=== PATIENT | female | born 1945 | race Caucasian/White ===

== ENCOUNTER 2016-05-31 06:17 | Inpatient (IN) | payer MEDICARE, OTHER ==
[~2016-05-31] VITALS: Ht 165.1 cm; Wt 95.5 kg
[~2016-05-31 06:17] MED LIST: ASPI-676 PO; INSU100C SQ; LEVEM SC; LISI20TA11 PO; MYCO500T13 PO; PRED1TAB2 PO; PRO20 PO; TACR1CAP26 PO
[2016-05-31] MEDS ORDERED: morphine 4 MG/ML VIAL IV STA (06:53)
[2016-05-31] MEDS ORDERED: SOD CHLORIDE 0.9% 500 ML IV STA ×2 (06:53→07:49)
[2016-05-31] MEDS ORDERED: METOCLOPRAMIDE 10 MG INJ IV STA (06:53)
[2016-05-31 07:13] LABS: ADD SCAN DIFF NO
[2016-05-31 07:16] LABS: BASOPHILS % 0.3 % (0.0-2.0); EOSINOPHILS # 0.2 10^3/ul (0.0-0.5); EOSINOPHILS % 2.2 % (0.0-7.0); HEMATOCRIT 35.4 % (37.0-47.0); HEMOGLOBIN 12.6 g/dl (12.0-16.0); LYMPHOCYTES # 1.3 10^3/ul (0.8-2.9); LYMPHOCYTES % 13.9 % (15.0-51.0); MEAN CORPUSCULAR HEMOGLOBIN 29.6 pg (29.0-33.0); MEAN CORPUSCULAR HGB CONC 35.6 g/dl (32.0-37.0); MEAN CORPUSCULAR VOLUME 83.3 fl (82.0-101.0); MEAN PLATELET VOLUME 10.6 fl (7.4-10.4); MONOCYTE # 0.7 10^3/ul (0.3-0.9); MONOCYTES % 8.1 % (0.0-11.0); NEUTROPHIL # 6.8 10^3/ul (1.6-7.5); NEUTROPHILS % 75.1 % (39.0-77.0); PLATELET COUNT 273 10^3/UL (140-415); RED BLOOD COUNT 4.25 10^6/ul (4.20-5.40)
[2016-05-31 07:26] LABS: INR 0.89; PT RATIO 0.9
[2016-05-31 07:27] LABS: PARTIAL THROMBOPLASTIN TIME 27.2 Sec (25.0-35.0)
[2016-05-31 07:31] LABS: ALBUMIN 3.8 g/dl (3.3-4.9); ALBUMIN/GLOBULIN RATIO 1.46; BILIRUBIN,INDIRECT 0.3 mg/dl (0-1.1); BILIRUBIN,TOTAL 0.3 mg/dl (0.2-1.3); CALCIUM 9.3 mg/dl (8.4-10.2); CREATININE 0.63 mg/dl (0.44-1.00); TOTAL PROTEIN 6.4 g/dl (6.1-8.1)
--- NOTE | 2016-05-31 07:38 | RADRPT ---
PROCEDURE: XR Chest. CLINICAL INDICATION: Pain TECHNIQUE: Single frontal chest x-ray. COMPARISON: 10/13/2015 FINDINGS: No acute infiltrate, pleural effusion or pneumothorax is identified. Cardiomediastinal silhouette i s within normal limits. Aortic atherosclerotic calcification is noted. The osseous structures are remarkable for degenerative spondylosis of the spine. IMPRESSION: 1. No evidence of acute cardiopulmonary process. 2. Aortic atherosclerosis. RPTAT: EE .Isreal Gray MD, MD Date Time Electronically viewed and signed by .Isreal Gray MD, MD on 05/31/2016 07:37 .R/
[2016-05-31] MEDS ORDERED: LISI40TA9 PO (07:43)
[2016-05-31] MEDS ORDERED: MYCO500T13 PO (07:44)
--- NOTE | 2016-05-31 07:44 | RADRPT ---
PROCEDURE: CT Abdomen and Pelvis without contrast. CLINICAL INDICATION: Right-sided pain TECHNIQUE: CT of the abdomen and pelvis was performed on a multi-detector scanner without IV contr ast. Coronal and sagittal images were reformatted from the axial data set. One or more of the foll owing dose reduction techniques were used: automated exposure control, adjustment of the mA and/or kV according to patient size, use of iterative reconstruction technique. CTDI = 22.76 mGy. DLP = 14 10.95 mGy-cm. COMPARISON: CT, 11/27/2011 FINDINGS: CT abdomen: 12 mm pulmonary nodule is seen laterally in the right middle lobe (3-12), previously measuring 10 mm . The heart size is normal, without pericardial effusion. Coronary arterial calcifications are not ed. Gallbladder is surgically absent. Gallbladder, biliary tree, pancreas, spleen and adrenal glan ds are unremarkable. There is chronic moderate to severe bilateral renal atrophy. No urolithiasis or obstructive uropathy is identified. Small hiatal hernia is noted. The stomach is otherwise ashley sly unremarkable. The aorta is of normal caliber. Aortic vascular calcifications are present. There is no retroperit schulte lymphadenopathy. The puma hepatis region is clear. CT pelvis: No bowel obstruction, free intraperitoneal air or abscess is identified. There is no diverticulosis , diverticulitis, colitis or appendicitis. Urinary bladder is grossly unremarkable. Multiple calci fied uterine fibroids are seen measuring up to 3 cm. Normal appearing renal transplant is identifie d in the left pelvis. No pelvic mass, free fluid or lymphadenopathy is identified. The surrounding osseous structures are remarkable for degenerative spondylosis of the spine. No ost eolytic or osteoblastic lesion is detected. IMPRESSION: 1. 12 mm pulmonary nodule is identified in the right middle lobe, demonstrating slight interval inc rease in size when compared to the prior CT from 2011 - given slow rate of growth, findings more lik ting represent a benign process, though CT followup in 12 months is recommended to confirm continued stability. 2. Coronary arterial and aortoiliac atherosclerotic calcifications are present. 3. Normal appearing renal transplant is identified in the left pelvis. The patient's [place] kidney s demonstrate moderate to severe chronic atrophy. 4. Gallbladder is surgically absent. 5. Small hiatal hernia is noted. 6. Calcified uterine fibroids are seen measuring up to 3 cm. RPTAT: EE .Isreal Gray MD, MD Date Time Electronically viewed and signed by .Isreal Gray MD, MD on 05/31/2016 07:44 .R/
[2016-05-31] MEDS ORDERED: PRED1TAB2 PO (07:45)
[2016-05-31 09:10] LABS: ADD UMIC YES; URINE BILIRUBIN (Dip) NEGATIVE (NEGATIVE); URINE BLOOD (Dip) NEGATIVE (NEGATIVE); URINE COLOR LT. YELLOW (YELLOW); URINE GLUCOSE (Dip) NEGATIVE (NEGATIVE); URINE KETONES (Dip) NEGATIVE (NEGATIVE); URINE LEUKOCYTE ESTERASE (Dip) NEGATIVE (NEGATIVE); URINE NITRITE (Dip) NEGATIVE (NEGATIVE); URINE TOTAL PROTEIN (Dip) 1+ (NEGATIVE); URINE UROBILINOGEN (Dip) 0.2 E.U./dL (0.1-1.0)
[2016-05-31] MEDS ORDERED: TACR1CAP26 PO (09:29)
[2016-05-31] MEDS ORDERED: TACR0.5C18 PO (09:29)
[2016-05-31] MEDS ORDERED: NIFE30TA60 PO (09:30)
[2016-05-31] MEDS ORDERED: PRAV40TA76 PO (09:31)
[2016-05-31] MEDS ORDERED: ESOM40CA PO (09:31)
[2016-05-31] MEDS ORDERED: LEVO50TA71 PO (09:31)
[2016-05-31] MEDS ORDERED: LEVEM SC (09:36)
[2016-05-31] MEDS ORDERED: INSU200I SQ (09:37)
[2016-05-31 09:41] LABS: URINE RBCS 0-2 /HPF (0)
[2016-05-31 11:28] LABS: CALCIUM 8.8 mg/dl (8.4-10.2); CREATININE 0.62 mg/dl (0.44-1.00); POTASSIUM 4.9 mmol/L (3.5-5.1)
[2016-05-31] MEDS ORDERED: ONDANSETRON 4 MG INJ IV PRN (13:30)
[2016-05-31] MEDS ORDERED: ACETAMINOPHEN 325 MG TAB PO PRN (13:30)
--- NOTE | 2016-05-31 13:33 | ERA ---
ER Documentation Chief Complaint Date/Time DATE: 05/31/16 TIME: 13:27 Chief Complaint ap that radiates to the back nausea and dizziness HPI 71-year-old female presenting with right upper quadrant pain for 1 week. She states it radiates to her back. The pain is constant, 8 out of 10, aching and stabbing, unrelieved with anything. No exacerbating factors. Mild nausea but no vomiting. She denies diarrhea but does endorse constipation. She states she has not had this before. She has not had any associated fevers or chills. ROS All systems reviewed and are negative except as per history of present illness. Medications Home Meds Reported Medications Insulin Lispro (Humalog Kwikpen) 200 Unit/1 Ml Insuln.pen, 0 SQ AC BREAKFAST DINNER, EA SLIDING SCALE 05/31/16 Insulin Detemir (Levemir) 100 Unit/1 Ml Vial, 35 UNIT SC QHS, VIAL 05/31/16 Esomeprazole Mag Trihydrate (Nexium) 40 Mg Capsule.dr, 40 MG PO DAILY, #30 CAP 05/31/16 Pravastatin Sodium* (Pravastatin Sodium*) 40 Mg Tablet, 40 MG PO HS, TAB 05/31/16 Levothyroxine Sodium* (Levoxyl*) 50 Mcg Tablet, 50 MCG PO BEFORE BREAKFAST, #30 TAB 05/31/16 Nifedipine* (Nifedipine ER*) 30 Mg Tablet.sa, 30 MG PO DAILY, TAB.SA 05/31/16 Tacrolimus* (Prograf*) 1 Mg Capsule, 4 MG PO QAM, CAP 05/31/16 Tacrolimus* (Prograf*) 0.5 Mg Capsule, 4.5 MG PO QPM, CAP 05/31/16 Prednisone* (Prednisone*) 1 Mg Tablet, 2 MG PO DAILY, TAB 05/31/16 Mycophenolate Mofetil* (Cellcept*) 500 Mg Tablet, 500 MG PO BID, #60 TAB 05/31/16 Lisinopril* (Lisinopril*) 40 Mg Tablet, 40 MG PO DAILY, #30 TAB 05/31/16 Aspirin (Ashley Child) 81 Mg Chew, 81 MG PO DAILY 03/18/10 Discontinued Reported Medications Nifedipine* (Procardia*) 20 Mg Cap, 20 MG PO BID, CAP PER PATIENTS SON 10/13/15 Lisinopril* (Lisinopril*) 20 Mg Tablet, 20 MG PO DAILY, #30 TAB 10/13/15 Tacrolimus* (Prograf*) 1 Mg Capsule, 3 MG PO BID, CAP 10/13/15 Mycophenolate Mofetil* (Cellcept*) 500 Mg Tablet, 250 MG PO BID 03/18/10 Prednisone* (Prednisone*) 1 Mg Tablet, 2 MG PO BID 03/18/10 Discontinued Scripts Insulin Detemir (Levemir) 100 Unit/1 Ml Vial, 24 UNIT SC QHS for 30 Days, VIAL 4 Refills Prov:KEM STRAUSS S. 10/14/15 Insulin Lispro (Humalog) 100 Unit/1 Ml Cartridge, 8 UNIT SQ AC BREAKFAST DINNER for 30 Days, 4 Refills Prov:KEM STRAUSS S. 10/14/15 Allergies Allergies: Coded Allergies: No Known Drug Allergies (Verified Allergy, Mild, 05/31/16) PMhx/Soc History of Surgery: Yes (Cholecystectomy) Anesthesia Reaction: No Hx Neurological Disorder: No Hx Respiratory Disorders: No Hx Cardiac Disorders: Yes (HTN, DM) Hx Psychiatric Problems: No (ANXIETY) Hx Miscellaneous Medical Probl: Yes ( hypothyroidism, dyslipidemia) Hx Alcohol Use: No Hx Substance Use: No Hx Tobacco Use: No Smoking Status: Never smoker FmHx Family History: No diabetes Physical Exam Vitals Vital Signs Date Time Temp Pulse Resp B/P Pulse Ox O2 Delivery O2 Flow Rate FiO2 05/31/16 08:10 71 16 170/68 99 Room Air 05/31/16 06:22 98.6 71 14 162/70 97 Physical Exam Const: Well-appearing, obese, no distress Head: Atraumatic Eyes: Normal Conjunctiva ENT: Normal External Ears, Nose and Mouth. Neck: Full range of motion.No meningismus. Resp: Clear to auscultation bilaterally Cardio: Regular rate and rhythm, no murmurs Abd: Soft, right upper quadrant tenderness to palpation, no rebound or guarding, non distended. Normal bowel sounds Skin: No petechiae or rashes Back: No midline or flank tenderness Ext: No cyanosis, or edema Neur: Awake and alert Psych: Normal Mood and Affect Result Diagram: 05/31/16 0703 05/31/16 1045 Results 24 hrs Laboratory Tests Test 05/31/16 07:03 05/31/16 08:50 05/31/16 10:45 White Blood Count 9.010^3/ul Red Blood Count 4.2510^6/ul Hemoglobin 12.6g/dl Hematocrit 35.4% Mean Corpuscular Volume 83.3fl Mean Corpuscular Hemoglobin 29.6pg Mean Corpuscular Hemoglobin Concent 35.6g/dl Red Cell Distribution Width 12.0% Platelet Count 30381^3/UL Mean Platelet Volume 10.6fl Neutrophils % 75.1% Lymphocytes % 13.9% Monocytes % 8.1% Eosinophils % 2.2% Basophils % 0.3% Nucleated Red Blood Cells % 0.0/100WBC Neutrophils # 6.810^3/ul Lymphocytes # 1.310^3/ul Monocytes # 0.710^3/ul Eosinophils # 0.210^3/ul Basophils # 0.010^3/ul Nucleated Red Blood Cells # 0.010^3/ul Prothrombin Time 12.0Sec Prothrombin Time Ratio 0.9 INR International Normalized Ratio 0.89 Activated Partial Thromboplast Time 27.2Sec Sodium Level 124mmol/L 125mmol/L Potassium Level 5.0mmol/L 4.9mmol/L Chloride Level 96mmol/L 98mmol/L Carbon Dioxide Level 21mmol/L 23mmol/L Anion Gap 12 9 Blood Urea Nitrogen 16mg/dl 14mg/dl Creatinine 0.63mg/dl 0.62mg/dl Glucose Level 202mg/dl 242mg/dl Lactic Acid Level 1.7mmol/L Calcium Level 9.3mg/dl 8.8mg/dl Total Bilirubin 0.3mg/dl Direct Bilirubin 0.00mg/dl Indirect Bilirubin 0.3mg/dl Aspartate Amino Transf (AST/SGOT) 26IU/L Alanine Aminotransferase (ALT/SGPT) 29IU/L Alkaline Phosphatase 135IU/L Total Protein 6.4g/dl Albumin 3.8g/dl Globulin 2.60g/dl Albumin/Globulin Ratio 1.46 Lipase 49U/L Urine Color LT. YELLOW Urine Clarity CLEAR Urine pH 6.5 Urine Specific [place] 1.010 Urine Ketones NEGATIVE Urine Nitrite NEGATIVE Urine Bilirubin NEGATIVE Urine Urobilinogen 0.2 E.U./dL Urine Leukocyte Esterase NEGATIVE Urine Microscopic RBC 0-2/HPF Urine Microscopic WBC 0-2/HPF Urine Epithelial Cells OCCASIONAL Urine Hemoglobin NEGATIVE Urine Glucose NEGATIVE% Urine Total Protein 1+ Current Medications Medications (Trade) Dose Ordered Sig/Anil Route PRN Reason Start Time Stop Time Status Last Admin Dose Admin Sodium Chloride (NS) 500 ml @ 500 mls/hr Q1H STAT IV 05/31/16 06:53 05/31/16 07:52 DC 05/31/16 07:54 Morphine Sulfate (morphine) 4 mg ONCE STAT IV 05/31/16 06:53 05/31/16 06:55 DC 05/31/16 07:55 Metoclopramide HCl 10 mg 10 mg ONCE STAT IV 05/31/16 06:53 05/31/16 06:55 DC 05/31/16 07:55 Sodium Chloride (NS) 500 ml @ 500 mls/hr Q1H STAT IV 05/31/16 07:49 05/31/16 08:48 DC 05/31/16 08:06 Ondansetron HCl (Zofran Inj) 4 mg ER BRIDGE PRN IV NAUSEA AND/OR VOMITING 05/31/16 13:30 06/01/16 13:29 Acetaminophen (Tylenol Tab) 650 mg ER BRIDGE PRN PO MILD PAIN/FEVER 05/31/16 13:30 06/01/16 13:29 Procedures/MDM EMERGENT LABS AND DIAGNOSTIC STUDIES: Lab Results above were reviewed and interpreted by me. CBC unremarkable BMP shows hyponatremia and hyperglycemia Repeat BMP shows hyponatremia Urinalysis unremarkable Radiology Results as interpreted by Radiology below were reviewed by Lana Diallo MD: CT abdomen and pelvis: IMPRESSION: 1. 12 mm pulmonary nodule is identified in the right middle lobe, demonstrating slight interval increase in size when compared to the prior CT from 2012 - given slow rate of growth, findings more likely represent a benign process, though CT followup in 12 months is recommended to confirm continued stability. 2. Coronary arterial and aortoiliac atherosclerotic calcifications are present. 3. Normal appearing renal transplant is identified in the left pelvis. The patient's [place] kidneys demonstrate moderate to severe chronic atrophy. 4. Gallbladder is surgically absent. 5. Small hiatal hernia is noted. 6. Calcified uterine fibroids are seen measuring up to 3 cm. Chest x-ray shows no acute abnormalities Initial Nursing notes reviewed. Previous Medical Records requested via the Electronic Health Record. EMERGENCY DEPARTMENT COURSE / MEDICAL DECISION MAKING: Patient is presenting with right upper quadrant pain for 1 week with associated nausea. Vitals are stable and she is afebrile and well-appearing. I have a low suspicion for an acute surgical abdomen. Differential includes but is not limited to cholangitis, biliary obstruction, pancreatitis, hepatitis, lower lobe pneumonia, gastritis, colitis, cardiac pathology, aortic dissection, ureterolithiasis, pyelonephritis. Labs were ordered to evaluate for above and were notable only for hyponatremia of unknown etiology. Patient seems euvolemic on exam. However 1 L of IV fluids was given without any effect on the sodium. Chest Xray ordered to evaluate for pneumonia and was read as normal by radiology. CT of the abdomen/pelvis was ordered and showed no acute pathology or specifically no specific etiology for her pain. I have a low suspicion for ischemic bowel or aortic dissection or ruptured aneurysm. Given the patient's continued hyponatremia of unknown etiology, I will admit her for further workup and management. Patient remained stable while in the ED. Accepting Care Team: Current data and ongoing care discussed. Time: Time of admission Primary Provider: Dixie Consulting: none Outstanding Data: none Departure Diagnosis: Primary Impression: Right upper quadrant pain Additional Impression: Hyponatremia Condition: MELANI Jeong MD May 31, 2016 13:33
[2016-05-31] MEDS ORDERED: MAGNESIUM HYDROXIDE 30ML CUP PO PRN (15:00)
[2016-05-31] MEDS ORDERED: BISACODYL (EC) 5 MG TAB PO PRN (15:00)
[2016-05-31] MEDS ORDERED: HYDROCODONE/APAP (5/325) TAB PO PRN (15:00)
[2016-05-31] MEDS ORDERED: NACL 0.9% 3 ML SYG IV SCH (15:00)
[2016-05-31 15:15] VITALS: BP 172/73; PULSE 74; RESP 18
[2016-05-31 16:00] VITALS: PULSE 65
[2016-05-31 16:16] VITALS: Ht 165.1 cm; Wt 95.5 kg
[2016-05-31] MEDS ORDERED: hydrALAzine 20 MG INJ IV PRN (16:30)
--- NOTE | 2016-05-31 16:54 | HP ---
DATE OF ADMISSION: 05/31/2016 TIME OF EVALUATION: 1315. REASON FOR ADMISSION: Abdominal pain, nausea. CONSULTATIONS: Dr. Lew Mcguire, Nephrology. HISTORY OF PRESENT ILLNESS: This is a 71-year-old female with past medical history of end-stage renal disease status post kidney transplant, essential hypertension, type 2 diabetes mellitus, and obesity who came to the emergency room with a chief complaint of abdominal pain with associated nausea and 1 episode of nonbilious, nonbloody vomiting and dizziness. The patient denied any fevers or chills. The patient denied any chest pain. She was complaining of constipation. Denied any dysuria or hematuria. In the emergency room, the patient was noticed to have significant hyponatremia with a sodium of 124. The patient underwent a CT scan of the abdomen and pelvis that was negative for any acute intra-abdominal findings. The CT scan showed surgical absence of gallbladder and normal appearing renal transplant in the left pelvis. The patient's chest x-ray was negative for any acute cardiopulmonary findings. In the emergency room, the patient was treated with IV normal saline and analgesics with improvement of the patient's symptoms. The patient had a repeat BMP done that showed a sodium of only 125. PAST MEDICAL HISTORY: 1. End-stage renal disease. Status post renal transplant. 2. Type 2 diabetes mellitus. 3. Essential hypertension. 4. Obesity. 5. Dyslipidemia. 6. Hypothyroidism. PAST SURGICAL HISTORY: Renal transplant. HOME MEDICATIONS: 1. Lisinopril 40 mg p.o. daily. 2. Nifedipine 30 mg p.o. daily. 3. Pravastatin 40 mg p.o. at bedtime. 4. Aspirin 81 mg p.o. daily. 5. Nexium 40 mg p.o. daily. 6. Levemir insulin 35 units subcutaneously at bedtime. 7. Insulin Lispro subcutaneously before breakfast and dinner as per sliding scale. 8. Synthroid 50 mcg before breakfast. HOME MEDICATIONS: 1. Prednisone 1 mg p.o. daily. 2. CellCept 500 mg p.o. b.i.d. 3. Prograf 4.5 mg p.o. q.p.m. 4. Prograf 4 mg p.o. q.a.m. ALLERGIES: NO KNOWN DRUG ALLERGIES. SOCIAL HISTORY: The patient lives at home with her family. No history of tobacco, alcohol or illicit drug use. REVIEW OF SYSTEMS: A 12-point review of systems was negative other than what is mentioned in history of present illness. PHYSICAL EXAMINATION: VITAL SIGNS: Temperature 98.6, pulse 60, respiratory rate 16, blood pressure 134/60, oxygen saturation 100% on room air. GENERAL: This is a morbidly obese female lying in bed in no apparent distress. HEENT: Head normocephalic and atraumatic. Eyes: Anicteric sclerae. Conjunctivae clear. ENT: Nasal septum is midline. Oral mucosa is dry. NECK: Short with increased neck circumference. Unable to visualize any neck veins. CARDIAC: Regular rate and rhythm. S1, S2 heard. RESPIRATORY: Bilaterally diminished breath sounds. No adventitious breath sounds. No use of accessory muscles of respiration. CARDIOVASCULAR: Abdomen obese. Diffuse tenderness. No guarding or peritoneal signs. GENITOURINARY: Deferred. EXTREMITIES: No cyanosis, no clubbing. Trace bilateral pedal edema. Peripheral pulses palpable. NEUROLOGIC: The patient is awake, alert and oriented. Cranial nerves are grossly intact. LABORATORY AND DIAGNOSTIC DATA: WBC 9.0, hemoglobin 12.6, hematocrit 35.4, platelet count 223. Sodium 127, potassium 4.9, chloride 98, carbon dioxide 20, anion gap 9, BUN 14, creatinine 0.62, glucose 242, calcium 8.8. PT 12.0, INR 0.898, PTT 27.2. Urinalysis: Urine nitrite negative, leukocyte esterase negative, urine total protein 1+. Chest x-ray: No acute cardiopulmonary findings. CT scan of the abdomen and pelvis: A 12 mm pulmonary nodule in the right middle lobe. Normal study, slight interval increase in size when compared to prior CT from 2012. Coronary artery revealed an aortoiliac atherosclerotic calcifications. Normal appearing renal transplant is identified in the left pelvis. The patient's [place] kidney is rated as moderate to severe chronic atrophy. Gallbladder surgically absent. Small hiatal hernia noted. Calcified uterine fibroids as seen measuring up to 3 cm. IMPRESSION: This is a 71-year-old female with multiple comorbidities who came to the emergency room with chief complaint of abdominal pain, who was found to have significant hyponatremia who will be admitted here for further treatment and evaluation. ASSESSMENT AND PLAN: 1. Acute abdominal pain. Etiology unclear. CT scan of the abdomen and pelvis negative for any acute intraabdominal findings. The patient also had associated nausea and 1 episode of vomiting. The abdominal pain could be from some viral gastroenterologic etiology versus gastritis. The patient will be started on histamine 2 receptor blockers. The patient's diet will be advanced as tolerated. If the patient continues to have abdominal pain, will consider gastroenterology evaluation. 2. Hyponatremia. Etiology unclear. The patient has prior history of getting admitted with hyponatremia. The patient's sodium will be corrected gradually. A nephrology consult will be obtained. 3. End-stage renal disease, status post renal transplant. The patient's renal function is within normal limits. Will avoid nephrotoxic medications. We will obtain a nephrology consult. Resume the patient's immunosuppressants. 4. Essential hypertension. The patient's home antihypertensives will be resumed. The patient will also be started on p.r.n. antihypertensives for any systolic blood pressure readings greater than 160 mmHg. 5. Type 2 diabetes mellitus. The patient will be started on sliding scale insulin along with Lantus insulin and premeal insulin. A hemoglobin A1c will be obtained to evaluate the blood glucose control over the past few weeks. 6. Dyslipidemia. The patient's statins will be resumed. A fasting lipid panel will be obtained. Plan. The patient will be admitted to inpatient telemetry floor. The patient will be started on DVT prophylaxis and gastrointestinal prophylaxis. The patient will remain FULL CODE. Activities will be as tolerated. The patient's further management will be based on clinical course, the results of diagnostic studies, and inputs from consultants. Based on the patient's clinical presentation, she most probably requires at least 1 midnight's stay for further management and evaluation of her clinical presentation. The case and management of this patient was fully discussed with Dr. Colin. KARINA COLIN MD, AM/ESTHER Conf#: [id number] DID#: [id number] FLAVIO
[2016-05-31] MEDS ORDERED: DEXTROSE 50% 50 ML SYRINGE IV PRN ×2 (17:00)
[2016-05-31] MEDS ORDERED: GLUCAGON 1 MG INJ IM PRN (17:00)
[2016-05-31] MEDS ORDERED: GLUCOSE GEL 15 GRAM TUBE BUCCAL PRN (17:00)
[2016-05-31] MEDS ORDERED: GLUCOSE GEL 15 GRAM TUBE PO PRN ×2 (17:00)
[2016-05-31] MEDS: SOD CHLORIDE 0.9% 1,000 ML IV SCH (17:38)
[2016-05-31] MEDS: INSULIN ASPART [NOVOLOG] 3 ML PEN SC SCH ×3 (17:56→21:01)
--- NOTE | 2016-05-31 18:15 | CONS ---
DATE OF ADMISSION: 05/31/2016 DATE OF CONSULTATION: 05/31/2016 TYPE OF CONSULTATION: Nephrology. REASON FOR CONSULTATION: 1. Hyponatremia with a sodium of 124. 2. Rule out acute versus acute on chronic hyponatremia. REFERRING PHYSICIAN: Hermilo Colin MD HISTORY OF PRESENT ILLNESS: This is a 71-year-old female who has a past medical history of hyperten cam, diabetes mellitus, obesity, dyslipidemia, hypothyroidism, history of previous end-stage renal disease on hemodialysis now status post renal transplant and has been off dialysis. The patient pre sented to the emergency room with a complaint of abdominal pain with associated nausea and 1 episode of nonbilious, nonbloody vomiting and dizziness. The patient is noted to have severe hyponatremia with a sodium down to 124. She underwent a CT scan of the abdomen and pelvis that was negative for any acute intraabdominal findings. The CT scan showed surgical absence of gallbladder. The patient was treated with IV normal saline and she improved her symptoms, but the patient continues t o be hyponatremic with a sodium down to 125 today. Her other electrolyte shows a potassium of 4.9. She is slightly hyperglycemic with a blood sugar of 242. Her lactic acid has been unremarkable an d renal has been consulted for moderate to severe hyponatremia. REVIEW OF SYSTEMS: As per HPI. PAST MEDICAL HISTORY: Notable for hypertension, diabetes mellitus, hypothyroidism, history of dysli pidemia, history of previous kidney transplant in 2003. PAST SURGICAL HISTORY: History of kidney transplant. SOCIAL HISTORY: No smoking, alcohol or recreational drug use. FAMILY HISTORY: Not available. PHYSICAL EXAMINATION: VITAL SIGNS: Temperature 98.6, heart rate 64, respirations 16, blood pressure 134/60, saturation 10 0% on room air. GENERAL: Awake, alert, in no distress. HEENT: Normal. Oropharynx clear. NECK: Supple, no JVD, no lymphadenopathy. LUNGS: Clear to auscultation. No crackles, no wheezes. HEART: S1, S2, with regular rhythm, no murmur. ABDOMEN: Soft, nontender, nondistended. Bowel sounds are present. EXTREMITIES: No clubbing, cyanosis, or edema. NEUROLOGICAL: Nonfocal, intact. PSYCHIATRIC: Appropriate affect and mood. LABORATORY DATA AND DIAGNOSTIC IMAGING: PT 12, PTT 27.2, INR 0.89. Sodium is 124, potassium 5, chl oride 96, bicarbonate is 21, BUN 16, creatinine 0.6, glucose 202. Lactic acid 1.7. LFTs are normal . Albumin 3.8. Urinalysis shows 1+ total protein. WBC 9, hemoglobin 12.6, platelet count 273. CT abdomen and pelvis negative for any acute intraabdominal findings, coronary atherosclerosis and 1 2 mm pulmonary nodule was identified in the right middle lobe, demonstrating a slight interval incre ase in size when compared to the prior CT from 2012. Chest x-ray 1 view portable shows no evidence of acute cardiopulmonary disease, aortic atheroscleros is. IMPRESSION: This is a 71-year-old female with: 1. Moderate to severe hyponatremia with a sodium down to 124, rule out syndrome of inappropriate an tidiuretic hormone secretion. 2. Right pulmonary nodule more than 1 cm in size, slightly increased in size compared to the previo us CT chest. 3. History of hypertension. 4. History of hyperlipidemia. 5. History of diabetes mellitus type 2. 6. Acute abdominal pain. 7. History of prior end-stage renal disease, now status post renal transplant, currently on immunos uppressions. The patient's renal function has been normal. PLAN: Thank you Dr. Colin for this consultation. 1. I will order the patient's urine studies including urine sodium, urine protein creatinine ratio, urine eosinophils and urine uric acid. 2. Continue the patient's current immunosuppression including Prograf 4 mg p.o. q.a.m., Prograf 4.5 mg p.o. q.p.m. 3. Prednisone 2 mg p.o. daily. 4. Continue the other home medications for Synthroid, lisinopril, insulin for diabetes management. 5. Reglan p.r.n. nausea, vomiting. 6. Continue the CellCept 500 mg p.o. b.i.d. 7. Currently the patient's renal function has been normal, so I will order the patient's CT chest w ith contrast to follow up on the right pulmonary nodule since the nodule has been increasing in size and it is more than 1 cm in size, so it is better to rule out any intrapulmonary malignancy. 8. The patient currently seen in the telemetry floor and she will be followed up along with the [facility]. Dictated By: KRISSY MUNIZ MD, KP/ESTHER Conf#: [id number] [facility]#: [id number]
[2016-05-31 18:37] VITALS: BP 141/65; PULSE 73; RESP 18
[2016-05-31 19:46] VITALS: BP 105/52; RESP 18
[2016-05-31 20:00] VITALS: PULSE 74
[2016-05-31] MEDS ORDERED: INSULIN GLARGINE [LANtus] 3 ML PEN SC SCH (20:00)
[2016-05-31] MEDS: ATORVASTATIN 20 MG TAB PO SCH (20:52)
[2016-05-31] MEDS: POLYETHYLENE GLYCOL 17 GM PACKET PO SCH (20:53)
[2016-05-31] MEDS: MYCOPHENOLATE 250 MG CAP PO SCH (20:53)
[2016-05-31] MEDS: FAMOTIDINE 20 MG TAB PO SCH (20:53)
[2016-05-31] MEDS: TACROLIMUS 0.5 MG CAP PO SCH (20:54)
[2016-05-31] MEDS: TACROLIMUS 1 MG CAP PO SCH (20:54)
[2016-05-31] MEDS: ACETAMINOPHEN 325 MG TAB PO PRN (23:40)
[2016-05-31 23:52] VITALS: BP 154/68; RESP 16
[2016-06-01] VITALS (10 sets, daily range): BP systolic 146–172; BP diastolic 58–71; PULSE 64–78; RESP 18–19
[2016-06-01] MEDS: SOD CHLORIDE 0.9% 1,000 ML IV SCH ×2 (06:05→17:53)
[2016-06-01] MEDS: LEVOTHYROXINE 50 MCG TAB PO SCH (06:09)
[2016-06-01 07:06] LABS: ADD SCAN DIFF NO
[2016-06-01 07:11] LABS: BASOPHILS % 0.5 % (0.0-2.0); EOSINOPHILS # 0.2 10^3/ul (0.0-0.5); EOSINOPHILS % 2.5 % (0.0-7.0); HEMATOCRIT 35.2 % (37.0-47.0); HEMOGLOBIN 12.1 g/dl (12.0-16.0); LYMPHOCYTES # 1.2 10^3/ul (0.8-2.9); LYMPHOCYTES % 20.9 % (15.0-51.0); MEAN CORPUSCULAR HEMOGLOBIN 29.2 pg (29.0-33.0); MEAN CORPUSCULAR HGB CONC 34.4 g/dl (32.0-37.0); MEAN CORPUSCULAR VOLUME 84.8 fl (82.0-101.0); MEAN PLATELET VOLUME 10.6 fl (7.4-10.4); MONOCYTE # 0.6 10^3/ul (0.3-0.9); MONOCYTES % 10.1 % (0.0-11.0); NEUTROPHIL # 3.9 10^3/ul (1.6-7.5); NEUTROPHILS % 65.5 % (39.0-77.0); PLATELET COUNT 240 10^3/UL (140-415); RED BLOOD COUNT 4.15 10^6/ul (4.20-5.40); RED CELL DISTRIBUTION WIDTH 12.4 % (11.5-14.5); WHITE BLOOD COUNT 5.9 10^3/ul (4.8-10.8)
[2016-06-01 07:34] LABS: ALBUMIN 3.4 g/dl (3.3-4.9); POTASSIUM 4.5 mmol/L (3.5-5.1)
[2016-06-01 07:35] LABS: CHOL/HDL RATIO 3.5 RATIO; MAGNESIUM 1.6 mg/dl (1.7-2.5); PHOSPHORUS 2.8 mg/dl (2.5-4.9)
[2016-06-01 07:36] LABS: BILIRUBIN,INDIRECT 0.3 mg/dl (0-1.1); BILIRUBIN,TOTAL 0.3 mg/dl (0.2-1.3); CREATININE 0.67 mg/dl (0.44-1.00)
[2016-06-01 07:37] LABS: ALBUMIN/GLOBULIN RATIO 1.21; TOTAL PROTEIN 6.2 g/dl (6.1-8.1)
[2016-06-01 07:38] LABS: CALCIUM 9.1 mg/dl (8.4-10.2)
[2016-06-01] MEDS: INSULIN ASPART [NOVOLOG] 3 ML PEN SC SCH ×7 (08:05→21:25)
[2016-06-01 08:06] LABS: THYROID STIMULATING HORMONE 7.1 MIU/L (0.465-4.680)
[2016-06-01] MEDS: POLYETHYLENE GLYCOL 17 GM PACKET PO SCH ×2 (08:44→20:41)
[2016-06-01] MEDS: FAMOTIDINE 20 MG TAB PO SCH ×2 (08:44→20:41)
[2016-06-01] MEDS: MYCOPHENOLATE 250 MG CAP PO SCH ×2 (08:44→20:42)
[2016-06-01] MEDS: LISINOPRIL 20 MG TAB PO SCH (08:45)
[2016-06-01] MEDS: predniSONE 1 MG TAB PO SCH (08:50)
[2016-06-01] MEDS: TACROLIMUS 1 MG CAP PO SCH ×2 (08:50→20:41)
[2016-06-01] MEDS: ASPIRIN 81 MG TAB PO SCH (08:50)
[2016-06-01] MEDS ORDERED: NIFEdipine (XL) 30 MG TAB PO SCH (09:00)
--- NOTE | 2016-06-01 13:05 | CONS ---
Date/Time of Note Date/Time of Note DATE: 06/01/16 TIME: 12:57 Assessment/Plan Assessment/Plan Additional Assessment/Plan 1. Moderate to severe hyponatremia with a sodium down to 124, rule out syndrome of inappropriate antidiuretic hormone secretion. 2. Right pulmonary nodule more than 1 cm in size, slightly increased in size compared to the previous CT chest. 3. History of hypertension. 4. History of hyperlipidemia. 5. History of diabetes mellitus type 2. 6. Acute abdominal pain. 7. History of prior end-stage renal disease, now status post renal transplant, currently on immunosuppressions. The patient's renal function has been normal. PLAN: Cr normal, Na improving, continue NS at current rare,expecting Na to improve slowly CT chest with contrast has been ordered for pulmonary nodule, will need IVF hydration due to use of IV contrast with Ct chest Bp stable will follow up Consultation Date/Type/Reason Admit Date/Time May 31, 2016 at 13:08 Initial Consult Date May Type of Consultation: NEPHROLOGY Reason for Consultation Hyponatremia, Referring Provider: ANTONINA WALKER MD 24 HR Interval Summary Free Text/Dictation Na improved to 132, cr stable, Exam/Review of Systems Vital Signs Vitals Vital Signs Date Time Temp Pulse Resp B/P Pulse Ox O2 Delivery O2 Flow Rate FiO2 06/01/16 11:21 98.2 72 19 172/70 96 05/31/16 18:37 Room Air Intake and Output 05/31/16 05/31/16 06/01/16 15:00 23:00 07:00 Intake Total 1000 ml 480 ml 1120 ml Output Total 2 ml Balance 1000 ml 478 ml 1120 ml Exam GENERAL: Awake, alert, in no distress. HEENT: Normal. Oropharynx clear. NECK: Supple, no JVD, no lymphadenopathy. LUNGS: Clear to auscultation. No crackles, no wheezes. HEART: S1, S2, with regular rhythm, no murmur. ABDOMEN: Soft, nontender, nondistended. Bowel sounds are present. renal allograft in place EXTREMITIES: No clubbing, cyanosis, or edema. NEUROLOGICAL: Nonfocal, intact. PSYCHIATRIC: Appropriate affect and mood. Results Result Diagram: 06/01/16 0645 06/01/16 0645 Results 24 hrs Laboratory Tests Test 05/31/16 17:52 05/31/16 20:10 06/01/16 02:30 06/01/16 06:00 Bedside Glucose 246 H 236 H 326 H Urine Eosinophils % 0.0 Urine Random Creatinine < 12.40 L Urine Random Sodium 71 Urine Protein/Creatinine Ratio 2.00 Urine Total Protein 25.0 H Test 06/01/16 06:45 06/01/16 08:02 06/01/16 12:33 White Blood Count 5.9 # Red Blood Count 4.15 L Hemoglobin 12.1 Hematocrit 35.2 L Mean Corpuscular Volume 84.8 Mean Corpuscular Hemoglobin 29.2 Mean Corpuscular Hemoglobin Concent 34.4 Red Cell Distribution Width 12.4 Platelet Count 240 Mean Platelet Volume 10.6 H Neutrophils % 65.5 Lymphocytes % 20.9 Monocytes % 10.1 Eosinophils % 2.5 Basophils % 0.5 Nucleated Red Blood Cells % 0.0 Neutrophils # 3.9 Lymphocytes # 1.2 Monocytes # 0.6 Eosinophils # 0.2 Basophils # 0.0 Nucleated Red Blood Cells # 0.0 Sodium Level 132 L Potassium Level 4.5 Chloride Level 100 Carbon Dioxide Level 24 Anion Gap 13 Blood Urea Nitrogen 14 Creatinine 0.67 Glucose Level 334 H Hemoglobin A1c 9.5 H Calcium Level 9.1 Phosphorus Level 2.8 Magnesium Level 1.6 L Total Bilirubin 0.3 Direct Bilirubin 0.00 Indirect Bilirubin 0.3 Aspartate Amino Transf (AST/SGOT) 21 Alanine Aminotransferase (ALT/SGPT) 36 Alkaline Phosphatase 131 H Total Protein 6.2 Albumin 3.4 Globulin 2.80 Albumin/Globulin Ratio 1.21 Triglycerides Level 192 H Cholesterol Level 175 LDL Cholesterol, Calculated 87 HDL Cholesterol 50 Cholesterol/HDL Ratio 3.5 Thyroid Stimulating Hormone (TSH) 7.100 H Bedside Glucose 328 H 304 H Medications Medications Current Medications Lorazepam (Ativan) 0.5 mg Q6H PRN IV ANXIETY; Start 05/31/16 at 15:00 Ondansetron HCl (Zofran Inj) 4 mg Q6H PRN IV NAUSEA AND/OR VOMITING; Start at 15:00 Acetaminophen (Tylenol Tab) 650 mg Q6H PRN PO PAIN LEVEL 1-3 OR FEVER Last administered on 05/31/16t 23:40; Admin Dose 650 MG; Start 05/31/16 at 15:00 Acetaminophen/ Hydrocodone Bitart ([place] (5/325)) 1 tab Q6H PRN PO PAIN LEVEL 4 -6; Start 05/31/16 at 15:00 Morphine Sulfate (morphine) 2 mg Q4H PRN IV PAIN LEVEL 7-10; Start 05/31/16 at 15:00 Magnesium Hydroxide (Milk Of Mag) 30 ml DAILY PRN PO CONSTIPATION; Start at 15:00 Bisacodyl (Dulcolax) 5 mg DAILY PRN PO CONSTIPATION; Start 05/31/16 at 15:00 Famotidine 20 mg 20 mg Q12 PO Last administered on 06/01/16 08:44; Admin Dose 20 MG; Start 05/31/16 at 21:00 Sodium Chloride (NS) 1,000 ml @ 75 mls/hr [id number] IV Last administered on 06/01 06:05; Admin Dose 75 MLS/HR; Start 05/31/16 at 15:30 Aspirin (Aspirin) 81 mg DAILY PO Last administered on 06/01/16 08:50; Admin Dose 81 MG; Start 06/01/16 at 09:00 Lisinopril (Zestril) 40 mg DAILY PO Last administered on 06/01/16 08:45; Admin Dose 40 MG; Start 06/01/16 at 09:00 Mycophenolate Mofetil (Cellcept) 500 mg BID PO Last administered on 06/01/16 08:44; Admin Dose 500 MG; Start 05/31/16 at 21:00 Nifedipine (Procardia Xl) 30 mg DAILY PO Last administered on 06/01/16 08:45; Admin Dose 30 MG; Start 06/01/16 at 09:00 Prednisone (Prednisone) 2 mg DAILY PO Last administered on 06/01/16 08:50; Admin Dose 2 MG; Start 06/01/16 at 09:00 Tacrolimus (Prograf) 0.5 mg QPM PO Last administered on 05/31/16 20:54; Admin Dose 0.5 MG; Start 05/31/16 at 21:00 Tacrolimus (Prograf) 4 mg QAM PO Last administered on 06/01/16 08:50; Admin Dose 4 MG; Start 06/01/16 at 09:00 Atorvastatin Calcium (Lipitor) 20 mg DAILY@21 PO Last administered on 20:52; Admin Dose 20 MG; Start 05/31/16 at 21:00 Polyethylene Glycol (Miralax) 17 gm BID PO Last administered on 06/01/16 08:44 ; Admin Dose 17 GM; Start 05/31/16 at 21:00 Hydralazine HCl (Apresoline) 10 mg Q6H PRN IV SBP>160; Start 05/31/16 at 16:30 Miscellaneous Information 1 ea NOTE XX ; Start 05/31/16 at 17:00 Glucose (Glutose) 15 gm Q15M PRN PO DECREASED GLUCOSE; Start 05/31/16 at 17:00 Glucose (Glutose) 22.5 gm Q15M PRN PO DECREASED GLUCOSE; Start 05/31/16 at 17: 00 Dextrose (D50w Syringe) 25 ml Q15M PRN IV DECREASED GLUCOSE; Start 05/31/16 at 17:00 Dextrose (D50w Syringe) 50 ml Q15M PRN IV DECREASED GLUCOSE; Start 05/31/16 at 17:00 Glucagon (Glucagen) 1 mg Q15M PRN IM DECREASED GLUCOSE; Start 05/31/16 at 17:00 Glucose (Glutose) 15 gm Q15M PRN BUCCAL DECREASED GLUCOSE; Start 05/31/16 at 17 :00 Tacrolimus (Prograf) 4 mg QPM PO Last administered on 05/31/16t 20:54; Admin Dose 4 MG; Start 05/31/16 at 21:00 Diagnostic Test (Pha) (Accu-Chek) 1 ea 02 XX ; Start 06/02/16 at 02:00 Insulin Glargine (Lantus) 16 unit DAILY@20 SC ; Start 06/01/16 at 20:00 KRISSY MUNIZ MD Jun 01, 2016 13:05
--- NOTE | 2016-06-01 15:12 | RADRPT ---
PROCEDURE: CT Chest with contrast. CLINICAL INDICATION: Right lung nodule, dyspnea TECHNIQUE: CT of the chest was performed on a multi-detector scanner following the uncomplicated I V administration of 90 cc of Visipaque 320. Coronal and sagittal images were reformatted from the a xial data set. One or more of the following dose reduction techniques were used: automated exposure control, adjustment of the mA and/or kV according to patient size, use of iterative reconstruction technique. CTDI = 16.61 mGy. DLP = 588.25 mGy-cm. COMPARISON: CT, 11/27/2011 FINDINGS: 12 mm right middle lobe pulmonary nodule is again seen, mildly increased in size when compared to th e prior CT from 2012. There is question of central cavitation within this nodule. No additional pu lmonary nodule or mass lesion is identified. There is no acute infiltrate, pleural effusion or pneu mothorax. The central tracheobronchial tree is clear. There is mild cardiomegaly. Small amount of pericardial fluid is noted. Coronary arterial and aort ic atherosclerotic calcifications are present. No thoracic aortic aneurysm or dissection is identif ied. No mediastinal, hilar, axillary or supraclavicular lymphadenopathy is identified. Thyroid gla nd is mildly enlarged and multinodular. Gallbladder is surgically absent. There is chronic severe bilateral renal atrophy. The surrounding osseous structures are remarkable for degenerative spondylosis of the spine. No osteolytic or oste oblastic lesion is detected. IMPRESSION: 1. Again noted is a 12 mm right pulmonary nodule, with question of central cavitation, mildly incre ased in size when compared to prior CT from 2011. [address] followup in 12 months is suggested t o assess continued stability. 2. There is mild cardiomegaly and small amount of pericardial fluid. Coronary arterial and aortic atherosclerotic calcifications are present. 3. Thyroid gland is mildly enlarged and multinodular. 4. No lymphadenopathy or focal acute infiltrate is seen. 5. Gallbladder is surgically absent. 6. There is chronic severe atrophy in the bilateral kidneys. RPTAT: EE .Isreal Gray MD, MD Date Time Electronically viewed and signed by .Isreal Grya MD, MD on 06/01/2016 15:12 .R/
--- NOTE | 2016-06-01 17:07 | PN ---
Date/Time of Note Date/Time of Note DATE: 06/01/16 TIME: 17:01 Assessment/Plan VTE Prophylaxis VTE Prophylaxis Intervention: SCD's Lines/Catheters IV Catheter Type (from Nrs): Peripheral IV Urinary Cath still in place: No Assessment/Plan Assessment/Plan 1. Abdominal pain. likely muscular, norco prn 2. Hyponatremia. stable. 3. End-stage renal disease, status post renal transplant. The patient's renal function within normal limits. Will avoid nephrotoxic medications. We will obtain a nephrology consult. Resume the patient's immunosuppressants. 4. Essential hypertension. increase nifedipine 5. Type 2 diabetes mellitus. increase insulin. 6. Dyslipidemia. Subjective 24 Hr Interval Summary Free Text/Dictation much less abdominal pain at right side, band like Exam/Review of Systems Vital Signs Vitals Vital Signs Date Time Temp Pulse Resp B/P Pulse Ox O2 Delivery O2 Flow Rate FiO2 06/01/16 16:17 78 06/01/16 11:21 98.2 19 172/70 96 05/31/16 18:37 Room Air Intake and Output 05/31/16 05/31/16 06/01/16 15:00 23:00 07:00 Intake Total 1000 ml 480 ml 1120 ml Output Total 2 ml Balance 1000 ml 478 ml 1120 ml Exam Constitutional: alert, oriented, well developed Psych: nl mood/affect, no complaints Head: atraumatic, normocephalic Eyes: EOMI, PERRL, nl conjunctiva, nl lids ENMT: nl external ears & nose, nl lips & teeth, nl nasal mucosa & septum Neck: non-tender, supple Respiratory: clear to auscultation, normal air movement, No congested cough, No crackles/rales, No diminished breath sounds, No intercostal retraction, No labored breathing, No other, No respirations, No tactile fremitus, No wheezing Cardiovascular: nl pulses, regular rate and rhythm, No S3, No S4, No bruits, No diastolic murmur, No edema, No gallop, No irregular rhythm, No jugular venous distention (JVD), No murmurs/extra sounds, No other, No rub, No systolic murmur Gastrointestinal: nl liver, spleen, soft, No ascites, No bowel sounds, No distended, No firm, No hepatomegaly, No mass , No other, No rebound or guarding, No splenomegaly, No surgical scars Musculoskeletal: nl extremities to inspection Extremities: normal pulses, No calf tenderness, No clubbing, No cyanosis, No edema, No other, No palpable cord, No pitting pedal edema, No tenderness Neurological: [employer] II-XII intact, nl mental status, nl speech, nl strength Results Result Diagram: 06/01/16 0645 06/01/16 0645 Results 24 hrs Laboratory Tests Test 05/31/16 17:52 05/31/16 20:10 06/01/16 02:30 06/01/16 06:00 Bedside Glucose 246 H 236 H 326 H Urine Eosinophils % 0.0 Urine Random Creatinine < 12.40 L Urine Random Sodium 71 Urine Protein/Creatinine Ratio 2.00 Urine Total Protein 25.0 H Test 06/01/16 06:45 06/01/16 08:02 06/01/16 12:33 White Blood Count 5.9 # Red Blood Count 4.15 L Hemoglobin 12.1 Hematocrit 35.2 L Mean Corpuscular Volume 84.8 Mean Corpuscular Hemoglobin 29.2 Mean Corpuscular Hemoglobin Concent 34.4 Red Cell Distribution Width 12.4 Platelet Count 240 Mean Platelet Volume 10.6 H Neutrophils % 65.5 Lymphocytes % 20.9 Monocytes % 10.1 Eosinophils % 2.5 Basophils % 0.5 Nucleated Red Blood Cells % 0.0 Neutrophils # 3.9 Lymphocytes # 1.2 Monocytes # 0.6 Eosinophils # 0.2 Basophils # 0.0 Nucleated Red Blood Cells # 0.0 Sodium Level 132 L Potassium Level 4.5 Chloride Level 100 Carbon Dioxide Level 24 Anion Gap 13 Blood Urea Nitrogen 14 Creatinine 0.67 Glucose Level 334 H Hemoglobin A1c 9.5 H Calcium Level 9.1 Phosphorus Level 2.8 Magnesium Level 1.6 L Total Bilirubin 0.3 Direct Bilirubin 0.00 Indirect Bilirubin 0.3 Aspartate Amino Transf (AST/SGOT) 21 Alanine Aminotransferase (ALT/SGPT) 36 Alkaline Phosphatase 131 H Total Protein 6.2 Albumin 3.4 Globulin 2.80 Albumin/Globulin Ratio 1.21 Triglycerides Level 192 H Cholesterol Level 175 LDL Cholesterol, Calculated 87 HDL Cholesterol 50 Cholesterol/HDL Ratio 3.5 Thyroid Stimulating Hormone (TSH) 7.100 H Free Thyroxine 0.89 Bedside Glucose 328 H 304 H Medications Medications Current Medications Lorazepam (Ativan) 0.5 mg Q6H PRN IV ANXIETY; Start 05/31/16 at 15:00 Ondansetron HCl (Zofran Inj) 4 mg Q6H PRN IV NAUSEA AND/OR VOMITING; Start at 15:00 Acetaminophen (Tylenol Tab) 650 mg Q6H PRN PO PAIN LEVEL 1-3 OR FEVER Last administered on 05/31/16 23:40; Admin Dose 650 MG; Start 05/31/16 at 15:00 Acetaminophen/ Hydrocodone Bitart ([place] (5/325)) 1 tab Q6H PRN PO PAIN LEVEL 4 -6; Start 05/31/16 at 15:00 Morphine Sulfate (morphine) 2 mg Q4H PRN IV PAIN LEVEL 7-10; Start 05/31/16 at 15:00 Magnesium Hydroxide (Milk Of Mag) 30 ml DAILY PRN PO CONSTIPATION; Start at 15:00 Bisacodyl (Dulcolax) 5 mg DAILY PRN PO CONSTIPATION; Start 05/31/16 at 15:00 Famotidine 20 mg 20 mg Q12 PO Last administered on 06/01/16 08:44; Admin Dose 20 MG; Start 05/31/16 at 21:00 Sodium Chloride (NS) 1,000 ml @ 75 mls/hr [id number] IV Last administered on 06/01 06:05; Admin Dose 75 MLS/HR; Start 05/31/16 at 15:30 Aspirin (Aspirin) 81 mg DAILY PO Last administered on 06/01/16 08:50; Admin Dose 81 MG; Start 06/01/16 at 09:00 Lisinopril (Zestril) 40 mg DAILY PO Last administered on 06/01/16 08:45; Admin Dose 40 MG; Start 06/01/16 at 09:00 Mycophenolate Mofetil (Cellcept) 500 mg BID PO Last administered on 06/01/16 08:44; Admin Dose 500 MG; Start 05/31/16 at 21:00 Prednisone (Prednisone) 2 mg DAILY PO Last administered on 06/01/16 08:50; Admin Dose 2 MG; Start 06/01/16 at 09:00 Tacrolimus (Prograf) 0.5 mg QPM PO Last administered on 05/31/16 20:54; Admin Dose 0.5 MG; Start 05/31/16 at 21:00 Tacrolimus (Prograf) 4 mg QAM PO Last administered on 06/01/16 08:50; Admin Dose 4 MG; Start 06/01/16 at 09:00 Atorvastatin Calcium (Lipitor) 20 mg DAILY@21 PO Last administered on 20:52; Admin Dose 20 MG; Start 05/31/16 at 21:00 Polyethylene Glycol (Miralax) 17 gm BID PO Last administered on 06/01/16 08:44 ; Admin Dose 17 GM; Start 05/31/16 at 21:00 Hydralazine HCl (Apresoline) 10 mg Q6H PRN IV SBP>160; Start 05/31/16 at 16:30 Miscellaneous Information 1 ea NOTE XX ; Start 05/31/16 at 17:00 Glucose (Glutose) 15 gm Q15M PRN PO DECREASED GLUCOSE; Start 05/31/16 at 17:00 Glucose (Glutose) 22.5 gm Q15M PRN PO DECREASED GLUCOSE; Start 05/31/16 at 17: 00 Dextrose (D50w Syringe) 25 ml Q15M PRN IV DECREASED GLUCOSE; Start 05/31/16 at 17:00 Dextrose (D50w Syringe) 50 ml Q15M PRN IV DECREASED GLUCOSE; Start 05/31/16 at 17:00 Glucagon (Glucagen) 1 mg Q15M PRN IM DECREASED GLUCOSE; Start 05/31/16 at 17:00 Glucose (Glutose) 15 gm Q15M PRN BUCCAL DECREASED GLUCOSE; Start 05/31/16 at 17 :00 Tacrolimus (Prograf) 4 mg QPM PO Last administered on 05/31/16 20:54; Admin Dose 4 MG; Start 05/31/16 at 21:00 Diagnostic Test (Pha) (Accu-Chek) 1 ea 02 XX ; Start 06/02/16 at 02:00 Insulin Glargine (Lantus) 25 unit DAILY@20 SC ; Start 06/01/16 at 20:00 Nifedipine (Procardia Xl) 60 mg DAILY PO ; Start 06/02/16 at 09:00 CRISTOPHER MCFARLAND MD Jun 01, 2016 17:07
[2016-06-01] MEDS: ONDANSETRON 4 MG INJ IV PRN (19:14)
[2016-06-01] MEDS ORDERED: INSULIN GLARGINE [LANtus] 3 ML PEN SC SCH ×2 (20:00)
[2016-06-01] MEDS: TACROLIMUS 0.5 MG CAP PO SCH (20:40)
[2016-06-01] MEDS: ATORVASTATIN 20 MG TAB PO SCH (20:50)
[2016-06-01] MEDS: morphine 2 MG INJ IV PRN (21:27)
[2016-06-02] VITALS (9 sets, daily range): BP systolic 99–151; BP diastolic 51–67; PULSE 63–82; RESP 19
[2016-06-02] MEDS: ACCU-CHEK XX SCH (02:37)
[2016-06-02] MEDS: LORAZEPAM 2 MG INJ IV PRN (02:51)
[2016-06-02] MEDS: SOD CHLORIDE 0.9% 1,000 ML IV SCH ×2 (02:55→20:45)
[2016-06-02] MEDS: morphine 2 MG INJ IV PRN (03:00)
[2016-06-02] MEDS: LEVOTHYROXINE 50 MCG TAB PO SCH (06:59)
[2016-06-02] MEDS: INSULIN ASPART [NOVOLOG] 3 ML PEN SC SCH ×7 (08:24→20:48)
[2016-06-02 08:25] LABS: POTASSIUM 4.4 mmol/L (3.5-5.1)
[2016-06-02 08:28] LABS: CREATININE 0.68 mg/dl (0.44-1.00)
[2016-06-02 08:29] LABS: CALCIUM 9.4 mg/dl (8.4-10.2)
[2016-06-02] MEDS: POLYETHYLENE GLYCOL 17 GM PACKET PO SCH ×2 (08:54→20:46)
[2016-06-02] MEDS: FAMOTIDINE 20 MG TAB PO SCH ×2 (08:55→20:46)
[2016-06-02] MEDS: MYCOPHENOLATE 250 MG CAP PO SCH ×2 (08:55→20:46)
[2016-06-02] MEDS: TACROLIMUS 1 MG CAP PO SCH ×2 (08:55→20:46)
[2016-06-02] MEDS: ASPIRIN 81 MG TAB PO SCH (08:55)
[2016-06-02] MEDS: predniSONE 1 MG TAB PO SCH (08:55)
[2016-06-02] MEDS: LISINOPRIL 20 MG TAB PO SCH (08:56)
[2016-06-02] MEDS: NIFEdipine (XL) 60 MG TAB PO SCH (08:56)
--- NOTE | 2016-06-02 11:59 | CONS ---
Date/Time of Note Date/Time of Note DATE: 06/02/16 TIME: 11:50 Assessment/Plan Assessment/Plan Additional Assessment/Plan 1. Moderate to severe hyponatremia with a sodium down to 124, rule out syndrome of inappropriate antidiuretic hormone secretion. 2. Right pulmonary nodule more than 1 cm in size, slightly increased in size compared to the previous CT chest. 3. History of hypertension. 4. History of hyperlipidemia. 5. History of diabetes mellitus type 2. 6. Acute abdominal pain. 7. History of prior end-stage renal disease, now status post renal transplant, currently on immunosuppressions. The patient's renal function has been normal. PLAN: Cr normal, Na improving, Na 133 today, continue IVF for one more day CT chest with contrast showedpulmonary nodule with central cavitation - pt is on immunosuppression for her kidney transplant, need ID opinion about this nodule with cavitation due to immunosuppressive state Bp stable will follow up Consultation Date/Type/Reason Admit Date/Time May 31, 2016 at 13:08 Initial Consult Date May Type of Consultation: NEPHROLOGY Referring Provider: ANTONINA WALKER MD 24 HR Interval Summary Free Text/Dictation Na improved to 133 today, Cr normal, CT chest with contrast showed pulmonary nodule with central cavitation Exam/Review of Systems Vital Signs Vitals Vital Signs Date Time Temp Pulse Resp B/P Pulse Ox O2 Delivery O2 Flow Rate FiO2 06/02/16 11:43 98.5 74 19 99/51 96 06/01/16 16:00 Room Air Intake and Output 06/01/16 06/01/16 06/02/16 15:00 23:00 07:00 Intake Total 650 ml Balance 650 ml Results Result Diagram: 06/01/16 0645 06/02/16 0630 Results 24 hrs Laboratory Tests Test 06/01/16 12:33 06/01/16 17:12 06/01/16 20:38 06/02/16 02:36 Bedside Glucose 304 H 309 H 251 H 332 H Test 06/02/16 06:30 06/02/16 08:12 06/02/16 11:34 Sodium Level 133 L Potassium Level 4.4 Chloride Level 98 Carbon Dioxide Level 23 Anion Gap 16 Blood Urea Nitrogen 13 Creatinine 0.68 Glucose Level 333 H Calcium Level 9.4 Magnesium Level 1.5 L Bedside Glucose 314 H 297 H Medications Medications Current Medications Lorazepam (Ativan) 0.5 mg Q6H PRN IV ANXIETY Last administered on 06/02/16 02: 51; Admin Dose 0.5 MG; Start 05/31/16 at 15:00 Ondansetron HCl (Zofran Inj) 4 mg Q6H PRN IV NAUSEA AND/OR VOMITING Last administered on 06/01/16 19:14; Admin Dose 4 MG; Start 05/31/16 at 15:00 Acetaminophen (Tylenol Tab) 650 mg Q6H PRN PO PAIN LEVEL 1-3 OR FEVER Last administered on 05/31/16 23:40; Admin Dose 650 MG; Start 05/31/16 at 15:00 Acetaminophen/ Hydrocodone Bitart ([place] (5/325)) 1 tab Q6H PRN PO PAIN LEVEL 4 -6; Start 05/31/16 at 15:00 Morphine Sulfate (morphine) 2 mg Q4H PRN IV PAIN LEVEL 7-10 Last administered on 06/02/16 03:00; Admin Dose 2 MG; Start 05/31/16 at 15:00 Magnesium Hydroxide (Milk Of Mag) 30 ml DAILY PRN PO CONSTIPATION; Start at 15:00 Bisacodyl (Dulcolax) 5 mg DAILY PRN PO CONSTIPATION; Start 05/31/16 at 15:00 Famotidine 20 mg 20 mg Q12 PO Last administered on 06/02/16 08:55; Admin Dose 20 MG; Start 05/31/16 at 21:00 Sodium Chloride (NS) 1,000 ml @ 75 mls/hr [id number] IV Last administered on 06/02 02:55; Admin Dose 75 MLS/HR; Start 05/31/16 at 15:30 Aspirin (Aspirin) 81 mg DAILY PO Last administered on 06/02/16 08:55; Admin Dose 81 MG; Start 06/01/16 at 09:00 Lisinopril (Zestril) 40 mg DAILY PO Last administered on 06/02/16 08:56; Admin Dose 40 MG; Start 06/01/16 at 09:00 Mycophenolate Mofetil (Cellcept) 500 mg BID PO Last administered on 06/02/16 08:55; Admin Dose 500 MG; Start 05/31/16 at 21:00 Prednisone (Prednisone) 2 mg DAILY PO Last administered on 06/02/16 08:55; Admin Dose 2 MG; Start 06/01/16 at 09:00 Tacrolimus (Prograf) 0.5 mg QPM PO Last administered on 06/01/16 20:40; Admin Dose 0.5 MG; Start 05/31/16 at 21:00 Tacrolimus (Prograf) 4 mg QAM PO Last administered on 06/02/16 08:55; Admin Dose 4 MG; Start 06/01/16 at 09:00 Atorvastatin Calcium (Lipitor) 20 mg DAILY@21 PO Last administered on 20:50; Admin Dose 20 MG; Start 05/31/16 at 21:00 Polyethylene Glycol (Miralax) 17 gm BID PO Last administered on 06/02/16 08:54 ; Admin Dose 17 GM; Start 05/31/16 at 21:00 Hydralazine HCl (Apresoline) 10 mg Q6H PRN IV SBP>160; Start 05/31/16 at 16:30 Miscellaneous Information 1 ea NOTE XX ; Start 05/31/16 at 17:00 Glucose (Glutose) 15 gm Q15M PRN PO DECREASED GLUCOSE; Start 05/31/16 at 17:00 Glucose (Glutose) 22.5 gm Q15M PRN PO DECREASED GLUCOSE; Start 05/31/16 at 17: 00 Dextrose (D50w Syringe) 25 ml Q15M PRN IV DECREASED GLUCOSE; Start 05/31/16 at 17:00 Dextrose (D50w Syringe) 50 ml Q15M PRN IV DECREASED GLUCOSE; Start 05/31/16 at 17:00 Glucagon (Glucagen) 1 mg Q15M PRN IM DECREASED GLUCOSE; Start 05/31/16 at 17:00 Glucose (Glutose) 15 gm Q15M PRN BUCCAL DECREASED GLUCOSE; Start 05/31/16 at 17 :00 Tacrolimus (Prograf) 4 mg QPM PO Last administered on 06/01/16 20:41; Admin Dose 4 MG; Start 05/31/16 at 21:00 Diagnostic Test (Pha) (Accu-Chek) 1 ea 02 XX Last administered on 06/02/16 02: 37; Admin Dose 1 EA; Start 06/02/16 at 02:00 Insulin Glargine (Lantus) 25 unit DAILY@20 SC Last administered on 06/01/16 21 :20; Admin Dose 25 UNIT; Start 06/01/16 at 20:00 Nifedipine (Procardia Xl) 60 mg DAILY PO Last administered on 06/02/16 08:56; Admin Dose 60 MG; Start 06/02/16 at 09:00 KRISSY MUNIZ MD Jun 02, 2016 11:59
--- NOTE | 2016-06-02 15:31 | CONS ---
DATE OF ADMISSION: 05/31/2016 DATE OF CONSULTATION: 06/02/2016 TYPE OF CONSULTATION: Infectious Disease. REASON FOR CONSULTATION: Antibiotic management. HISTORY OF PRESENT ILLNESS: Mariela Adam is a 71-year-old female who is admitted with abdo di pain and is being seen for antibiotic management. Her past problems include: 1. End-stage renal disease, status post renal transplant. 2. Essential hypertension. 3. Adult-onset diabetes mellitus. 4. Obesity. 5. Dyslipidemia. 6. Hypothyroidism. 7. Immunosuppressants including prednisone 1 mg, CellCept 500 mg b.i.d., Prograf 4.5 mg in the p.m. and 4 mg in the a.m. Acutely, she comes in with chief complaint of abdominal pain with nausea and vomiting without fever or chills. She has no chest pain, but was complaining of constipation. She is also significantly h yponatremic with a sodium of 124. She underwent a CT scan of the abdomen and pelvis that was negati ve for any acute intraabdominal findings. CT scan shows surgical absence of the gallbladder, normal appearing renal transplant in the left pelvis. Chest x-ray was negative for any acute cardiopulmon wilian findings. She was treated with IV normal saline and her sodium only 125. PAST MEDICAL HISTORY: Operations as outlined. FAMILY HISTORY: Noncontributory. SOCIAL HISTORY: She does not smoke, drink or abuse drugs. PAST SURGICAL HISTORY: She has renal transplant. ALLERGIES: NONE TO PENICILLIN, SULFA OR FOODS. MEDICATIONS: Per chart. REVIEW OF SYSTEMS: As per HPI. PHYSICAL EXAMINATION: GENERAL: The patient is a morbidly obese female who is alert, responsive, in no acute distress. VITAL SIGNS: Stable. She is afebrile. SKIN: Without generalized rash. HEENT: Within normal limits. NECK: Supple. LYMPH NODES: None palpable. CHEST: Decreased breath sounds at the bases. HEART: Without murmur or gallop. ABDOMEN: Soft, nontender, without organosplenomegaly or masses. EXTREMITIES: Without cyanosis, clubbing, or edema. The patient's abdomen is obese, diffusely tende r without guarding or peritoneal signs. EXTREMITIES: Without cyanosis, clubbing, or edema. She has some trace pedal edema. Pulses are pal pable. RECTAL AND GENITAL: Deferred. NEUROLOGIC: No focal neurological abnormalities. ANCILLARY LABORATORY DATA: Her white count is 9000, H and H of 12.6 and 35.4, platelet count 223,00 0. BUN and creatinine are 14/0.62. Urine nitrite is negative, leukocyte esterase is negative urine protein is 1+. IMAGING: Chest x-ray shows no acute cardiopulmonary findings. CT scan of the abdomen and pelvis sh ows a 12 mm pulmonary nodule in the right middle lobe, otherwise normal study. Coronary artery showed aortoiliac atherosclerotic calcifications. Normal appearing renal transplant is identified in the left pelvis. The [place] kidney shows severe chronic atrophy, gallbladder surg papo is surgically removed. A small hiatal hernia noted, calcified uterine fibroid measuring up to 3 cm. IMPRESSION AND PLAN: In conclusion, the patient has an acute abdominal pain, but nothing on CT scan to suggest an acute abdomen. Gastroenterology was called. Her white count was 9.0. Today, it is 5.9. BUN and creatinine 13/0.68. Urine is negative for nitrite and leukocyte esterase. CT scan of the chest shows 12 mm right pulmonary nodule with question of central cavitation. A follow up in 1 2 months is suggested, but there is no evidence of true cavitation. The patient was seen by Dr. Duane Mcguire in renal consultation, rule out syndrome of inappropriate ADH. At the present time, the patient has no fever and will continue her off of antibiotic therapy being aware that she is on immu nosuppressant therapy as well. I will dictate my findings to the hospitalist and also to Dr. Lillian Mcguire. Dictated By: ROLANDO DEAL MD, JD/ESTHER Conf#: [id number] DID#: [id number]
--- NOTE | 2016-06-02 16:05 | PN ---
Date/Time of Note Date/Time of Note DATE: 06/02/16 TIME: 16:01 Assessment/Plan VTE Prophylaxis VTE Prophylaxis Intervention: SCD's Lines/Catheters IV Catheter Type (from Nrs): Peripheral IV Urinary Cath still in place: No Assessment/Plan Assessment/Plan 1. Abdominal pain. likely muscular, norco prn 2. Hyponatremia. stable. 3. End-stage renal disease, status post renal transplant. The patient's renal function within normal limits. Will avoid nephrotoxic medications. We will obtain a nephrology consult. Resume the patient's immunosuppressants. 4. Essential hypertension. increase nifedipine 5. Type 2 diabetes mellitus. increase insulin. 6. Dyslipidemia. 7. Right lung 12 mm nodule, called by Dr. Maynor dumont is concerned about this lesion and will do further work up while patient is in the hospital. Follow up with Dr. Mcguire. Subjective 24 Hr Interval Summary Free Text/Dictation right flank pain is much better Exam/Review of Systems Vital Signs Vitals Vital Signs Date Time Temp Pulse Resp B/P Pulse Ox O2 Delivery O2 Flow Rate FiO2 06/02/16 12:40 77 06/02/16 11:43 98.5 19 99/51 96 06/01/16 16:00 Room Air Intake and Output 06/01/16 06/01/16 06/02/16 15:00 23:00 07:00 Intake Total 650 ml Balance 650 ml Exam Constitutional: alert, oriented, well developed Psych: nl mood/affect, no complaints Head: atraumatic, normocephalic Eyes: EOMI, nl conjunctiva, nl lids ENMT: nl external ears & nose, nl lips & teeth, nl nasal mucosa & septum Neck: non-tender, supple Respiratory: clear to auscultation, normal air movement, No congested cough, No crackles/rales, No diminished breath sounds, No intercostal retraction, No labored breathing, No other, No respirations, No tactile fremitus, No wheezing Cardiovascular: nl pulses, regular rate and rhythm, No S3, No S4, No bruits, No diastolic murmur, No edema, No gallop, No irregular rhythm, No jugular venous distention (JVD), No murmurs/extra sounds, No other, No rub, No systolic murmur Gastrointestinal: nl liver, spleen, soft, No ascites, No bowel sounds, No distended, No firm, No hepatomegaly, No mass , No other, No rebound or guarding, No splenomegaly, No surgical scars Musculoskeletal: nl extremities to inspection Extremities: normal pulses, No calf tenderness, No clubbing, No cyanosis, No edema, No other, No palpable cord, No pitting pedal edema, No tenderness Neurological: CONE CHOCOLATE DIPPER II-XII intact, nl mental status, nl speech, nl strength Skin: nl turgor Results Result Diagram: 06/01/16 0645 06/02/16 0630 Results 24 hrs Laboratory Tests Test 06/01/16 17:12 06/01/16 20:38 06/02/16 02:36 06/02/16 06:30 Bedside Glucose 309 H 251 H 332 H Sodium Level 133 L Potassium Level 4.4 Chloride Level 98 Carbon Dioxide Level 23 Anion Gap 16 Blood Urea Nitrogen 13 Creatinine 0.68 Glucose Level 333 H Calcium Level 9.4 Magnesium Level 1.5 L Test 06/02/16 08:12 06/02/16 11:34 Bedside Glucose 314 H 297 H Medications Medications Current Medications Lorazepam (Ativan) 0.5 mg Q6H PRN IV ANXIETY Last administered on 06/02/16 02: 51; Admin Dose 0.5 MG; Start 05/31/16 at 15:00 Ondansetron HCl (Zofran Inj) 4 mg Q6H PRN IV NAUSEA AND/OR VOMITING Last administered on 06/01/16 19:14; Admin Dose 4 MG; Start 05/31/16 at 15:00 Acetaminophen (Tylenol Tab) 650 mg Q6H PRN PO PAIN LEVEL 1-3 OR FEVER Last administered on 05/31/16 23:40; Admin Dose 650 MG; Start 05/31/16 at 15:00 Acetaminophen/ Hydrocodone Bitart ([place] (5/325)) 1 tab Q6H PRN PO PAIN LEVEL 4 -6; Start 05/31/16 at 15:00 Morphine Sulfate (morphine) 2 mg Q4H PRN IV PAIN LEVEL 7-10 Last administered on 06/02/16 03:00; Admin Dose 2 MG; Start 05/31/16 at 15:00 Magnesium Hydroxide (Milk Of Mag) 30 ml DAILY PRN PO CONSTIPATION; Start at 15:00 Bisacodyl (Dulcolax) 5 mg DAILY PRN PO CONSTIPATION; Start 05/31/16 at 15:00 Famotidine 20 mg 20 mg Q12 PO Last administered on 06/02/16 08:55; Admin Dose 20 MG; Start 05/31/16 at 21:00 Sodium Chloride (NS) 1,000 ml @ 75 mls/hr [id number] IV Last administered on 06/02 02:55; Admin Dose 75 MLS/HR; Start 05/31/16 at 15:30 Aspirin (Aspirin) 81 mg DAILY PO Last administered on 06/02/16 08:55; Admin Dose 81 MG; Start 06/01/16 at 09:00 Lisinopril (Zestril) 40 mg DAILY PO Last administered on 06/02/16 08:56; Admin Dose 40 MG; Start 06/01/16 at 09:00 Mycophenolate Mofetil (Cellcept) 500 mg BID PO Last administered on 06/02/16 08:55; Admin Dose 500 MG; Start 05/31/16 at 21:00 Prednisone (Prednisone) 2 mg DAILY PO Last administered on 06/02/16 08:55; Admin Dose 2 MG; Start 06/01/16 at 09:00 Tacrolimus (Prograf) 0.5 mg QPM PO Last administered on 06/01/16 20:40; Admin Dose 0.5 MG; Start 05/31/16 at 21:00 Tacrolimus (Prograf) 4 mg QAM PO Last administered on 06/02/16 08:55; Admin Dose 4 MG; Start 06/01/16 at 09:00 Atorvastatin Calcium (Lipitor) 20 mg DAILY@21 PO Last administered on 20:50; Admin Dose 20 MG; Start 05/31/16 at 21:00 Polyethylene Glycol (Miralax) 17 gm BID PO Last administered on 06/02/16 08:54 ; Admin Dose 17 GM; Start 05/31/16 at 21:00 Hydralazine HCl (Apresoline) 10 mg Q6H PRN IV SBP>160; Start 05/31/16 at 16:30 Miscellaneous Information 1 ea NOTE XX ; Start 05/31/16 at 17:00 Glucose (Glutose) 15 gm Q15M PRN PO DECREASED GLUCOSE; Start 05/31/16 at 17:00 Glucose (Glutose) 22.5 gm Q15M PRN PO DECREASED GLUCOSE; Start 05/31/16 at 17: 00 Dextrose (D50w Syringe) 25 ml Q15M PRN IV DECREASED GLUCOSE; Start 05/31/16 at 17:00 Dextrose (D50w Syringe) 50 ml Q15M PRN IV DECREASED GLUCOSE; Start 05/31/16 at 17:00 Glucagon (Glucagen) 1 mg Q15M PRN IM DECREASED GLUCOSE; Start 05/31/16 at 17:00 Glucose (Glutose) 15 gm Q15M PRN BUCCAL DECREASED GLUCOSE; Start 05/31/16 at 17 :00 Tacrolimus (Prograf) 4 mg QPM PO Last administered on 06/01/16 20:41; Admin Dose 4 MG; Start 05/31/16 at 21:00 Diagnostic Test (Pha) (Accu-Chek) 1 ea 02 XX Last administered on 06/02/16 02: 37; Admin Dose 1 EA; Start 06/02/16 at 02:00 Nifedipine (Procardia Xl) 60 mg DAILY PO Last administered on 06/02/16 08:56; Admin Dose 60 MG; Start 06/02/16 at 09:00 Insulin Glargine (Lantus) 30 unit DAILY@20 SC ; Start 06/02/16 at 20:00 Linagliptin (Tradjenta) 5 mg DAILY PO ; Start 06/02/16 at 16:00 CRISTOPHER MCFARLAND MD Jun 02, 2016 16:05
[2016-06-02] MEDS: LINAGLIPTIN 5 MG TABLET PO SCH (17:24)
[2016-06-02] MEDS: ONDANSETRON 4 MG INJ IV PRN (19:46)
[2016-06-02] MEDS ORDERED: INSULIN GLARGINE [LANtus] 3 ML PEN SC SCH (20:00)
[2016-06-02] MEDS: ATORVASTATIN 20 MG TAB PO SCH (20:45)
[2016-06-02] MEDS: TACROLIMUS 0.5 MG CAP PO SCH (20:47)
[2016-06-03] VITALS (13 sets, daily range): BP systolic 122–162; BP diastolic 58–81; PULSE 67–79; RESP 18–21
[2016-06-03] MEDS: ACCU-CHEK XX SCH (01:58)
[2016-06-03] MEDS: SOD CHLORIDE 0.9% 1,000 ML IV SCH ×3 (06:36→21:54)
[2016-06-03] MEDS: LEVOTHYROXINE 50 MCG TAB PO SCH (06:36)
[2016-06-03] MEDS: INSULIN ASPART [NOVOLOG] 3 ML PEN SC SCH ×7 (07:55→21:42)
[2016-06-03] MEDS: FAMOTIDINE 20 MG TAB PO SCH ×2 (08:03→21:14)
[2016-06-03] MEDS: TACROLIMUS 1 MG CAP PO SCH ×2 (08:03→22:26)
[2016-06-03] MEDS: ASPIRIN 81 MG TAB PO SCH (08:03)
[2016-06-03] MEDS: MYCOPHENOLATE 250 MG CAP PO SCH ×2 (08:04→21:14)
[2016-06-03] MEDS: LINAGLIPTIN 5 MG TABLET PO SCH (08:04)
[2016-06-03] MEDS: LISINOPRIL 20 MG TAB PO SCH (08:07)
[2016-06-03] MEDS: NIFEdipine (XL) 60 MG TAB PO SCH (08:07)
[2016-06-03] MEDS: POLYETHYLENE GLYCOL 17 GM PACKET PO SCH ×2 (08:21→21:36)
[2016-06-03] MEDS: predniSONE 1 MG TAB PO SCH (08:21)
[2016-06-03 11:11] LABS: POTASSIUM 4.3 mmol/L (3.5-5.1)
[2016-06-03 11:14] LABS: CALCIUM 8.8 mg/dl (8.4-10.2); CREATININE 0.74 mg/dl (0.44-1.00)
[2016-06-03 11:15] LABS: MAGNESIUM 1.3 mg/dl (1.7-2.5)
[2016-06-03] MEDS: ACETAMINOPHEN 325 MG TAB PO PRN (12:21)
[2016-06-03] MEDS ORDERED: MAGNESIUM SULFATE 3 GM in SOD CHLORIDE 0.9% 100 ML IVPB ONE (13:00)
--- NOTE | 2016-06-03 14:35 | PN ---
Date/Time of Note Date/Time of Note DATE: 06/03/16 TIME: 14:32 Assessment/Plan VTE Prophylaxis VTE Prophylaxis Intervention: heparin Lines/Catheters IV Catheter Type (from [facility]): Peripheral IV Urinary Cath still in place: No Assessment/Plan Chief Complaint/Hosp Course 1. Acute abdominal pain. Etiology unclear. CT scan of the abdomen and pelvis negative for any acute intraabdominal findings. Resolved. 2. Hyponatremia. Etiology unclear. The patient's sodium level has been improving gradually. However, it dropped today. The patient will be continued on IV normal saline. 3. End-stage renal disease, status post renal transplant. The patient's renal function within normal limits. Will avoid nephrotoxic medications. Continue immunosuppressants. 4. Essential hypertension. Continue antihypertensives including routine antihypertensives and p.r.n. antihypertensives for any systolic blood pressure readings greater than 160 mmHg. 5. Type 2 diabetes mellitus. Continue sliding scale insulin along with Lantus insulin and premeal insulin. Will adjust insulin dosing to obtain optimal blood sugar control 6. Dyslipidemia. Continue statins. 7. Right-sided pulmonary nodule with central cavitation. Status post evaluation by infectious diseases. No need for any antibiotics. Repeat chest CT recommended in 12 months. 8. Fluids, electrolytes, and nutrition. Carbohydrate controlled, low- cholesterol diet. 9. DVT prophylaxis. Subcutaneous heparin. 10. Gastrointestinal prophylaxis. Histamine 2 receptor blockers. 11. Plan. Continue normal saline. Adjust insulin to obtain optimal blood sugar control. Monitor in house. Replete magnesium. Case discussed with Dr. Almendarez. Problems: Subjective 24 Hr Interval Summary Free Text/Dictation Denies any abdominal pain. Exam/Review of Systems Vital Signs Vitals Vital Signs Date Time Temp Pulse Resp B/P Pulse Ox O2 Delivery O2 Flow Rate FiO2 06/03/16 12:14 76 06/03/16 11:42 98.1 18 122/58 97 06/01/16 16:00 Room Air Intake and Output 06/02/16 06/02/16 06/03/16 15:00 23:00 07:00 Intake Total 3000 ml Balance 3000 ml Exam GENERAL: This is a morbidly obese female lying in bed in no apparent distress. HEENT: Head normocephalic and atraumatic. Eyes: Anicteric sclerae. Conjunctivae clear. ENT: Nasal septum is midline. Oral mucosa is dry. NECK: Short with increased neck circumference. Unable to visualize any neck veins. CARDIAC: Regular rate and rhythm. S1, S2 heard. RESPIRATORY: Bilaterally diminished breath sounds. No adventitious breath sounds. No use of accessory muscles of respiration. CARDIOVASCULAR: Abdomen obese. Non-tender. No guarding or peritoneal signs. GENITOURINARY: Deferred. EXTREMITIES: No cyanosis, no clubbing. Trace bilateral pedal edema. Peripheral pulses palpable. NEUROLOGIC: The patient is awake, alert and oriented. Cranial nerves are grossly intact. Results Result Diagram: 06/01/16 0645 06/03/16 1045 Results 24 hrs Laboratory Tests Test 06/02/16 17:13 06/02/16 20:31 06/03/16 02:35 06/03/16 07:38 Bedside Glucose 365 H 220 230 H 338 H Test 06/03/16 10:45 06/03/16 12:09 Sodium Level 127 L Potassium Level 4.3 Chloride Level 96 L Carbon Dioxide Level 22 Anion Gap 13 Blood Urea Nitrogen 13 Creatinine 0.74 Glucose Level 298 H Calcium Level 8.8 Magnesium Level 1.3 L Bedside Glucose 274 H Medications Medications Current Medications Lorazepam (Ativan) 0.5 mg Q6H PRN IV ANXIETY Last administered on 06/02/16 02: 51; Admin Dose 0.5 MG; Start 05/31/16 at 15:00 Ondansetron HCl (Zofran Inj) 4 mg Q6H PRN IV NAUSEA AND/OR VOMITING Last administered on 06/02/16 19:46; Admin Dose 4 MG; Start 05/31/16 at 15:00 Acetaminophen (Tylenol Tab) 650 mg Q6H PRN PO PAIN LEVEL 1-3 OR FEVER Last administered on 06/03/16 12:21; Admin Dose 650 MG; Start 05/31/16 at 15:00 Acetaminophen/ Hydrocodone Bitart ([place] (5/325)) 1 tab Q6H PRN PO PAIN LEVEL 4 -6; Start 05/31/16 at 15:00 Morphine Sulfate (morphine) 2 mg Q4H PRN IV PAIN LEVEL 7-10 Last administered on 06/02/16 03:00; Admin Dose 2 MG; Start 05/31/16 at 15:00 Magnesium Hydroxide (Milk Of Mag) 30 ml DAILY PRN PO CONSTIPATION; Start at 15:00 Bisacodyl (Dulcolax) 5 mg DAILY PRN PO CONSTIPATION; Start 05/31/16 at 15:00 Famotidine 20 mg 20 mg Q12 PO Last administered on 06/03/16 08:03; Admin Dose 20 MG; Start 05/31/16 at 21:00 Sodium Chloride (NS) 1,000 ml @ 75 mls/hr [id number] IV Last administered on 06/03 06:36; Admin Dose 75 MLS/HR; Start 05/31/16 at 15:30 Aspirin (Aspirin) 81 mg DAILY PO Last administered on 06/03/16 08:03; Admin Dose 81 MG; Start 06/01/16 at 09:00 Lisinopril (Zestril) 40 mg DAILY PO Last administered on 06/03/16 08:07; Admin Dose 40 MG; Start 06/01/16 at 09:00 Mycophenolate Mofetil (Cellcept) 500 mg BID PO Last administered on 06/03/16 08:04; Admin Dose 500 MG; Start 05/31/16 at 21:00 Prednisone (Prednisone) 2 mg DAILY PO Last administered on 06/03/16 08:21; Admin Dose 2 MG; Start 06/01/16 at 09:00 Tacrolimus (Prograf) 0.5 mg QPM PO Last administered on 06/02/16 20:47; Admin Dose 0.5 MG; Start 05/31/16 at 21:00 Tacrolimus (Prograf) 4 mg QAM PO Last administered on 06/03/16 08:03; Admin Dose 4 MG; Start 06/01/16 at 09:00 Atorvastatin Calcium (Lipitor) 20 mg DAILY@21 PO Last administered on 20:45; Admin Dose 20 MG; Start 05/31/16 at 21:00 Polyethylene Glycol (Miralax) 17 gm BID PO Last administered on 06/03/16 08:21 ; Admin Dose 17 GM; Start 05/31/16 at 21:00 Hydralazine HCl (Apresoline) 10 mg Q6H PRN IV SBP>160; Start 05/31/16 at 16:30 Miscellaneous Information 1 ea NOTE XX ; Start 05/31/16 at 17:00 Glucose (Glutose) 15 gm Q15M PRN PO DECREASED GLUCOSE; Start 05/31/16 at 17:00 Glucose (Glutose) 22.5 gm Q15M PRN PO DECREASED GLUCOSE; Start 05/31/16 at 17: 00 Dextrose (D50w Syringe) 25 ml Q15M PRN IV DECREASED GLUCOSE; Start 05/31/16 at 17:00 Dextrose (D50w Syringe) 50 ml Q15M PRN IV DECREASED GLUCOSE; Start 05/31/16 at 17:00 Glucagon (Glucagen) 1 mg Q15M PRN IM DECREASED GLUCOSE; Start 05/31/16 at 17:00 Glucose (Glutose) 15 gm Q15M PRN BUCCAL DECREASED GLUCOSE; Start 05/31/16 at 17 :00 Tacrolimus (Prograf) 4 mg QPM PO Last administered on 06/02/16 20:46; Admin Dose 4 MG; Start 05/31/16 at 21:00 Diagnostic Test (Pha) (Accu-Chek) 1 ea 02 XX Last administered on 06/02/16 02: 37; Admin Dose 1 EA; Start 06/02/16 at 02:00 Nifedipine (Procardia Xl) 60 mg DAILY PO Last administered on 06/03/16 08:07; Admin Dose 60 MG; Start 06/02/16 at 09:00 Linagliptin 5 mg 5 mg DAILY PO Last administered on 06/03/16 08:04; Admin Dose 5 MG; Start 06/02/16 at 16:00 Magnesium Sulfate/ Sodium Chloride (Magnesium Sulfate/NS) 106 ml @ 35.333 mls/ hr ONCE ONCE IVPB ; Start 06/03/16 at 13:00; Stop 06/03/16 at 15:59 Insulin Glargine (Lantus) 33 unit DAILY@20 SC ; Start 06/03/16 at 20:00 KARINA ARTEAGA NP Jun 03, 2016 14:35
--- NOTE | 2016-06-03 19:39 | CONS ---
Date/Time of Note Date/Time of Note DATE: 06/03/16 TIME: 19:37 Consult Date/Type/Reason Admit Date/Time Jun 02, 2016 at 18:03 Initial Consult Date Type of Consultation: NEPHROLOGY Ordering Provider: ANTONINA WALKER MD Subjective Na 124 today, Cr normal, CT chest with contrast showed pulmonary nodule with central cavitation. dw staff Objective Vital Signs Date Time Temp Pulse Resp B/P Pulse Ox O2 Delivery O2 Flow Rate FiO2 06/03/16 16:37 79 06/03/16 16:33 98.0 18 122/58 95 06/01/16 16:00 Room Air Intake and Output 06/02/16 06/02/16 06/03/16 15:00 23:00 07:00 Intake Total 3000 ml Balance 3000 ml Exam VITAL SIGNS: VSS GENERAL: Awake, alert, in no distress. HEENT: Normal. Oropharynx clear. NECK: Supple, no JVD, no lymphadenopathy. LUNGS: Clear to auscultation. No crackles, no wheezes. HEART: S1, S2, with regular rhythm, no murmur. ABDOMEN: Soft, nontender, nondistended. Bowel sounds are present. EXTREMITIES: No clubbing, cyanosis, or edema. NEUROLOGICAL: Nonfocal, intact. PSYCHIATRIC: Appropriate affect and mood. Results/Medications Result Diagram: 06/01/16 0645 06/03/16 1045 Results 24 hrs Laboratory Tests Test 06/02/16 20:31 06/03/16 02:35 06/03/16 07:38 06/03/16 10:45 Bedside Glucose 220 230 H 338 H Sodium Level 127 L Potassium Level 4.3 Chloride Level 96 L Carbon Dioxide Level 22 Anion Gap 13 Blood Urea Nitrogen 13 Creatinine 0.74 Glucose Level 298 H Calcium Level 8.8 Magnesium Level 1.3 L Test 06/03/16 12:09 06/03/16 17:29 Bedside Glucose 274 H 399 H Medications Current Medications Lorazepam (Ativan) 0.5 mg Q6H PRN IV ANXIETY Last administered on 06/02/16 02: 51; Admin Dose 0.5 MG; Start 05/31/16 at 15:00 Ondansetron HCl (Zofran Inj) 4 mg Q6H PRN IV NAUSEA AND/OR VOMITING Last administered on 06/02/16 19:46; Admin Dose 4 MG; Start 05/31/16 at 15:00 Acetaminophen (Tylenol Tab) 650 mg Q6H PRN PO PAIN LEVEL 1-3 OR FEVER Last administered on 06/03/16 12:21; Admin Dose 650 MG; Start 05/31/16 at 15:00 Acetaminophen/ Hydrocodone Bitart ([place] (5/325)) 1 tab Q6H PRN PO PAIN LEVEL 4 -6; Start 05/31/16 at 15:00 Morphine Sulfate (morphine) 2 mg Q4H PRN IV PAIN LEVEL 7-10 Last administered on 06/02/16 03:00; Admin Dose 2 MG; Start 05/31/16 at 15:00 Magnesium Hydroxide (Milk Of Mag) 30 ml DAILY PRN PO CONSTIPATION Last administered on 06/03/16 15:50; Admin Dose 30 ML; Start 05/31/16 at 15:00 Bisacodyl (Dulcolax) 5 mg DAILY PRN PO CONSTIPATION; Start 05/31/16 at 15:00 Famotidine 20 mg 20 mg Q12 PO Last administered on 06/03/16 08:03; Admin Dose 20 MG; Start 05/31/16 at 21:00 Sodium Chloride (NS) 1,000 ml @ 75 mls/hr [id number] IV Last administered on 06/03 06:36; Admin Dose 75 MLS/HR; Start 05/31/16 at 15:30 Aspirin (Aspirin) 81 mg DAILY PO Last administered on 06/03/16 08:03; Admin Dose 81 MG; Start 06/01/16 at 09:00 Lisinopril (Zestril) 40 mg DAILY PO Last administered on 06/03/16 08:07; Admin Dose 40 MG; Start 06/01/16 at 09:00 Mycophenolate Mofetil (Cellcept) 500 mg BID PO Last administered on 06/03/16 08:04; Admin Dose 500 MG; Start 05/31/16 at 21:00 Prednisone (Prednisone) 2 mg DAILY PO Last administered on 06/03/16 08:21; Admin Dose 2 MG; Start 06/01/16 at 09:00 Tacrolimus (Prograf) 0.5 mg QPM PO Last administered on 06/02/16 20:47; Admin Dose 0.5 MG; Start 05/31/16 at 21:00 Tacrolimus (Prograf) 4 mg QAM PO Last administered on 06/03/16 08:03; Admin Dose 4 MG; Start 06/01/16 at 09:00 Atorvastatin Calcium (Lipitor) 20 mg DAILY@21 PO Last administered on 20:45; Admin Dose 20 MG; Start 05/31/16 at 21:00 Polyethylene Glycol (Miralax) 17 gm BID PO Last administered on 06/03/16 08:21 ; Admin Dose 17 GM; Start 05/31/16 at 21:00 Hydralazine HCl (Apresoline) 10 mg Q6H PRN IV SBP>160; Start 05/31/16 at 16:30 Miscellaneous Information 1 ea NOTE XX ; Start 05/31/16 at 17:00 Glucose (Glutose) 15 gm Q15M PRN PO DECREASED GLUCOSE; Start 05/31/16 at 17:00 Glucose (Glutose) 22.5 gm Q15M PRN PO DECREASED GLUCOSE; Start 05/31/16 at 17: 00 Dextrose (D50w Syringe) 25 ml Q15M PRN IV DECREASED GLUCOSE; Start 05/31/16 at 17:00 Dextrose (D50w Syringe) 50 ml Q15M PRN IV DECREASED GLUCOSE; Start 05/31/16 at 17:00 Glucagon (Glucagen) 1 mg Q15M PRN IM DECREASED GLUCOSE; Start 05/31/16 at 17:00 Glucose (Glutose) 15 gm Q15M PRN BUCCAL DECREASED GLUCOSE; Start 05/31/16 at 17 :00 Tacrolimus (Prograf) 4 mg QPM PO Last administered on 06/02/16 20:46; Admin Dose 4 MG; Start 05/31/16 at 21:00 Diagnostic Test (Pha) (Accu-Chek) 1 ea 02 XX Last administered on 06/02/16 02: 37; Admin Dose 1 EA; Start 06/02/16 at 02:00 Nifedipine (Procardia Xl) 60 mg DAILY PO Last administered on 06/03/16 08:07; Admin Dose 60 MG; Start 06/02/16 at 09:00 Linagliptin (Tradjenta) 5 mg DAILY PO Last administered on 06/03/16 08:04; Admin Dose 5 MG; Start 06/02/16 at 16:00 Insulin Glargine (Lantus) 33 unit DAILY@20 SC ; Start 06/03/16 at 20:00 Heparin Sodium (Porcine) (Heparin (5000 Units/0.5 ml)) 5,000 unit BID SC ; Start 06/03/16 at 21:00 Assessment/Plan Additional Assessment/Plan 1. HYPOMAGNESIUM-REPLET MAG, AM MAG LEVEL 1. Moderate to severe hyponatremia with a sodium down to 124, rule out syndrome of inappropriate antidiuretic hormone secretion. 2. Right pulmonary nodule more than 1 cm in size, slightly increased in size compared to the previous CT chest. 3. History of hypertension. 4. History of hyperlipidemia. 5. History of diabetes mellitus type 2. 6. Acute abdominal pain. 7. History of prior end-stage renal disease, now status post renal transplant, currently on immunosuppressions. The patient's renal function has been normal. PLAN: Cr normal, Na improving, Na 133 today, continue IVF for one more day CT chest with contrast showedpulmonary nodule with central cavitation - pt is on immunosuppression for her kidney transplant, need ID opinion about this nodule with cavitation due to immunosuppressive state Bp stable will follow up dw YAMILEX Zuniga Jun 03, 2016 19:39
[2016-06-03] MEDS ORDERED: INSULIN GLARGINE [LANtus] 3 ML PEN SC SCH (20:00)
[2016-06-03] MEDS: ATORVASTATIN 20 MG TAB PO SCH (21:14)
[2016-06-03] MEDS: TACROLIMUS 0.5 MG CAP PO SCH (21:15)
[2016-06-03] MEDS: HEPARIN 5,000 UNIT/0.5 ML VIAL SC SCH (21:20)
[2016-06-03] MEDS ORDERED: INSULIN ASPART [NOVOLOG] 3 ML PEN SC ONE (21:30)
[2016-06-04] VITALS (12 sets, daily range): BP systolic 115–155; BP diastolic 61–71; PULSE 62–77; RESP 18–20
[2016-06-04] MEDS: ACCU-CHEK XX SCH (02:00)
[2016-06-04] MEDS: LEVOTHYROXINE 50 MCG TAB PO SCH (06:08)
[2016-06-04 07:53] LABS: ADD SCAN DIFF NO; MAGNESIUM 2.1 mg/dl (1.7-2.5); PHOSPHORUS 3.6 mg/dl (2.5-4.9)
[2016-06-04 07:54] LABS: BASOPHILS % 0.3 % (0.0-2.0); EOSINOPHILS # 0.2 10^3/ul (0.0-0.5); EOSINOPHILS % 2.4 % (0.0-7.0); HEMATOCRIT 30.4 % (37.0-47.0); HEMOGLOBIN 10.9 g/dl (12.0-16.0); LYMPHOCYTES # 1.2 10^3/ul (0.8-2.9); LYMPHOCYTES % 15.7 % (15.0-51.0); MEAN CORPUSCULAR HEMOGLOBIN 29.5 pg (29.0-33.0); MEAN CORPUSCULAR HGB CONC 35.9 g/dl (32.0-37.0); MEAN CORPUSCULAR VOLUME 82.4 fl (82.0-101.0); MEAN PLATELET VOLUME 10.6 fl (7.4-10.4); MONOCYTE # 0.6 10^3/ul (0.3-0.9); MONOCYTES % 8.1 % (0.0-11.0); NEUTROPHIL # 5.4 10^3/ul (1.6-7.5); PLATELET COUNT 227 10^3/UL (140-415); RED BLOOD COUNT 3.69 10^6/ul (4.20-5.40); RED CELL DISTRIBUTION WIDTH 12.3 % (11.5-14.5); WHITE BLOOD COUNT 7.5 10^3/ul (4.8-10.8)
[2016-06-04] MEDS: INSULIN ASPART [NOVOLOG] 3 ML PEN SC SCH ×8 (08:05→20:19)
[2016-06-04] MEDS: HEPARIN 5,000 UNIT/0.5 ML VIAL SC SCH ×2 (08:07→20:17)
[2016-06-04] MEDS: LINAGLIPTIN 5 MG TABLET PO SCH (08:11)
[2016-06-04] MEDS: predniSONE 1 MG TAB PO SCH (08:11)
[2016-06-04] MEDS: MYCOPHENOLATE 250 MG CAP PO SCH ×2 (08:11→20:09)
[2016-06-04 08:12] LABS: POTASSIUM 4.5 mmol/L (3.5-5.1)
[2016-06-04] MEDS: FAMOTIDINE 20 MG TAB PO SCH ×2 (08:12→20:09)
[2016-06-04] MEDS: ASPIRIN 81 MG TAB PO SCH (08:12)
[2016-06-04] MEDS: NIFEdipine (XL) 60 MG TAB PO SCH (08:12)
[2016-06-04] MEDS: POLYETHYLENE GLYCOL 17 GM PACKET PO SCH ×2 (08:12→20:09)
[2016-06-04] MEDS: LISINOPRIL 20 MG TAB PO SCH (08:12)
[2016-06-04 08:15] LABS: CREATININE 0.66 mg/dl (0.44-1.00)
[2016-06-04 08:16] LABS: CALCIUM 8.8 mg/dl (8.4-10.2)
[2016-06-04] MEDS: TACROLIMUS 1 MG CAP PO SCH ×2 (08:17→20:28)
[2016-06-04] MEDS: ACETAMINOPHEN 325 MG TAB PO PRN ×2 (11:36→20:09)
[2016-06-04] MEDS: SOD CHLORIDE 0.9% 1,000 ML IV SCH (11:43)
[2016-06-04 12:00] LABS: ALANINE AMINOTRANSFERASE 27 IU/L (13-69); ASPARTATE AMINO TRANSFERASE 27 IU/L (15-46)
[2016-06-04] MEDS ORDERED: TOLVAPTAN 15 MG TABLET PO ONE (12:00)
--- NOTE | 2016-06-04 12:04 | PN ---
Date/Time of Note Date/Time of Note DATE: 06/04/16 TIME: 11:58 Assessment/Plan VTE Prophylaxis VTE Prophylaxis Intervention: heparin Lines/Catheters IV Catheter Type (from [facility]): Peripheral IV Urinary Cath still in place: No Assessment/Plan Chief Complaint/Hosp Course 1. Acute abdominal pain. Etiology unclear. CT scan of the abdomen and pelvis negative for any acute intraabdominal findings. Resolved. 2. Hyponatremia. Etiology unclear. The patient's sodium level has been improving gradually. However, it started dropping again. The patient will be continued on IV normal saline. Being followed by nephrology. Will give a single dose of tolvaptan. 3. End-stage renal disease, status post renal transplant. The patient's renal function within normal limits. Will avoid nephrotoxic medications. Continue immunosuppressants. 4. Essential hypertension. Continue antihypertensives including routine antihypertensives and p.r.n. antihypertensives for any systolic blood pressure readings greater than 160 mmHg. 5. Type 2 diabetes mellitus. Continue sliding scale insulin along with Lantus insulin and premeal insulin. Will adjust insulin dosing to obtain optimal blood sugar control 6. Dyslipidemia. Continue statins. 7. Right-sided pulmonary nodule with central cavitation. Status post evaluation by infectious diseases. No need for any antibiotics. Repeat chest CT recommended in 12 months. 8. Fluids, electrolytes, and nutrition. Carbohydrate controlled, low- cholesterol diet. 9. DVT prophylaxis. Subcutaneous heparin. 10. Gastrointestinal prophylaxis. Histamine 2 receptor blockers. 11. Plan. Continue normal saline. Adjust insulin to obtain optimal blood sugar control. Monitor in house. Give one dose of vasopressin antagonist. Case discussed with Dr. Almendarez. Case discussed with nephrology. Problems: Subjective 24 Hr Interval Summary Free Text/Dictation Denies any abdominal pain. Exam/Review of Systems Vital Signs Vitals Vital Signs Date Time Temp Pulse Resp B/P Pulse Ox O2 Delivery O2 Flow Rate FiO2 06/04/16 08:14 62 06/04/16 07:54 98.1 18 155/70 96 06/01/16 16:00 Room Air Intake and Output 06/03/16 06/03/16 06/04/16 15:00 23:00 07:00 Intake Total 750 ml 1200 ml 400 ml Balance 750 ml 1200 ml 400 ml Exam GENERAL: This is a morbidly obese female lying in bed in no apparent distress. HEENT: Head normocephalic and atraumatic. Eyes: Anicteric sclerae. Conjunctivae clear. ENT: Nasal septum is midline. Oral mucosa is dry. NECK: Short with increased neck circumference. Unable to visualize any neck veins. CARDIAC: Regular rate and rhythm. S1, S2 heard. RESPIRATORY: Bilaterally diminished breath sounds. No adventitious breath sounds. No use of accessory muscles of respiration. CARDIOVASCULAR: Abdomen obese. Non-tender. No guarding or peritoneal signs. GENITOURINARY: Deferred. EXTREMITIES: No cyanosis, no clubbing. Trace bilateral pedal edema. Peripheral pulses palpable. NEUROLOGIC: The patient is awake, alert and oriented. Cranial nerves are grossly intact. Results Result Diagram: 06/04/16 0715 06/04/16 0715 Results 24 hrs Laboratory Tests Test 06/03/16 12:09 06/03/16 17:29 06/03/16 21:02 06/04/16 02:03 Bedside Glucose 274 H 399 H 427 *H 177 Test 06/04/16 07:15 06/04/16 07:26 06/04/16 10:47 06/04/16 11:34 White Blood Count 7.5 # Red Blood Count 3.69 L Hemoglobin 10.9 L Hematocrit 30.4 L Mean Corpuscular Volume 82.4 Mean Corpuscular Hemoglobin 29.5 Mean Corpuscular Hemoglobin Concent 35.9 Red Cell Distribution Width 12.3 Platelet Count 227 Mean Platelet Volume 10.6 H Neutrophils % 73.0 Lymphocytes % 15.7 Monocytes % 8.1 Eosinophils % 2.4 Basophils % 0.3 Nucleated Red Blood Cells % 0.0 Neutrophils # 5.4 Lymphocytes # 1.2 Monocytes # 0.6 Eosinophils # 0.2 Basophils # 0.0 Nucleated Red Blood Cells # 0.0 Sodium Level 127 L Potassium Level 4.5 Chloride Level 97 Carbon Dioxide Level 22 Anion Gap 13 Blood Urea Nitrogen 17 Creatinine 0.66 Glucose Level 179 # Calcium Level 8.8 Phosphorus Level 3.6 Magnesium Level 2.1 Bedside Glucose 203 201 213 Medications Medications Current Medications Lorazepam (Ativan) 0.5 mg Q6H PRN IV ANXIETY Last administered on 06/02/16t 02: 51; Admin Dose 0.5 MG; Start 05/31/16 at 15:00 Ondansetron HCl (Zofran Inj) 4 mg Q6H PRN IV NAUSEA AND/OR VOMITING Last administered on 06/02/16 19:46; Admin Dose 4 MG; Start 05/31/16 at 15:00 Acetaminophen (Tylenol Tab) 650 mg Q6H PRN PO PAIN LEVEL 1-3 OR FEVER Last administered on 06/04/16 11:36; Admin Dose 650 MG; Start 05/31/16 at 15:00 Acetaminophen/ Hydrocodone Bitart ([place] (5/325)) 1 tab Q6H PRN PO PAIN LEVEL 4 -6; Start 05/31/16 at 15:00 Morphine Sulfate (morphine) 2 mg Q4H PRN IV PAIN LEVEL 7-10 Last administered on 06/02/16 03:00; Admin Dose 2 MG; Start 05/31/16 at 15:00 Magnesium Hydroxide (Milk Of Mag) 30 ml DAILY PRN PO CONSTIPATION Last administered on 06/03/16 15:50; Admin Dose 30 ML; Start 05/31/16 at 15:00 Bisacodyl (Dulcolax) 5 mg DAILY PRN PO CONSTIPATION; Start 05/31/16 at 15:00 Famotidine 20 mg 20 mg Q12 PO Last administered on 06/04/16 08:12; Admin Dose 20 MG; Start 05/31/16 at 21:00 Sodium Chloride (NS) 1,000 ml @ 75 mls/hr [id number] IV Last administered on 06/04 11:43; Admin Dose 75 MLS/HR; Start 05/31/16 at 15:30 Aspirin (Aspirin) 81 mg DAILY PO Last administered on 06/04/16 08:12; Admin Dose 81 MG; Start 06/01/16 at 09:00 Lisinopril (Zestril) 40 mg DAILY PO Last administered on 06/04/16 08:12; Admin Dose 40 MG; Start 06/01/16 at 09:00 Mycophenolate Mofetil (Cellcept) 500 mg BID PO Last administered on 06/04/16 08:11; Admin Dose 500 MG; Start 05/31/16 at 21:00 Prednisone (Prednisone) 2 mg DAILY PO Last administered on 06/04/16 08:11; Admin Dose 2 MG; Start 06/01/16 at 09:00 Tacrolimus (Prograf) 0.5 mg QPM PO Last administered on 06/03/16 21:15; Admin Dose 0.5 MG; Start 05/31/16 at 21:00 Tacrolimus (Prograf) 4 mg QAM PO Last administered on 06/04/16 08:17; Admin Dose 4 MG; Start 06/01/16 at 09:00 Atorvastatin Calcium (Lipitor) 20 mg DAILY@21 PO Last administered on 21:14; Admin Dose 20 MG; Start 05/31/16 at 21:00 Polyethylene Glycol (Miralax) 17 gm BID PO Last administered on 06/04/16 08:12 ; Admin Dose 17 GM; Start 05/31/16 at 21:00 Hydralazine HCl (Apresoline) 10 mg Q6H PRN IV SBP>160; Start 05/31/16 at 16:30 Miscellaneous Information 1 ea NOTE XX ; Start 05/31/16 at 17:00 Glucose (Glutose) 15 gm Q15M PRN PO DECREASED GLUCOSE; Start 05/31/16 at 17:00 Glucose (Glutose) 22.5 gm Q15M PRN PO DECREASED GLUCOSE; Start 05/31/16 at 17: 00 Dextrose (D50w Syringe) 25 ml Q15M PRN IV DECREASED GLUCOSE; Start 05/31/16 at 17:00 Dextrose (D50w Syringe) 50 ml Q15M PRN IV DECREASED GLUCOSE; Start 05/31/16 at 17:00 Glucagon (Glucagen) 1 mg Q15M PRN IM DECREASED GLUCOSE; Start 05/31/16 at 17:00 Glucose (Glutose) 15 gm Q15M PRN BUCCAL DECREASED GLUCOSE; Start 05/31/16 at 17 :00 Tacrolimus (Prograf) 4 mg QPM PO Last administered on 06/03/16 22:26; Admin Dose 4 MG; Start 05/31/16 at 21:00 Diagnostic Test (Pha) (Accu-Chek) 1 ea 02 XX Last administered on 06/02/16 02: 37; Admin Dose 1 EA; Start 06/02/16 at 02:00 Nifedipine (Procardia Xl) 60 mg DAILY PO Last administered on 06/04/16 08:12; Admin Dose 60 MG; Start 06/02/16 at 09:00 Linagliptin (Tradjenta) 5 mg DAILY PO Last administered on 06/04/16 08:11; Admin Dose 5 MG; Start 06/02/16 at 16:00 Insulin Glargine (Lantus) 33 unit DAILY@20 SC Last administered on 06/03/16 21 :19; Admin Dose 33 UNIT; Start 06/03/16 at 20:00 Heparin Sodium (Porcine) (Heparin (5000 Units/0.5 ml)) 5,000 unit BID SC Last administered on 06/04/16 08:07; Admin Dose 5,000 UNIT; Start 06/03/16 at 21:00 Tolvaptan (Samsca) 15 mg ONCE ONCE PO ; Start 06/04/16 at 12:00; Stop 06/04/16 at 12:01 KARINA ARTEAGA NP Jun 04, 2016 12:04
[2016-06-04] MEDS ORDERED: TOLVAPTAN 15 MG TABLET PO SCH (13:35)
--- NOTE | 2016-06-04 15:54 | CONS ---
Date/Time of Note Date/Time of Note DATE: 06/04/16 TIME: 15:52 Assessment/Plan Assessment/Plan Chief Complaint/Hosp Course ID PROGRESS NOTE TOTAL ABX DAY # OFF ABX 24H INTERVAL SUMMARY * A/A/O - family present -- she feels much better no N/V/D -- No ABD pain * No fevers, WBC normal, No pulmonary symptoms DIAGNOSTIC IMAGING 05/31/16 CXR on admission:IMPRESSION: 1. No evidence of acute cardiopulmonary process. 2. Aortic atherosclerosis. 05/31/16 CT ABD/PELVIS IMPRESSION: * 1. 12 mm pulmonary nodule is identified in the right middle lobe, demonstrating slight interval increase in size when compared to the prior CT from 2012 - given slow rate of growth, findings more likely represent a benign process, though CT followup in 12 months is recommended to confirm continued stability. * 2. Coronary arterial and aortoiliac atherosclerotic calcifications are present. * 3. Normal appearing renal transplant is identified in the left pelvis. The patient's [place] kidneys demonstrate moderate to severe chronic atrophy. * 4. Gallbladder is surgically absent. * 5. Small hiatal hernia is noted. * 6. Calcified uterine fibroids are seen measuring up to 3 cm. 06/01 CT CHEST: IMPRESSION: * 1. Again noted is a 12 mm right pulmonary nodule, with question of central cavitation, mildly increased in size when compared to prior CT from [address]. [address] followup in 12 months is suggested to assess continued stability. * 2. There is mild cardiomegaly and small amount of pericardial fluid. Coronary arterial and aortic atherosclerotic calcifications are present. * 3. Thyroid gland is mildly enlarged and multinodular. * 4. No lymphadenopathy or focal acute infiltrate is seen. * 5. Gallbladder is surgically absent. * 6. There is chronic severe atrophy in the bilateral kidneys. PHYSICAL EXAMINATION: GENERAL: Overweight F HEENT: NECK: Supple, trach-> midline CHEST: Equal chest rise bilaterally, scattered rhonchi HEART: Pulse RRR ABDOMEN: Soft, BX (+) EXTREMITIES: Warm, SKIN: Warm, dry ID ASSESSMENT: 71 yo Obese F admit with: 1. Acute ABD pain w/(+)Nausea/vomiting with complaint of constipation = SXS RESOLVED * No evidence of infectious etiology on CT ABD * No fevers, chills, leukocytosis 2. End-stage renal disease, status post renal transplant. * Immunosuppressants including prednisone 1 mg, CellCept 500 mg b.i.d., Prograf 4.5 mg in the p.m. and 4 mg in the a.m. 3. Adult-onset diabetes mellitus. 4. Essential hypertension. 5. Dyslipidemia. 6. Hypothyroidism. 7. PULMONARY NODULE: 12 mm pulmonary nodule is identified in the right middle lobe, demonstrating slight interval increase in size when compared to the prior CT from 2012 * Per 05/31/16 Radiologist recommendation quoting report " - given slow rate of growth, findings more likely represent a benign process, though CT followup in 12 months is recommended to confirm continued stability." * Per Dr. Davalos, no true evidence of cavitating nodule, no systemic symptoms. ( )MRSA Nares = pending INVASIVES: * ABX ALLERGIES: KNDA CURRENT ABX: TOTAL ABX DAY # OFF ABX ID RECOMMENDATIONS: 1. No clinical, no radiographic evidence of infectious etiology to patient's presenting sxs. No indication for ABX at this time. 2. Patient was seen in consultation with GI - follow GI recs. 3. Patient is immunocompromised host with pulmonary nodule per CT findings above without true evidence of cavitation. * DR. S[place]' ED RECS PER NOTE 06/02/16 QUOTING: " CT scan of the chest shows 12 mm right pulmonary nodule with question of central cavitation. A follow up in 12 months is suggested, but there is no evidence of true cavitation. The patient was seen by Dr. Lew Mcguire in renal consultation, rule out syndrome of inappropriate ADH. At the present time, the patient has no fever and will continue her off of antibiotic therapy being aware that she is on immunosuppressant therapy as well." -- Thank you -- ID will sign off the case, no fevers, no evidence of infx over 72 hours. Problems: Consultation Date/Type/Reason Admit Date/Time Jun 02, 2016 at 18:03 Initial Consult Date Type of Consultation: ID Referring Provider: ANTONINA WALKER MD Exam/Review of Systems Vital Signs Vitals Vital Signs Date Time Temp Pulse Resp B/P Pulse Ox O2 Delivery O2 Flow Rate FiO2 06/04/16 12:15 98.1 76 18 133/61 95 06/01/16 16:00 Room Air Intake and Output 06/03/16 06/03/16 06/04/16 15:00 23:00 07:00 Intake Total 750 ml 1200 ml 400 ml Balance 750 ml 1200 ml 400 ml Results Result Diagram: 06/04/16 0715 06/04/16 0715 Results 24 hrs Laboratory Tests Test 06/03/16 17:29 06/03/16 21:02 06/04/16 02:03 06/04/16 07:15 Bedside Glucose 399 H 427 *H 177 White Blood Count 7.5 # Red Blood Count 3.69 L Hemoglobin 10.9 L Hematocrit 30.4 L Mean Corpuscular Volume 82.4 Mean Corpuscular Hemoglobin 29.5 Mean Corpuscular Hemoglobin Concent 35.9 Red Cell Distribution Width 12.3 Platelet Count 227 Mean Platelet Volume 10.6 H Neutrophils % 73.0 Lymphocytes % 15.7 Monocytes % 8.1 Eosinophils % 2.4 Basophils % 0.3 Nucleated Red Blood Cells % 0.0 Neutrophils # 5.4 Lymphocytes # 1.2 Monocytes # 0.6 Eosinophils # 0.2 Basophils # 0.0 Nucleated Red Blood Cells # 0.0 Sodium Level 127 L Potassium Level 4.5 Chloride Level 97 Carbon Dioxide Level 22 Anion Gap 13 Blood Urea Nitrogen 17 Creatinine 0.66 Glucose Level 179 # Calcium Level 8.8 Phosphorus Level 3.6 Magnesium Level 2.1 Aspartate Amino Transf (AST/SGOT) 27 Alanine Aminotransferase (ALT/SGPT) 27 Test 06/04/16 07:26 06/04/16 10:47 06/04/16 11:34 Bedside Glucose 203 201 213 Medications Medications Current Medications Lorazepam (Ativan) 0.5 mg Q6H PRN IV ANXIETY Last administered on 06/02/16 02: 51; Admin Dose 0.5 MG; Start 05/31/16 at 15:00 Ondansetron HCl (Zofran Inj) 4 mg Q6H PRN IV NAUSEA AND/OR VOMITING Last administered on 06/02/16 19:46; Admin Dose 4 MG; Start 05/31/16 at 15:00 Acetaminophen (Tylenol Tab) 650 mg Q6H PRN PO PAIN LEVEL 1-3 OR FEVER Last administered on 06/04/16 11:36; Admin Dose 650 MG; Start 05/31/16 at 15:00 Acetaminophen/ Hydrocodone Bitart ([place] (5/325)) 1 tab Q6H PRN PO PAIN LEVEL 4 -6; Start 05/31/16 at 15:00 Morphine Sulfate (morphine) 2 mg Q4H PRN IV PAIN LEVEL 7-10 Last administered on 06/02/16 03:00; Admin Dose 2 MG; Start 05/31/16 at 15:00 Magnesium Hydroxide (Milk Of Mag) 30 ml DAILY PRN PO CONSTIPATION Last administered on 06/03/16 15:50; Admin Dose 30 ML; Start 05/31/16 at 15:00 Bisacodyl (Dulcolax) 5 mg DAILY PRN PO CONSTIPATION; Start 05/31/16 at 15:00 Famotidine 20 mg 20 mg Q12 PO Last administered on 06/04/16 08:12; Admin Dose 20 MG; Start 05/31/16 at 21:00 Sodium Chloride (NS) 1,000 ml @ 75 mls/hr [id number] IV Last administered on 06/04 11:43; Admin Dose 75 MLS/HR; Start 05/31/16 at 15:30 Aspirin (Aspirin) 81 mg DAILY PO Last administered on 06/04/16 08:12; Admin Dose 81 MG; Start 06/01/16 at 09:00 Lisinopril (Zestril) 40 mg DAILY PO Last administered on 06/04/16 08:12; Admin Dose 40 MG; Start 06/01/16 at 09:00 Mycophenolate Mofetil (Cellcept) 500 mg BID PO Last administered on 06/04/16 08:11; Admin Dose 500 MG; Start 05/31/16 at 21:00 Prednisone (Prednisone) 2 mg DAILY PO Last administered on 06/04/16 08:11; Admin Dose 2 MG; Start 06/01/16 at 09:00 Tacrolimus (Prograf) 0.5 mg QPM PO Last administered on 06/03/16 21:15; Admin Dose 0.5 MG; Start 05/31/16 at 21:00 Tacrolimus (Prograf) 4 mg QAM PO Last administered on 06/04/16 08:17; Admin Dose 4 MG; Start 06/01/16 at 09:00 Atorvastatin Calcium (Lipitor) 20 mg DAILY@21 PO Last administered on 21:14; Admin Dose 20 MG; Start 05/31/16 at 21:00 Polyethylene Glycol (Miralax) 17 gm BID PO Last administered on 06/04/16 08:12 ; Admin Dose 17 GM; Start 05/31/16 at 21:00 Hydralazine HCl (Apresoline) 10 mg Q6H PRN IV SBP>160; Start 05/31/16 at 16:30 Miscellaneous Information 1 ea NOTE XX ; Start 05/31/16 at 17:00 Glucose (Glutose) 15 gm Q15M PRN PO DECREASED GLUCOSE; Start 05/31/16 at 17:00 Glucose (Glutose) 22.5 gm Q15M PRN PO DECREASED GLUCOSE; Start 05/31/16 at 17: 00 Dextrose (D50w Syringe) 25 ml Q15M PRN IV DECREASED GLUCOSE; Start 05/31/16 at 17:00 Dextrose (D50w Syringe) 50 ml Q15M PRN IV DECREASED GLUCOSE; Start 05/31/16 at 17:00 Glucagon (Glucagen) 1 mg Q15M PRN IM DECREASED GLUCOSE; Start 05/31/16 at 17:00 Glucose (Glutose) 15 gm Q15M PRN BUCCAL DECREASED GLUCOSE; Start 05/31/16 at 17 :00 Tacrolimus (Prograf) 4 mg QPM PO Last administered on 06/03/16 22:26; Admin Dose 4 MG; Start 05/31/16 at 21:00 Diagnostic Test (Pha) (Accu-Chek) 1 ea 02 XX Last administered on 06/02/16 02: 37; Admin Dose 1 EA; Start 06/02/16 at 02:00 Nifedipine (Procardia Xl) 60 mg DAILY PO Last administered on 06/04/16 08:12; Admin Dose 60 MG; Start 06/02/16 at 09:00 Linagliptin (Tradjenta) 5 mg DAILY PO Last administered on 06/04/16 08:11; Admin Dose 5 MG; Start 06/02/16 at 16:00 Heparin Sodium (Porcine) (Heparin (5000 Units/0.5 ml)) 5,000 unit BID SC Last administered on 06/04/16 08:07; Admin Dose 5,000 UNIT; Start 06/03/16 at 21:00 Insulin Glargine (Lantus) 36 unit DAILY@20 SC ; Start 06/04/16 at 20:00 DEANA ZIMMER NP Jun 04, 2016 15:54
--- NOTE | 2016-06-04 17:31 | CONS ---
Date/Time of Note Date/Time of Note DATE: 06/04/16 TIME: 17:29 Consult Date/Type/Reason Admit Date/Time Jun 02, 2016 at 18:03 Type of Consultation: ID Ordering Provider: ANTONINA WALKER MD Subjective Na 127 today, Cr normal, CT chest with contrast showed pulmonary nodule with central cavitation. dw staff Objective Vital Signs Date Time Temp Pulse Resp B/P Pulse Ox O2 Delivery O2 Flow Rate FiO2 06/04/16 16:28 68 06/04/16 16:06 98.3 18 115/67 97 06/01/16 16:00 Room Air Intake and Output 06/03/16 06/03/16 06/04/16 15:00 23:00 07:00 Intake Total 750 ml 1200 ml 400 ml Balance 750 ml 1200 ml 400 ml Exam VITAL SIGNS: VSS GENERAL: Awake, alert, in no distress. HEENT: Normal. Oropharynx clear. NECK: Supple, no JVD, no lymphadenopathy. LUNGS: Clear to auscultation. No crackles, no wheezes. HEART: S1, S2, with regular rhythm, no murmur. ABDOMEN: Soft, nontender, nondistended. Bowel sounds are present. EXTREMITIES: No clubbing, cyanosis, or edema. NEUROLOGICAL: Nonfocal, intact. PSYCHIATRIC: Appropriate affect and mood. Results/Medications Result Diagram: 06/04/1615 06/04/16 0715 Results 24 hrs Laboratory Tests Test 06/03/16 21:02 06/04/16 02:03 06/04/16 07:15 06/04/16 07:26 Bedside Glucose 427 *H 177 203 White Blood Count 7.5 # Red Blood Count 3.69 L Hemoglobin 10.9 L Hematocrit 30.4 L Mean Corpuscular Volume 82.4 Mean Corpuscular Hemoglobin 29.5 Mean Corpuscular Hemoglobin Concent 35.9 Red Cell Distribution Width 12.3 Platelet Count 227 Mean Platelet Volume 10.6 H Neutrophils % 73.0 Lymphocytes % 15.7 Monocytes % 8.1 Eosinophils % 2.4 Basophils % 0.3 Nucleated Red Blood Cells % 0.0 Neutrophils # 5.4 Lymphocytes # 1.2 Monocytes # 0.6 Eosinophils # 0.2 Basophils # 0.0 Nucleated Red Blood Cells # 0.0 Sodium Level 127 L Potassium Level 4.5 Chloride Level 97 Carbon Dioxide Level 22 Anion Gap 13 Blood Urea Nitrogen 17 Creatinine 0.66 Glucose Level 179 # Calcium Level 8.8 Phosphorus Level 3.6 Magnesium Level 2.1 Aspartate Amino Transf (AST/SGOT) 27 Alanine Aminotransferase (ALT/SGPT) 27 Test 06/04/16 10:47 06/04/16 11:34 06/04/16 16:54 Bedside Glucose 201 213 239 H Medications Current Medications Lorazepam (Ativan) 0.5 mg Q6H PRN IV ANXIETY Last administered on 06/02/16 02: 51; Admin Dose 0.5 MG; Start 05/31/16 at 15:00 Ondansetron HCl (Zofran Inj) 4 mg Q6H PRN IV NAUSEA AND/OR VOMITING Last administered on 06/02/16 19:46; Admin Dose 4 MG; Start 05/31/16 at 15:00 Acetaminophen (Tylenol Tab) 650 mg Q6H PRN PO PAIN LEVEL 1-3 OR FEVER Last administered on 06/04/16 11:36; Admin Dose 650 MG; Start 05/31/16 at 15:00 Acetaminophen/ Hydrocodone Bitart ([place] (5/325)) 1 tab Q6H PRN PO PAIN LEVEL 4 -6; Start 05/31/16 at 15:00 Morphine Sulfate (morphine) 2 mg Q4H PRN IV PAIN LEVEL 7-10 Last administered on 06/02/16 03:00; Admin Dose 2 MG; Start 05/31/16 at 15:00 Magnesium Hydroxide (Milk Of Mag) 30 ml DAILY PRN PO CONSTIPATION Last administered on 06/03/16 15:50; Admin Dose 30 ML; Start 05/31/16 at 15:00 Bisacodyl (Dulcolax) 5 mg DAILY PRN PO CONSTIPATION; Start 05/31/16 at 15:00 Famotidine 20 mg 20 mg Q12 PO Last administered on 06/04/16 08:12; Admin Dose 20 MG; Start 05/31/16 at 21:00 Sodium Chloride (NS) 1,000 ml @ 75 mls/hr [id number] IV Last administered on 06/04 11:43; Admin Dose 75 MLS/HR; Start 05/31/16 at 15:30 Aspirin (Aspirin) 81 mg DAILY PO Last administered on 06/04/16 08:12; Admin Dose 81 MG; Start 06/01/16 at 09:00 Lisinopril (Zestril) 40 mg DAILY PO Last administered on 06/04/16 08:12; Admin Dose 40 MG; Start 06/01/16 at 09:00 Mycophenolate Mofetil (Cellcept) 500 mg BID PO Last administered on 06/04/16 08:11; Admin Dose 500 MG; Start 05/31/16 at 21:00 Prednisone (Prednisone) 2 mg DAILY PO Last administered on 06/04/16 08:11; Admin Dose 2 MG; Start 06/01/16 at 09:00 Tacrolimus (Prograf) 0.5 mg QPM PO Last administered on 06/03/16 21:15; Admin Dose 0.5 MG; Start 05/31/16 at 21:00 Tacrolimus (Prograf) 4 mg QAM PO Last administered on 06/04/16 08:17; Admin Dose 4 MG; Start 06/01/16 at 09:00 Atorvastatin Calcium (Lipitor) 20 mg DAILY@21 PO Last administered on 21:14; Admin Dose 20 MG; Start 05/31/16 at 21:00 Polyethylene Glycol (Miralax) 17 gm BID PO Last administered on 06/04/16 08:12 ; Admin Dose 17 GM; Start 05/31/16 at 21:00 Hydralazine HCl (Apresoline) 10 mg Q6H PRN IV SBP>160; Start 05/31/16 at 16:30 Miscellaneous Information 1 ea NOTE XX ; Start 05/31/16 at 17:00 Glucose (Glutose) 15 gm Q15M PRN PO DECREASED GLUCOSE; Start 05/31/16 at 17:00 Glucose (Glutose) 22.5 gm Q15M PRN PO DECREASED GLUCOSE; Start 05/31/16 at 17: 00 Dextrose (D50w Syringe) 25 ml Q15M PRN IV DECREASED GLUCOSE; Start 05/31/16 at 17:00 Dextrose (D50w Syringe) 50 ml Q15M PRN IV DECREASED GLUCOSE; Start 05/31/16 at 17:00 Glucagon (Glucagen) 1 mg Q15M PRN IM DECREASED GLUCOSE; Start 05/31/16 at 17:00 Glucose (Glutose) 15 gm Q15M PRN BUCCAL DECREASED GLUCOSE; Start 05/31/16 at 17 :00 Tacrolimus (Prograf) 4 mg QPM PO Last administered on 06/03/16 22:26; Admin Dose 4 MG; Start 05/31/16 at 21:00 Diagnostic Test (Pha) (Accu-Chek) 1 ea 02 XX Last administered on 06/02/16 02: 37; Admin Dose 1 EA; Start 06/02/16 at 02:00 Nifedipine (Procardia Xl) 60 mg DAILY PO Last administered on 06/04/16 08:12; Admin Dose 60 MG; Start 06/02/16 at 09:00 Linagliptin (Tradjenta) 5 mg DAILY PO Last administered on 06/04/16 08:11; Admin Dose 5 MG; Start 06/02/16 at 16:00 Heparin Sodium (Porcine) (Heparin (5000 Units/0.5 ml)) 5,000 unit BID SC Last administered on 06/04/16 08:07; Admin Dose 5,000 UNIT; Start 06/03/16 at 21:00 Insulin Glargine (Lantus) 36 unit DAILY@20 SC ; Start 06/04/16 at 20:00 Assessment/Plan Additional Assessment/Plan 1. HYPOMAGNESIUM-REPLET MAG, AM MAG LEVEL 1. Moderate to severe hyponatremia with a sodium improved to 127 today, rule out syndrome of inappropriate antidiuretic hormone secretion. 2. Right pulmonary nodule more than 1 cm in size, slightly increased in size compared to the previous CT chest. 3. History of hypertension. 4. History of hyperlipidemia. 5. History of diabetes mellitus type 2. 6. Acute abdominal pain. 7. History of prior end-stage renal disease, now status post renal transplant, currently on immunosuppressions. The patient's renal function has been normal. PLAN: Cr normal, Na improving, Na 133 today, continue IVF for one more day CT chest with contrast showedpulmonary nodule with central cavitation - pt is on immunosuppression for her kidney transplant, need ID opinion about this nodule with cavitation due to immunosuppressive state Bp stable will follow up dw YAMILEX Zuniga Jun 04, 2016 17:31
[2016-06-04] MEDS ORDERED: INSULIN GLARGINE [LANtus] 3 ML PEN SC SCH (20:00)
[2016-06-04] MEDS: TACROLIMUS 0.5 MG CAP PO SCH (20:09)
[2016-06-04] MEDS: ATORVASTATIN 20 MG TAB PO SCH (20:09)
[2016-06-04] MEDS: LORAZEPAM 2 MG INJ IV PRN (21:12)
[2016-06-05] VITALS (11 sets, daily range): BP systolic 98–167; BP diastolic 48–70; PULSE 65–79; RESP 18–20
[2016-06-05] MEDS: ACCU-CHEK XX SCH (02:00)
[2016-06-05] MEDS: SOD CHLORIDE 0.9% 1,000 ML IV SCH ×3 (02:44→20:24)
[2016-06-05 03:48] LABS: ADD SCAN DIFF NO
[2016-06-05 04:16] LABS: PHOSPHORUS 3.5 mg/dl (2.5-4.9)
[2016-06-05 04:17] LABS: BASOPHILS % 0.6 % (0.0-2.0); EOSINOPHILS # 0.2 10^3/ul (0.0-0.5); EOSINOPHILS % 2.7 % (0.0-7.0); HEMATOCRIT 32.7 % (37.0-47.0); HEMOGLOBIN 11.2 g/dl (12.0-16.0); LYMPHOCYTES # 1.5 10^3/ul (0.8-2.9); LYMPHOCYTES % 22.2 % (15.0-51.0); MAGNESIUM 2.1 mg/dl (1.7-2.5); MEAN CORPUSCULAR HEMOGLOBIN 28.9 pg (29.0-33.0); MEAN CORPUSCULAR HGB CONC 34.3 g/dl (32.0-37.0); MEAN CORPUSCULAR VOLUME 84.3 fl (82.0-101.0); MEAN PLATELET VOLUME 10.7 fl (7.4-10.4); MONOCYTE # 0.6 10^3/ul (0.3-0.9); MONOCYTES % 8.3 % (0.0-11.0); NEUTROPHIL # 4.5 10^3/ul (1.6-7.5); NEUTROPHILS % 65.8 % (39.0-77.0); PLATELET COUNT 244 10^3/UL (140-415); RED BLOOD COUNT 3.88 10^6/ul (4.20-5.40); RED CELL DISTRIBUTION WIDTH 12.6 % (11.5-14.5); WHITE BLOOD COUNT 6.8 10^3/ul (4.8-10.8)
[2016-06-05 04:31] LABS: CALCIUM 8.9 mg/dl (8.4-10.2); CREATININE 0.68 mg/dl (0.44-1.00)
[2016-06-05] MEDS: LEVOTHYROXINE 50 MCG TAB PO SCH (06:53)
[2016-06-05] MEDS: INSULIN ASPART [NOVOLOG] 3 ML PEN SC SCH ×7 (08:00→20:23)
[2016-06-05] MEDS: POLYETHYLENE GLYCOL 17 GM PACKET PO SCH ×2 (08:53→20:16)
[2016-06-05] MEDS: predniSONE 1 MG TAB PO SCH (08:54)
[2016-06-05] MEDS: MYCOPHENOLATE 250 MG CAP PO SCH ×2 (08:54→20:16)
[2016-06-05] MEDS: ASPIRIN 81 MG TAB PO SCH (08:55)
[2016-06-05] MEDS: LISINOPRIL 20 MG TAB PO SCH (08:55)
[2016-06-05] MEDS: NIFEdipine (XL) 60 MG TAB PO SCH (08:55)
[2016-06-05] MEDS: LINAGLIPTIN 5 MG TABLET PO SCH (08:55)
[2016-06-05] MEDS: FAMOTIDINE 20 MG TAB PO SCH ×2 (08:56→20:16)
[2016-06-05] MEDS: HEPARIN 5,000 UNIT/0.5 ML VIAL SC SCH ×2 (08:57→20:19)
[2016-06-05] MEDS: TACROLIMUS 1 MG CAP PO SCH ×2 (09:02→20:17)
--- NOTE | 2016-06-05 11:57 | CONS ---
Date/Time of Note Date/Time of Note DATE: 06/05/16 TIME: 11:55 Assessment/Plan Assessment/Plan Additional Assessment/Plan 1. Moderate to severe hyponatremia with a sodium down to 124, rule out syndrome of inappropriate antidiuretic hormone secretion. 2. Right pulmonary nodule more than 1 cm in size, slightly increased in size compared to the previous CT chest. 3. History of hypertension. 4. History of hyperlipidemia. 5. History of diabetes mellitus type 2. 6. Acute abdominal pain. 7. History of prior end-stage renal disease, now status post renal transplant, currently on immunosuppressions. The patient's renal function has been normal. PLAN: Cr normal, Na improving, Na dropped to 128, increase IVF Rate to 100 cc/ hr for [address] chest with contrast showedpulmonary nodule with central cavitation s/p ID consult, need follow up CT chest Bp stable will follow up Consultation Date/Type/Reason Admit Date/Time Initial Consult Date May Type of Consultation: NEPHROLOGY Referring Provider: ANTONINA WALKER MD 24 HR Interval Summary Free Text/Dictation s/p Tolvaptan, Na down to 128, Bp stable, cr normal Exam/Review of Systems Vital Signs Vitals Vital Signs Date Time Temp Pulse Resp B/P Pulse Ox O2 Delivery O2 Flow Rate FiO2 06/05/16 08:48 68 06/05/16 07:55 97.8 18 167/67 94 06/05/16 04:00 Room Air Intake and Output 06/04/16 06/04/16 06/05/16 15:00 23:00 07:00 Intake Total 920 ml 750 ml Balance 920 ml 750 ml Exam GENERAL: Awake, alert, in no distress. HEENT: Normal. Oropharynx clear. NECK: Supple, no JVD, no lymphadenopathy. LUNGS: Clear to auscultation. No crackles, no wheezes. HEART: S1, S2, with regular rhythm, no murmur. ABDOMEN: Soft, nontender, nondistended. Bowel sounds are present. renal allograft in place EXTREMITIES: No clubbing, cyanosis, or edema. NEUROLOGICAL: Nonfocal, intact. PSYCHIATRIC: Appropriate affect and mood. Results Result Diagram: 06/05/16 0326 06/05/16 0326 Results 24 hrs Laboratory Tests Test 06/04/16 16:54 06/04/16 20:08 06/04/16 20:45 06/05/16 02:43 Bedside Glucose 239 H 275 H 197 Sodium Level 121 L Test 06/05/16 03:26 06/05/16 07:45 06/05/16 11:37 White Blood Count 6.8 Red Blood Count 3.88 L Hemoglobin 11.2 L Hematocrit 32.7 L Mean Corpuscular Volume 84.3 Mean Corpuscular Hemoglobin 28.9 L Mean Corpuscular Hemoglobin Concent 34.3 Red Cell Distribution Width 12.6 Platelet Count 244 Mean Platelet Volume 10.7 H Neutrophils % 65.8 Lymphocytes % 22.2 Monocytes % 8.3 Eosinophils % 2.7 Basophils % 0.6 Nucleated Red Blood Cells % 0.0 Neutrophils # 4.5 Lymphocytes # 1.5 Monocytes # 0.6 Eosinophils # 0.2 Basophils # 0.0 Nucleated Red Blood Cells # 0.0 Sodium Level 128 L Potassium Level 5.0 Chloride Level 101 Carbon Dioxide Level 22 Anion Gap 10 Blood Urea Nitrogen 16 Creatinine 0.68 Glucose Level 207 Calcium Level 8.9 Phosphorus Level 3.5 Magnesium Level 2.1 Bedside Glucose 228 H 184 Medications Medications Current Medications Lorazepam (Ativan) 0.5 mg Q6H PRN IV ANXIETY Last administered on 06/04/16 21: 12; Admin Dose 0.5 MG; Start 05/31/16 at 15:00 Ondansetron HCl (Zofran Inj) 4 mg Q6H PRN IV NAUSEA AND/OR VOMITING Last administered on 06/02/16 19:46; Admin Dose 4 MG; Start 05/31/16 at 15:00 Acetaminophen (Tylenol Tab) 650 mg Q6H PRN PO PAIN LEVEL 1-3 OR FEVER Last administered on 06/04/16 20:09; Admin Dose 650 MG; Start 05/31/16 at 15:00 Acetaminophen/ Hydrocodone Bitart ([place] (5/325)) 1 tab Q6H PRN PO PAIN LEVEL 4 -6; Start 05/31/16 at 15:00 Morphine Sulfate (morphine) 2 mg Q4H PRN IV PAIN LEVEL 7-10 Last administered on 06/02/16 03:00; Admin Dose 2 MG; Start 05/31/16 at 15:00 Magnesium Hydroxide (Milk Of Mag) 30 ml DAILY PRN PO CONSTIPATION Last administered on 06/03/16 15:50; Admin Dose 30 ML; Start 05/31/16 at 15:00 Bisacodyl (Dulcolax) 5 mg DAILY PRN PO CONSTIPATION; Start 05/31/16 at 15:00 Famotidine (Pepcid) 20 mg Q12 PO Last administered on 06/05/16 08:56; Admin Dose 20 MG; Start 05/31/16 at 21:00 Aspirin (Aspirin) 81 mg DAILY PO Last administered on 06/05/16 08:55; Admin Dose 81 MG; Start 06/01/16 at 09:00 Lisinopril (Zestril) 40 mg DAILY PO Last administered on 06/05/16 08:55; Admin Dose 40 MG; Start 06/01/16 at 09:00 Mycophenolate Mofetil (Cellcept) 500 mg BID PO Last administered on 06/05/16 08:54; Admin Dose 500 MG; Start 05/31/16 at 21:00 Prednisone (Prednisone) 2 mg DAILY PO Last administered on 06/05/16 08:54; Admin Dose 2 MG; Start 06/01/16 at 09:00 Tacrolimus (Prograf) 0.5 mg QPM PO Last administered on 06/04/16 20:09; Admin Dose 0.5 MG; Start 05/31/16 at 21:00 Tacrolimus (Prograf) 4 mg QAM PO Last administered on 06/05/16 09:02; Admin Dose 4 MG; Start 06/01/16 at 09:00 Atorvastatin Calcium (Lipitor) 20 mg DAILY@21 PO Last administered on 20:09; Admin Dose 20 MG; Start 05/31/16 at 21:00 Polyethylene Glycol (Miralax) 17 gm BID PO Last administered on 06/05/16 08:53 ; Admin Dose 17 GM; Start 05/31/16 at 21:00 Hydralazine HCl (Apresoline) 10 mg Q6H PRN IV SBP>160; Start 05/31/16 at 16:30 Miscellaneous Information 1 ea NOTE XX ; Start 05/31/16 at 17:00 Glucose (Glutose) 15 gm Q15M PRN PO DECREASED GLUCOSE; Start 05/31/16 at 17:00 Glucose (Glutose) 22.5 gm Q15M PRN PO DECREASED GLUCOSE; Start 05/31/16 at 17: 00 Dextrose (D50w Syringe) 25 ml Q15M PRN IV DECREASED GLUCOSE; Start 05/31/16 at 17:00 Dextrose (D50w Syringe) 50 ml Q15M PRN IV DECREASED GLUCOSE; Start 05/31/16 at 17:00 Glucagon (Glucagen) 1 mg Q15M PRN IM DECREASED GLUCOSE; Start 05/31/16 at 17:00 Glucose (Glutose) 15 gm Q15M PRN BUCCAL DECREASED GLUCOSE; Start 05/31/16 at 17 :00 Tacrolimus (Prograf) 4 mg QPM PO Last administered on 06/04/16 20:28; Admin Dose 4 MG; Start 05/31/16 at 21:00 Diagnostic Test (Pha) (Accu-Chek) 1 ea 02 XX Last administered on 06/02/16 02: 37; Admin Dose 1 EA; Start 06/02/16 at 02:00 Nifedipine (Procardia Xl) 60 mg DAILY PO Last administered on 06/05/16 08:55; Admin Dose 60 MG; Start 06/02/16 at 09:00 Linagliptin (Tradjenta) 5 mg DAILY PO Last administered on 06/05/16 08:55; Admin Dose 5 MG; Start 06/02/16 at 16:00 Heparin Sodium (Porcine) (Heparin (5000 Units/0.5 ml)) 5,000 unit BID SC Last administered on 06/05/16 08:57; Admin Dose 5,000 UNIT; Start 06/03/16 at 21:00 Insulin Glargine 40 unit 40 unit DAILY@20 SC ; Start 06/05/16 at 20:00 Sodium Chloride (NS) 1,000 ml @ 100 mls/hr Q10H IV ; Start 06/05/16 at 12:00; Stop 06/06/16 at 07:59 KRISSY MUNIZ MD Jun 05, 2016 11:57
--- NOTE | 2016-06-05 14:26 | PN ---
Date/Time of Note Date/Time of Note DATE: 06/05/16 TIME: 14:24 Assessment/Plan VTE Prophylaxis VTE Prophylaxis Intervention: heparin Lines/Catheters IV Catheter Type (from [facility]): Peripheral IV Urinary Cath still in place: No Assessment/Plan Chief Complaint/Hosp Course 1. Acute abdominal pain. Etiology unclear. CT scan of the abdomen and pelvis negative for any acute intraabdominal findings. Resolved. 2. Hyponatremia. Etiology unclear. The patient's sodium level has been improving gradually. However, it started dropping again. The patient will be continued on IV normal saline. Being followed by nephrology. S/P mono on . 3. End-stage renal disease, status post renal transplant. The patient's renal function within normal limits. Will avoid nephrotoxic medications. Continue immunosuppressants. 4. Essential hypertension. Continue antihypertensives including routine antihypertensives and p.r.n. antihypertensives for any systolic blood pressure readings greater than 160 mmHg. 5. Type 2 diabetes mellitus. Continue sliding scale insulin along with Lantus insulin and premeal insulin. Will adjust insulin dosing to obtain optimal blood sugar control 6. Dyslipidemia. Continue statins. 7. Right-sided pulmonary nodule with central cavitation. Status post evaluation by infectious diseases. No need for any antibiotics. Repeat chest CT recommended in 12 months. 8. Fluids, electrolytes, and nutrition. Carbohydrate controlled, low- cholesterol diet. 9. DVT prophylaxis. Subcutaneous heparin. 10. Gastrointestinal prophylaxis. Histamine 2 receptor blockers. 11. Plan. Continue normal saline. Adjust insulin to obtain optimal blood sugar control. Monitor in house. Await for nephrology clearance before discharge. Case discussed with Dr. Lowe. Case discussed with nephrology. Problems: Subjective 24 Hr Interval Summary Free Text/Dictation The patient continues to have hyponatremia. Exam/Review of Systems Vital Signs Vitals Vital Signs Date Time Temp Pulse Resp B/P Pulse Ox O2 Delivery O2 Flow Rate FiO2 06/05/16 12:13 98.2 76 18 98/56 97 06/05/16 04:00 Room Air Intake and Output 06/04/16 06/04/16 06/05/16 15:00 23:00 07:00 Intake Total 920 ml 750 ml Balance 920 ml 750 ml Exam GENERAL: This is a morbidly obese female lying in bed in no apparent distress. HEENT: Head normocephalic and atraumatic. Eyes: Anicteric sclerae. Conjunctivae clear. ENT: Nasal septum is midline. Oral mucosa is dry. NECK: Short with increased neck circumference. Unable to visualize any neck veins. CARDIAC: Regular rate and rhythm. S1, S2 heard. RESPIRATORY: Bilaterally diminished breath sounds. No adventitious breath sounds. No use of accessory muscles of respiration. CARDIOVASCULAR: Abdomen obese. Non-tender. No guarding or peritoneal signs. GENITOURINARY: Deferred. EXTREMITIES: No cyanosis, no clubbing. Trace bilateral pedal edema. Peripheral pulses palpable. NEUROLOGIC: The patient is awake, alert and oriented. Cranial nerves are grossly intact. Results Result Diagram: 06/05/16 0326 06/05/16 0326 Results 24 hrs Laboratory Tests Test 06/04/16 16:54 06/04/16 20:08 06/04/16 20:45 06/05/16 02:43 Bedside Glucose 239 H 275 H 197 Sodium Level 121 L Test 06/05/16 03:26 06/05/16 07:45 06/05/16 11:37 White Blood Count 6.8 Red Blood Count 3.88 L Hemoglobin 11.2 L Hematocrit 32.7 L Mean Corpuscular Volume 84.3 Mean Corpuscular Hemoglobin 28.9 L Mean Corpuscular Hemoglobin Concent 34.3 Red Cell Distribution Width 12.6 Platelet Count 244 Mean Platelet Volume 10.7 H Neutrophils % 65.8 Lymphocytes % 22.2 Monocytes % 8.3 Eosinophils % 2.7 Basophils % 0.6 Nucleated Red Blood Cells % 0.0 Neutrophils # 4.5 Lymphocytes # 1.5 Monocytes # 0.6 Eosinophils # 0.2 Basophils # 0.0 Nucleated Red Blood Cells # 0.0 Sodium Level 128 L Potassium Level 5.0 Chloride Level 101 Carbon Dioxide Level 22 Anion Gap 10 Blood Urea Nitrogen 16 Creatinine 0.68 Glucose Level 207 Calcium Level 8.9 Phosphorus Level 3.5 Magnesium Level 2.1 Bedside Glucose 228 H 184 Medications Medications Current Medications Lorazepam (Ativan) 0.5 mg Q6H PRN IV ANXIETY Last administered on 06/04/16 21: 12; Admin Dose 0.5 MG; Start 05/31/16 at 15:00 Ondansetron HCl (Zofran Inj) 4 mg Q6H PRN IV NAUSEA AND/OR VOMITING Last administered on 06/02/16 19:46; Admin Dose 4 MG; Start 05/31/16 at 15:00 Acetaminophen (Tylenol Tab) 650 mg Q6H PRN PO PAIN LEVEL 1-3 OR FEVER Last administered on 06/04/16 20:09; Admin Dose 650 MG; Start 05/31/16 at 15:00 Acetaminophen/ Hydrocodone Bitart ([place] (5/325)) 1 tab Q6H PRN PO PAIN LEVEL 4 -6; Start 05/31/16 at 15:00 Morphine Sulfate (morphine) 2 mg Q4H PRN IV PAIN LEVEL 7-10 Last administered on 06/02/16 03:00; Admin Dose 2 MG; Start 05/31/16 at 15:00 Magnesium Hydroxide (Milk Of Mag) 30 ml DAILY PRN PO CONSTIPATION Last administered on 06/03/16 15:50; Admin Dose 30 ML; Start 05/31/16 at 15:00 Bisacodyl (Dulcolax) 5 mg DAILY PRN PO CONSTIPATION; Start 05/31/16 at 15:00 Famotidine (Pepcid) 20 mg Q12 PO Last administered on 06/05/16 08:56; Admin Dose 20 MG; Start 05/31/16 at 21:00 Aspirin (Aspirin) 81 mg DAILY PO Last administered on 06/05/16 08:55; Admin Dose 81 MG; Start 06/01/16 at 09:00 Lisinopril (Zestril) 40 mg DAILY PO Last administered on 06/05/16 08:55; Admin Dose 40 MG; Start 06/01/16 at 09:00 Mycophenolate Mofetil (Cellcept) 500 mg BID PO Last administered on 06/05/16 08:54; Admin Dose 500 MG; Start 05/31/16 at 21:00 Prednisone (Prednisone) 2 mg DAILY PO Last administered on 06/05/16 08:54; Admin Dose 2 MG; Start 06/01/16 at 09:00 Tacrolimus (Prograf) 0.5 mg QPM PO Last administered on 06/04/16 20:09; Admin Dose 0.5 MG; Start 05/31/16 at 21:00 Tacrolimus (Prograf) 4 mg QAM PO Last administered on 06/05/16 09:02; Admin Dose 4 MG; Start 06/01/16 at 09:00 Atorvastatin Calcium (Lipitor) 20 mg DAILY@21 PO Last administered on 20:09; Admin Dose 20 MG; Start 05/31/16 at 21:00 Polyethylene Glycol (Miralax) 17 gm BID PO Last administered on 06/05/16 08:53 ; Admin Dose 17 GM; Start 05/31/16 at 21:00 Hydralazine HCl (Apresoline) 10 mg Q6H PRN IV SBP>160; Start 05/31/16 at 16:30 Miscellaneous Information 1 ea NOTE XX ; Start 05/31/16 at 17:00 Glucose (Glutose) 15 gm Q15M PRN PO DECREASED GLUCOSE; Start 05/31/16 at 17:00 Glucose (Glutose) 22.5 gm Q15M PRN PO DECREASED GLUCOSE; Start 05/31/16 at 17: 00 Dextrose (D50w Syringe) 25 ml Q15M PRN IV DECREASED GLUCOSE; Start 05/31/16 at 17:00 Dextrose (D50w Syringe) 50 ml Q15M PRN IV DECREASED GLUCOSE; Start 05/31/16 at 17:00 Glucagon (Glucagen) 1 mg Q15M PRN IM DECREASED GLUCOSE; Start 05/31/16 at 17:00 Glucose (Glutose) 15 gm Q15M PRN BUCCAL DECREASED GLUCOSE; Start 05/31/16 at 17 :00 Tacrolimus (Prograf) 4 mg QPM PO Last administered on 06/04/16 20:28; Admin Dose 4 MG; Start 05/31/16 at 21:00 Diagnostic Test (Pha) (Accu-Chek) 1 ea 02 XX Last administered on 06/02/16 02: 37; Admin Dose 1 EA; Start 06/02/16 at 02:00 Nifedipine (Procardia Xl) 60 mg DAILY PO Last administered on 06/05/16 08:55; Admin Dose 60 MG; Start 06/02/16 at 09:00 Linagliptin (Tradjenta) 5 mg DAILY PO Last administered on 06/05/16 08:55; Admin Dose 5 MG; Start 06/02/16 at 16:00 Heparin Sodium (Porcine) (Heparin (5000 Units/0.5 ml)) 5,000 unit BID SC Last administered on 06/05/16 08:57; Admin Dose 5,000 UNIT; Start 06/03/16 at 21:00 Insulin Glargine 40 unit 40 unit DAILY@20 SC ; Start 06/05/16 at 20:00 Sodium Chloride (NS) 1,000 ml @ 100 mls/hr Q10H IV Last administered on t 11:57; Admin Dose 100 MLS/HR; Start 06/05/16 at 12:00; Stop 06/06/16 at 07: 59 KARINA ARTEAGA NP Jun 05, 2016 14:26
[2016-06-05] MEDS ORDERED: INSULIN GLARGINE [LANtus] 3 ML PEN SC SCH (20:00)
[2016-06-05] MEDS: ATORVASTATIN 20 MG TAB PO SCH (20:17)
[2016-06-05] MEDS: TACROLIMUS 0.5 MG CAP PO SCH (20:18)
[2016-06-06] VITALS (10 sets, daily range): BP systolic 113–155; BP diastolic 53–67; PULSE 62–75; RESP 18–20
[2016-06-06] MEDS: ACCU-CHEK XX SCH (02:00)
[2016-06-06] MEDS: LEVOTHYROXINE 50 MCG TAB PO SCH (05:54)
[2016-06-06 07:30] LABS: ADD SCAN DIFF NO
[2016-06-06 07:38] LABS: BASOPHILS % 0.4 % (0.0-2.0); EOSINOPHILS # 0.2 10^3/ul (0.0-0.5); EOSINOPHILS % 2.6 % (0.0-7.0); HEMOGLOBIN 11.8 g/dl (12.0-16.0); LYMPHOCYTES # 1.5 10^3/ul (0.8-2.9); LYMPHOCYTES % 20.4 % (15.0-51.0); MEAN CORPUSCULAR HEMOGLOBIN 28.7 pg (29.0-33.0); MEAN CORPUSCULAR HGB CONC 32.8 g/dl (32.0-37.0); MEAN CORPUSCULAR VOLUME 87.6 fl (82.0-101.0); MEAN PLATELET VOLUME 10.9 fl (7.4-10.4); MONOCYTE # 0.7 10^3/ul (0.3-0.9); MONOCYTES % 9.2 % (0.0-11.0); NEUTROPHIL # 4.9 10^3/ul (1.6-7.5); NEUTROPHILS % 67.1 % (39.0-77.0); PLATELET COUNT 275 10^3/UL (140-415); RED BLOOD COUNT 4.11 10^6/ul (4.20-5.40); RED CELL DISTRIBUTION WIDTH 13.2 % (11.5-14.5); WHITE BLOOD COUNT 7.3 10^3/ul (4.8-10.8)
[2016-06-06] MEDS: INSULIN ASPART [NOVOLOG] 3 ML PEN SC SCH ×6 (07:54→17:24)
[2016-06-06 07:59] LABS: POTASSIUM 4.3 mmol/L (3.5-5.1)
[2016-06-06 08:01] LABS: MAGNESIUM 1.9 mg/dl (1.7-2.5); PHOSPHORUS 4.1 mg/dl (2.5-4.9)
[2016-06-06 08:02] LABS: CREATININE 0.78 mg/dl (0.44-1.00)
[2016-06-06 08:03] LABS: CALCIUM 9.2 mg/dl (8.4-10.2)
[2016-06-06] MEDS: predniSONE 1 MG TAB PO SCH (08:22)
[2016-06-06] MEDS: TACROLIMUS 1 MG CAP PO SCH (08:22)
[2016-06-06] MEDS: POLYETHYLENE GLYCOL 17 GM PACKET PO SCH (08:22)
[2016-06-06] MEDS: ASPIRIN 81 MG TAB PO SCH (08:23)
[2016-06-06] MEDS: FAMOTIDINE 20 MG TAB PO SCH (08:23)
[2016-06-06] MEDS: NIFEdipine (XL) 60 MG TAB PO SCH (08:23)
[2016-06-06] MEDS: MYCOPHENOLATE 250 MG CAP PO SCH (08:23)
[2016-06-06] MEDS: LISINOPRIL 20 MG TAB PO SCH (08:24)
[2016-06-06] MEDS: LINAGLIPTIN 5 MG TABLET PO SCH (08:24)
[2016-06-06] MEDS: HEPARIN 5,000 UNIT/0.5 ML VIAL SC SCH (08:25)
--- NOTE | 2016-06-06 11:43 | CONS ---
Date/Time of Note Date/Time of Note DATE: 06/06/16 TIME: 11:41 Assessment/Plan Assessment/Plan Additional Assessment/Plan 1. Moderate to severe hyponatremia with a sodium down to 124, - likey due to SIADH + Hypovolemic hyponatremai now improved to normal 2. Right pulmonary nodule more than 1 cm in size, slightly increased in size compared to the previous CT chest. 3. History of hypertension. 4. History of hyperlipidemia. 5. History of diabetes mellitus type 2. 6. Acute abdominal pain. 7. History of prior end-stage renal disease, now status post renal transplant, currently on immunosuppressions. The patient's renal function has been normal. PLAN: Cr normal, s/p NS at 100 cc/hr and tolvaptan 1 dose- now Na normal CT chest with contrast showedpulmonary nodule with central cavitation s/p ID consult, need follow up CT chest Bp stable will follow up Follow up with Dr.kalpesh Muniz in 1-2 week after discharge Consultation Date/Type/Reason Admit Date/Time Jun 02, 2016 at 18:03 Initial Consult Date May Type of Consultation: NEPHROLOGY Reason for Consultation hyponatremia, Kidney transplant Referring Provider: ANTONINA WALKER MD 24 HR Interval Summary Free Text/Dictation Na 138, normal , BP stable Exam/Review of Systems Vital Signs Vitals Vital Signs Date Time Temp Pulse Resp B/P Pulse Ox O2 Delivery O2 Flow Rate FiO2 06/06/16 09:10 75 06/06/16 08:05 98.3 18 155/67 97 06/05/16 04:00 Room Air Intake and Output 06/05/16 06/05/16 06/06/16 15:00 23:00 07:00 Intake Total 1800 ml 1200 ml Balance 1800 ml 1200 ml Exam GENERAL: Awake, alert, in no distress. HEENT: Normal. Oropharynx clear. NECK: Supple, no JVD, no lymphadenopathy. LUNGS: Clear to auscultation. No crackles, no wheezes. HEART: S1, S2, with regular rhythm, no murmur. ABDOMEN: Soft, nontender, nondistended. Bowel sounds are present. renal allograft in place EXTREMITIES: No clubbing, cyanosis, or edema. NEUROLOGICAL: Nonfocal, intact. PSYCHIATRIC: Appropriate affect and mood. Results Result Diagram: 06/06/16 0622 06/06/16 0622 Results 24 hrs Laboratory Tests Test 06/05/16 17:06 06/05/16 20:05 06/06/16 04:52 06/06/16 06:22 Bedside Glucose 86 115 161 White Blood Count 7.3 Red Blood Count 4.11 L Hemoglobin 11.8 L Hematocrit 36.0 L Mean Corpuscular Volume 87.6 Mean Corpuscular Hemoglobin 28.7 L Mean Corpuscular Hemoglobin Concent 32.8 Red Cell Distribution Width 13.2 Platelet Count 275 Mean Platelet Volume 10.9 H Neutrophils % 67.1 Lymphocytes % 20.4 Monocytes % 9.2 Eosinophils % 2.6 Basophils % 0.4 Nucleated Red Blood Cells % 0.0 Neutrophils # 4.9 Lymphocytes # 1.5 Monocytes # 0.7 Eosinophils # 0.2 Basophils # 0.0 Nucleated Red Blood Cells # 0.0 Sodium Level 139 Potassium Level 4.3 Chloride Level 108 Carbon Dioxide Level 23 Anion Gap 12 Blood Urea Nitrogen 16 Creatinine 0.78 Glucose Level 155 Calcium Level 9.2 Phosphorus Level 4.1 Magnesium Level 1.9 Test 06/06/16 07:00 06/06/16 07:52 Lab Scanned Report REFERENCE LAB Bedside Glucose 124 Medications Medications Current Medications Lorazepam (Ativan) 0.5 mg Q6H PRN IV ANXIETY Last administered on 06/04/16 21: 12; Admin Dose 0.5 MG; Start 05/31/16 at 15:00 Ondansetron HCl (Zofran Inj) 4 mg Q6H PRN IV NAUSEA AND/OR VOMITING Last administered on 06/02/16 19:46; Admin Dose 4 MG; Start 05/31/16 at 15:00 Acetaminophen (Tylenol Tab) 650 mg Q6H PRN PO PAIN LEVEL 1-3 OR FEVER Last administered on 06/04/16 20:09; Admin Dose 650 MG; Start 05/31/16 at 15:00 Acetaminophen/ Hydrocodone Bitart ([place] (5/325)) 1 tab Q6H PRN PO PAIN LEVEL 4 -6; Start 05/31/16 at 15:00 Morphine Sulfate (morphine) 2 mg Q4H PRN IV PAIN LEVEL 7-10 Last administered on 06/02/16 03:00; Admin Dose 2 MG; Start 05/31/16 at 15:00 Magnesium Hydroxide (Milk Of Mag) 30 ml DAILY PRN PO CONSTIPATION Last administered on 06/03/16 15:50; Admin Dose 30 ML; Start 05/31/16 at 15:00 Bisacodyl (Dulcolax) 5 mg DAILY PRN PO CONSTIPATION; Start 05/31/16 at 15:00 Famotidine (Pepcid) 20 mg Q12 PO Last administered on 06/06/16 08:23; Admin Dose 20 MG; Start 05/31/16 at 21:00 Aspirin (Aspirin) 81 mg DAILY PO Last administered on 06/06/16 08:23; Admin Dose 81 MG; Start 06/01/16 at 09:00 Lisinopril (Zestril) 40 mg DAILY PO Last administered on 06/06/16 08:24; Admin Dose 40 MG; Start 06/01/16 at 09:00 Mycophenolate Mofetil (Cellcept) 500 mg BID PO Last administered on 06/06/16 08:23; Admin Dose 500 MG; Start 05/31/16 at 21:00 Prednisone (Prednisone) 2 mg DAILY PO Last administered on 06/06/16 08:22; Admin Dose 2 MG; Start 06/01/16 at 09:00 Tacrolimus (Prograf) 0.5 mg QPM PO Last administered on 06/05/16 20:18; Admin Dose 0.5 MG; Start 05/31/16 at 21:00 Tacrolimus (Prograf) 4 mg QAM PO Last administered on 06/06/16 08:22; Admin Dose 4 MG; Start 06/01/16 at 09:00 Atorvastatin Calcium (Lipitor) 20 mg DAILY@21 PO Last administered on 20:17; Admin Dose 20 MG; Start 05/31/16 at 21:00 Polyethylene Glycol (Miralax) 17 gm BID PO Last administered on 06/06/16 08:22 ; Admin Dose 17 GM; Start 05/31/16 at 21:00 Hydralazine HCl (Apresoline) 10 mg Q6H PRN IV SBP>160; Start 05/31/16 at 16:30 Miscellaneous Information 1 ea NOTE XX ; Start 05/31/16 at 17:00 Glucose (Glutose) 15 gm Q15M PRN PO DECREASED GLUCOSE; Start 05/31/16 at 17:00 Glucose (Glutose) 22.5 gm Q15M PRN PO DECREASED GLUCOSE; Start 05/31/16 at 17: 00 Dextrose (D50w Syringe) 25 ml Q15M PRN IV DECREASED GLUCOSE; Start 05/31/16 at 17:00 Dextrose (D50w Syringe) 50 ml Q15M PRN IV DECREASED GLUCOSE; Start 05/31/16 at 17:00 Glucagon (Glucagen) 1 mg Q15M PRN IM DECREASED GLUCOSE; Start 05/31/16 at 17:00 Glucose (Glutose) 15 gm Q15M PRN BUCCAL DECREASED GLUCOSE; Start 05/31/16 at 17 :00 Tacrolimus (Prograf) 4 mg QPM PO Last administered on 06/05/16 20:17; Admin Dose 4 MG; Start 05/31/16 at 21:00 Diagnostic Test (Pha) (Accu-Chek) 1 ea 02 XX Last administered on 06/02/16 02: 37; Admin Dose 1 EA; Start 06/02/16 at 02:00 Nifedipine (Procardia Xl) 60 mg DAILY PO Last administered on 06/06/16 08:23; Admin Dose 60 MG; Start 06/02/16 at 09:00 Linagliptin (Tradjenta) 5 mg DAILY PO Last administered on 06/06/16 08:24; Admin Dose 5 MG; Start 06/02/16 at 16:00 Heparin Sodium (Porcine) (Heparin (5000 Units/0.5 ml)) 5,000 unit BID SC Last administered on 06/06/16 08:25; Admin Dose 5,000 UNIT; Start 06/03/16 at 21:00 Insulin Glargine (Lantus) 40 unit DAILY@20 SC Last administered on 06/05/16 20 :13; Admin Dose 40 UNIT; Start 06/05/16 at 20:00 KRISSY MUNIZ MD Jun 06, 2016 11:43
[2016-06-06] MEDS ORDERED: NOVO3I SC (16:23)
[2016-06-06] MEDS ORDERED: NIFE60TA7 PO (16:23)
[2016-06-06] MEDS ORDERED: LANT3I SC (16:23)
--- NOTE | 2016-06-06 16:25 | PDOCDIS ---
Discharge Instructions DIAGNOSIS Discharge Diagnosis: 1. Hyponatremia 2. End-stage renal disease 3. Diabetes 4. Hypertension CONDITION Patient Condition: Stable HOME CARE INSTRUCTIONS: Diet Instructions: Reduced CalorieSpecial Diet: carbohydrate controlled FOLLOW UP/APPOINTMENTS Appointments 1. Follow up with Dr. Lew Mcguire in one week 2. Follow up with your primary care provider in 1-2 weeks KAUR KELLEY Jun 06, 2016 16:25
[2016-06-06] MEDS ORDERED: LINA5TAB PO (16:56)
[2016-06-06] MEDS ORDERED: POLY17PO6 PO (16:56)
--- NOTE | 2016-06-06 17:50 | DS ---
Date/Time of Note Date/Time of Note DATE: 06/06/16 TIME: 17:44 Discharge Summary Admission/Discharge Info Admit Date/Time Jun 02, 2016 at 18:03 Discharge Date/Time Final Diagnosis 1. Acute abdominal pain. 2. Hyponatremia. 3. End-stage renal disease, status post renal transplant. 4. Essential hypertension. 5. Type 2 diabetes mellitus. 6. Dyslipidemia. 7. Right-sided pulmonary nodule with central cavitation. Patient Condition: Stable Consults 1. Dr. Lew Mcguire 2. Armand Chavarria 3. Dr. Jamar Davalos Hospital Course This is a 71-year-old female with history of end-stage renal disease status post kidney transplant, essential hypertension, type 2 diabetes, obesity, who came to [facility] due to reports of nausea and also episode of nonbilious nonbloody vomiting and dizziness. Patient denied any further chest pain. She was complaining of some constipation. She denied any dysuria or hematuria. She did go to the hospital for further evaluation. Upon examination she was found to have a sodium of 124. CT scan of abdomen and pelvis was also negative for any acute intra-abdominal findings. She did have a chest x-ray that was negative for any acute cardiopulmonary findings. Patient did have some acute abdominal pain however imaging was negative for any acute findings. This did resolve on its own. As for hypernatremia, she was consulted by adaptive physical educator. She was slowly and hydration for resolution of hyponatremia and also dose of tolvaptan. She did have good response. He did normalize during her stay. Patient was otherwise optimized medically. For her end-stage renal disease she was resumed on her immunosuppressants. Her renal function was also within normal limits and we did resume with adaptive physical educator recommendations. For her hypertension she was continued on antihypertensives. Patient was found to be with uncontrolled diabetes and we did adjust her insulin regimen for better control. For her dyslipidemia she was continued on statin medication. There was incidental finding of right-sided pulmonary nodule with central cavitation. She was seen by infectious disease salon sales consultant with no need for antibiotics. Patient was advised for recommended follow-up and imaging of her pulmonary nodule as outpatient. During her course of stay she did improve. She did report no further chest pain or nausea or vomiting. Her hyponatremia was also resolved and she was advised to follow-up with adaptive physical educator as outpatient. The plan of care was discussed with the patient and family and patient and family verbalized understanding. On the day of discharge patient was in stable condition Discussed plan of care with Dr. Mynor brown/sanjuana process time: 40 minutes Home Meds Active Scripts Polyethylene Glycol* (Miralax*) 17 Gm Powd.pack, 17 GM PO BID for 30 Days Prov:MARTIEffieMITZIKAUR 06/06/16 Linagliptin (TRADJENTA) 5 Mg Tablet, 5 MG PO DAILY for 30 Days, TAB Prov:REGIDOMITZI ChouKAUR 06/06/16 Nifedipine (Afeditab CR) 60 Mg Tablet.sa, 60 MG PO DAILY for 30 Days Prov:GABOPATEffieKAUR 06/06/16 Insulin Glargine* (Lantus*) 100 Unit/Ml Soln, 40 UNIT SC DAILY@20 for 30 Days Prov:KAUR KELLEY 06/06/16 Insulin Aspart* (Novolog Insulin Pen*) 100 Unit/Ml Soln, 14 UNIT SC WITH MEALS for 30 Days Prov:GABOZOHREHMITZIKAUR 06/06/16 Reported Medications Insulin Lispro (Humalog Kwikpen) 200 Unit/1 Ml Insuln.pen, 0 SQ AC BREAKFAST DINNER, EA SLIDING SCALE 05/31/16 Esomeprazole Mag Trihydrate (Nexium) 40 Mg Capsule.dr, 40 MG PO DAILY, #30 CAP 05/31/16 Pravastatin Sodium* (Pravastatin Sodium*) 40 Mg Tablet, 40 MG PO HS, TAB 05/31/16 Levothyroxine Sodium* (Levoxyl*) 50 Mcg Tablet, 50 MCG PO BEFORE BREAKFAST, #30 TAB 05/31/16 Tacrolimus* (Prograf*) 1 Mg Capsule, 4 MG PO QAM, CAP 05/31/16 Tacrolimus* (Prograf*) 0.5 Mg Capsule, 4.5 MG PO QPM, CAP 05/31/16 Prednisone* (Prednisone*) 1 Mg Tablet, 2 MG PO DAILY, TAB 05/31/16 Mycophenolate Mofetil* (Cellcept*) 500 Mg Tablet, 500 MG PO BID, #60 TAB 05/31/16 Lisinopril* (Lisinopril*) 40 Mg Tablet, 40 MG PO DAILY, #30 TAB 05/31/16 Aspirin (Ashley Child) 81 Mg Chew, 81 MG PO DAILY 03/18/10 Discontinued Reported Medications Insulin Detemir (Levemir) 100 Unit/1 Ml Vial, 35 UNIT SC QHS, VIAL 05/31/16 Nifedipine* (Nifedipine ER*) 30 Mg Tablet.sa, 30 MG PO DAILY, TAB.SA 05/31/16 Nifedipine* (Procardia*) 20 Mg Cap, 20 MG PO BID, CAP PER PATIENTS SON 10/13/15 Lisinopril* (Lisinopril*) 20 Mg Tablet, 20 MG PO DAILY, #30 TAB 10/13/15 Tacrolimus* (Prograf*) 1 Mg Capsule, 3 MG PO BID, CAP 10/13/15 Mycophenolate Mofetil* (Cellcept*) 500 Mg Tablet, 250 MG PO BID 03/18/10 Prednisone* (Prednisone*) 1 Mg Tablet, 2 MG PO BID 03/18/10 Discontinued Scripts Insulin Detemir (Levemir) 100 Unit/1 Ml Vial, 24 UNIT SC QHS for 30 Days, VIAL 4 Refills Prov:KEM STRASUS S. 10/14/15 Insulin Lispro (Humalog) 100 Unit/1 Ml Cartridge, 8 UNIT SQ AC BREAKFAST DINNER for 30 Days, 4 Refills Prov:KEM STRAUSS S. 10/14/15 Follow-up Plan CONDITION Patient Condition: Stable HOME CARE INSTRUCTIONS: Diet Instructions: Reduced CalorieSpecial Diet: carbohydrate controlled FOLLOW UP/APPOINTMENTS Appointments 1. Follow up with Dr. Lew Mcguire in one week 2. Follow up with your primary care provider in 1-2 weeks Pending Labs Laboratory Tests Test 06/05/16 20:05 06/06/16 04:52 06/06/16 06:22 06/06/16 07:00 Bedside Glucose 115mg/dL (70-220) 161mg/dL (70-220) White Blood Count 7.310^3/ul (4.8-10.8) Red Blood Count 4.1110^6/ul (4.20-5.40) Hemoglobin 11.8g/dl (12.0-16.0) Hematocrit 36.0% (37.0-47.0) Mean Corpuscular Volume 87.6fl (82.0-101.0) Mean Corpuscular Hemoglobin 28.7pg (29.0-33.0) Mean Corpuscular Hemoglobin Concent 32.8g/dl (32.0-37.0) Red Cell Distribution Width 13.2% (11.5-14.5) Platelet Count 10056^3/UL (140-415) Mean Platelet Volume 10.9fl (7.4-10.4) Neutrophils % 67.1% (39.0-77.0) Lymphocytes % 20.4% (15.0-51.0) Monocytes % 9.2% (0.0-11.0) Eosinophils % 2.6% (0.0-7.0) Basophils % 0.4% (0.0-2.0) Nucleated Red Blood Cells % 0.0/100WBC (0.0-0.0) Neutrophils # 4.910^3/ul (1.6-7.5) Lymphocytes # 1.510^3/ul (0.8-2.9) Monocytes # 0.710^3/ul (0.3-0.9) Eosinophils # 0.210^3/ul (0.0-0.5) Basophils # 0.010^3/ul (0.0-0.1) Nucleated Red Blood Cells # 0.010^3/ul (0.0-0.0) Sodium Level 139mmol/L (135-144) Potassium Level 4.3mmol/L (3.5-5.1) Chloride Level 108mmol/L (97-110) Carbon Dioxide Level 23mmol/L (21-31) Anion Gap 12 (8-16) Blood Urea Nitrogen 16mg/dl (7-20) Creatinine 0.78mg/dl (0.44-1.00) Glucose Level 155mg/dl (70-220) Calcium Level 9.2mg/dl (8.4-10.2) Phosphorus Level 4.1mg/dl (2.5-4.9) Magnesium Level 1.9mg/dl (1.7-2.5) Lab Scanned Report REFERENCE [id number] Test 06/06/16 07:52 06/06/16 11:41 06/06/16 17:12 Bedside Glucose 124mg/dL (70-220) 113mg/dL (70-220) 158mg/dL (70-220) KAUR KELLEY Jun 06, 2016 17:50
== END 2016-06-06 18:14 | disposition home or self-care (01) | DRG 644 ==
LOC: E/R 06:17 → MS4 13:08 → OBSVTOIN 06-02 18:03
PROVIDERS: ADMIT Internal Medicine; ATTEND Internal Medicine
DX: E22.2 Syndrome of inappropriate secretion of antidiuretic hormone (principal); Z94.0 Kidney transplant status; E11.65 Type 2 diabetes mellitus with hyperglycemia; R10.11 Right upper quadrant pain; Z79.4 Long term (current) use of insulin; K59.00 Constipation, unspecified; R91.1 Solitary pulmonary nodule; E78.5 Hyperlipidemia, unspecified; E03.9 Hypothyroidism, unspecified; E83.42 Hypomagnesemia; Z79.52 Long term (current) use of systemic steroids
CPT/HCPCS: 36415; 71010; 71260; 74176; 80048; 80053; 80061; 81001; 81003; 82570; 82962; 83036; 83605; 83690; 83735; 84100; 84295; 84300; 84439; 84443; 84450; 84460; 84560; 85025; 85610; 85730; 89190; 96361; 96374; 96375; G0378; J1644; J1815; J2060; J2270; J2405; J2765; J3475; J7030; J7040; J7507; J7512; J7517

== ENCOUNTER 2016-10-20 00:47 | Emergency (ER) | payer MEDICARE, OTHER ==
[~2016-10-20] VITALS: Wt 94.5 kg
[~2016-10-20 00:47] MED LIST changes: +ESOM40CA PO; -INSU100C SQ; +INSU200I SQ; +LANT3I SC; -LEVEM SC; +LEVO50TA71 PO; +LINA5TAB PO; -LISI20TA11 PO; +LISI40TA9 PO; +NIFE60TA7 PO; +NOVO3I SC; +POLY17PO6 PO; +PRAV40TA76 PO; -PRO20 PO; +TACR0.5C18 PO
[2016-10-20] MEDS ORDERED: SOD CHLORIDE 0.9% 1,000 ML IV STA ×2 (02:56→04:38)
[2016-10-20] MEDS ORDERED: ONDANSETRON 4 MG INJ IV STA (02:56)
[2016-10-20] MEDS ORDERED: morphine 4 MG/ML VIAL IV STA (02:56)
[2016-10-20 03:43] LABS: BASOPHIL # 0.1 10^3/ul (0.0-0.1); BASOPHILS % 0.4 % (0.0-2.0); EOSINOPHILS # 0.1 10^3/ul (0.0-0.5); EOSINOPHILS % 0.9 % (0.0-7.0); HEMATOCRIT 35.5 % (37.0-47.0); HEMOGLOBIN 12.5 g/dl (12.0-16.0); LYMPHOCYTES # 1.1 10^3/ul (0.8-2.9); LYMPHOCYTES % 7.5 % (15.0-51.0); MEAN CORPUSCULAR HEMOGLOBIN 30.1 pg (29.0-33.0); MEAN CORPUSCULAR HGB CONC 35.2 g/dl (32.0-37.0); MEAN CORPUSCULAR VOLUME 85.5 fl (82.0-101.0); MEAN PLATELET VOLUME 10.3 fl (7.4-10.4); MONOCYTE # 0.9 10^3/ul (0.3-0.9); NEUTROPHILS % 84.7 % (39.0-77.0); PLATELET COUNT 256 10^3/UL (140-415); RED BLOOD COUNT 4.15 10^6/ul (4.20-5.40); RED CELL DISTRIBUTION WIDTH 12.3 % (11.5-14.5); WHITE BLOOD COUNT 14.2 10^3/ul (4.8-10.8)
[2016-10-20 03:58] LABS: ADD UMIC YES; UR ASCORBIC ACID 40 mg/dL (NEGATIVE); UR BILIRUBIN (Dip) NEGATIVE (NEGATIVE); UR BLOOD (Dip) NEGATIVE (NEGATIVE); UR CLARITY CLEAR (CLEAR); UR COLOR YELLOW (YELLOW); UR GLUCOSE (Dip) 1+ mg/dL (NEGATIVE); UR KETONES (Dip) TRACE mg/dL (NEGATIVE); UR LEUKOCYTE ESTERASE (Dip) TRACE Leu/ul (NEGATIVE); UR NITRITE (Dip) NEGATIVE (NEGATIVE); UR RBC 1 /HPF (0-5); UR SPECIFIC GRAVITY (Dip) 1.021 (1.003-1.030); UR TOTAL PROTEIN (Dip) 2+ mg/dl (NEGATIVE); UR UROBILINOGEN (Dip) NEGATIVE (NEGATIVE)
[2016-10-20 04:05] LABS: ALANINE AMINOTRANSFERASE 30 IU/L (13-69); ALBUMIN 4.3 g/dl (3.3-4.9); ALKALINE PHOSPHATASE 127 IU/L (42-121); ANION GAP 16 (8-16); ASPARTATE AMINO TRANSFERASE 17 IU/L (15-46); BILIRUBIN,INDIRECT 0.4 mg/dl (0-1.1); BILIRUBIN,TOTAL 0.4 mg/dl (0.2-1.3); BLOOD UREA NITROGEN 29 mg/dl (7-20); CARBON DIOXIDE 20 mmol/L (21-31); CHLORIDE 100 mmol/L (97-110); CREATININE 0.82 mg/dl (0.44-1.00); GLUCOSE 203 mg/dl (70-220); POTASSIUM 4.6 mmol/L (3.5-5.1); SODIUM 131 mmol/L (135-144); TOTAL PROTEIN 7.6 g/dl (6.1-8.1)
--- NOTE | 2016-10-20 04:11 | RADRPT ---
AMENDMENT: 10/20/2016 5:15:17 AM Evangelista Power The lung nodule is compared to prior examinations from 06/01/2016 and 11/27/2011. It is unchanged co mpared to the more recent prior and likely minimally increased in size compared to the 2012 examinat ion. This presumably represents some scarring or other indolent process. Continued follow-up can be performed. PROCEDURE: CT abdomen and pelvis without intravenous contrast. CLINICAL INDICATION: Pain. TECHNIQUE: CT of the abdomen/pelvis was performed utilizing axial images with reconstructions in s agittal and coronal planes. The administered radiation dose is CTDI 22 mGy, DLP 1387 half mGy-cm. On e or more of the following dose reduction techniques were used: automated exposure control, adjustme nt of the mA and/or kV according to patient size and/or use of iterative reconstruction technique. COMPARISON: No pertinent prior examinations were submitted for comparison. FINDINGS: Visualized Chest: There is moderate to marked cardiomegaly with small pericardial effusion. Coronary artery and cardiac valvular calcifications are noted. There is a 12 mm nodular opacity within the r ight middel lobe with some likely areas of cavitation. There are also some tiny adjacent nodules in a tree-in-bud configuration. There is mild atelectasis in the left lower lobe. Abdomen: The liver, spleen, pancreas, and adrenal glands are unremarkable. Prior cholecystectomy is noted. There is some intrahepatic and extrahepatic biliary ductal dilatation with the common bile duct marjoire uring up to 17 mm. The kidneys are without hydronephrosis. No definite urinary calculi are seen. The belkofski kidneys ar e small and atrophic. A left lower quadrant renal transplant is noted. Some mildly increased formed stool is noted throughout the colon. There is no evidence of bowel obstruction. The appendix is normal. No intra-abdominal free air is seen. There is no evidence of intra-abdominal adenopathy or free fluid. Pelvis: Coarse calcifications are noted throughout the uterus, presumably due to fibroids. The ovaries are n ot definitely seen. No pelvic adenopathy or free fluid is identified. The urinary bladder is unremar kable. Osseous structures: Unremarkable. IMPRESSION: Small cavitary nodular opacity in the right lower lobe with some adjacent smaller nodules. This is p resumably related to infection. Follow-up after appropriate medical treatment is advised. Mild increased formed stool throughout the colon suggestive of constipation. Left lower quadrant renal transplant. Fibroid uterus. RPTAT: HIKT .Evangelista Power MD, Date Time Electronically viewed and signed by .Evangelista Power MD, on 10/20/2016 05:17 .T/
[2016-10-20 04:31] LABS: TROPONIN-I < 0.012 ng/ml (0.00-0.12)
[2016-10-20] MEDS ORDERED: CEFD300C2 PO (04:38)
[2016-10-20] MEDS ORDERED: VANCOMYCIN 1 GM (PMX) 250 ML IVPB STA (04:38)
[2016-10-20] MEDS ORDERED: PROC5TAB9 PO (04:38)
[2016-10-20] MEDS ORDERED: CEFEPIME 1GM/50 ML (PMX) 50 ML IVPB STA (04:38)
[2016-10-20] MEDS ORDERED: ACETAMINOPHEN 325 MG TAB PO PRN (05:00)
[2016-10-20] MEDS ORDERED: ONDANSETRON 4 MG INJ IV PRN (05:00)
[2016-10-20] MEDS ORDERED: ONDA4TAB14 PO (05:22)
--- NOTE | 2016-10-20 05:32 | ERA ---
ER Documentation Chief Complaint Date/Time DATE: 10/20/16 TIME: 05:27 Chief Complaint ap and vomiting x3 hours. Dizziness. Hx of kidney transplant, HTN HPI This is a 71-year-old Icelandic-speaking female. An theatrical agent was used. The patient has history of kidney transplant in 2013. The patient presents with sudden onset of nausea vomiting and abdominal pain. The patient states that several hours prior to arrival she started to describe epigastric abdominal discomfort that is cramping, moderate with associated nonbloody nonbilious emesis. No diarrhea, no constipation. No recent travel, sick contacts, antibiotics. ROS All systems reviewed and are negative except as per history of present illness. Medications Home Meds Active Scripts Ondansetron (Ondansetron Odt) 4 Mg Tab.rapdis, 4 MG PO Q6H Y for NAUSEA AND/OR VOMITING, #30 TAB Prov:XIMENA SPENCE MD 10/20/16 Polyethylene Glycol* (Miralax*) 17 Gm Powd.pack, 17 GM PO BID for 30 Days Prov:KAUR KELLEY 06/06/16 Linagliptin (TRADJENTA) 5 Mg Tablet, 5 MG PO DAILY for 30 Days, TAB Prov:KAUR KELLEY 06/06/16 Nifedipine (Afeditab CR) 60 Mg Tablet.sa, 60 MG PO DAILY for 30 Days Prov:KAUR KELLEY 06/06/16 Insulin Glargine* (Lantus*) 100 Unit/Ml Soln, 40 UNIT SC DAILY@20 for 30 Days Prov:KAUR KELLEY 06/06/16 Insulin Aspart* (Novolog Insulin Pen*) 100 Unit/Ml Soln, 14 UNIT SC WITH MEALS for 30 Days Prov:KAUR KELLEY 06/06/16 Reported Medications Prochlorperazine* (Prochlorperazine*) 5 Mg Tablet, 5 MG PO Q4H Y for NAUSEA, TAB 10/20/16 Cefdinir (Cefdinir) 300 Mg Capsule, 300 MG PO BID, #60 CAP 10/20/16 Insulin Lispro (Humalog Kwikpen) 200 Unit/1 Ml Insuln.pen, 0 SQ AC BREAKFAST DINNER, EA SLIDING SCALE 05/31/16 Esomeprazole Mag Trihydrate (Nexium) 40 Mg Capsule.dr, 40 MG PO DAILY, #30 CAP 05/31/16 Pravastatin Sodium* (Pravastatin Sodium*) 40 Mg Tablet, 40 MG PO HS, TAB 05/31/16 Levothyroxine Sodium* (Levoxyl*) 50 Mcg Tablet, 50 MCG PO BEFORE BREAKFAST, #30 TAB 05/31/16 Tacrolimus* (Prograf*) 1 Mg Capsule, 4 MG PO QAM, CAP 05/31/16 Prednisone* (Prednisone*) 1 Mg Tablet, 2 MG PO DAILY, TAB 05/31/16 Mycophenolate Mofetil* (Cellcept*) 500 Mg Tablet, 500 MG PO BID, #60 TAB 05/31/16 Lisinopril* (Lisinopril*) 40 Mg Tablet, 40 MG PO DAILY, #30 TAB 05/31/16 Aspirin (Ashley Child) 81 Mg Chew, 81 MG PO DAILY 03/18/10 Discontinued Reported Medications Tacrolimus* (Prograf*) 0.5 Mg Capsule, 4.5 MG PO QPM, CAP 05/31/16 Allergies Allergies: Coded Allergies: No Known Drug Allergies (Unverified Allergy, Mild, 10/20/16) PMhx/Soc History of Surgery: Yes (2003 Kidney transplant) Anesthesia Reaction: No Hx Neurological Disorder: No Hx Respiratory Disorders: No Hx Cardiac Disorders: Yes (HTN) Hx Psychiatric Problems: No Hx Miscellaneous Medical Probl: Yes (DIABETES) Hx Alcohol Use: No Hx Substance Use: No Hx Tobacco Use: No Smoking Status: Never smoker FmHx Family History: No diabetes Physical Exam Vitals Vital Signs Date Time Temp Pulse Resp B/P Pulse Ox O2 Delivery O2 Flow Rate FiO2 10/20/16 05:03 81 20 155/86 97 Room Air 10/20/16 00:49 96.9 67 25 147/68 98 Physical Exam General: Actively vomiting Head: Normocephalic, atraumatic Eyes: Pupils equally reactive, EOM intact ENT: Moist mucous membranes Neck: Supple, no lymphadenopathy Respiratory: Lungs clear bilaterally, no distress Cardiovascular: RRR, no murmurs, rubs, or gallops Abdominal: Soft, mild generalized abdominal discomfort without rebound or guarding : Deferred MSK: No edema, no unilateral swelling, 5/5 strength Neurologic: Alert and oriented, moving all extremities, normal speech, no focal weakness, no cerebellar signs Skin: No rash Psych: Normal mood Result Diagram: 10/20/1630910/20/16309 Results 24 hrs Laboratory Tests Test 10/20/16 03:10 White Blood Count 14.210^3/ul Red Blood Count 4.1510^6/ul Hemoglobin 12.5g/dl Hematocrit 35.5% Mean Corpuscular Volume 85.5fl Mean Corpuscular Hemoglobin 30.1pg Mean Corpuscular Hemoglobin Concent 35.2g/dl Red Cell Distribution Width 12.3% Platelet Count 72618^3/UL Mean Platelet Volume 10.3fl Neutrophils % 84.7% Lymphocytes % 7.5% Monocytes % 6.0% Eosinophils % 0.9% Basophils % 0.4% Nucleated Red Blood Cells % 0.0/100WBC Neutrophils # (Manual) 12.110^3/ul Lymphocytes # 1.110^3/ul Monocytes # 0.910^3/ul Eosinophils # 0.110^3/ul Basophils # 0.110^3/ul Nucleated Red Blood Cells # 0.010^3/ul Urine Color YELLOW Urine Clarity CLEAR Urine pH 5.0 Urine Specific Chandler 1.021 Urine Ketones TRACEmg/dL Urine Nitrite NEGATIVEmg/dL Urine Bilirubin NEGATIVEmg/dL Urine Urobilinogen NEGATIVEmg/dL Urine Leukocyte Esterase TRACELeu/ul Urine Microscopic RBC 1/HPF Urine Microscopic WBC 3/HPF Urine Hemoglobin NEGATIVEmg/dL Urine Glucose 1+mg/dL Urine Total Protein 2+mg/dl Sodium Level 131mmol/L Potassium Level 4.6mmol/L Chloride Level 100mmol/L Carbon Dioxide Level 20mmol/L Anion Gap 16 Blood Urea Nitrogen 29mg/dl Creatinine 0.82mg/dl Glucose Level 203mg/dl Calcium Level 10.0mg/dl Total Bilirubin 0.4mg/dl Direct Bilirubin 0.00mg/dl Indirect Bilirubin 0.4mg/dl Aspartate Amino Transf (AST/SGOT) 17IU/L Alanine Aminotransferase (ALT/SGPT) 30IU/L Alkaline Phosphatase 127IU/L Troponin I < 0.012ng/ml Total Protein 7.6g/dl Albumin 4.3g/dl Globulin 3.30g/dl Albumin/Globulin Ratio 1.30 Lipase 43U/L Current Medications Medications (Trade) Dose Ordered Sig/Anil Route PRN Reason Start Time Stop Time Status Last Admin Dose Admin Sodium Chloride (NS) 1,000 ml @ 1,000 mls/hr Q1H STAT IV 10/20/16 02:56 10/20/16 03:55 DC 10/20/16 03:19 Morphine Sulfate (morphine) 4 mg ONCE STAT IV 10/20/16 02:56 10/20/16 02:57 DC 10/20/16 03:19 Ondansetron HCl 4 mg 4 mg ONCE STAT IV 10/20/16 02:56 10/20/16 02:57 DC 10/20/16 03:19 Sodium Chloride 1,000 ml @ 1,000 mls/hr Q1H STAT IV 10/20/16 04:38 10/20/16 05:37 Cefepime HCl 50 ml @ 100 mls/hr ONCE STAT IVPB 10/20/16 04:38 10/20/16 05:19 DC Vancomycin HCl (Vancocin) 250 ml @ 125 mls/hr ONCE STAT IVPB 10/20/16 04:38 10/20/16 05:19 DC Ondansetron HCl (Zofran Inj) 4 mg BRIDGE ORDER PRN IV NAUSEA AND/OR VOMITING 10/20/16 05:00 10/21/16 04:59 Acetaminophen (Tylenol Tab) 650 mg ER BRIDGE PRN PO MILD PAIN/FEVER 10/20/16 05:00 10/21/16 04:59 Procedures/MDM EKG, MONITORS, & DIAGNOSTIC IMAGING: AMENDMENT: 10/20/2016 5:15:17 AM Evangelista Power The lung nodule is compared to prior examinations from 06/01/2016 and 2011. It is unchanged compared to the more recent prior and likely minimally increased in size compared to the 2011 examination. This presumably represents some scarring or other indolent process. Continued follow-up can be performed. IMPRESSION: Small cavitary nodular opacity in the right lower lobe with some adjacent smaller nodules. This is presumably related to infection. Follow-up after appropriate medical treatment is advised. Mild increased formed stool throughout the colon suggestive of constipation. Left lower quadrant renal transplant. Fibroid uterus. RPTAT: HIKT LAB INTERPRETATION: No significant leukocytosis MEDICAL DECISION MAKING: The patient presents with abdominal pain and vomiting. This is most likely viral however given the patient's age, comorbidities and history of renal transplant concern for possible acute intra-abdominal process. CT imaging indicated. ER COURSE: The patient was given IV fluids pain and nausea medication with complete resolution of her symptoms. The CT above initially noted a pulmonary cavitary lesion. This is concerning for possible infectious process versus tuberculosis. The patient was moved to a negative airflow room in written for antibiotics. However after further investigation, review of electronic medical records I spoke to the radiologist. This appears to be a chronic issue for the patient and was seen in 2011 with only minimal advancement. For this reason I do not believe this is an active issue that warrants inpatient hospitalization. Regarding her nausea and vomiting the symptoms are dramatically improved. The patient has no evidence of acute intra-abdominal process other than constipation. This is not consistent with obstruction or bacteremia. No indication for antibiotics. Symptom control with outpatient management would be appropriate. The patient was informed of her pulmonary nodule that needs further outpatient follow-up and she states that she is currently following her primary care physician for this. She understands return precautions including inability to tolerate oral intake. I kept the patient and/or family informed of laboratory and diagnostic imaging results throughout the emergency room course. DISPOSITION PLAN: We discussed follow up with the patient's primary care doctor within 24 to 48 hours as needed. We also discussed return to the emergency room for worsening symptoms or worsening condition. Outpatient referral: [None required] Discharge Medications: Zofran Departure Diagnosis: Primary Impression: Nausea and vomiting Qualified Code: R11.2 - Non-intractable vomiting with nausea, unspecified vomiting type Additional Impressions: Pulmonary nodule Epigastric pain Condition: Stable Patient Instructions: Nausea and Vomiting-Adult, Pulmonary Nodule, Solitary Additional Instructions: Llame al doctor nomnicolas kendall (Referral Sources) MAANA y nora sara CELINA PARA DENTRO DE SARA SEMANA. Dgale a la secretaria que nosotros le instruimos hacer esta celina.Avise o llame si rider condicin se empeora antes de la celina. XIMENA SPENCE MD Oct 20, 2016 05:32
[2016-10-20 05:37] VITALS: BP 135/86; PULSE 79; RESP 20; TEMP 98.1
== END 2016-10-20 05:50 | disposition home or self-care (01) ==
LOC: E/R 00:47
DX: R11.2 Nausea with vomiting, unspecified (principal); R91.1 Solitary pulmonary nodule; I10 Essential (primary) hypertension; E11.9 Type 2 diabetes mellitus without complications; Z79.4 Long term (current) use of insulin; Z79.84 Long term (current) use of oral hypoglycemic drugs; Z79.82 Long term (current) use of aspirin
CPT/HCPCS: 36415; 74176; 80053; 81001; 83690; 84484; 85025; 93005; 96374; 96375; 99285; J2270; J2405; J7030

== ENCOUNTER 2017-02-11 05:32 | Emergency (ER) | END 2017-02-11 10:52 | disposition home or self-care (01) ==

== ENCOUNTER 2017-03-24 20:11 | Emergency (ER) | END 2017-03-25 04:19 | disposition home or self-care (01) ==

== ENCOUNTER 2017-05-29 19:45 | Emergency (ER) | END 2017-05-29 21:27 | disposition home or self-care (01) ==

== ENCOUNTER 2018-04-24 18:56 | Emergency (ER) | payer MEDICARE, OTHER ==
[~2018-04-24] VITALS: Ht 162.6 cm; Wt 102.0 kg
[~2018-04-24 18:56] MED LIST changes: +ACET500C5 PO; +ALBU2.5V3 NEB; +CEFD300C2 PO; +IBUP-1561 PO; +LISI40TA3 PO; -LISI40TA9 PO; +MECL-77 PO; +MYCO500T PO; -MYCO500T13 PO; +NIFE60TA18 PO; -NIFE60TA7 PO; +ONDA4TAB14 PO; +PROC5TAB9 PO; -TACR0.5C18 PO
[2018-04-24 19:12] VITALS: Ht 162.6 cm; Wt 102.0 kg
[2018-04-24] MEDS ORDERED: morphine 4 MG/ML VIAL IV STA (20:55)
[2018-04-24] MEDS ORDERED: ONDANSETRON 4 MG INJ IV STA (20:55)
[2018-04-24] MEDS ORDERED: ONDANSETRON (ODT) 4 MG TAB ODT STA (20:55)
[2018-04-24] MEDS ORDERED: FURO-110 PO (21:01)
[2018-04-24] MEDS ORDERED: PRAV40TA76 PO (21:01)
[2018-04-24] MEDS ORDERED: NITR0.4T32 SL (21:01)
[2018-04-24] MEDS ORDERED: INSU100I33 SC (21:02)
[2018-04-24] MEDS ORDERED: PRED1TAB2 PO (21:02)
[2018-04-24] MEDS ORDERED: LEVO88TA3 PO (21:03)
[2018-04-24] MEDS ORDERED: ISOS60TA PO (21:03)
[2018-04-24] MEDS ORDERED: ESOM40CA PO (21:04)
[2018-04-24] MEDS ORDERED: METO-335 PO (21:04)
[2018-04-24] MEDS ORDERED: FER325 PO (21:05)
[2018-04-24] MEDS ORDERED: SS SC (21:05)
[2018-04-24] MEDS ORDERED: ERGO500013 PO (21:06)
[2018-04-24] MEDS ORDERED: ASPI-817 PO (21:06)
[2018-04-24] MEDS ORDERED: AMLO5TAB4 PO (21:06)
[2018-04-24] MEDS ORDERED: MYCO250C3 PO (21:07)
[2018-04-24] MEDS ORDERED: TACR1CAP26 PO (21:08)
[2018-04-24] MEDS ORDERED: LISI40TA3 PO (21:08)
--- NOTE | 2018-04-25 00:09 | ERD ---
ER Documentation Chief Complaint Chief Complaint right upper abdominal pain x 2 days HPI 73-year-old female presenting with right upper quadrant pain that has been constant for the past 2 days that radiates to her right lateral abdomen. She denies any associated flank pain, vomiting or diarrhea. No associated fevers, chills, hematuria, or dysuria. She has had some associated nausea. No alleviating or exacerbating factors. Her pain is currently an aching, dull pain, 9 out of 10. ROS All systems reviewed and are negative except as per history of present illness. Medications Home Meds Reported Medications Lisinopril* (Lisinopril*) 40 Mg Tablet, 40 MG PO DAILY, #30 TAB 04/24/18 Tacrolimus* (Prograf*) 1 Mg Capsule, 7 MG PO DAILY, CAP 04/24/18 Mycophenolate Mofetil* (Cellcept*) 250 Mg Capsule, 250 MG PO BID, CAP 04/24/18 Aspirin* (Aspirin* EC) 81 Mg Tablet.dr, 81 MG PO DAILY, TAB 04/24/18 Ergocalciferol (Vitamin D2) (VITAMIN D2) 50,000 Unit Capsule, 84936 UNIT PO Q7D, CAP 04/24/18 Amlodipine Besylate* (Norvasc*) 5 Mg Tablet, 5 MG PO DAILY, TAB 04/24/18 Ferrous Sulfate* (Ferrous Sulfate*) 325 Mg Tabec, 325 MG PO DAILY, TAB 04/24/18 Insulin Human Regular (Novolin-R U-100) 100 Unit/Ml Soln, 14 UNITS SC AC MEALS, EA 04/24/18 Metoprolol Succinate* (Toprol XL*) 25 Mg Tab.sr.24h, 12.5 MG PO DAILY, #30 TAB 04/24/18 Esomeprazole Mag Trihydrate (Nexium) 40 Mg Capsule.dr, 40 MG PO DAILY, #30 CAP 04/24/18 Isosorbide Mononitrate* (Isosorbide Mononitrate*) 60 Mg Tab.er.24h, 60 MG PO DAILY, TAB 04/24/18 Levothyroxine Sodium* (Levothyroxine Sodium*) 88 Mcg Tablet, 88 MCG PO BEFORE BREAKFAST, #30 TAB 04/24/18 Prednisone* (Prednisone*) 1 Mg Tablet, 2 MG PO DAILY, TAB 04/24/18 Insulin Glargine,Hum.rec.anlog (Basaglar Kwikpen U-100) 100 Unit/1 Ml Insuln.pen, 40 UNIT SC QPM, EA 04/24/18 Pravastatin Sodium* (Pravastatin Sodium*) 40 Mg Tablet, 40 MG PO HS, TAB 04/24/18 Furosemide* (Lasix*) 20 Mg Tablet, 20 MG PO DAILY, TAB 04/24/18 Nitroglycerin* (Nitroglycerin* SL) 0.4 Mg Tab.subl, 0.4 MG SL Q5MIN PRN for CHEST PAIN, BOTTLE 04/24/18 Discontinued Reported Medications Prochlorperazine* (Prochlorperazine*) 5 Mg Tablet, 5 MG PO Q4H PRN for NAUSEA, TAB 10/20/16 Cefdinir (Cefdinir) 300 Mg Capsule, 300 MG PO BID, #60 CAP 10/20/16 Insulin Lispro (Humalog Kwikpen) 200 Unit/1 Ml Insuln.pen, 0 SQ AC BREAKFAST DINNER, EA SLIDING SCALE 05/31/16 Esomeprazole Mag Trihydrate (Nexium) 40 Mg Capsule.dr, 40 MG PO DAILY, #30 CAP 05/31/16 Pravastatin Sodium* (Pravastatin Sodium*) 40 Mg Tablet, 40 MG PO HS, TAB 05/31/16 Levothyroxine Sodium* (Levoxyl*) 50 Mcg Tablet, 50 MCG PO BEFORE BREAKFAST, #30 TAB 05/31/16 Tacrolimus* (Prograf*) 1 Mg Capsule, 4 MG PO QAM, CAP 05/31/16 Prednisone* (Prednisone*) 1 Mg Tablet, 2 MG PO DAILY, TAB 05/31/16 Mycophenolate Mofetil* (Cellcept*) 500 Mg Tablet, 500 MG PO BID, #60 TAB 05/31/16 Lisinopril* (Lisinopril*) 40 Mg Tablet, 40 MG PO DAILY, #30 TAB 05/31/16 Aspirin (Ashley Child) 81 Mg Chew, 81 MG PO DAILY 03/18/10 Discontinued Scripts Ibuprofen* (Motrin*) 400 Mg Tab, 400 MG PO Q6H PRN for PAIN AND OR ELEVATED TEMP, #30 TAB Prov:CHRISTOPHE FORTE NP 05/29/17 Ondansetron (Ondansetron Odt) 4 Mg Tab.rapdis, 4 MG PO Q6H PRN for NAUSEA AND/OR VOMITING, #10 TAB Prov:NKECHI TRIANA DO 03/25/17 Meclizine Hcl* (Meclizine Hcl*) 25 Mg Tablet, 25 MG PO Q8H PRN for DIZZINESS, #20 TAB Prov:NKECHI TRIANA DO 03/25/17 Acetaminophen* (Tylophen*) 500 Mg Capsule, 1 CAP PO Q6H PRN for PAIN AND OR ELEVATED TEMP, #30 CAP Prov:NATALIIA SYED PA-C 02/11/17 Albuterol Sulfate* (Albuterol Sulfate* Neb) 0.083%-3 Ml Neb, 2.5 MG NEB Q4 PRN for SHORTNESS OF BREATH, #30 EA Prov:NATALIIA SYED PA-C 02/11/17 Ondansetron (Ondansetron Odt) 4 Mg Tab.rapdis, 4 MG PO Q6H PRN for NAUSEA AND/OR VOMITING, #30 TAB Prov:XIMENA SPENCE MD 10/20/16 Polyethylene Glycol* (Miralax*) 17 Gm Powd.pack, 17 GM PO BID for 30 Days Prov:KAUR KELLEY 06/06/16 Linagliptin (TRADJENTA) 5 Mg Tablet, 5 MG PO DAILY for 30 Days, TAB Prov:KAUR KELLEY 06/06/16 Nifedipine (Afeditab CR) 60 Mg Tablet.sa, 60 MG PO DAILY for 30 Days Prov:KAUR KELLEY 06/06/16 Insulin Glargine* (Lantus*) 100 Unit/Ml Soln, 40 UNIT SC DAILY@20 for 30 Days Prov:KAUR KELLEY 06/06/16 Insulin Aspart* (Novolog Insulin Pen*) 100 Unit/Ml Soln, 14 UNIT SC WITH MEALS f or 30 Days Prov:KAUR KELLEY 06/06/16 Allergies Allergies: Coded Allergies: No Known Drug Allergies (Verified Allergy, Mild, 04/24/18) PMhx/Soc History of Surgery: Yes (left kidney transplant 2003, cholecystectomy) Anesthesia Reaction: No Hx Neurological Disorder: No Hx Respiratory Disorders: No Hx Cardiac Disorders: Yes (HTN) Hx Psychiatric Problems: No Hx Miscellaneous Medical Probl: Yes (DM) Hx Alcohol Use: No Hx Substance Use: No Hx Tobacco Use: No Smoking Status: Never smoker FmHx Family History: No coronary disease Physical Exam Vitals Vital Signs Date Temp Pulse Resp B/P (MAP) Pulse Ox O2 O2 Flow FiO2 Time Delivery Rate 04/25/18 98.1 61 17 141/58 100 Room Air 00:20 (85) 04/24/18 62 19 180/94 100 Room Air 22:10 (122) 04/24/18 98.6 62 17 158/69 98 Room Air 20:03 (98) 04/24/18 98.5 68 18 176/75 97 19:12 (108) Physical Exam Const: In some distress due to pain, nontoxic Head: Atraumatic Eyes: Normal Conjunctiva ENT: Normal External Ears, Nose and Mouth. Neck: Full range of motion. No meningismus. Resp: Clear to auscultation bilaterally Cardio: Regular rate and rhythm, no murmurs. 2+ distal pulses in all 4 extremities Abd: Soft, nondistended. Mild tenderness in the right upper quadrant and right mid abdomen. No McBurney's point tenderness. No rebound or guarding. Normal bowel sounds Skin: No petechiae or rashes Back: No midline or flank tenderness Ext: No cyanosis, or edema Neur: Awake and alert Psych: Normal Mood and Affect Result Diagram: 04/24/18203004/24/182030 Results 24 hrs Laboratory Tests Test 04/24/18 20:31 White Blood Count 7.7 10^3/ul Red Blood Count 3.77 10^6/ul Hemoglobin 10.9 g/dl Hematocrit 33.2 % Mean Corpuscular Volume 88.1 fl Mean Corpuscular Hemoglobin 28.9 pg Mean Corpuscular Hemoglobin Concent 32.8 g/dl Red Cell Distribution Width 12.4 % Platelet Count 259 10^3/UL Mean Platelet Volume 10.4 fl Immature Granulocytes % 0.500 % Neutrophils % 69.3 % Lymphocytes % 20.7 % Monocytes % 6.9 % Eosinophils % 2.2 % Basophils % 0.4 % Nucleated Red Blood Cells % 0.0 /100WBC Immature Granulocytes # 0.040 10^3/ul Neutrophils # 5.3 10^3/ul Lymphocytes # 1.6 10^3/ul Monocytes # 0.5 10^3/ul Eosinophils # 0.2 10^3/ul Basophils # 0.0 10^3/ul Nucleated Red Blood Cells # 0.0 10^3/ul Sodium Level 135 mmol/L Potassium Level 5.1 mmol/L Chloride Level 101 mmol/L Carbon Dioxide Level 24 mmol/L Anion Gap 10 Blood Urea Nitrogen 28 mg/dl Creatinine 0.92 mg/dl Est Glomerular Filtrat Rate mL/min mL/min Glucose Level 256 mg/dl Calcium Level 9.7 mg/dl Total Bilirubin 0.2 mg/dl Direct Bilirubin 0.00 mg/dl Indirect Bilirubin 0.2 mg/dl Aspartate Amino Transf (AST/SGOT) 24 IU/L Alanine Aminotransferase (ALT/SGPT) 27 IU/L Alkaline Phosphatase 134 IU/L Total Protein 6.8 g/dl Albumin 3.8 g/dl Globulin 3.00 g/dl Albumin/Globulin Ratio 1.26 Lipase 67 U/L Current Medications Medications Dose Sig/Anil Start Time Status Last (Trade) Ordered Route PRN Stop Time Admin Dose Reason Admin Morphine 4 mg ONCE STAT 04/24/18 DC 04/24/18 Sulfate IV 20:55 21:33 (morphine) 04/24/18 20:57 Ondansetron 4 mg ONCE STAT 04/24/18 DC HCl (Zofran IV 20:55 Inj) 04/24/18 20:57 Ondansetron 4 mg ONCE STAT 04/24/18 DC 04/24/18 HCl (Zofran ODT 20:55 21:05 Odt) 04/24/18 20:57 Procedures/MDM EMERGENT LABS AND DIAGNOSTIC STUDIES: Lab Results above were reviewed and interpreted by me. CBC: Mild anemia. no evidence of infection CMP: Mildly elevated BUN and hyperglycemia without evidence of acidosis. No evidence of renal failure, electrolyte abnormality, hypoglycemia, liver failure, or biliary obstruction Lipase: no evidence of pancreatitis Radiology Results as interpreted by Radiology below were reviewed by Lana Diallo MD: CT abdomen and pelvis shows stool burden in the ascending colon and cecum. No evidence of bowel obstruction or other acute abnormalities. Lung nodules noted Initial Nursing notes reviewed. Previous Medical Records requested via the Electronic Health Record. EMERGENCY DEPARTMENT COURSE / MEDICAL DECISION MAKING: Patient is presenting with severe right-sided abdominal pain for the past 2 days. Vitals are stable and she is afebrile. Workup did not show any significant abnormalities other than constipation seen on CT scan. I discussed these results with the patient and her son at bedside. She had improved during her ED stay and was sitting up in bed when I was reevaluating her. She looked like she was ready to go home. I explained the results to her and recommended MiraLAX and milk of magnesia that she can buy [id number]. Son is at bedside and is agreeable to this as well. I also discussed the findings of the lung nodule seen on her CT scan and that these will need further evaluation by dedicated chest CT scan. This can be done outpatient by her primary care doctor. Son and patient understand and will follow-up as instructed. Return precautions were given. Patient's blood pressure was elevated (>120/80) but appears stable without evidence of hypertensive emergency or urgency. The patient was counseled about the risks of hypertension and urged to pursue outpatient monitoring and therapy within a week with their primary care physician. Departure Diagnosis: Primary Impression: Constipation Constipation type: unspecified constipation type Qualified Codes: K59.00 - Constipation, unspecified Additional Impressions: Hyperglycemia Right sided abdominal pain Condition: Stable Patient Instructions: Abdominal Pain, Constipation (Adult) Additional Instructions: Compra Miralax y leche de magnesia para tu estreimiento. Regrese por cualquier empeoramiento de los sntomas. Hable con rider mdico acerca de los ndulos observados en las imgenes de brennan pulmones ya que necesitar ms flaco. MELANI DIALLO MD Apr 25, 2018 00:09
[2018-04-25 00:20] VITALS: BP 141/58; PULSE 61; RESP 17
== END 2018-04-25 00:10 | disposition home or self-care (01) ==
LOC: E/R 18:56
DX: K59.00 Constipation, unspecified (principal); E11.65 Type 2 diabetes mellitus with hyperglycemia; I10 Essential (primary) hypertension; Z79.4 Long term (current) use of insulin; Z79.82 Long term (current) use of aspirin
CPT/HCPCS: 36415; 71045; 74176; 80053; 83690; 85025; 96374; 99285; J2270

== ENCOUNTER 2018-06-12 20:08 | Inpatient (IN) | payer MEDICARE, OTHER ==
[~2018-06-12] VITALS: Ht 162.6 cm; Wt 96.5 kg
[~2018-06-12 20:08] MED LIST changes: -ACET500C5 PO; -ALBU2.5V3 NEB; +AMLO5TAB4 PO; -ASPI-676 PO; +ASPI-817 PO; -CEFD300C2 PO; +ERGO500013 PO; +FER325 PO; +FURO-110 PO; -IBUP-1561 PO; +INSU100I33 SC; -INSU200I SQ; +ISOS60TA PO; -LANT3I SC; -LEVO50TA71 PO; +LEVO88TA3 PO; -LINA5TAB PO; -MECL-77 PO; +METO-335 PO; +MYCO250C3 PO; -MYCO500T PO; -NIFE60TA18 PO; +NITR0.4T32 SL; -NOVO3I SC; -ONDA4TAB14 PO; -POLY17PO6 PO; -PROC5TAB9 PO; +SS SC
--- NOTE | 2018-06-12 22:48 | ERD ---
ER Documentation Chief Complaint Chief Complaint COUGH/ SOB X'S 3 DAYS HPI 73-year-old female who presents to the emergency room with 2 months of cough that is dry nonproductive. History is provided by son who is the fish skinning machine feeder. ROS All systems reviewed and are negative except as per history of present illness. Medications Home Meds Reported Medications Lisinopril* (Lisinopril*) 40 Mg Tablet, 40 MG PO DAILY, #30 TAB 04/24/18 Tacrolimus* (Prograf*) 1 Mg Capsule, 7 MG PO DAILY, CAP 04/24/18 Mycophenolate Mofetil* (Cellcept*) 250 Mg Capsule, 250 MG PO BID, CAP 04/24/18 Aspirin* (Aspirin* EC) 81 Mg Tablet.dr, 81 MG PO DAILY, TAB 04/24/18 Ergocalciferol (Vitamin D2) (VITAMIN D2) 50,000 Unit Capsule, 13006 UNIT PO Q7D, CAP 04/24/18 Amlodipine Besylate* (Norvasc*) 5 Mg Tablet, 5 MG PO DAILY, TAB 04/24/18 Ferrous Sulfate* (Ferrous Sulfate*) 325 Mg Tabec, 325 MG PO DAILY, TAB 04/24/18 Insulin Human Regular (Novolin-R U-100) 100 Unit/Ml Soln, 14 UNITS SC AC MEALS, EA 04/24/18 Metoprolol Succinate* (Toprol XL*) 25 Mg Tab.sr.24h, 12.5 MG PO DAILY, #30 TAB 04/24/18 Esomeprazole Mag Trihydrate (Nexium) 40 Mg Capsule.dr, 40 MG PO DAILY, #30 CAP 04/24/18 Isosorbide Mononitrate* (Isosorbide Mononitrate*) 60 Mg Tab.er.24h, 60 MG PO DAILY, TAB 04/24/18 Levothyroxine Sodium* (Levothyroxine Sodium*) 88 Mcg Tablet, 88 MCG PO BEFORE BREAKFAST, #30 TAB 04/24/18 Prednisone* (Prednisone*) 1 Mg Tablet, 2 MG PO DAILY, TAB 04/24/18 Insulin Glargine,Hum.rec.anlog (Basaglar Kwikpen U-100) 100 Unit/1 Ml Insuln .pen, 40 UNIT SC QPM, EA 04/24/18 Pravastatin Sodium* (Pravastatin Sodium*) 40 Mg Tablet, 40 MG PO HS, TAB 04/24/18 Furosemide* (Lasix*) 20 Mg Tablet, 20 MG PO DAILY, TAB 04/24/18 Nitroglycerin* (Nitroglycerin* SL) 0.4 Mg Tab.subl, 0.4 MG SL Q5MIN PRN for CHEST PAIN, BOTTLE 04/24/18 Allergies Allergies: Coded Allergies: No Known Drug Allergies (Verified Allergy, Mild, 04/24/18) PMhx/Soc History of Surgery: Yes (left kidney transplant 2003, cholecystectomy) Anesthesia Reaction: No Hx Neurological Disorder: No Hx Respiratory Disorders: No Hx Cardiac Disorders: Yes (HTN) Hx Psychiatric Problems: No Hx Miscellaneous Medical Probl: Yes (DM) Hx Alcohol Use: No Hx Substance Use: No Hx Tobacco Use: No Smoking Status: Never smoker Physical Exam Vitals Vital Signs Date Temp Pulse Resp B/P (MAP) Pulse Ox O2 O2 Flow FiO2 Time Delivery Rate 06/13/18 58 20 153/71 99 Room Air 00:22 (98) 06/12/18 60 22 182/64 98 Room Air 23:50 (103) 06/12/18 98.3 70 20 213/82 98 20:15 (125) Physical Exam General: Well developed, well nourished, no acute distress Head: Normocephalic, atraumatic. Eyes: Pupils equally reactive, EOM intact ENT: Moist mucous membranes Neck: Supple, no lymphadenopathy Respiratory: Lungs clear bilaterally, no distress Cardiovascular: RRR, no murmurs, rubs, or gallops Abdominal: Soft, non-tender, non-distended, no peritoneal signs : Deferred MSK: Scant bilateral lower extremity nonpitting edema, no unilateral swelling, 5/5 strength Neurologic: Alert and oriented, moving all extremities, normal speech, no focal weakness, no cerebellar signs Skin: No rash Psych: Normal mood Result Diagram: 06/12/18222406/12/182224 Results 24 hrs Laboratory Tests Test 06/12/18 22:25 White Blood Count 10.4 10^3/ul Red Blood Count 3.96 10^6/ul Hemoglobin 11.5 g/dl Hematocrit 34.0 % Mean Corpuscular Volume 85.9 fl Mean Corpuscular Hemoglobin 29.0 pg Mean Corpuscular Hemoglobin Concent 33.8 g/dl Red Cell Distribution Width 12.5 % Platelet Count 254 10^3/UL Mean Platelet Volume 9.8 fl Immature Granulocytes % 0.500 % Neutrophils % 77.0 % Lymphocytes % 13.9 % Monocytes % 6.0 % Eosinophils % 2.3 % Basophils % 0.3 % Nucleated Red Blood Cells % 0.0 /100WBC Immature Granulocytes # 0.050 10^3/ul Neutrophils # 8.0 10^3/ul Lymphocytes # 1.4 10^3/ul Monocytes # 0.6 10^3/ul Eosinophils # 0.2 10^3/ul Basophils # 0.0 10^3/ul Nucleated Red Blood Cells # 0.0 10^3/ul Sodium Level 128 mmol/L Potassium Level 4.9 mmol/L Chloride Level 96 mmol/L Carbon Dioxide Level 23 mmol/L Anion Gap 9 Blood Urea Nitrogen 25 mg/dl Creatinine 0.80 mg/dl Est Glomerular Filtrat Rate mL/min mL/min Glucose Level 279 mg/dl Calcium Level 9.6 mg/dl Troponin I < 0.012 ng/ml B-Type Natriuretic Peptide 497 PG/ML Current Medications Medications Dose Sig/Anil Start Time Status Last (Trade) Ordered Route PRN Stop Time Admin Dose Reason Admin Furosemide 20 mg ONCE ONCE 06/13/18 DC 06/12/18 (Lasix) IV 00:00 06/13/18 23:54 00:01 1 tab ONCE ONCE 06/13/18 DC 06/12/18 Nitroglycerin SL 00:00 06/13/18 23:54 00:01 (Nitroglyceri n (Sl Tab) 0.4 Mg) 650 mg ONCE ONCE 06/13/18 DC 06/12/18 Acetaminophen PO 00:00 06/13/18 23:54 (Tylenol 00:01 Tab) Sodium 500 ml @ Q1H STAT 06/13/18 DC 06/13/18 Chloride 500 mls/hr IV 00:06 06/13/18 00:20 01:05 Aspirin 162 mg ONCE ONCE 06/13/18 DC (Aspirin) PO 01:00 06/13/18 01:01 IV Flush 3 ml PER 06/13/18 UNV (NS 3 ml) PROTOCOL IV 01:00 Ondansetron 4 mg Q6H PRN 06/13/18 UNV HCl (Zofran PO 01:00 Tab) NAUSEA/VOMITI NG 1 tab Q5M PRN 06/13/18 UNV Nitroglycerin SL .CHEST 01:00 PAIN (Nitroglyceri n (Sl Tab) 0.4 Mg) 650 mg Q6H PRN 06/13/18 UNV Acetaminophen PO .PAIN 1-3 01:00 (Tylenol OR TEMP Tab) Docusate 100 mg Q12H PRN 06/13/18 UNV Sodium PO 01:00 (Colace) .CONSTIPATION Bisacodyl 5 mg DAILY PRN 06/13/18 UNV (Dulcolax) PO 01:00 .CONSTIPATION Heparin 5,000 unit Q8 SC 06/13/18 UNV Sodium 01:00 (Porcine) (Heparin (5000 Units/1ml)) Procedures/MDM EKG, MONITORS, & DIAGNOSTIC IMAGING: EKG: I reviewed and interpreted a 12-lead EKG. Rhythm: Normal sinus rhythm ST Changes: No contiguous ST segment elevations T waves: No contiguous T wave inversions Impression: [No evidence of acute cardiac ischemia] Chest x-ray: I reviewed and interpreted a 1 view of the chest Mediastinum: No enlargement Cardiac silhouette: No cardiomegaly Airspace: Clear lung donahue bilaterally without evidence of pneumothorax Bones: No evidence of fracture LAB INTERPRETATION: I reviewed the laboratory testing and it shows hyponatremia, borderline BNP, hyperglycemia MEDICAL DECISION MAKING: Patient's cough is progressive for proximately 2 months. She has some positional and exertional symptoms that are concerning for possible CHF. Low concern for pneumonia, pulmonary embolism. Patient is otherwise well-appearing without significant respiratory distress. Significant hypertension noted which may be contributing to her symptoms. Again concern for CHF. ER COURSE: * Patient's troponin is negative, BNP is indeterminate. The patient does have slight hyponatremia. * Based on the fact that the patient has exertional symptoms with borderline BNP and concern for possible cardiac etiology. I believe inpatient hospi talization for echocardiogram, cardiology consultation will be reasonable. Patient given aspirin, nitroglycerin, Lasix. Blood pressure improved. Patient's blood pressure did drop significantly and a small fluid bolus was given. She remains resting comfortably and is stable. CONSULTATION: [None] DISPOSITION PLAN: Telemetry admission to evaluate for possible new onset CHF Accepting care team and consultations: I discussed the current laboratory data, diagnostic imaging and emergency care provided. Admitting team: Primary care physician, Dr. Pickering recommends admission to panel. Dr. Riley notified. Admitting team indication: Insurance directed Departure Diagnosis: Primary Impression: Dyspnea on exertion Additional Impressions: Shortness of breath Hypertensive urgency Hyponatremia Hyperglycemia Condition: Stable XIMENA SPENCE MD June 12, 2018 22:48
[2018-06-13] MEDS ORDERED: NITROGLYCERIN (SL) 0.4 MG TAB SL ONE
[2018-06-13] MEDS ORDERED: FUROSEMIDE 20 MG INJ IV ONE
[2018-06-13] MEDS ORDERED: ACETAMINOPHEN 325 MG TAB PO ONE
[2018-06-13] MEDS ORDERED: SOD CHLORIDE 0.9% 500 ML IV STA (00:06)
[2018-06-13] MEDS ORDERED: ONDANSETRON 4 MG TAB PO PRN (01:00)
[2018-06-13] MEDS ORDERED: BISACODYL (EC) 5 MG TAB PO PRN (01:00)
[2018-06-13] MEDS ORDERED: ACETAMINOPHEN 325 MG TAB PO PRN (01:00)
[2018-06-13] MEDS ORDERED: DOCUSATE SODIUM 100 MG CAP PO PRN (01:00)
[2018-06-13] MEDS ORDERED: NITROGLYCERIN (SL) 0.4 MG TAB SL PRN (01:00)
[2018-06-13] MEDS ORDERED: ASPIRIN 81 MG TAB PO ONE (01:00)
[2018-06-13] MEDS ORDERED: NACL 0.9% 3 ML SYG IV SCH (01:00)
[2018-06-13] MEDS: HEPARIN 5,000 UNIT/1 ML VIAL SC SCH ×4 (01:31→21:48)
[2018-06-13] MEDS ORDERED: LISINOPRIL 20 MG TAB PO ONE (03:30)
[2018-06-13] MEDS ORDERED: hydrALAzine 20 MG INJ IV PRN (03:30)
[2018-06-13] MEDS ORDERED: AMLODIPINE 5 MG TAB PO ONE (03:30)
--- NOTE | 2018-06-13 05:47 | HP ---
Date/Time of Note Date/Time of Note DATE: 06/13/18 TIME: 05:47 Assessment/Plan VTE Prophylaxis SCD applied (from Nsg): Yes Pharmacological prophylaxis: NA/contraindicated Pharm contraindication: low risk/ambulating Lines/Catheters IV Catheter Type (from Nrsg): Peripheral IV Assessment/Plan Hospital Course This is a 73-year female being admitted to the telemetry floor for observation: #1 hypertensive urgency: Patient did present with systolic blood pressures in the 200. Will initiate patient's home blood pressure medications, will monitor patient's blood pressure closely and titrate meds to achieve goal BP of 130/80 in the setting of end-stage renal disease status post transplant. #2 dyspnea with nonproductive cough: Patient's chest x-ray appears within normal values. Her lung exam is clear to auscultation. She does have an elevated BNP of 497. We will check an echocardiogram. Consider cardiology consultation. She did receive a dose of Lasix in the emergency room, at the current time she appears euvolemic we will continue her home Lasix p.o. dose. Check TSH. She did have a CT of the chest in 2016 which did show a pulmonary nodule we will repeat a CT of the chest to further evaluate. #3 end-stage renal disease. Status post renal transplant. Kidney function appears within normal values. Continue CellCept, tacrolimus, prednisone consult nephrology Dr. Faith #4 type 2 diabetes mellitus.: We will check hemoglobin A1c, resume home insulin and medications. #5 essential hypertension.: Resume home medications and adjust in the setting of #1 #6. Obesity Will check hemoglobin A1c, lipid, TSH #7 dyslipidemia. Resume home meds #8 hypothyroidism: Resume home levothyroxine, check TSH #9 pulmonary nodule: 2017 CT of the chest did show a pulmonary nodule. Will obtain a chest to further evaluate. DVT and GI prophylaxis: SCDs, home PPI Further treatment strategy will be implemented as per the clinical course Result Diagram: 06/12/18222406/12/182224 Results 24hrs Laboratory Tests Test 06/12/18 22:25 White Blood Count 10.4 # Red Blood Count 3.96 L Hemoglobin 11.5 L Hematocrit 34.0 L Mean Corpuscular Volume 85.9 Mean Corpuscular Hemoglobin 29.0 Mean Corpuscular Hemoglobin Concent 33.8 Red Cell Distribution Width 12.5 Platelet Count 254 Mean Platelet Volume 9.8 Immature Granulocytes % 0.500 H Neutrophils % 77.0 Lymphocytes % 13.9 L Monocytes % 6.0 Eosinophils % 2.3 Basophils % 0.3 Nucleated Red Blood Cells % 0.0 Immature Granulocytes # 0.050 H Neutrophils # 8.0 H Lymphocytes # 1.4 Monocytes # 0.6 Eosinophils # 0.2 Basophils # 0.0 Nucleated Red Blood Cells # 0.0 Sodium Level 128 L Potassium Level 4.9 Chloride Level 96 L Carbon Dioxide Level 23 Anion Gap 9 Blood Urea Nitrogen 25 H Creatinine 0.80 Est Glomerular Filtrat Rate mL/min Glucose Level 279 H Calcium Level 9.6 Troponin I < 0.012 B-Type Natriuretic Peptide 497 H HPI/ROS Admit Date/Time Admit Date/Time Hx of Present Illness Chief complaint: Shortness of breath cough x1 month This is a 73-year-old female who reports that she has been complaining of a cough and shortness of breath x1 month. She reports that her symptoms have gotten worse over the past 2 days. She denies any chest pain. Of note on admission her blood pressures were noted to be severely elevated in the 200s. Allergies: NKDA Medications: See Apr Const: As per HPI Eyes : No pain discharge or redness or change in visual acuity ENT: No pain, sore throat, congestion, congestion, dysphagia or discharge Respiratory: As per HPI Cardiovascular: No chest pain, palpitation, PND, or edema GI : no change in appetite, abdominal pain, nausea, vomiting, diarrhea, constipation, or change in the color his stool Genitourinary: No dysuria, hematuria, flank pain , discharge or CVA tenderness Musculoskeletal: No joint pain, back pain, neck pain, restricted range of motion in neck or joints Skin: No rash, bruising or hives Neuro: No headache, dizziness, syncope, seizure, focal weakness Endocrine: No polyuria, polydipsia, temperature intolerance Psych: No hallucination, depression, anxiety or suicidal ideation PMH/Family/Social Past Medical History 1. End-stage renal disease. Status post renal transplant. 2. Type 2 diabetes mellitus. 3. Essential hypertension. 4. Obesity. 5. Dyslipidemia. 6. Hypothyroidism. Medications Current Medications IV Flush (NS 3 ml) 3 ml PER PROTOCOL IV ; Start 06/13/18 at 01:00 Ondansetron HCl (Zofran Tab) 4 mg Q6H PRN PO NAUSEA/VOMITING; Start 06/13/18 at 01:00 Nitroglycerin (Nitroglycerin (Sl Tab) 0.4 Mg) 1 tab Q5M PRN SL .CHEST PAIN; Start 06/13/18 at 01:00 Acetaminophen (Tylenol Tab) 650 mg Q6H PRN PO .PAIN 1-3 OR TEMP; Start 06/13/18 at 01:00 Docusate Sodium (Colace) 100 mg Q12H PRN PO .CONSTIPATION; Start 06/13/18 at 01:00 Bisacodyl (Dulcolax) 5 mg DAILY PRN PO .CONSTIPATION; Start 06/13/18 at 01:00 Heparin Sodium (Porcine) (Heparin (5000 Units/1ml)) 5,000 unit Q8 SC Last adm inistered on 06/13/18at 01:31; Admin Dose 5,000 UNIT; Start 06/13/18 at 01:00 Isosorbide Mononitrate (Imdur) 60 mg DAILY PO ; Start 06/13/18 at 09:00 Lisinopril (Zestril) 40 mg DAILY PO ; Start 06/14/18 at 09:00 Amlodipine Besylate (Norvasc) 5 mg DAILY PO ; Start 06/14/18 at 09:00 Hydralazine HCl (Apresoline) 10 mg Q4H PRN IV ELEVATED BLOOD PRESSURE; Start 06/13/18 at 03:30 Coded Allergies: No Known Drug Allergies (Verified Allergy, Mild, 04/24/18) Past Surgical History Renal transplant Family History Significant Family History: no pertinent family hx Social History Alcohol Use: none Smoking Status: Never smoker Drug Use: none Exam/Review of Systems Vital Signs Vitals Vital Signs Date Temp Pulse Resp B/P (MAP) Pulse Ox O2 O2 Flow FiO2 Time Delivery Rate 06/13/18 58 19 158/55 100 Room Air 03:50 (89) 06/12/18 98.3 20:15 Exam Exam General: She is a pleasant female lying in bed in no acute distress HEENT: Atraumatic, normocephalic. The pupils are equal, round and reactive. Extraocular motor are intact Neck: Supple with full range of motion. No rigidity or meningismus Chest: Nontender Lungs: Clear to auscultation bilaterally no crackles rales or wheezing, nonlabored breathing Heart: Normal S1-S2, Regular rhythm and rate. No murmur, S3, or S4 Abdomen: Soft , nontender, nondistended , bowel sounds are present. No guarding no rebound tenderness , No masses or organomegaly. No costovertebral temporal angle mass Extremities: Normal to inspection, no edema no cyanosis Neurologic: Normal mental status, speech normal, cranial nerves II through XII are intact, motor and sensory are intact, \ Additional Comments PROCEDURE: XR Chest. CLINICAL INDICATION: Shortness of breath. TECHNIQUE: Single frontal view. COMPARISON: 04/24/2018. FINDINGS: The lungs are clear. The heart is enlarged. There is calcification in the aorta consistent with athe rosclerosis. There is no pleural effusion. There is no pneumothorax. IMPRESSION: 1. Cardiomegaly and atherosclerosis. 2. Otherwise unremarkable chest radiograph. RPTAT: QQ .Paresh Stoner MD, MD Date Time Electronically viewed and signed by .Paresh Stoner MD, MD on 06/12/2018 22:45 .R/ CC: XIMENA SPENCE MD [id number] EKG: Rhythm: Normal sinus rhythm ST Changes: No contiguous ST segment elevations T waves: No contiguous T wave inversions Impression: [No evidence of acute cardiac ischemia] BERKLEY GONZALEZ June 13, 2018 05:47
[2018-06-13] MEDS: FERROUS SULFATE (EC) 325 MG TAB PO SCH (08:39)
[2018-06-13] MEDS: ISOSORBIDE MONONITRATE(SR)60 MG TAB PO SCH (08:40)
[2018-06-13] MEDS: LEVOTHYROXINE 88 MCG TAB PO SCH (08:40)
[2018-06-13] MEDS: predniSONE 1 MG TAB PO SCH (08:41)
[2018-06-13] MEDS: TACROLIMUS 1 MG CAP PO SCH (08:42)
[2018-06-13] MEDS: ASPIRIN (EC) 81 MG TAB PO SCH (08:43)
[2018-06-13] MEDS: PANTOPRAZOLE (EC) 40 MG TAB PO SCH (08:43)
[2018-06-13] MEDS: MYCOPHENOLATE 250 MG CAP PO SCH ×2 (08:44→21:39)
[2018-06-13] MEDS: METOPROLOL (XL) 25 MG TAB PO SCH (09:38)
[2018-06-13] MEDS: FUROSEMIDE 20 MG TAB PO SCH (09:39)
--- NOTE | 2018-06-13 10:55 | CONS ---
DATE OF ADMISSION: 06/12/2018 DATE OF CONSULTATION: 06/13/2018 REASON FOR CONSULTATION: Immunosuppressive management, history of kidney transplant. HISTORY OF PRESENT ILLNESS: This is a 73-year-old female with a past medical history of end-stage re nal disease status post renal transplant in 2003 done at [facility], a history of hypo thyroidism, history of hypertension, history of mineral bone disorder, who presents to [facility] Emergency Room with cough, shortness of breath. The patient states that her symptoms began edinson roximately 1 month ago, which progressively worsened over the last 2 days. The patient denied any he moptysis or hematemesis. As a result, she came to the emergency room. Upon arrival, the patient had a chest x-ray, which showed cardiomegaly, otherwise unremarkable. In the emergency room, the patien t was given breathing treatment, nebulizers and started on diuretic therapy. In terms of patient's renal history, the patient had a transplant in 2003. The patient states she klein s had adequate and excellent allograft function. The patient denies any episodes of rejection. The patient's primary group insurance specialist is at [facility]. PAST MEDICAL HISTORY: Stated above, history of end-stage renal disease, history of hypertension, his tory of anemia, history of diabetes, history of obesity, dyslipidemia. PAST SURGICAL HISTORY: Status post renal transplant. FAMILY HISTORY: No family history of kidney disease. SOCIAL HISTORY: She does not drink, smoke or do drugs. MEDICATIONS: The patient's medications have been reviewed. ALLERGIES: NO KNOWN DRUG ALLERGIES. REVIEW OF SYSTEMS: A 14-point review of systems was conducted. Pertinent positives stated in HPI, o therwise negative. PHYSICAL EXAMINATION: VITAL SIGNS: Blood pressure is 190/62, respirations 18, pulse 63, temperature 98.3. HEENT: Head is normocephalic. NECK: Supple. HEART: Regular rate. LUNGS: Show diminished breath sounds at the base. ABDOMEN: Soft, nontender to palpation without rebound or guarding. EXTREMITIES: Negative for clubbing, cyanosis, no edema. DERMATOLOGIC: No rashes. MUSCULOSKELETAL: No joint effusion. NEUROLOGIC: No focal deficits. MEDICATIONS: Reviewed. LABORATORY DATA: Reviewed. IMAGING STUDIES: Reviewed. ASSESSMENT AND PLAN: This is a 73-year-old female who presents with; 1. History of end-stage renal disease status post renal transplant. The patient has excellent allog raft function. At this point, we would continue current immunosuppressive regimen. Continue prednis one. Continue Prograf. Continue CellCept. We will monitor closely. 2. Hypernatremia. Etiology may be secondary to hemodynamics, questionable syndrome of inappropriate antidiuretic hormone. The patient's sodium levels have improved. Continue to monitor. 3. Anemia, mild. Continue to monitor. 4. Mineral bone disorder, muscular calcium and phosphorus levels closely. 5. Hypertensive urgency. Etiology may be due to increased intravascular volume, questionable pain. Continue current blood pressure regimen. Agree with MAGGIE inhibitor. Continue diuretic therapy. We will monitor renal function and electrolytes closely. Adjust blood pressure medications as needed. Continue hydralazine, calcium channel blockers. 6. Cough, shortness of breath. Etiology may be secondary to bronchitis. Chest x-ray shows no acute finding. Continue to monitor. Consider 2D echo. 7. Diabetes. Continue current insulin regimen. 8. Obesity. Continue dietary modifications. 9. Dyslipidemia. Continue statin therapy 10. Hypothyroidism. Continue Synthroid. 11. History of pulmonary nodule. Consider repeat CT scan. Thank you, Dr. Gonzalez, for this interesting consult. It will be a pleasure to follow the patient wi th you throughout the hospital course. Dictated By: PADMINI BENITEZ DO NR/NTS Conf#: [id number] DID#: [id number] CC: BERKLEY GONZALEZ MD; XIMENA SPENCE MD;*[facility]*
[2018-06-13] MEDS ORDERED: INSULIN REGULAR, HUMAN 100 UNIT/1 ML 3ML VIAL SC SCH (11:30)
[2018-06-13] MEDS ORDERED: GLUCAGON 1 MG INJ IM PRN (12:00)
[2018-06-13] MEDS ORDERED: GLUCOSE GEL 15 GRAM TUBE BUCCAL PRN (12:00)
[2018-06-13] MEDS ORDERED: DEXTROSE 50% 50 ML SYRINGE IV PRN ×2 (12:00)
[2018-06-13] MEDS ORDERED: GLUCOSE GEL 15 GRAM TUBE PO PRN ×2 (12:00)
[2018-06-13] MEDS: AMLODIPINE 10 MG TAB PO SCH (14:38)
[2018-06-13 16:15] VITALS: Ht 162.6 cm; Wt 96.5 kg
[2018-06-13 16:21] VITALS: BP 129/59; PULSE 68; RESP 16
--- NOTE | 2018-06-13 16:46 | PN ---
Date/Time of Note Date/Time of Note DATE: 06/13/18 TIME: 16:39 Assessment/Plan VTE Prophylaxis SCD applied (from Nsg): Yes Pharmacological prophylaxis: LMWH Lines/Catheters IV Catheter Type (from Nrsg): Saline Lock Urinary Cath still in place: No Assessment/Plan Assessment/Plan 1. HTN urgency - patient found with elevated BP and will adjustments in medications more controlled - continue monitoring and titrating as needed 2. Dyspnea - CT scan showing broncholitis and emphysema changes. Will start on short course of azithromycin 3. ESRD - Nephrology consultation appreciated and will continue home medications 4. DM - A1c noted - continue insulin and adjust as needed for better control 5. hypothyroidism - continue levothyroxine 6. Pulmonary nodule - monitor as outpatient 7. Disposition Result Diagram: 06/13/18 0533 06/13/18 0534 Results 24hrs Laboratory Tests Test 06/12/18 22:25 06/13/18 05:33 06/13/18 05:34 06/13/18 10:00 White Blood Count 10.4 # 9.2 Red Blood Count 3.96 L 4.19 L Hemoglobin 11.5 L 12.1 Hematocrit 34.0 L 35.8 L Mean Corpuscular Volume 85.9 85.4 Mean Corpuscular 29.0 28.9 L Hemoglobin Mean Corpuscular 33.8 33.8 Hemoglobin Concent Red Cell Distribution 12.5 12.4 Width Platelet Count 254 276 Mean Platelet Volume 9.8 9.8 Immature Granulocytes % 0.500 H 0.800 H Neutrophils % 77.0 73.5 Lymphocytes % 13.9 L 15.5 Monocytes % 6.0 7.3 Eosinophils % 2.3 2.5 Basophils % 0.3 0.4 Nucleated Red Blood 0.0 0.0 Cells % Immature Granulocytes # 0.050 H 0.070 H Neutrophils # 8.0 H 6.7 Lymphocytes # 1.4 1.4 Monocytes # 0.6 0.7 Eosinophils # 0.2 0.2 Basophils # 0.0 0.0 Nucleated Red Blood 0.0 0.0 Cells # Sodium Level 128 L 133 L Potassium Level 4.9 4.5 Chloride Level 96 L 99 Carbon Dioxide Level 23 25 Anion Gap 9 9 Blood Urea Nitrogen 25 H 24 H Creatinine 0.80 0.65 Est Glomerular Filtrat Rate mL/min Glucose Level 279 H 163 # Calcium Level 9.6 9.4 Troponin I < 0.012 B-Type Natriuretic 497 H Peptide Hemoglobin A1c 8.8 H Magnesium Level 1.7 Total Bilirubin 0.5 Direct Bilirubin 0.00 Indirect Bilirubin 0.5 Aspartate Amino 24 Transf (AST/SGOT) Alanine 21 Aminotransferase (ALT/SG PT) Alkaline Phosphatase 123 H Total Protein 6.6 Albumin 3.8 Globulin 2.80 Albumin/Globulin Ratio 1.35 Triglycerides Level 158 H Cholesterol Level 194 LDL Cholesterol, 77 Calculated HDL Cholesterol 85 Cholesterol/HDL Ratio 2.2 Thyroid Stimulating 2.470 Hormone (TSH) Urine Color YELLOW Urine Clarity CLEAR Urine pH 5.0 Urine Specific [place] 1.014 Urine Ketones NEGATIVE Urine Nitrite NEGATIVE Urine Bilirubin NEGATIVE Urine Urobilinogen NEGATIVE Urine Leukocyte Esterase NEGATIVE Urine Microscopic RBC 0 Urine Microscopic WBC 1 Urine Hemoglobin NEGATIVE Urine Random Creatinine 66.74 Urine Random Sodium 23 L Urine Glucose 2+ H Urine Total Protein 141.0 H Test 06/13/18 14:10 Bedside Glucose 369 H Subjective 24 Hr Interval Summary Free Text/Dictation Patient complaining of shortness of breath that has improved slightly but still with clear sputum. Denies any new complaints. Exam/Review of Systems Exam Vitals Vital Signs Date Temp Pulse Resp B/P (MAP) Pulse Ox O2 O2 Flow FiO2 Time Delivery Rate 06/13/18 98.4 68 16 129/59 95 Room Air 16:21 (82) Exam General: She is a pleasant female lying in bed in no acute distress Lungs: Clear to auscultation bilaterally no crackles rales or wheezing, nonlabored breathing Heart: Normal S1-S2, Regular rhythm and rate. No murmur, S3, or S4 Abdomen: Soft , nontender, nondistended , bowel sounds are present. No guarding no rebound tenderness Extremities: Normal to inspection, no edema no cyanosis Results Results 24hrs Laboratory Tests Test 06/12/18 22:25 06/13/18 05:33 06/13/18 05:34 06/13/18 10:00 White Blood Count 10.4 # 9.2 Red Blood Count 3.96 L 4.19 L Hemoglobin 11.5 L 12.1 Hematocrit 34.0 L 35.8 L Mean Corpuscular Volume 85.9 85.4 Mean Corpuscular 29.0 28.9 L Hemoglobin Mean Corpuscular 33.8 33.8 Hemoglobin Concent Red Cell Distribution 12.5 12.4 Width Platelet Count 254 276 Mean Platelet Volume 9.8 9.8 Immature Granulocytes % 0.500 H 0.800 H Neutrophils % 77.0 73.5 Lymphocytes % 13.9 L 15.5 Monocytes % 6.0 7.3 Eosinophils % 2.3 2.5 Basophils % 0.3 0.4 Nucleated Red Blood 0.0 0.0 Cells % Immature Granulocytes # 0.050 H 0.070 H Neutrophils # 8.0 H 6.7 Lymphocytes # 1.4 1.4 Monocytes # 0.6 0.7 Eosinophils # 0.2 0.2 Basophils # 0.0 0.0 Nucleated Red Blood 0.0 0.0 Cells # Sodium Level 128 L 133 L Potassium Level 4.9 4.5 Chloride Level 96 L 99 Carbon Dioxide Level 23 25 Anion Gap 9 9 Blood Urea Nitrogen 25 H 24 H Creatinine 0.80 0.65 Est Glomerular Filtrat Rate mL/min Glucose Level 279 H 163 # Calcium Level 9.6 9.4 Troponin I < 0.012 B-Type Natriuretic 497 H Peptide Hemoglobin A1c 8.8 H Magnesium Level 1.7 Total Bilirubin 0.5 Direct Bilirubin 0.00 Indirect Bilirubin 0.5 Aspartate Amino 24 Transf (AST/SGOT) Alanine 21 Aminotransferase (ALT/SG PT) Alkaline Phosphatase 123 H Total Protein 6.6 Albumin 3.8 Globulin 2.80 Albumin/Globulin Ratio 1.35 Triglycerides Level 158 H Cholesterol Level 194 LDL Cholesterol, 77 Calculated HDL Cholesterol 85 Cholesterol/HDL Ratio 2.2 Thyroid Stimulating 2.470 Hormone (TSH) Urine Color YELLOW Urine Clarity CLEAR Urine pH 5.0 Urine Specific [place] 1.014 Urine Ketones NEGATIVE Urine Nitrite NEGATIVE Urine Bilirubin NEGATIVE Urine Urobilinogen NEGATIVE Urine Leukocyte Esterase NEGATIVE Urine Microscopic RBC 0 Urine Microscopic WBC 1 Urine Hemoglobin NEGATIVE Urine Random Creatinine 66.74 Urine Random Sodium 23 L Urine Glucose 2+ H Urine Total Protein 141.0 H Test 06/13/18 14:10 Bedside Glucose 369 H Medications Medication Current Medications IV Flush (NS 3 ml) 3 ml PER PROTOCOL IV ; Start 06/13/18 at 01:00 Ondansetron HCl (Zofran Tab) 4 mg Q6H PRN PO NAUSEA/VOMITING; Start 06/13/18 at 01:00 Nitroglycerin (Nitroglycerin (Sl Tab) 0.4 Mg) 1 tab Q5M PRN SL .CHEST PAIN; Start 06/13/18 at 01:00 Acetaminophen (Tylenol Tab) 650 mg Q6H PRN PO .PAIN 1-3 OR TEMP; Start 06/13/18 at 01:00 Docusate Sodium (Colace) 100 mg Q12H PRN PO .CONSTIPATION; Start 06/13/18 at 01:00 Bisacodyl (Dulcolax) 5 mg DAILY PRN PO .CONSTIPATION; Start 06/13/18 at 01:00 Heparin Sodium (Porcine) (Heparin (5000 Units/1ml)) 5,000 unit Q8 SC Last administered on 06/13/18 14:38; Admin Dose 5,000 UNIT; Start 06/13/18 at 01:00 Isosorbide Mononitrate (Imdur) 60 mg DAILY PO Last administered on 06/13/18 08:40; Admin Dose 60 MG; Start 06/13/18 at 09:00 Lisinopril (Zestril) 40 mg DAILY PO ; Start 06/14/18 at 09:00 Hydralazine HCl (Apresoline) 10 mg Q4H PRN IV ELEVATED BLOOD PRESSURE Last administered on 06/13/18 08:32; Admin Dose 10 MG; Start 06/13/18 at 03:30 Aspirin (Halfprin) 81 mg DAILY PO Last administered on 06/13/18 08:43; Admin Dose 81 MG; Start 06/13/18 at 09:00 Ferrous Sulfate (Ferrous Sulfate (Ec)) 325 mg DAILY PO Last administered on 06/13/18 08:39; Admin Dose 325 MG; Start 06/13/18 at 09:00 Insulin Human Regular (Humulin R) 14 unit AC MEALS SC Last administered on 06/13/18 14:14; Admin Dose 14 UNIT; Start 06/13/18 at 11:30 Levothyroxine Sodium (Synthroid) 88 mcg BEFORE BREAKFAST PO Last administered on 06/13/18 08:40; Admin Dose 88 MCG; Start 06/13/18 at 09:00 Mycophenolate Mofetil (Cellcept) 250 mg BID PO Last administered on 06/13/18 08:44; Admin Dose 250 MG; Start 06/13/18 at 09:00 Prednisone (Prednisone) 2 mg DAILY PO Last administered on 06/13/18 08:41; Admin Dose 2 MG; Start 06/13/18 at 09:00 Tacrolimus (Prograf) 7 mg DAILY PO Last administered on 06/13/18at 08:42; Admin Dose 7 MG; Start 06/13/18 at 09:00 Pantoprazole (Protonix Tab) 40 mg DAILY@06 PO Last administered on 06/13/18at 08:43; Admin Dose 40 MG; Start 06/13/18 at 09:00 Atorvastatin Calcium (Lipitor) 10 mg DAILY@21 PO ; Start 06/13/18 at 21:00 Metoprolol Succinate (Toprol Xl) 12.5 mg DAILY PO Last administered on 06/13/18at 09:38; Admin Dose 12.5 MG; Start 06/13/18 at 09:00 Amlodipine Besylate (Norvasc) 10 mg DAILY PO Last administered on 06/13/18at 14:38; Admin Dose 10 MG; Start 06/13/18 at 09:00 Hydralazine HCl (Apresoline) 50 mg Q8 PO Last administered on 06/13/18at 14:37; Admin Dose 50 MG; Start 06/13/18 at 09:30 Furosemide (Lasix) 20 mg DAILY PO Last administered on 06/13/18at 09:39; Admin Dose 20 MG; Start 06/13/18 at 09:00 Insulin Glargine (Lantus) 40 units QPM SC ; Start 06/13/18 at 21:00 Miscellaneous Information 1 ea NOTE XX ; Start 06/13/18 at 12:00 Glucose (Glutose) 15 gm Q15M PRN PO DECREASED GLUCOSE; Start 06/13/18 at 12:00 Glucose (Glutose) 22.5 gm Q15M PRN PO DECREASED GLUCOSE; Start 06/13/18 at 12:00 Dextrose (D50w Syringe) 25 ml Q15M PRN IV DECREASED GLUCOSE; Start 06/13/18 at 12:00 Dextrose (D50w Syringe) 50 ml Q15M PRN IV DECREASED GLUCOSE; Start 06/13/18 at 12:00 Glucagon (Glucagen) 1 mg Q15M PRN IM DECREASED GLUCOSE; Start 06/13/18 at 12:00 Glucose (Glutose) 15 gm Q15M PRN BUCCAL DECREASED GLUCOSE; Start 06/13/18 at 12:00 KAYLEY MARTINEZ MD June 13, 2018 16:46
[2018-06-13 17:00] VITALS: PULSE 71
[2018-06-13] MEDS ORDERED: ALBUTEROL 0.083% (NEB) 2.5 MG/3 ML AMP HHN PRN (17:00)
[2018-06-13] MEDS ORDERED: AZITHROMYCIN 500MG/NS (PMX) 250 ML IVPB SCH (18:00)
[2018-06-13] MEDS: INSULIN ASPART [NOVOLOG] 3 ML PEN SC SCH ×2 (18:04→21:00)
--- NOTE | 2018-06-13 18:25 | RADRPT ---
Echocardiogram Report Patient Name: Bryan RODRIGUEZnt ID: [id number] : 1945 (73y 2m)Study Date: 06/13/2018 7:15:58 AM Gender: FAccession #: [id number] Tech: Nile Bennett RDCS Location: [facility] Ref.Physician: BERKLEY GONZALEZ Height(Cm): BSA: Weight(Kg): Quality: AdequateAccount #: Procedures: Echocardiographic Report: Transthoracic echocardiogram with complete 2D, M-Mode, and doppler examination. Indications: Congestive Heart Failure. Measurements: 2D/M Mode Doppler Measurement Value Normal Range Measurement Value Normal Range LVIDd 2D 5.0 [ 3.8 - 5.2 ] cm AV Peak Artemio 1.7 [ 100.0 - 170.0 ] cm/sec LVIDs 2D 3.7 [ 2.2 - 3.5 ] cm AV Peak PG 12.0 [ 2.0 - 9.0 ] mmHg LVPWd 2D 1.5 [ 0.6 - 0.9 ] cm LVOT Peak Artemio 1.1 [ 70.0 - 110.0 ] cm/sec IVSd 2D 1.5 [ 0.6 - 0.9 ] cm LVOT Peak PG 5.0 [ 2.0 - 6.0 ] mmHg AoR Diam 2D 2.2 [ 2.3 - 3.1 ] cm MV E Peak Artemio 0.5 [ 60.0 - 130.0 ] cm/sec EDV 2D 120.0 [ 46.0 - 106.0 ] ml MV A Peak Artemio 1.0 [ 100.0 - 120.0 ] cm/sec ESV 2D 58.1 [ 14.0 - 42.0 ] ml MV E/A 0.5 [ 0.8 - 1.5 ] ratio EF 2D 51.6 [ 54.0 - 74.0 ] percent MV Decel Time 282 [ 104 - 258 ] msec LA Dimen 2D 4.1 [ 2.7 - 3.8 ] cm Lat E` Artemio 0.1 [ 10.0 - 15.0 ] cm/sec Lateral E/E` 8.1 [ 1.0 - 2.0 ] ratio MV E/A 0.5 [ 0.8 - 1.5 ] ratio Findings: Left Ventricle: Normal left ventricular systolic function. Normal left ventricular cavity size. Moderate concentric left ventricular hypertrophy. Ejection fraction is visually estimated at 60-65 %. Tissue Doppler/Mitral Doppler indices are consistent with impaired relaxation (Stage I diastolic dysfunction). Right Ventricle: Normal right ventricular size. Normal right ventricular systolic function. Left Atrium: There is mild enlargement of left atrium. Right Atrium: The right atrium is normal in size. Mitral Valve: Normal appearance and function of the mitral valve with trace physiologic regurgitation. Aortic Valve: No significant aortic stenosis or insufficiency. Aortic cusps appear mildly calcified. Tricuspid Valve: Normal appearance of the tricuspid valve. Unable to obtain RVSP due to minimal presence of tricuspid regurgitation. Pulmonic Valve: Normal pulmonic valve appearance. Pericardium: Normal pericardium with no significant pericardial effusion. Aorta: Normal aortic root. IVC: Normal size and normal respiratory collapse consistent with normal right atrial pressure. Conclusions: Normal left ventricular systolic function. Normal left ventricular cavity size. Moderate concentric left ventricular hypertrophy. Ejection fraction is visually estimated at 60-65 %. Tissue Doppler/Mitral Doppler indices are consistent with impaired relaxation (Stage I diastolic dysfunction). There is mild enlargement of left atrium. Normal appearance and function of the mitral valve with trace physiologic regurgitation. Normal appearance of the tricuspid valve. Unable to obtain RVSP due to minimal presence of tricuspid regurgitation. Electronically Signed By: Greg Duke 2018-06-13 18:24:59 PDT
[2018-06-13 20:00] VITALS: BP 116/56; PULSE 66; RESP 18
[2018-06-13 20:38] VITALS: PULSE 66
[2018-06-13] MEDS ORDERED: ATORVASTATIN 10 MG TAB PO SCH (21:00)
[2018-06-13] MEDS ORDERED: INSULIN GLARGINE [LANtus] 3 ML PEN SC SCH (21:00)
[2018-06-13] MEDS ORDERED: INSULIN GLARGINE [LANTus] (100 UNITS/ML) SYG SC SCH (21:00)
[2018-06-14] VITALS (9 sets, daily range): BP systolic 131–169; BP diastolic 61–76; PULSE 62–75; RESP 18–19
[2018-06-14] MEDS: PANTOPRAZOLE (EC) 40 MG TAB PO SCH (06:07)
[2018-06-14] MEDS: LEVOTHYROXINE 88 MCG TAB PO SCH (06:07)
[2018-06-14] MEDS: HEPARIN 5,000 UNIT/1 ML VIAL SC SCH (06:20)
[2018-06-14] MEDS: MYCOPHENOLATE 250 MG CAP PO SCH (08:13)
[2018-06-14] MEDS: FERROUS SULFATE (EC) 325 MG TAB PO SCH (08:14)
[2018-06-14] MEDS: predniSONE 1 MG TAB PO SCH (08:14)
[2018-06-14] MEDS: TACROLIMUS 1 MG CAP PO SCH (08:14)
[2018-06-14] MEDS: ASPIRIN (EC) 81 MG TAB PO SCH (08:15)
[2018-06-14] MEDS: AMLODIPINE 10 MG TAB PO SCH (08:15)
[2018-06-14] MEDS: FUROSEMIDE 20 MG TAB PO SCH (08:15)
[2018-06-14] MEDS: ISOSORBIDE MONONITRATE(SR)60 MG TAB PO SCH (08:16)
[2018-06-14] MEDS: METOPROLOL (XL) 25 MG TAB PO SCH (08:17)
[2018-06-14] MEDS: INSULIN ASPART [NOVOLOG] 3 ML PEN SC SCH ×2 (08:27→12:22)
[2018-06-14] MEDS ORDERED: AMLODIPINE 5 MG TAB PO SCH (09:00)
[2018-06-14] MEDS ORDERED: LISINOPRIL 20 MG TAB PO SCH (09:00)
--- NOTE | 2018-06-14 10:00 | PN ---
DATE: 06/14/2018 SUBJECTIVE: The patient is stable. The patient's shortness of breath is improving. Cough is improv ing. No other events noted overnight. OBJECTIVE: VITAL SIGNS: Blood pressure is 169/76, pulse 68, respirations 18, temperature 98.1. HEENT: Head is normocephalic. NECK: Supple. HEART: Regular rate. LUNGS: Show diminished breath sounds at the base. ABDOMEN: Soft, nontender to palpation without rebound or guarding. EXTREMITIES: Negative for clubbing, cyanosis, no edema. DERMATOLOGIC: No rashes. MUSCULOSKELETAL: No joint effusion. NEUROLOGIC: No change in exam. MEDICATIONS: Reviewed. LABORATORY DATA: Reviewed. ASSESSMENT AND PLAN: 1. History of end-stage renal disease status post renal transplant in 2003. We will continue curren t immunosuppressive regimen. Continue prednisone, Prograf, CellCept. Monitor renal function closely . 2. Hyponatremia. Etiology may be secondary to syndrome of inappropriate antidiuretic hormone. Cont inue to limit free water intake. Monitor sodium levels closely. 3. Mild anemia. We will continue to monitor. 4. Mineral bone disorder, monitor calcium and phosphorus levels. 5. Hypertensive urgency. The patient's blood pressures are improving. Continue current blood press ure regimen, and adjust as needed. 6. Cough, shortness of breath. Etiology is secondary to bronchitis, possible chronic obstructive pu lmonary disease exacerbation. Continue medical management. Continue antibiotics, nebulizers. 7. Diabetes. Continue current insulin regimen. 8. Obesity. Continue dietary modification. 9. Dyslipidemia. Continue statin therapy. 10. Hypothyroidism. Continue Synthroid. Dictated By: PADMINI BENITEZ DO NR/NTS Conf#: [id number] DID#: [id number] CC: BERKLEY GONZALEZ MD; KAYLEY MARTINEZ MD;*EndCC*
--- NOTE | 2018-06-14 10:46 | PN ---
Date/Time of Note Date/Time of Note DATE: 06/14/18 TIME: 10:41 Assessment/Plan VTE Prophylaxis Risk score (from Ns)>0 risk: 4 SCD applied (from Ns): No SCD contraindicated: low risk/ambulating Pharmacological prophylaxis: NA/contraindicated Pharm contraindication: low risk/ambulating Lines/Catheters IV C[facility]ter [facility]from [facility] Peripheral IV Urinary Cath still in place: No Assessment/Plan Assessment/Plan 1. HTN urgency- improved - Adjustments made to BP medications and will encourage home monitoring - continue monitoring and titrating as needed 2. Acute bronchitis- - improved on Azithromycin. will change to PO and continue as outpatient 3. ESRD - Nephrology consultation appreciated and will continue home medications 4. DM - A1c noted - continue insulin and adjust as needed for better control 5. hypothyroidism - continue levothyroxine 6. Pulmonary nodule - monitor as outpatient 7. Disposition - Medically stable for discharge home Result Diagram: 06/14/18 0559 06/14/18 0559 Results 24hrs Laboratory Tests Test 06/13/18 14:10 06/13/18 17:29 06/13/18 20:59 06/14/18 05:59 Bedside Glucose 369 H 286 H 146 White Blood Count 8.3 Red Blood Count 4.17 L Hemoglobin 12.0 Hematocrit 35.4 L Mean Corpuscular Volume 84.9 Mean Corpuscular 28.8 L Hemoglobin Mean Corpuscular 33.9 Hemoglobin Concent Red Cell Distribution 12.7 Width Platelet Count 279 Mean Platelet Volume 10.2 Immature Granulocytes % 0.600 H Neutrophils % 70.1 Lymphocytes % 18.8 Monocytes % 7.3 Eosinophils % 2.7 Basophils % 0.5 Nucleated Red Blood 0.0 Cells % Immature Granulocytes # 0.050 H Neutrophils # 5.8 Lymphocytes # 1.6 Monocytes # 0.6 Eosinophils # 0.2 Basophils # 0.0 Nucleated Red Blood 0.0 Cells # Sodium Level 133 L Potassium Level 4.5 Chloride Level 100 Carbon Dioxide Level 24 Anion Gap 9 Blood Urea Nitrogen 26 H Creatinine 0.67 Glucose Level 166 Calcium Level 9.4 Phosphorus Level 3.2 Magnesium Level 1.8 Albumin 3.8 Test 06/14/18 07:45 Bedside Glucose 213 Subjective 24 Hr Interval Summary Free Text/Dictation Patient states shes feeling significantly better and denies any overnight events. No new complaints. Exam/Review of Systems Exam Vitals Vital Signs Date Temp Pulse Resp B/P (MAP) Pulse Ox O2 O2 Flow FiO2 Time Delivery Rate 06/14/18 162/64 09:57 (96) 06/14/18 68 08:14 06/14/18 98.1 18 96 Room Air 07:37 Intake and Output 06/13/18 06/13/18 06/14/18 1515:00 23:00 07:00 IntakeIntake Total 300 ml 500 ml OutputOutput Total 0 ml BalanceBalance 300 ml 500 ml Exam General: She is a pleasant female lying in bed in no acute distress Lungs: Clear to auscultation bilaterally no crackles rales or wheezing, nonlabored breathing Heart: Normal S1-S2, Regular rhythm and rate. No murmur, S3, or S4 Abdomen: Soft , nontender, nondistended , bowel sounds are present. No guarding no rebound tenderness Extremities: Normal to inspection, no edema no cyanosis Skin: no new rashes or lesions Results Results 24hrs Laboratory Tests Test 06/13/18 14:10 06/13/18 17:29 06/13/18 20:59 06/14/18 05:59 Bedside Glucose 369 H 286 H 146 White Blood Count 8.3 Red Blood Count 4.17 L Hemoglobin 12.0 Hematocrit 35.4 L Mean Corpuscular Volume 84.9 Mean Corpuscular 28.8 L Hemoglobin Mean Corpuscular 33.9 Hemoglobin Concent Red Cell Distribution 12.7 Width Platelet Count 279 Mean Platelet Volume 10.2 Immature Granulocytes % 0.600 H Neutrophils % 70.1 Lymphocytes % 18.8 Monocytes % 7.3 Eosinophils % 2.7 Basophils % 0.5 Nucleated Red Blood 0.0 Cells % Immature Granulocytes # 0.050 H Neutrophils # 5.8 Lymphocytes # 1.6 Monocytes # 0.6 Eosinophils # 0.2 Basophils # 0.0 Nucleated Red Blood 0.0 Cells # Sodium Level 133 L Potassium Level 4.5 Chloride Level 100 Carbon Dioxide Level 24 Anion Gap 9 Blood Urea Nitrogen 26 H Creatinine 0.67 Glucose Level 166 Calcium Level 9.4 Phosphorus Level 3.2 Magnesium Level 1.8 Albumin 3.8 Test 06/14/18 07:45 Bedside Glucose 213 Medications Medication Current Medications IV Flush (NS 3 ml) 3 ml PER PROTOCOL IV ; Start 06/13/18 at 01:00 Ondansetron HCl (Zofran Tab) 4 mg Q6H PRN PO NAUSEA/VOMITING; Start 06/13/18 at 01:00 Nitroglycerin (Nitroglycerin (Sl Tab) 0.4 Mg) 1 tab Q5M PRN SL .CHEST PAIN; Start 06/13/18 at 01:00 Acetaminophen (Tylenol Tab) 650 mg Q6H PRN PO .PAIN 1-3 OR TEMP Last administered on 06/13/18 16:59; Admin Dose 650 MG; Start 06/13/18 at 01:00 Docusate Sodium (Colace) 100 mg Q12H PRN PO .CONSTIPATION; Start 06/13/18 at 01:00 Bisacodyl (Dulcolax) 5 mg DAILY PRN PO .CONSTIPATION; Start 06/13/18 at 01:00 Heparin Sodium (Porcine) (Heparin (5000 Units/1ml)) 5,000 unit Q8 SC Last administered on 06/14/18 06:20; Admin Dose 5,000 UNIT; Start 06/13/18 at 01:00 Isosorbide Mononitrate (Imdur) 60 mg DAILY PO Last administered on 06/14/18 08:16; Admin Dose 60 MG; Start 06/13/18 at 09:00 Lisinopril (Zestril) 40 mg DAILY PO Last administered on 06/14/18 08:15; Admin Dose 40 MG; Start 06/14/18 at 09:00 Hydralazine HCl (Apresoline) 10 mg Q4H PRN IV ELEVATED BLOOD PRESSURE Last administered on 06/13/18 08:32; Admin Dose 10 MG; Start 06/13/18 at 03:30 Aspirin (Halfprin) 81 mg DAILY PO Last administered on 06/14/18 08:15; Admin Dose 81 MG; Start 06/13/18 at 09:00 Ferrous Sulfate (Ferrous Sulfate (Ec)) 325 mg DAILY PO Last administered on 06/14/18 08:14; Admin Dose 325 MG; Start 06/13/18 at 09:00 Levothyroxine Sodium (Synthroid) 88 mcg BEFORE BREAKFAST PO Last administered on 06/14/18 06:07; Admin Dose 88 MCG; Start 06/13/18 at 09:00 Mycophenolate Mofetil (Cellcept) 250 mg BID PO Last administered on 06/14/18 08:13; Admin Dose 250 MG; Start 06/13/18 at 09:00 Prednisone (Prednisone) 2 mg DAILY PO Last administered on 06/14/18 08:14; Admin Dose 2 MG; Start 06/13/18 at 09:00 Tacrolimus (Prograf) 7 mg DAILY PO Last administered on 06/14/18 08:14; Admin Dose 7 MG; Start 06/13/18 at 09:00 Pantoprazole (Protonix Tab) 40 mg DAILY@06 PO Last administered on 06/14/18 06:07; Admin Dose 40 MG; Start 06/13/18 at 09:00 Atorvastatin Calcium (Lipitor) 10 mg DAILY@21 PO Last administered on 06/13/18 21:39; Admin Dose 10 MG; Start 06/13/18 at 21:00 Metoprolol Succinate (Toprol Xl) 12.5 mg DAILY PO Last administered on 06/14/18 08:17; Admin Dose 12.5 MG; Start 06/13/18 at 09:00 Amlodipine Besylate (Norvasc) 10 mg DAILY PO Last administered on 06/14/18 08:15; Admin Dose 10 MG; Start 06/13/18 at 09:00 Hydralazine HCl (Apresoline) 50 mg Q8 PO Last administered on 06/14/18 06:07; Admin Dose 50 MG; Start 06/13/18 at 09:30 Furosemide (Lasix) 20 mg DAILY PO Last administered on 06/14/18 08:15; Admin Dose 20 MG; Start 06/13/18 at 09:00 Insulin Glargine (Lantus) 40 units QPM SC Last administered on 06/13/18 21:47; Admin Dose 40 UNITS; Start 06/13/18 at 21:00 Miscellaneous Information 1 ea NOTE XX ; Start 06/13/18 at 12:00 Glucose (Glutose) 15 gm Q15M PRN PO DECREASED GLUCOSE; Start 06/13/18 at 12:00 Glucose (Glutose) 22.5 gm Q15M PRN PO DECREASED GLUCOSE; Start 06/13/18 at 12:00 Dextrose (D50w Syringe) 25 ml Q15M PRN IV DECREASED GLUCOSE; Start 06/13/18 at 12:00 Dextrose (D50w Syringe) 50 ml Q15M PRN IV DECREASED GLUCOSE; Start 06/13/18 at 12:00 Glucagon (Glucagen) 1 mg Q15M PRN IM DECREASED GLUCOSE; Start 06/13/18 at 12:00 Glucose (Glutose) 15 gm Q15M PRN BUCCAL DECREASED GLUCOSE; Start 06/13/18 at 12:00 Albuterol (Proventil 0.083% (Neb)) 2.5 mg Q2H RESP THERAPY PRN HHN SHORTNESS OF BREATH; Start 06/13/18 at 17:00 Azithromycin 250 ml @ 250 mls/hr Q24H IVPB Last administered on 06/13/18at 18:27; Admin Dose 250 MLS/HR; Start 06/13/18 at 18:00 Insulin Aspart (Novolog Insulin Pen) NOVOLOG *MILD* ALGORITHM WITH MEALS BEDTIME SC Last administered on 06/14/18at 08:27; Admin Dose 2 UNIT; Start 06/13/18 at 17:55 KAYLEY MARTINEZ MD June 14, 2018 10:46
[2018-06-14] MEDS ORDERED: AZIT250T13 PO (10:49)
[2018-06-14] MEDS ORDERED: AMLO-147 PO (10:49)
[2018-06-14] MEDS ORDERED: HYDR-3672 PO (10:49)
--- NOTE | 2018-06-14 10:53 | PDOCDIS ---
Discharge Instructions DIAGNOSIS Discharge Diagnosis 1. HTN urgency- improved 2. Acute bronchitis 3. ESRD s/p transplant- stable 4. DM 5. hypothyroidism 6. Pulmonary nodule- stable CONDITION [id number] Patient Condition: [id number] Stable HOME CARE INSTRUCTIONS: [id number] Diet Instructions: [id number] Low Fat /Cholesterol [id number] Special Diet: Trwro5a low sugar, low carb diet ACTIVITY: [id number] Activity Restrictions: [id number] No Restrictions FOLLOW UP/APPOINTMENTS Follow-up Plan 1. Follow up with your primary care physician in 1-2 weeks 2. Continue taking Azithromycin 250mg for 5 days with the next dose today with dinner 3. Your blood pressure was running high and adjustments were made to the regime. You will need to take Norvasc 10mg now and Hydralazine 75mg three times a day was added for better control. Continue monitoring your blood pressure and if experiencing >180 or <90 please call your primary care physician or go to the ED 4. Use inhaler as needed for shortness of breath 5. If experiencing any concerning symptoms, please go to your nearest emergency department KAYLEY MARTNIEZ MD June 14, 2018 10:53
[2018-06-14] MEDS ORDERED: ALBU18HF INHALATION (10:54)
--- NOTE | 2018-06-14 15:28 | DS ---
Date/Time of Note Date/Time of Note DATE: 06/14/18 TIME: 15:23 Discharge Summary Admission/Discharge Info Admit Date/Time June 13, 2018 at 00:54 Discharge Date/Time 06/14/18 Discharge Diagnosis 1. HTN urgency- improved 2. Acute bronchitis 3. ESRD s/p transplant- stable 4. DM 5. hypothyroidism 6. Pulmonary nodule- stable Patient Condition: Stable Consults Nephrology- Dr. Faith Hx of Present Illness Chief complaint: Shortness of breath cough x1 month This is a 73-year-old female who reports that she has been complaining of a cough and shortness of breath x1 month. She reports that her symptoms have gotten worse over the past 2 days. She denies any chest pain. Of note on admission her blood pressures were noted to be severely elevated in the 200s. Allergies: NKDA #1 hypertensive urgency: Patient did present with systolic blood pressures in the 200. Will initiate patient's home blood pressure medications, will monitor patient's blood pressure closely and titrate meds to achieve goal BP of 130/80 in the setting of end-stage renal disease status post transplant. #2 dyspnea with nonproductive cough: Patient's chest x-ray appears within normal values. Her lung exam is clear to auscultation. She does have an elevated BNP of 497. We will check an echocardiogram. Consider cardiology consultation. She did receive a dose of Lasix in the emergency room, at the current time she appears euvolemic we will continue her home Lasix p.o. dose. Check TSH. She did have a CT of the chest in 2017 which did show a pulmonary nodule we will repeat a CT of the chest to further evaluate. #3 end-stage renal disease. Status post renal transplant. Kidney function appears within normal values. Continue CellCept, tacrolimus, prednisone consult nephrology Dr. Faith #4 type 2 diabetes mellitus.: We will check hemoglobin A1c, resume home insulin and medications. #5 essential hypertension.: Resume home medications and adjust in the setting of #1 #6. Obesity Will check hemoglobin A1c, lipid, TSH #7 dyslipidemia. Resume home meds #8 hypothyroidism: Resume home levothyroxine, check TSH #9 pulmonary nodule: 2017 CT of the chest did show a pulmonary nodule. Will obtain a chest to further evaluate. Hospital Course Patient was admitted for evaluation of shortness of breath. She had CT scan performed which showed mild emphysematous and bronchiolitis changes. She was started on antibiotics with improvement in respiratory status. Patient was believed to have CHF as well and ECHO was performed which showed preserved EF. She was given Lasix and continue on home PO dosage. Patient presented with elevated blood pressure and adjustments were made to home medications and hydralazine was added to the regime with better control. Patient's presenting symptoms improved significantly and vitals remained stable. Patient was discharged home in good condition with Ventolin and Azithromycin prescriptions. Home Meds Active Scripts Albuterol Sulfate* (Ventolin HFA*) 18 Gm Hfa.aer.ad, 2 PUFF INHALATION Q6H PRN for SHORTNESS OF BREATH for 30 Days, #1 INHALER Prov:KAYLEY MARTINEZ MD 06/14/18 Azithromycin* (Azithromycin*) 250 Mg Tablet, 250 MG PO DAILY for 5 Days, #5 TAB Prov:KAYLEY MARTINEZ MD 06/14/18 Hydralazine Hcl* (Apresoline*) 50 Mg Tab, 75 MG PO Q8 for 30 Days, #90 TAB Prov:KAYLEY MARTINEZ MD 06/14/18 Amlodipine Besylate* (Amlodipine Besylate*) 10 Mg Tablet, 10 MG PO DAILY for 30 Days, #30 TAB Prov:KAYLEY MARTINEZ MD 06/14/18 Reported Medications Lisinopril* (Lisinopril*) 40 Mg Tablet, 40 MG PO DAILY, #30 TAB 04/24/18 Tacrolimus* (Prograf*) 1 Mg Capsule, 7 MG PO DAILY, CAP 04/24/18 Mycophenolate Mofetil* (Cellcept*) 250 Mg Capsule, 250 MG PO BID, CAP 04/24/18 Aspirin* (Aspirin* EC) 81 Mg Tablet.dr, 81 MG PO DAILY, TAB 04/24/18 Ergocalciferol (Vitamin D2) (VITAMIN D2) 50,000 Unit Capsule, 65799 UNIT PO Q7D, CAP 04/24/18 Ferrous Sulfate* (Ferrous Sulfate*) 325 Mg Tabec, 325 MG PO DAILY, TAB 04/24/18 Insulin Human Regular (Novolin-R U-100) 100 Unit/Ml Soln, 14 UNITS SC AC MEALS, EA 04/24/18 Metoprolol Succinate* (Toprol XL*) 25 Mg Tab.sr.24h, 12.5 MG PO DAILY, #30 TAB 3/13/19 Esomeprazole Mag Trihydrate (Nexium) 40 Mg Capsule.dr, 40 MG PO DAILY, #30 CAP 04/24/18 Isosorbide Mononitrate* (Isosorbide Mononitrate*) 60 Mg Tab.er.24h, 60 MG PO DAILY, TAB 04/24/18 Levothyroxine Sodium* (Levothyroxine Sodium*) 88 Mcg Tablet, 88 MCG PO BEFORE BREAKFAST, #30 TAB 04/24/18 Prednisone* (Prednisone*) 1 Mg Tablet, 2 MG PO DAILY, TAB 04/24/18 Insulin Glargine,Hum.rec.anlog (Basaglar Kwikpen U-100) 100 Unit/1 Ml Insuln.pen, 40 UNIT SC QPM, EA 04/24/18 Pravastatin Sodium* (Pravastatin Sodium*) 40 Mg Tablet, 40 MG PO HS, TAB 04/24/18 Furosemide* (Lasix*) 20 Mg Tablet, 20 MG PO DAILY, TAB 04/24/18 Nitroglycerin* (Nitroglycerin* SL) 0.4 Mg Tab.subl, 0.4 MG SL Q5MIN PRN for CHEST PAIN, BOTTLE 04/24/18 Discontinued Reported Medications Amlodipine Besylate* (Norvasc*) 5 Mg Tablet, 5 MG PO DAILY, TAB 04/24/18 Follow-up Plan 1. Follow up with your primary care physician in 1-2 weeks 2. Continue taking Azithromycin 250mg for 5 days with the next dose today with dinner 3. Your blood pressure was running high and adjustments were made to the regime. You will need to take Norvasc 10mg now and Hydralazine 75mg three times a day was added for better control. Continue monitoring your blood pressure and if experiencing >180 or <90 please call your primary care physician or go to the ED 4. Use inhaler as needed for shortness of breath 5. If experiencing any concerning symptoms, please go to your nearest emergency department Primary Care Provider Shantelle Pickering MD Time spent on discharge: > 30 minutes Pending Labs Laboratory Tests Test 06/13/18 17:29 06/13/18 20:59 06/14/18 05:59 06/14/18 07:45 Bedside 286 146 213 Glucose mg/dL (70-220) mg/dL (70-220) mg/dL (70-220) White Blood 8.3 Count 10^3/ul (4.8-1 0.8) Red Blood 4.17 Count 10^6/ul (4.20- 5.40) Hemoglobin 12.0 g/dl (12.0-16. 0) Hematocrit 35.4 % (37.0-47.0) Mean 84.9 Corpuscular fl (82.0-101.0 Volume ) Mean 28.8 Corpuscular pg (29.0-33.0) Hemoglobin Mean 33.9 Corpuscular g/dl (32.0-37. Hemoglobin Conc 0) ent Red Cell 12.7 Distribution % (11.5-14.5) Width Platelet Count 279 10^3/UL (140-4 15) Mean Platelet 10.2 Volume fl (7.4-10.4) Immature 0.600 Granulocytes % % (0.001-0.429 ) Neutrophils % 70.1 % (39.0-77.0) Lymphocytes % 18.8 % (15.0-51.0) Monocytes % 7.3 % (0.0-11.0) Eosinophils % 2.7 % (0.0-7.0) Basophils % 0.5 % (0.0-2.0) Nucleated Red 0.0 Blood Cells % /100WBC (0.0-0 .0) Immature 0.050 Granulocytes # 10^3/ul (0.0-0 .031) Neutrophils # 5.8 10^3/ul (1.6-7 .5) Lymphocytes # 1.6 10^3/ul (0.8-2 .9) Monocytes # 0.6 10^3/ul (0.3-0 .9) Eosinophils # 0.2 10^3/ul (0.0-0 .5) Basophils # 0.0 10^3/ul (0.0-0 .1) Nucleated Red 0.0 Blood Cells # 10^3/ul (0.0-0 .0) Sodium Level 133 mmol/L (135-14 4) Potassium 4.5 Level mmol/L (3.5-5. 1) Chloride Level 100 mmol/L (97-110 ) Carbon Dioxide 24 Level mmol/L (21-31) Anion Gap 9 (5-13) Blood Urea 26 Nitrogen mg/dl (7-20) Creatinine 0.67 mg/dl (0.44-1. 00) Glucose Level 166 mg/dl (70-220) Calcium Level 9.4 mg/dl (8.4-10. 2) Phosphorus 3.2 Level mg/dl (2.5-4.9 ) Magnesium 1.8 Level mg/dl (1.7-2.5 ) Albumin 3.8 g/dl (3.3-4.9) Test 06/14/18 12:18 Bedside 235 Glucose mg/dL (70-220) KAYLEY MARTINEZ MD June 14, 2018 15:28
== END 2018-06-14 14:05 | disposition home or self-care (01) | DRG 304 ==
LOC: E/R 20:08 → TEL 06-13 00:54 → UNDODISIN 06-13 16:11
PROVIDERS: ADMIT Family Medicine; ATTEND Internal Medicine
DX: I16.0 Hypertensive urgency (principal); N18.6 End stage renal disease; E87.1 Hypo-osmolality and hyponatremia; Z94.0 Kidney transplant status; E87.0 Hyperosmolality and hypernatremia; I13.2 Hypertensive heart and chronic kidney disease with heart failure and with stage 5 chronic kidney disease, or end stage renal disease; E11.22 Type 2 diabetes mellitus with diabetic chronic kidney disease; I50.9 Heart failure, unspecified; J20.9 Acute bronchitis, unspecified; E78.5 Hyperlipidemia, unspecified; E03.9 Hypothyroidism, unspecified; D64.9 Anemia, unspecified; E66.9 Obesity, unspecified; Z68.36 Body mass index [BMI] 36.0-36.9, adult; Z71.3 Dietary counseling and surveillance; Z79.4 Long term (current) use of insulin
CPT/HCPCS: 36415; 71045; 71250; 80048; 80053; 80061; 80069; 81001; 81003; 82043; 82962; 83036; 83735; 83880; 84155; 84300; 84443; 84484; 85025; 93005; 93306; 96374; J0360; J0456; J1644; J1815; J1940; J7040; J7507; J7512; J7517

== ENCOUNTER 2018-07-30 08:45 | Emergency (ER) | payer MEDICARE, OTHER ==
[~2018-07-30] VITALS: Ht 160 cm; Wt 97.6 kg
[~2018-07-30 08:45] MED LIST changes: +ALBU18HF INHALATION; +AMLO-147 PO; -AMLO5TAB4 PO; +AZIT250T13 PO; +HYDR-3672 PO
[2018-07-30 08:57] VITALS: Ht 160 cm; Wt 97.6 kg
[2018-07-30] MEDS ORDERED: AZITHROMYCIN 500MG/NS (PMX) 250 ML IV STA (10:09)
[2018-07-30] MEDS ORDERED: SOD CHLORIDE 0.9% 500 ML IV STA (10:09)
[2018-07-30] MEDS ORDERED: IPRATROPIUM (NEB) 0.5 MG/2.5 ML AMP INH STA (10:09)
[2018-07-30] MEDS ORDERED: ALBUTEROL 0.5% (NEB) 2.5 MG/0.5 ML AMP INH STA (10:09)
--- NOTE | 2018-07-30 10:18 | ERD ---
ER Documentation Chief Complaint Chief Complaint COUGH, CHEST CONGESTION & SOB X4 DAYS HPI This is a 73-year-old female with past medical history of renal transplant on the left side 12 years prior to arrival. The patient is on CellCept and Prograf. The patient indicates that for the past she has had a productive cough wheezing and generalized myalgias. She had no fever shaking or chills. She went to her primary care physician yesterday and was placed on azithromycin. She took yesterday's dose as well as another dose this morning. She has pleuritic pain in her chest but contrary to the triage note the patient denies any chest pain or pressure that radiates to the neck arm back or jaw. The shortness of breath is with exertion. She denies any swelling of her lower extremities. She denies any recent travel. The patient was admitted to the hospital 1 month ago for 48 hours for similar symptoms. She has no frequency urgency or dysuria. No hemoptysis no hematemesis no melanotic stools. ROS All systems reviewed and are negative except as per history of present illness. Medications Home Meds Active Scripts Albuterol Sulfate* (Proair HFA*) 8.5 Gm Hfa.aer.ad, 2 PUFF INH Q6H PRN for WHEEZING AND SOB, #1 INHALER Prov:ROLA ROCKWELL MD 07/30/18 Albuterol Sulfate* (Ventolin HFA*) 18 Gm Hfa.aer.ad, 2 PUFF INHALATION Q6H PRN for SHORTNESS OF BREATH for 30 Days, #1 INHALER Prov:KAYLEY MARTINEZ MD 06/14/18 Hydralazine Hcl* (Apresoline*) 50 Mg Tab, 75 MG PO Q8 for 30 Days, #90 TAB Prov:KAYLEY MARTINEZ MD 06/14/18 Amlodipine Besylate* (Amlodipine Besylate*) 10 Mg Tablet, 10 MG PO DAILY for 30 Days, #30 TAB Prov:KAYLEY MARTINEZ MD 06/14/18 Reported Medications Mycophenolate Mofetil* (Cellcept*) 500 Mg Tablet, 500 MG PO BID, #60 TAB 07/30/18 Lisinopril* (Lisinopril*) 40 Mg Tablet, 40 MG PO DAILY, #30 TAB 04/24/18 Tacrolimus* (Prograf*) 1 Mg Capsule, 7 MG PO DAILY, CAP 04/24/18 Aspirin* (Aspirin* EC) 81 Mg Tablet.dr, 81 MG PO DAILY, TAB 04/24/18 Ferrous Sulfate* (Ferrous Sulfate*) 325 Mg Tabec, 325 MG PO DAILY, TAB 04/24/18 Insulin Human Regular (Novolin-R U-100) 100 Unit/Ml Soln, 14 UNITS SC AC MEALS, EA 04/24/18 Metoprolol Succinate* (Toprol XL*) 25 Mg Tab.sr.24h, 12.5 MG PO DAILY, #30 TAB 04/24/18 Esomeprazole Mag Trihydrate (Nexium) 40 Mg Capsule.dr, 40 MG PO DAILY, #30 CAP 04/24/18 Isosorbide Mononitrate* (Isosorbide Mononitrate*) 60 Mg Tab.er.24h, 60 MG PO DAILY, TAB 04/24/18 Levothyroxine Sodium* (Levothyroxine Sodium*) 88 Mcg Tablet, 88 MCG PO BEFORE BREAKFAST, #30 TAB 04/24/18 Prednisone* (Prednisone*) 1 Mg Tablet, 2 MG PO DAILY, TAB 04/24/18 Insulin Glargine,Hum.rec.anlog (Basaglar Kwikpen U-100) 100 Unit/1 Ml Insuln.pen, 40 UNIT SC QPM, EA 04/24/18 Pravastatin Sodium* (Pravastatin Sodium*) 40 Mg Tablet, 40 MG PO HS, TAB 04/24/18 Furosemide* (Lasix*) 20 Mg Tablet, 20 MG PO DAILY, TAB 04/24/18 Nitroglycerin* (Nitroglycerin* SL) 0.4 Mg Tab.subl, 0.4 MG SL Q5MIN PRN for CHEST PAIN, BOTTLE 04/24/18 Discontinued Reported Medications Mycophenolate Mofetil* (Cellcept*) 250 Mg Capsule, 250 MG PO BID, CAP 04/24/18 Ergocalciferol (Vitamin D2) (VITAMIN D2) 50,000 Unit Capsule, 58787 UNIT PO Q7D, CAP 04/24/18 Discontinued Scripts Azithromycin* (Azithromycin*) 250 Mg Tablet, 250 MG PO DAILY for 5 Days, #5 TAB Prov:KAYLEY MARTINEZ MD 06/14/18 Allergies Allergies: Coded Allergies: No Known Drug Allergies (Verified Allergy, Mild, 07/30/18) PMhx/Soc History of Surgery: Yes (kidney transplants 2003) Anesthesia Reaction: No Hx Neurological Disorder: No Hx Cardiac Disorders: Yes (HTN) Hx Psychiatric Problems: No Hx Miscellaneous Medical Probl: No Hx Alcohol Use: No Hx Substance Use: No Hx Tobacco Use: No Physical Exam Vitals Vital Signs Date Temp Pulse Resp B/P (MAP) Pulse Ox O2 O2 Flow FiO2 Time Delivery Rate 07/30/18 98.6 84 20 136/40 97 Room Air 13:43 (72) 07/30/18 83 19 95 21 12:29 07/30/18 79 20 116/47 98 Room Air 11:30 (70) 07/30/18 87 20 95 21 10:54 07/30/18 74 15 164/46 97 Room Air 10:00 (85) 07/30/18 97.9 74 18 150/70 96 08:57 (96) Physical Exam Constitutional:Well-developed. Well-nourished. Productive cough HEENT:Normocephalic. Atraumatic.Pupils were equal round reactive to light. Moist mucous membranes.No tonsillar exudates. Neck: No nuchal rigidity. No lymphadenopathy. No posterior cervical spine tenderness or step-offs. Respiratory: Not using accessory muscles of respiration. No rhonchi. No rales. Wheezing on end auscultation bilaterally much more prominent on the left compared to the right Cardiovascular: Regular rate regular rhythm.No murmurs. No rubs were appreciated.S1, S2 normal. Distal pulses are palpable 2+ bilaterally. GI: Abdomen was soft. Nontender. Non Distended. No pulsatile abdominal masses or bruits. No rebound. No guarding. Bowel sounds were present and normal. Muscle skeletal: Full range of motion of both the upper and lower extremities bilaterally.Normal muscle tone.No assymetrical calf tenderness or swelling. Skin: No petechia, no purpura. No lesions on the palms or the soles of the feet. No maculopapular rash. NEURO: Patient was alert, awake, orientated x3.No facial droop. Gait observed and normal with no ataxia.Speech had regular rate and rhythm. No focal neurological deficits. Result Diagram: 07/30/18 1017 07/30/18 1017 Results 24 hrs Laboratory Tests Test 07/30/18 10:17 White Blood Count 8.6 10^3/ul Red Blood Count 3.78 10^6/ul Hemoglobin 11.0 g/dl Hematocrit 33.7 % Mean Corpuscular Volume 89.2 fl Mean Corpuscular Hemoglobin 29.1 pg Mean Corpuscular Hemoglobin Concent 32.6 g/dl Red Cell Distribution Width 13.2 % Platelet Count 241 10^3/UL Mean Platelet Volume 10.1 fl Immature Granulocytes % 0.700 % Neutrophils % 70.3 % Lymphocytes % 16.2 % Monocytes % 9.1 % Eosinophils % 2.9 % Basophils % 0.8 % Nucleated Red Blood Cells % 0.0 /100WBC Immature Granulocytes # 0.060 10^3/ul Neutrophils # 6.1 10^3/ul Lymphocytes # 1.4 10^3/ul Monocytes # 0.8 10^3/ul Eosinophils # 0.3 10^3/ul Basophils # 0.1 10^3/ul Nucleated Red Blood Cells # 0.0 10^3/ul Prothrombin Time 11.7 Sec Prothrombin Time Ratio 0.9 INR International Normalized Ratio 0.85 Activated Partial Thromboplast Time 27.1 Sec Sodium Level 129 mmol/L Potassium Level 4.4 mmol/L Chloride Level 100 mmol/L Carbon Dioxide Level 21 mmol/L Anion Gap 8 Blood Urea Nitrogen 23 mg/dl Creatinine 0.80 mg/dl Est Glomerular Filtrat Rate mL/min mL/min Glucose Level 244 mg/dl Calcium Level 8.9 mg/dl Total Bilirubin 0.4 mg/dl Direct Bilirubin 0.00 mg/dl Indirect Bilirubin 0.4 mg/dl Aspartate Amino Transf (AST/SGOT) 27 IU/L Alanine Aminotransferase (ALT/SGPT) 16 IU/L Alkaline Phosphatase 80 IU/L Creatine Kinase 48 IU/L Creatine Kinase Index 1.9 Creatinine Kinase MB (Mass) 0.89 ng/ml Troponin I < 0.012 ng/ml B-Type Natriuretic Peptide 635 PG/ML Total Protein 6.3 g/dl Albumin 3.6 g/dl Globulin 2.70 g/dl Albumin/Globulin Ratio 1.33 Current Medications Medications Dose Sig/Anil Start Time Status Last (Trade) Ordered Route PRN Stop Time Admin Dose Reason Admin Sodium 500 ml @ Q1H STAT 07/30/18 DC 07/30/18 Chloride 500 mls/hr IV 10:09 10:26 07/30/18 11:08 Azithromycin 250 ml @ ONCE STAT 07/30/18 DC 07/30/18 250 mls/hr IV 10:09 10:25 07/30/18 11:08 Albuterol 10 mg ONCE STAT 07/30/18 DC 07/30/18 (Proventil INH 10:09 10:52 0.5% (Neb)) 07/30/18 10:14 Ipratropium 1 mg ONCE STAT 07/30/18 DC 07/30/18 [place] INH 10:09 10:52 (Atrovent 07/30/18 10:14 0.02% (Neb)) Albuterol 10 mg ONCE STAT 07/30/18 DC 07/30/18 (Proventil NEB 11:54 12:15 0.5% (Neb)) 07/30/18 12:00 Ipratropium 0.5 mg ONCE STAT 07/30/18 DC 07/30/18 [place] NEB 11:54 12:17 (Atrovent 07/30/18 12:00 0.02% (Neb)) Procedures/MDM The patient presented to the emergency department with dyspnea. My differential diagnosis included but was not limited to upper airway obstruction, CHF, pulmonary embolism, cardiac ischemia, pneumonia, pneumothorax, anemia, drug overdose, pulmonary edema, COPD or asthma. The patient also complained of pleuritic chest pain. I obtained a 12-lead EKG tracing. 12 Lead EKG tracing ordered and reviewed by myself showed: Normal sinus rhythm of 73 bpm and no arrhythmia. OR interval normal. QRS duration normal. No ST segment elevation No ST segment depression. No changes consistent with acute ischemia. The patient was hyperglycemic without ketosis. I obtained a 1 view chest There is no infiltrates no pneumothorax and no pleural effusion. The patient was hyponatremic with a serum sodium of 129 did not show any signs of severe hyponatremia. The patient is immunocompromise and therefore I did obtain ancillary laboratory. There is no leukocytosis. The patient's renal function was within normal limits. She did however receive IV antibiotics for suspected pneumonia given that she had just started azithromycin. She was given a dose of IV azithromycin in the emergency department and nebulizer treatments. Observation Note: Time: 5 hours Family Hx: No Hypertension Evaluation: Multiple exams showed improving symptoms and no evidence of sepsis, severe respiratory distress and her wheezing is completely resolved. She felt comfortable being discharged home. The patient was discharged home in fair condition. They were instructed to return to the emergency department at any time if there was any worsening of their condition. The patient stated they would follow up with their PCP in the next 24-48 hours to initiate a suitable medication regimen under the care of their PCP as well as to allow their PCP to monitor any drug reactions. The patient was discharged home with prescriptions after they gave informed consent to the new medication. They were also fully informed by myself on the adverse effects and adverse drug interactions in order to provide adequate safeguards to prevent possible adverse reactions to medications. Departure Diagnosis: Primary Impression: Bronchitis Additional Impressions: Hyperglycemia without ketosis Hyponatremia Condition: ROLA Leiva MD Jul 30, 2018 10:18
[2018-07-30] MEDS ORDERED: MYCO500T PO (10:28)
[2018-07-30] MEDS ORDERED: IPRATROPIUM (NEB) 0.5 MG/2.5 ML AMP NEB STA (11:54)
[2018-07-30] MEDS ORDERED: ALBUTEROL 0.5% (NEB) 2.5 MG/0.5 ML AMP NEB STA (11:54)
[2018-07-30] MEDS ORDERED: ALBU8.5H8 INH (12:40)
[2018-07-30 13:43] VITALS: BP 136/40; PULSE 84; RESP 20
== END 2018-07-30 13:55 | disposition home or self-care (01) ==
LOC: E/R 08:45
DX: J40 Bronchitis, not specified as acute or chronic (principal); E87.1 Hypo-osmolality and hyponatremia; I10 Essential (primary) hypertension; E11.65 Type 2 diabetes mellitus with hyperglycemia; Z79.4 Long term (current) use of insulin; Z79.82 Long term (current) use of aspirin
CPT/HCPCS: 71045; 80053; 82550; 82553; 83880; 84484; 85025; 85610; 85730; 87040; 93005; 94644; 94645; 96374; 99285; J0456; J7040

== ENCOUNTER 2018-08-20 17:20 | Emergency (ER) | payer MEDICARE, OTHER ==
[~2018-08-20] VITALS: Wt 100.0 kg
[~2018-08-20 17:20] MED LIST changes: +ALBU8.5H8 INH; -AZIT250T13 PO; -ERGO500013 PO; -MYCO250C3 PO; +MYCO500T PO
[2018-08-20 17:24] VITALS: BP 160/89; PULSE 89; RESP 18
[2018-08-20] MEDS ORDERED: HYDROCODONE/APAP (5/325) TAB PO ONE (18:00)
--- NOTE | 2018-08-20 19:33 | ERD ---
ER Documentation Chief Complaint Chief Complaint LEFT DE LA TORRE PAIN/INJURY AFTER A [facility] FALL HPI This is a 73-year-old very pleasant female who is brought in by son with complaints of left de la torre pain after mechanical trip and fall 1 week ago. Patient uses a walker at baseline. She states she was in the bathroom and missed the handle when she excellently fell onto her knees. There is no LOC or head injury. Patient sustained bruising to her left de la torre and saw her primary care provider who prescribed her Tylenol extra strength but no imaging was done. Patient presents again today requesting imaging to rule out fracture. She is has history of diabetes and takes baby aspirin daily. ROS All systems reviewed and are negative except as per history of present illness. Medications Home Meds Active Scripts Albuterol Sulfate* (Proair HFA*) 8.5 Gm Hfa.aer.ad, 2 PUFF INH Q6H PRN for WHEEZING AND SOB, #1 INHALER Prov:ROLA ROCKWELL MD 07/30/18 Albuterol Sulfate* (Ventolin HFA*) 18 Gm Hfa.aer.ad, 2 PUFF INHALATION Q6H PRN for SHORTNESS OF BREATH for 30 Days, #1 INHALER Prov:KAYLEY MARTINEZ MD 06/14/18 Hydralazine Hcl* (Apresoline*) 50 Mg Tab, 75 MG PO Q8 for 30 Days, #90 TAB Prov:KAYLEY MARTINEZ MD 06/14/18 Amlodipine Besylate* (Amlodipine Besylate*) 10 Mg Tablet, 10 MG PO DAILY for 30 Days, #30 TAB Prov:KAYLEY MARTINEZ MD 06/14/18 Reported Medications Mycophenolate Mofetil* (Cellcept*) 500 Mg Tablet, 500 MG PO BID, #60 TAB 07/30/18 Lisinopril* (Lisinopril*) 40 Mg Tablet, 40 MG PO DAILY, #30 TAB 04/24/18 Tacrolimus* (Prograf*) 1 Mg Capsule, 7 MG PO DAILY, CAP 04/24/18 Aspirin* (Aspirin* EC) 81 Mg Tablet.dr, 81 MG PO DAILY, TAB 04/24/18 Ferrous Sulfate* (Ferrous Sulfate*) 325 Mg Tabec, 325 MG PO DAILY, TAB 04/24/18 Insulin Human Regular (Novolin-R U-100) 100 Unit/Ml Soln, 14 UNITS SC AC MEALS, EA 04/24/18 Metoprolol Succinate* (Toprol XL*) 25 Mg Tab.sr.24h, 12.5 MG PO DAILY, #30 TAB 04/24/18 Esomeprazole Mag Trihydrate (Nexium) 40 Mg Capsule.dr, 40 MG PO DAILY, #30 CAP 04/24/18 Isosorbide Mononitrate* (Isosorbide Mononitrate*) 60 Mg Tab.er.24h, 60 MG PO DAILY, TAB 04/24/18 Levothyroxine Sodium* (Levothyroxine Sodium*) 88 Mcg Tablet, 88 MCG PO BEFORE BREAKFAST, #30 TAB 04/24/18 Prednisone* (Prednisone*) 1 Mg Tablet, 2 MG PO DAILY, TAB 04/24/18 Insulin Glargine,Hum.rec.anlog (Basaglar Kwikpen U-100) 100 Unit/1 Ml Insuln.pen, 40 UNIT SC QPM, EA 04/24/18 Pravastatin Sodium* (Pravastatin Sodium*) 40 Mg Tablet, 40 MG PO HS, TAB 04/24/18 Furosemide* (Lasix*) 20 Mg Tablet, 20 MG PO DAILY, TAB 04/24/18 Nitroglycerin* (Nitroglycerin* SL) 0.4 Mg Tab.subl, 0.4 MG SL Q5MIN PRN for CHEST PAIN, BOTTLE 04/24/18 Allergies Allergies: Coded Allergies: No Known Drug Allergies (Verified Allergy, Mild, 07/30/18) PMhx/Soc History of Surgery: Yes (kidney transplants 2003) Anesthesia Reaction: No Hx Neurological Disorder: No Hx Cardiac Disorders: Yes (HTN) Hx Psychiatric Problems: No Hx Miscellaneous Medical Probl: No (DM, ARTHRITIS) Hx Alcohol Use: No Hx Substance Use: No Hx Tobacco Use: No Smoking Status: Never smoker FmHx Family History: No diabetes Physical Exam Vitals Vital Signs Date Temp Pulse Resp B/P (MAP) Pulse Ox O2 O2 Flow FiO2 Time Delivery Rate 08/20/18 98.1 89 18 160/89 99 17:24 (112) Physical Exam Const: No acute distress Head: Atraumatic Eyes: Normal Conjunctiva ENT: Normal External Ears, Nose and Mouth. Neck: Full range of motion. No meningismus. Lower Extremity - left Skin: No laceration, significant varicoses vein appreciated Compartments: Soft Motor: Full active range of motion knee, ankle Sensation: Intact to light touch FDWS/MF/LF/P surfaces. Bones: + Tenderness to left anterior de la torre w/ ecchymosis Pulses/Perfusion: 1+ DP, Capillary refill < 2 seconds Neur: Awake and alert Psych: Normal Mood and Affect Results 24 hrs Current Medications Medications Dose Sig/Anil Start Time Status Last (Trade) Ordered Route PRN Stop Time Admin Dose Reason Admin 1 tab ONCE ONCE 08/20/18 DC 08/20/18 Acetaminophen PO 18:00 08/20/18 18:03 / 18:01 Hydrocodone Bitart ([place] (9/507)) Procedures/MDM LABS & DIAGNOSTIC IMAGING: PROCEDURE: XR Tibia and Fibula. CLINICAL INDICATION: Pain and bruising post fall TECHNIQUE: Two views of the left tibia and fibula are available for review. COMPARISON: 05/29/2017 knee radiographs FINDINGS: The left tibia and fibula are intact. No acute fracture or dislocation is seen. No radiopaque foreign body is identified. Calcified varicose veins are visualized throughout the leg. There is osteoarthrosis within the knee more prominent within the medial compartment with joint space narrowing and osseous spurring. There is mild joint space narrowing of the tibiotalar joint. RPTAT: ZZ IMPRESSION: 1. No acute bony abnormality. 2. Scattered calcified venous varicosities throughout the leg. 3. Osteoarthrosis of the knee more prominent within the medial compartment. ED COURSE: The patient was given [place] The medication was well tolerated and the patient had market improvement in symptoms. The patient remained stable throughout ED course. MEDICAL DECISION MAKIN-year-old female with diabetes and peripheral vascular disease presents with left de la torre pain status post mechanical trip and fall a week ago. X-ray as requested per family was negative for any acute fracture dislocation. She was given [place] for pain. Patient's extremity symptoms have stabilized while they have been evaluated in the department and are appropriate for outpatient follow up. No evidence of compartment syndrome, neurologic injury, vascular injury, open joint, open fracture, tendon laceration, or foreign body. Recommended she continue with Tylenol for pain. Follow-up with regular doctor next week, otherwise return here for any new or worsening symptoms. PRESCRIPTIONS: None, patient has extra strength Tylenol at home visitor FOLLOW UP RECOMMENDED: None Patient has been advised to follow up with primary care in 1-2 days. Departure Diagnosis: Primary Impression: Contusion of leg, right Encounter type: initial encounter Qualified Codes: S80.11XA - Contusion of right lower leg, initial encounter Condition: Stable Patient Instructions: Contusion, Lower Extremity Referrals: MYAH REED MD (PCP) Additional Instructions: Paciente aconseja volver a Departamento de urgencias inmediatamente para sntomas nuevos o que empeoran . Paciente aconseja posteriores con el PCP en 1-2 alcaraz. Si el paciente no tiene ninguna de atencin primaria pueden seguir con [facility] [id number] [place] [phone] o [facility] + [place] [phone] Comments Patient evaluated with PA, agree with assessment and plan DARLINE Molina PA-C Aug 20, 2018 19:33 MIYA LALA DO Aug 22, 2018 12:19
== END 2018-08-20 19:38 | disposition home or self-care (01) ==
LOC: FTE 17:20
DX: S80.12XA Contusion of left lower leg, initial encounter (principal); E11.9 Type 2 diabetes mellitus without complications; I10 Essential (primary) hypertension; W01.0XXA Fall on same level from slipping, tripping and stumbling without subsequent striking against object, initial encounter; Y92.002 Bathroom of unspecified non-institutional (private) residence as the place of occurrence of the external cause; Z79.4 Long term (current) use of insulin; Z79.82 Long term (current) use of aspirin
CPT/HCPCS: 73590

== ENCOUNTER 2018-09-15 15:37 | Inpatient (IN) | payer MEDICARE, OTHER ==
[~2018-09-15] VITALS: Ht 160 cm; Wt 99.4 kg
[~2018-09-15 15:37] MED LIST changes: +LEVO125T7 PO; +[UNRECOGNIZED DRUG - CODE] PO
[2018-09-15 15:39] VITALS: Ht 160 cm; Wt 99.4 kg
[2018-09-15] MEDS ORDERED: SOD CHLORIDE 0.9% 1,000 ML IV STA (15:54)
[2018-09-15] MEDS ORDERED: hydrALAzine 20 MG INJ IV ONE (18:00)
[2018-09-15] MEDS ORDERED: ONDANSETRON 4 MG INJ IV STA (18:26)
[2018-09-15] MEDS ORDERED: ACETAMINOPHEN 325 MG TAB PO PRN (18:30)
[2018-09-15] MEDS ORDERED: ONDANSETRON 4 MG INJ IV PRN (18:30)
[2018-09-15] MEDS ORDERED: SOD CHLORIDE 0.9% 1,000 ML IV SCH (18:34)
--- NOTE | 2018-09-15 18:39 | ERD ---
ER Documentation Chief Complaint Chief Complaint PT reports weakness, anxiety and NICHOLAS x 3 days HPI 73-year-old female presenting with generalized weakness as well as shortness of breath with exertion. She has also been feeling somewhat anxious and having an intermittent headache with nausea for the past 3 days. No associated fever or chills. No chest pain, abdominal pain, diarrhea, vomiting. No focal weakness or numbness. ROS All systems reviewed and are negative except as per history of present illness. Medications Home Meds Active Scripts Albuterol Sulfate* (Proair HFA*) 8.5 Gm Hfa.aer.ad, 2 PUFF INH Q6H PRN for WHEEZING AND SOB, #1 INHALER Prov:ROLA ROCKWELL MD 07/30/18 Albuterol Sulfate* (Ventolin HFA*) 18 Gm Hfa.aer.ad, 2 PUFF INHALATION Q6H PRN for SHORTNESS OF BREATH for 30 Days, #1 INHALER Prov:KAYLEY MARTINEZ MD 06/14/18 Hydralazine Hcl* (Apresoline*) 50 Mg Tab, 75 MG PO Q8 for 30 Days, #90 TAB Prov:KAYLEY MARTINEZ MD 06/14/18 Amlodipine Besylate* (Amlodipine Besylate*) 10 Mg Tablet, 10 MG PO DAILY for 30 Days, #30 TAB Prov:KAYLEY MARTINEZ MD 06/14/18 Reported Medications Mycophenolate Mofetil* (Cellcept*) 500 Mg Tablet, 500 MG PO BID, #60 TAB 07/30/18 Lisinopril* (Lisinopril*) 40 Mg Tablet, 40 MG PO DAILY, #30 TAB 04/24/18 Tacrolimus* (Prograf*) 1 Mg Capsule, 7 MG PO DAILY, CAP 04/24/18 Aspirin* (Aspirin* EC) 81 Mg Tablet.dr, 81 MG PO DAILY, TAB 04/24/18 Ferrous Sulfate* (Ferrous Sulfate*) 325 Mg Tabec, 325 MG PO DAILY, TAB 04/24/18 Insulin Human Regular (Novolin-R U-100) 100 Unit/Ml Soln, 14 UNITS SC AC MEALS, EA 04/24/18 Metoprolol Succinate* (Toprol XL*) 25 Mg Tab.sr.24h, 12.5 MG PO DAILY, #30 TAB 04/24/18 Esomeprazole Mag Trihydrate (Nexium) 40 Mg Capsule.dr, 40 MG PO DAILY, #30 CAP 04/24/18 Isosorbide Mononitrate* (Isosorbide Mononitrate*) 60 Mg Tab.er.24h, 60 MG PO DAILY, TAB 04/24/18 Levothyroxine Sodium* (Levothyroxine Sodium*) 88 Mcg Tablet, 88 MCG PO BEFORE BREAKFAST, #30 TAB 04/24/18 Prednisone* (Prednisone*) 1 Mg Tablet, 2 MG PO DAILY, TAB 04/24/18 Insulin Glargine,Hum.rec.anlog (Basaglar Kwikpen U-100) 100 Unit/1 Ml Insuln.pen, 40 UNIT SC QPM, EA 04/24/18 Pravastatin Sodium* (Pravastatin Sodium*) 40 Mg Tablet, 40 MG PO HS, TAB 04/24/18 Furosemide* (Lasix*) 20 Mg Tablet, 20 MG PO DAILY, TAB 04/24/18 Nitroglycerin* (Nitroglycerin* SL) 0.4 Mg Tab.subl, 0.4 MG SL Q5MIN PRN for CHEST PAIN, BOTTLE 04/24/18 Allergies Allergies: Coded Allergies: No Known Drug Allergies (Verified Allergy, Mild, 07/30/18) PMhx/Soc History of Surgery: Yes (kidney transplants 2003) Anesthesia Reaction: No Hx Neurological Disorder: No Hx Cardiac Disorders: Yes (HTN) Hx Psychiatric Problems: No Hx Miscellaneous Medical Probl: Yes (Diabetes) Hx Alcohol Use: No Hx Substance Use: No Hx Tobacco Use: No Smoking Status: Never smoker FmHx Family History: diabetes Physical Exam Vitals Vital Signs Date Temp Pulse Resp B/P (MAP) Pulse Ox O2 O2 Flow FiO2 Time Delivery Rate 09/15/18 99.5 71 18 155/55 96 Room Air 20:05 (88) 09/15/18 99.5 72 12 173/68 96 Room Air 18:46 (103) 09/15/18 99.5 70 12 146/50 96 Room Air 18:05 (82) 09/15/18 99.5 73 12 211/54 96 Room Air 17:26 (106) 09/15/18 99.5 68 12 153/53 96 Room Air 16:23 (86) 09/15/18 99.5 78 24 169/71 95 15:39 (103) Physical Exam Const: No acute distress Head: Atraumatic Eyes: Normal Conjunctiva ENT: Normal External Ears, Nose and Mouth. Neck: Full range of motion. No meningismus. Resp: Clear to auscultation bilaterally Cardio: Regular rate and rhythm, no murmurs Abd: Soft, non tender, non distended. Normal bowel sounds Skin: No petechiae or rashes Back: No midline or flank tenderness Ext: No cyanosis, or edema Neur: Awake and alert Psych: Normal Mood and Affect Result Diagram: 09/15/18 1612 09/15/18 1612 Results 24 hrs Laboratory Tests Test 09/15/18 16:12 White Blood Count 7.8 10^3/ul Red Blood Count 3.63 10^6/ul Hemoglobin 10.7 g/dl Hematocrit 30.7 % Mean Corpuscular Volume 84.6 fl Mean Corpuscular Hemoglobin 29.5 pg Mean Corpuscular Hemoglobin Concent 34.9 g/dl Red Cell Distribution Width 12.5 % Platelet Count 206 10^3/UL Mean Platelet Volume 10.3 fl Immature Granulocytes % 0.400 % Neutrophils % 78.5 % Lymphocytes % 11.4 % Monocytes % 7.9 % Eosinophils % 1.4 % Basophils % 0.4 % Nucleated Red Blood Cells % 0.0 /100WBC Immature Granulocytes # 0.030 10^3/ul Neutrophils # 6.1 10^3/ul Lymphocytes # 0.9 10^3/ul Monocytes # 0.6 10^3/ul Eosinophils # 0.1 10^3/ul Basophils # 0.0 10^3/ul Nucleated Red Blood Cells # 0.0 10^3/ul Urine Color YELLOW Urine Clarity CLEAR Urine pH 6.0 Urine Specific [place] 1.007 Urine Ketones NEGATIVE mg/dL Urine Nitrite NEGATIVE mg/dL Urine Bilirubin NEGATIVE mg/dL Urine Urobilinogen NEGATIVE mg/dL Urine Leukocyte Esterase NEGATIVE Heidi/ul Urine Microscopic RBC 0 /HPF Urine Microscopic WBC 1 /HPF Urine Hemoglobin NEGATIVE mg/dL Urine Glucose 3+ mg/dL Urine Total Protein 2+ mg/dl Sodium Level 120 mmol/L Potassium Level 4.7 mmol/L Chloride Level 89 mmol/L Carbon Dioxide Level 22 mmol/L Anion Gap 9 Blood Urea Nitrogen 17 mg/dl Creatinine 0.79 mg/dl Est Glomerular Filtrat Rate mL/min mL/min Glucose Level 342 mg/dl Calcium Level 8.7 mg/dl Total Bilirubin 0.7 mg/dl Direct Bilirubin 0.00 mg/dl Indirect Bilirubin 0.7 mg/dl Aspartate Amino Transf (AST/SGOT) 21 IU/L Alanine Aminotransferase (ALT/SGPT) 27 IU/L Alkaline Phosphatase 107 IU/L Troponin I < 0.012 ng/ml Total Protein 6.0 g/dl Albumin 3.5 g/dl Globulin 2.50 g/dl Albumin/Globulin Ratio 1.40 Free Thyroxine 0.77 ng/dl Current Medications Medications Dose Sig/Anil Start Time Status Last (Trade) Ordered Route PRN Stop Time Admin Dose Reason Admin Sodium 1,000 ml @ Q1H STAT 09/15/18 DC 09/15/18 Chloride 1,000 mls/hr IV 15:54 09/15/18 16:25 16:53 Hydralazine 10 mg ONCE ONCE 09/15/18 DC 09/15/18 HCl IV 18:00 09/15/18 17:50 (Apresoline) 18:01 Ondansetron 4 mg ONCE STAT 09/15/18 DC 09/15/18 HCl (Zofran IV 18:26 09/15/18 18:46 Inj) 18:27 Ondansetron 4 mg ER BRIDGE 09/15/18 DC HCl (Zofran PRN IV 18:30 09/15/18 Inj) NAUSEA/VOMITI 20:03 NG 650 mg ER BRIDGE 09/15/18 DC Acetaminophen PRN PO 18:30 09/15/18 (Tylenol .MILD PAIN 20:02 Tab) 1-3 OR TEMP IV Flush 3 ml PER 09/15/18 (NS 3 ml) PROTOCOL IV 19:00 Ondansetron 4 mg Q6H PRN 09/15/18 HCl (Zofran IV 19:00 Inj) NAUSEA/VOMITI NG 650 mg Q6H PRN 09/15/18 Acetaminophen PO .PAIN 1-3 19:00 (Tylenol OR TEMP Tab) 1 tab Q6H PRN 09/15/18 Acetaminophen PO .MOD PAIN 19:00 / 4-6 Hydrocodone Bitart ([place] (5/325)) Morphine 2 mg Q4H PRN 09/15/18 Sulfate IV .SEVERE 19:00 (morphine) PAIN 7-10 Docusate 100 mg Q12H PRN 09/15/18 Sodium PO 19:00 (Colace) .CONSTIPATION Magnesium 30 ml DAILY PRN 09/15/18 Hydroxide PO 19:00 (Milk Of Mag) .CONSTIPATION Heparin 5,000 unit Q12 SC 09/15/18 Sodium 21:00 (Porcine) (Heparin (5000 Units/1ml)) Lorazepam 0.5 mg Q6H PRN 09/15/18 (Ativan) IV ANXIETY 19:00 Sodium 1,000 ml @ Q10H IV 09/15/18 Chloride 100 mls/hr 18:34 Albuterol/ 3 ml Q4H RESP 09/15/18 Ipratropium THERAPY PRN 19:00 (Duoneb) HHN SHORTNESS OF BREATH Hydralazine 10 mg Q6H PRN 09/15/18 HCl IV ELEVATED 19:00 (Apresoline) BLOOD PRESSURE Clonidine 0.1 mg Q6H PRN 09/15/18 (Catapres) PO ELEVATED 19:00 BLOOD PRESSURE 1 tab Q5M PRN 09/15/18 Nitroglycerin SL ANGINA 19:00 (Nitroglyceri n (Sl Tab) 0.4 Mg) Albuterol 2 puff Q6H PRN 09/15/18 (Ventolin INH WHEEZING 19:00 Hfa) AND SOB Amlodipine 10 mg DAILY PO 09/16/18 Besylate 09:00 (Norvasc) Aspirin 81 mg DAILY PO 09/16/18 (Halfprin) 09:00 Ferrous 325 mg DAILY PO 09/16/18 Sulfate 09:00 (Ferrous Sulfate (Ec)) Furosemide 20 mg DAILY PO 09/16/18 (Lasix) 09:00 Hydralazine 75 mg Q8 PO 09/15/18 UNV HCl 22:00 (Apresoline) Insulin 40 unit QPM SC 09/15/18 Glargine 21:00 (Lantus) Insulin 14 unit AC MEALS 09/16/18 Human SC 07:00 Regular (Humulin R) Isosorbide 60 mg DAILY PO 09/16/18 Mononitrate 09:00 (Imdur) 88 mcg BEFORE 09/16/18 Levothyroxine BREAKFAST 07:00 Sodium PO (Synthroid) Lisinopril 40 mg DAILY PO 09/16/18 (Zestril) 09:00 Metoprolol 12.5 mg DAILY PO 09/16/18 Succinate 09:00 (Toprol Xl) 500 mg BID PO 09/15/18 Mycophenolate 21:00 Mofetil (Cellcept) Prednisone 2 mg DAILY PO 09/16/18 (Prednisone) 09:00 Tacrolimus 7 mg DAILY PO 09/16/18 (Prograf) 09:00 40 mg DAILY PO 09/16/18 DC Miscellaneous 09:00 09/16/18 Information 09:00 40 mg HS PO 09/15/18 DC Miscellaneous 21:00 09/15/18 Information 21:00 Discontinue ONCE ONCE 09/15/18 DC Miscellaneous current oral XX 19:00 09/15/18 sulfonylur... 19:52 Information (* Miscellaneous Pharmacy Order) Diagnostic 1 ea 02 XX 09/16/18 Test (Pha) 02:00 (Accu-Chek) ONCE ONCE 09/15/18 DC Miscellaneous HYPOGLYCEMIA XX 19:00 09/15/18 PROTOCOL 19:52 Information w... (* Miscellaneous Pharmacy Order) Insulin NOVOLOG Q4 SC 09/15/18 Aspart *MILD* 21:00 (Novolog ALGORI... Insulin Pen) Discontinue ONCE ONCE 09/15/18 DC Miscellaneous all previ... XX 19:00 09/15/18 19:52 Information (* Miscellaneous Pharmacy Order) Hydralazine 75 mg Q8 PO 09/15/18 HCl 22:00 (Apresoline) 10 mg DAILY@21 09/15/18 Atorvastatin PO 21:00 Calcium (Lipitor) 40 mg DAILY@06 09/16/18 Pantoprazole PO 06:00 (Protonix Tab) Procedures/MDM EMERGENT LABS AND DIAGNOSTIC STUDIES: Lab Results above were reviewed and interpreted by me. CBC: CMP: Hyponatremia, hypochloremia, hyperglycemia. Corrected sodium for hyperglycemia is 126, still low. No evidence of acidosis, renal failure Troponin within normal limits, not indicative of cardiac ischemia 12-lead EKG was interpreted by Flynn Diallo MD: Normal Sinus Rhythm with ventricular rate of 69 beats per minute Normal axis Normal intervals No acute ST or T wave changes suggestive of acute ischemia or STEMI. Radiology Results as interpreted by Radiology below were reviewed by Lana Diallo MD: Chest x-ray shows no acute abnormalities Initial Nursing notes reviewed. Previous Medical Records requested via the Electronic Health Record. EMERGENCY DEPARTMENT COURSE / MEDICAL DECISION MAKING: Patient presents with generalized weakness and dyspnea with exertion. Chest x- ray does not show any significant abnormalities. Vitals are stable. Labs consistent with hyponatremia and hyper glycemia, which may be the cause of her symptoms. No evidence of ACS at this time or serious bacterial infection. Patient will require admission for stabilization and further work-up, which will be deferred to the inpatient team. Accepting Care Team: Current data and ongoing care discussed. Time: Time of admission Primary Provider: Dr. Colin Departure Diagnosis: Primary Impression: Acute weakness Additional Impressions: Hyponatremia Hyperglycemia Condition: Fair MELANI DIALLO MD Sep 15, 2018 18:39
--- NOTE | 2018-09-15 18:44 | HP ---
Date/Time of Note Date/Time of Note DATE: 09/15/18 TIME: 18:44 Assessment/Plan VTE Prophylaxis SCD applied (from Nsg): No SCD contraindicated: other Pharmacological prophylaxis: heparin Lines/Catheters IV Catheter Type (from Nrsg): Peripheral IV Assessment/Plan Hospital Course Assessment and plan: 73-year-old female past medical history renal transplant, hypertension, diabetes, hypothyroidism, who presents to the ER with weakness and headache symptoms, with signs of hypertensive urgency and hyponatremia. #Hyponatremia: Unclear source, patient has been having weakness and phlegm production and headache for the last 2 to 3 days. Could be secondary to dehydration -Admit patient, follow-up TSH, A1c, lipid panel, continue normal saline IV fluids -Follow-up basic metabolic panel in the morning and will obtain renal consult -Consider PT and OT consults as well #Hypertensive urgency: Systolic blood pressure was in the low 200 range on admission, slightly improved now since admission -Monitor, continue current home medications and add hydralazine IV as needed #Diabetes: Follow-up A1c, continue sliding scale insulin at home insulins #History of renal transplant: Continue tacrolimus, prednisone, and CellCept #Hypothyroidism: Continue Synthroid, follow-up thyroid panel Result Diagram: 09/15/18 1612 09/15/18 1612 Results 24hrs Laboratory Tests Test 09/15/18 16:12 White Blood Count 7.8 Red Blood Count 3.63 L Hemoglobin 10.7 L Hematocrit 30.7 L Mean Corpuscular Volume 84.6 Mean Corpuscular Hemoglobin 29.5 Mean Corpuscular Hemoglobin Concent 34.9 Red Cell Distribution Width 12.5 Platelet Count 206 Mean Platelet Volume 10.3 Immature Granulocytes % 0.400 Neutrophils % 78.5 H Lymphocytes % 11.4 L Monocytes % 7.9 Eosinophils % 1.4 Basophils % 0.4 Nucleated Red Blood Cells % 0.0 Immature Granulocytes # 0.030 Neutrophils # 6.1 Lymphocytes # 0.9 Monocytes # 0.6 Eosinophils # 0.1 Basophils # 0.0 Nucleated Red Blood Cells # 0.0 Urine Color YELLOW Urine Clarity CLEAR Urine pH 6.0 Urine Specific [place] 1.007 Urine Ketones NEGATIVE Urine Nitrite NEGATIVE Urine Bilirubin NEGATIVE Urine Urobilinogen NEGATIVE Urine Leukocyte Esterase NEGATIVE Urine Microscopic RBC 0 Urine Microscopic WBC 1 Urine Hemoglobin NEGATIVE Urine Glucose 3+ H Urine Total Protein 2+ H Sodium Level 120 L Potassium Level 4.7 Chloride Level 89 L Carbon Dioxide Level 22 Anion Gap 9 Blood Urea Nitrogen 17 Creatinine 0.79 Est Glomerular Filtrat Rate mL/min Glucose Level 342 H Calcium Level 8.7 Total Bilirubin 0.7 Direct Bilirubin 0.00 Indirect Bilirubin 0.7 Aspartate Amino Transf (AST/SGOT) 21 Alanine Aminotransferase (ALT/SGPT) 27 Alkaline Phosphatase 107 Troponin I < 0.012 Total Protein 6.0 L Albumin 3.5 Globulin 2.50 Albumin/Globulin Ratio 1.40 HPI/ROS Admit Date/Time Admit Date/Time Hx of Present Illness 73-year-old female past medical history renal transplant, hypertension, diabetes, hypothyroidism, who presents to the ER with weakness and headache symptoms. Patient's also been having some shortness of breath symptoms. The symptoms have been going on for the last 2 to 3 days. Patient also complaining of some general paresthesias. Also some chills and some nausea symptoms but no vomiting. She is also had some slight phlegm production as well. Denies any chest pain, diarrhea constipation, upper lower GI bleeding, loss of consciousness or dizziness. She came in today she was found with low sodium levels of 120. She was also found with hypertensive urgency. Patient was last hospitalized here from a 2 June at that time was treated for acute bronchitis and hypertensive urgency. PMH/Family/Social Past Medical History Medications Current Medications Ondansetron HCl (Zofran Inj) 4 mg ER BRIDGE PRN IV NAUSEA/VOMITING; Start 09/15/18 at 18:30; Stop 09/16/18 at 18:29 Acetaminophen (Tylenol Tab) 650 mg ER BRIDGE PRN PO .MILD PAIN 1-3 OR TEMP; Start 09/15/18 at 18:30; Stop 09/16/18 at 18:29 IV Flush (NS 3 ml) 3 ml PER PROTOCOL IV ; Start 09/15/18 at 19:00; Status UNV Ondansetron HCl (Zofran Inj) 4 mg Q6H PRN IV NAUSEA/VOMITING; Start 09/15/18 at 19:00; Status UNV Acetaminophen (Tylenol Tab) 650 mg Q6H PRN PO .PAIN 1-3 OR TEMP; Start 09/15/18 at 19:00; Status UNV Acetaminophen/ Hydrocodone Bitart ([place] (5/325)) 1 tab Q6H PRN PO .MOD PAIN 4- 6; Start 09/15/18 at 19:00; Status UNV Morphine Sulfate (morphine) 2 mg Q4H PRN IV .SEVERE PAIN 7-10; Start 09/15/18 at 19:00; Status UNV Docusate Sodium (Colace) 100 mg Q12H PRN PO .CONSTIPATION; Start 09/15/18 at 19:00; Status UNV Magnesium Hydroxide (Milk Of Mag) 30 ml DAILY PRN PO .CONSTIPATION; Start 09/15/18 at 19:00; Status UNV Heparin Sodium (Porcine) (Heparin (5000 Units/1ml)) 5,000 unit Q12 SC ; Start 09/15/18 at 21:00; Status UNV Lorazepam (Ativan) 0.5 mg Q6H PRN IV ANXIETY; Start 09/15/18 at 19:00; Status UNV Sodium Chloride 1,000 ml @ 100 mls/hr Q10H IV ; Start 09/15/18 at 18:34; Status UNV Albuterol/ Ipratropium (Duoneb) 3 ml Q4H RESP THERAPY PRN HHN SHORTNESS OF BREATH; Start 09/15/18 at 19:00; Status UNV Hydralazine HCl (Apresoline) 10 mg Q6H PRN IV ELEVATED BLOOD PRESSURE; Start 09/15/18 at 19:00; Status UNV Clonidine (Catapres) 0.1 mg Q6H PRN PO ELEVATED BLOOD PRESSURE; Start 09/15/18 at 19:00; Status UNV Nitroglycerin (Nitroglycerin (Sl Tab) 0.4 Mg) 1 tab Q5M PRN SL ANGINA; Start 09/15/18 at 19:00; Status UNV Albuterol (Ventolin Hfa) 2 puff Q6H PRN INH WHEEZING AND SOB; Start 09/15/18 at 19:00; Status UNV Amlodipine Besylate (Norvasc) 10 mg DAILY PO ; Start 09/16/18 at 09:00; Status UNV Aspirin (Halfprin) 81 mg DAILY PO ; Start 09/16/18 at 09:00; Status UNV Ferrous Sulfate (Ferrous Sulfate (Ec)) 325 mg DAILY PO ; Start 09/16/18 at 09:00; Status UNV Furosemide (Lasix) 20 mg DAILY PO ; Start 09/16/18 at 09:00; Status UNV Hydralazine HCl (Apresoline) 75 mg Q8 PO ; Start 09/15/18 at 22:00; Status UNV Insulin Glargine (Lantus) 40 unit QPM SC ; Start 09/15/18 at 21:00; Status UNV Insulin Human Regular (Humulin R) 14 unit AC MEALS SC ; Start 09/16/18 at 07:00; Status UNV Isosorbide Mononitrate (Imdur) 60 mg DAILY PO ; Start 09/16/18 at 09:00; Status UNV Levothyroxine Sodium (Synthroid) 88 mcg BEFORE BREAKFAST PO ; Start 09/16/18 at 07:00; Status UNV Lisinopril (Zestril) 40 mg DAILY PO ; Start 09/16/18 at 09:00; Status UNV Metoprolol Succinate (Toprol Xl) 12.5 mg DAILY PO ; Start 09/16/18 at 09:00; Status UNV Mycophenolate Mofetil (Cellcept) 500 mg BID PO ; Start 09/15/18 at 21:00; Status UNV Prednisone (Prednisone) 2 mg DAILY PO ; Start 09/16/18 at 09:00; Status UNV Tacrolimus (Prograf) 7 mg DAILY PO ; Start 09/16/18 at 09:00; Status UNV Miscellaneous Information 40 mg DAILY PO ; Start 09/16/18 at 09:00; Status UNV Miscellaneous Information 40 mg HS PO ; Start 09/15/18 at 21:00; Status UNV Miscellaneous Information (* Miscellaneous Pharmacy Order) Discontinue current oral sulfonylur... ONCE ONCE XX ; Start 09/15/18 at 19:00; Stop 09/15/18 at 19:01; Status UNV Diagnostic Test (Pha) (Accu-Chek) 1 ea 02 XX ; Start 09/16/18 at 02:00; Status UNV Miscellaneous Information (* Miscellaneous Pharmacy Order) HYPOGLYCEMIA PROTOCOL w... ONCE ONCE XX ; Start 09/15/18 at 19:00; Stop 09/15/18 at 19:01; Status UNV Insulin Aspart (Novolog Insulin Pen) NOVOLOG *MILD* ALGORI... Q4 SC ; Start 09/15/18 at 21:00; Status UNV Miscellaneous Information (* Miscellaneous Pharmacy Order) Discontinue all previ... ONCE ONCE XX ; Start 09/15/18 at 19:00; Stop 09/15/18 at 19:01; Status UNV Coded Allergies: No Known Drug Allergies (Verified Allergy, Mild, 07/30/18) Past Surgical History Past Surgical Hx: other (Kidney transplant, gallbladder removal) Family History Significant Family History: no pertinent family hx Social History Alcohol Use: none Smoking Status: Never smoker Drug Use: none Exam/Review of Systems Vital Signs Vitals Vital Signs Date Temp Pulse Resp B/P (MAP) Pulse Ox O2 O2 Flow FiO2 Time Delivery Rate 09/15/18 99.5 70 12 146/50 96 Room Air 18:05 (82) Exam Exam GENERAL: Lying in bed, in no apparent distress, looks nontoxic in appearance, slightly obese HEENT: PERRL, EOMI NECK: supple CARDIAC: S1, S2, no murmurs rubs or gallops LUNGS: Clear bilaterally no wheezing crackles or stridor ABDOMEN: Soft nontender, no guarding, no rigidity, no rebound or guarding. nor moactive bowel sounds EXTREMITIES: No lower extremity edema bilaterally NEURO: No focal deficits KEM STRAUSS Sep 15, 2018 18:44
[2018-09-15] MEDS ORDERED: NITROGLYCERIN (SL) 0.4 MG TAB SL PRN (19:00)
[2018-09-15] MEDS ORDERED: MAGNESIUM HYDROXIDE 30ML CUP PO PRN (19:00)
[2018-09-15] MEDS ORDERED: NACL 0.9% 3 ML SYG IV SCH (19:00)
[2018-09-15] MEDS ORDERED: ALBUTEROL HFA 8 GM INHALER INH PRN (19:00)
[2018-09-15] MEDS ORDERED: ALBUTEROL/IPRATROPIUM (NEB) 3 ML AMP HHN PRN (19:00)
[2018-09-15] MEDS ORDERED: hydrALAzine 20 MG INJ IV PRN (19:00)
[2018-09-15] MEDS ORDERED: morphine 2 MG INJ IV PRN (19:00)
[2018-09-15] MEDS ORDERED: DOCUSATE SODIUM 100 MG CAP PO PRN (19:00)
[2018-09-15] MEDS ORDERED: INSULIN GLARGINE [LANtus] 3 ML PEN SC SCH (21:00)
[2018-09-15] MEDS: INSULIN ASPART [NOVOLOG] 3 ML PEN SC SCH (21:00)
[2018-09-15] MEDS ORDERED: MYCOPHENOLATE 250 MG CAP PO SCH (21:00)
[2018-09-15] MEDS ORDERED: NON-FORMULARY/PATIENT OWN MED (Pravastatin Sodium* 40 MG) PO SCH (21:00)
[2018-09-15 22:30] VITALS: BP 156/63; PULSE 76; RESP 18
[2018-09-16] MEDS: MYCOPHENOLATE MOFETIL 500 MG TABLET PO SCH ×3 (00:37→20:52)
[2018-09-16] MEDS: ATORVASTATIN 10 MG TAB PO SCH ×2 (00:37→20:52)
[2018-09-16] MEDS: HEPARIN 5,000 UNIT/1 ML VIAL SC SCH ×3 (01:09→20:58)
[2018-09-16] MEDS: ACCU-CHEK XX SCH (02:00)
[2018-09-16] MEDS: INSULIN GLARGINE [LANTus] (100 UNITS/ML) SYG SC SCH ×2 (03:12→20:58)
[2018-09-16] MEDS: INSULIN ASPART [NOVOLOG] 3 ML PEN SC SCH ×6 (03:13→20:57)
[2018-09-16] MEDS: ACETAMINOPHEN 325 MG TAB PO PRN ×2 (03:37→21:19)
[2018-09-16 04:00] VITALS: BP 154/67; PULSE 78; RESP 20
[2018-09-16] MEDS: LORAZEPAM 2 MG INJ IV PRN ×2 (04:22→22:28)
[2018-09-16] MEDS: PANTOPRAZOLE (EC) 40 MG TAB PO SCH (06:29)
[2018-09-16] MEDS ORDERED: LEVOTHYROXINE 88 MCG TAB PO SCH (07:00)
[2018-09-16 07:16] VITALS: BP 170/73; PULSE 77; RESP 18
[2018-09-16] MEDS: FERROUS SULFATE (EC) 325 MG TAB PO SCH (08:09)
[2018-09-16] MEDS: INSULIN REGULAR, HUMAN 100 UNIT/1 ML 3ML VIAL SC SCH ×3 (08:10→17:00)
[2018-09-16] MEDS: ISOSORBIDE MONONITRATE(SR)60 MG TAB PO SCH (08:12)
[2018-09-16] MEDS: LISINOPRIL 20 MG TAB PO SCH (08:12)
[2018-09-16] MEDS: ASPIRIN (EC) 81 MG TAB PO SCH (08:13)
[2018-09-16] MEDS: predniSONE 1 MG TAB PO SCH (08:13)
[2018-09-16] MEDS: METOPROLOL (XL) 25 MG TAB PO SCH (08:14)
[2018-09-16] MEDS: FUROSEMIDE 20 MG TAB PO SCH (08:14)
[2018-09-16] MEDS: AMLODIPINE 10 MG TAB PO SCH (08:15)
[2018-09-16] MEDS ORDERED: NON-FORMULARY/PATIENT OWN MED (Esomeprazole Mag Trihydrate (Nexium) 40 MG) PO SCH (09:00)
--- NOTE | 2018-09-16 09:33 | CONS ---
DATE OF ADMISSION: 09/15/2018 DATE OF CONSULTATION: 09/16/2018 TYPE OF CONSULTATION: Nephrology. REASON FOR CONSULTATION: Hypernatremia, history of renal transplant. PHYSICIAN REQUESTING CONSULTATION: Dr. Strauss. HISTORY OF PRESENT ILLNESS: This is a 73-year-old female with a past medical history of renal transp lant, history of hypertension, diabetes, hypothyroidism, who presented to the [facility] Room with weakness and headaches. The patient stated that for the last 2 to 3 days, she has b een complaining of headaches, general paresthesia and chills. She denies any chest pain, diarrhea or constipation. The patient upon arrival had a urine sodium level of 120. The patient was started on IV fluids and admitted to telemetry. In terms of the patient's renal history, the patient had a renal transplant in 2003. The patient lynch s not remember the care giver's name. The patient takes immunosuppressive regimen. Since then she has had normal renal function. The patient has a prior history of hypernatremia with previous basel ine sodium levels around 128 mEq/L. She denies polyuria or polydipsia. PAST MEDICAL HISTORY: History of chronic kidney disease, history of renal transplant, history of hyp ertension, history of diabetes and hypothyroidism. PAST SURGICAL HISTORY: Status post renal transplant. FAMILY HISTORY: No family history of kidney disease. SOCIAL HISTORY: She does not drink, smoke or do drugs. MEDICATIONS: Have been reviewed. REVIEW OF SYSTEMS: A 14-point review of systems was conducted. Pertinent positives stated in histor y of present illness, otherwise negative. PHYSICAL EXAMINATION: VITAL SIGNS: Blood pressure is 146/50, respirations 12, pulse 70, temperature 99.5. HEENT: Head is normocephalic. NECK: Supple. HEART: Regular rate. LUNGS: Show diminished breath sounds at the base. ABDOMEN: Soft, nontender to palpation without rebound or guarding. EXTREMITIES: Negative for clubbing, cyanosis, no edema. DERMATOLOGIC: No rashes. MUSCULOSKELETAL: No joint effusion. NEUROLOGIC: No change in exam. LABORATORY DATA: Has been reviewed. IMAGES STUDIES: Have been reviewed. ASSESSMENT AND PLAN: This is a 73-year-old female who presents with: 1. Acute on chronic hypernatremia. Etiology may be secondary to volume depletion, hemodynamics. Ot her possibilities include syndrome of inappropriate antidiuretic hormone. Plan is to check a urine s odium, urine osmolarity, TSH, uric acid levels. The patient's sodium levels improved approximately 9 mEq in the last 16 hours. At this point, we will stop IV fluids. We will monitor sodium levels viktor sely to ensure correction no more than 10 to 12 mEq in the first 24 hours. If sodium level should ov ercorrect, we will start the patient on D5 water. 2. History of end-stage renal disease status post renal transplant in 2003. The patient has an exce llent allograft function. Continue current immunosuppressive regimen of prednisone, Prograf, CellCep t. 4. Mild anemia. Monitor hemoglobin and hematocrit levels. 5. Mineral bone disorder. Monitor calcium and phosphorus levels. 6. Hypertension. Continue current blood pressure regimen. 7. Diabetes. Continue current insulin regimen. 8. Obesity. Continue dietary modification. 9. Dyslipidemia. Continue statin therapy. 10. Hypothyroidism. Continue Synthroid. Thank you, Dr. Strauss, for this interesting consult. It will be a pleasure to follow the patient with you throughout the hospital course. Dictated By: PADMINI BENITEZ DO NR/NTS Conf#: [id number] DID#: [id number] CC: PADMINI BENITEZ DO; KEM STRAUSS;*EndCC*
[2018-09-16 11:05] VITALS: BP 151/70; PULSE 66; RESP 19
[2018-09-16] MEDS: TACROLIMUS 1 MG CAP PO SCH (11:20)
--- NOTE | 2018-09-16 13:09 | PN ---
Date/Time of Note Date/Time of Note DATE: 09/16/18 TIME: 13:07 Assessment/Plan VTE Prophylaxis Risk score (from [facility])>0 risk: 2 [place] [facility] [place] SCD contraindicated: low risk/ambulating Pharmacological prophylaxis: LMWH Lines/Catheters IV Catheter Type (from [facility]): Saline Lock Assessment/Plan Hospital Course A/P 1. Hypertensive urgency, stable adjust therapy 2. ESRD/renal replacement status, continue immunosuppressive agents 3. Hyponatremia, hypovolemia induced? Subacute 4. Hypothyroidism, TSH worse, will adjust therapy 5. Diabetes type 2 6. Anemia possibly of chronic disease Subjective: No fever distress. States she is been on her medicines regularly Objective: Vital signs stable except for elevated blood pressure Physical exam No pallor JVD Regular no mrg Clear benign overweight obese No edema Result Diagram: 09/16/18 0620 09/16/18 1027 Results 24hrs Laboratory Tests Test 09/15/18 16:12 09/16/18 02:43 09/16/18 06:20 09/16/18 08:07 White Blood Count 7.8 6.8 Red Blood Count 3.63 L 3.66 L Hemoglobin 10.7 L 10.7 L Hematocrit 30.7 L 31.5 L Mean Corpuscular Volume 84.6 86.1 Mean Corpuscular 29.5 29.2 Hemoglobin Mean Corpuscular 34.9 34.0 Hemoglobin Concent Red Cell Distribution 12.5 12.6 Width Platelet Count 206 233 Mean Platelet Volume 10.3 10.5 H Immature Granulocytes % 0.400 0.600 H Neutrophils % 78.5 H 72.8 Lymphocytes % 11.4 L 15.3 Monocytes % 7.9 9.6 Eosinophils % 1.4 1.3 Basophils % 0.4 0.4 Nucleated Red Blood 0.0 0.0 Cells % Immature Granulocytes # 0.030 0.040 H Neutrophils # 6.1 5.0 Lymphocytes # 0.9 1.0 Monocytes # 0.6 0.7 Eosinophils # 0.1 0.1 Basophils # 0.0 0.0 Nucleated Red Blood 0.0 0.0 Cells # Urine Color YELLOW Urine Clarity CLEAR Urine pH 6.0 Urine Specific [place] 1.007 Urine Ketones NEGATIVE Urine Nitrite NEGATIVE Urine Bilirubin NEGATIVE Urine Urobilinogen NEGATIVE Urine Leukocyte Esterase NEGATIVE Urine Microscopic RBC 0 Urine Microscopic WBC 1 Urine Hemoglobin NEGATIVE Urine Glucose 3+ H Urine Total Protein 2+ H Sodium Level 120 L 129 L Potassium Level 4.7 4.4 Chloride Level 89 L 99 # Carbon Dioxide Level 22 23 Anion Gap 9 7 Blood Urea Nitrogen 17 12 Creatinine 0.79 0.69 Est Glomerular Filtrat Rate mL/min Glucose Level 342 H 192 # Calcium Level 8.7 8.6 Total Bilirubin 0.7 Direct Bilirubin 0.00 Indirect Bilirubin 0.7 Aspartate Amino 21 Transf (AST/SGOT) Alanine 27 Aminotransferase (ALT/SG PT) Alkaline Phosphatase 107 Troponin I < 0.012 Total Protein 6.0 L Albumin 3.5 Globulin 2.50 Albumin/Globulin Ratio 1.40 Free Thyroxine 0.77 L Bedside Glucose 269 H 202 184 Hemoglobin A1c 8.5 H Phosphorus Level 2.2 L Magnesium Level 1.9 Triglycerides Level 259 H Cholesterol Level 145 LDL Cholesterol, 42 Calculated HDL Cholesterol 51 Cholesterol/HDL Ratio 2.8 Thyroid Stimulating 9.920 H Hormone (TSH) Test 09/16/18 10:27 09/16/18 11:23 09/16/18 12:37 Sodium Level 126 L Potassium Level 4.1 Chloride Level 97 Carbon Dioxide Level 21 Anion Gap 8 Blood Urea Nitrogen 13 Creatinine 0.79 Est Glomerular Filtrat Rate mL/min Glucose Level 222 H Calcium Level 8.6 Bedside Glucose 228 H 190 Exam/Review of Systems Exam Vitals Vital Signs Date Temp Pulse Resp B/P (MAP) Pulse Ox O2 O2 Flow FiO2 Time Delivery Rate 09/16/18 98.4 66 19 151/70 96 11:05 (97) 09/16/18 Room Air 04:00 Intake and Output 09/15/18 09/15/18 09/16/18 1515:00 23:00 07:00 IntakeIntake Total 1000 ml 790 ml OutputOutput Total 1050 ml BalanceBalance 1000 ml -260 ml Results Results 24hrs Laboratory Tests Test 09/15/18 16:12 09/16/18 02:43 09/16/18 06:20 09/16/18 08:07 White Blood Count 7.8 6.8 Red Blood Count 3.63 L 3.66 L Hemoglobin 10.7 L 10.7 L Hematocrit 30.7 L 31.5 L Mean Corpuscular Volume 84.6 86.1 Mean Corpuscular 29.5 29.2 Hemoglobin Mean Corpuscular 34.9 34.0 Hemoglobin Concent Red Cell Distribution 12.5 12.6 Width Platelet Count 206 233 Mean Platelet Volume 10.3 10.5 H Immature Granulocytes % 0.400 0.600 H Neutrophils % 78.5 H 72.8 Lymphocytes % 11.4 L 15.3 Monocytes % 7.9 9.6 Eosinophils % 1.4 1.3 Basophils % 0.4 0.4 Nucleated Red Blood 0.0 0.0 Cells % Immature Granulocytes # 0.030 0.040 H Neutrophils # 6.1 5.0 Lymphocytes # 0.9 1.0 Monocytes # 0.6 0.7 Eosinophils # 0.1 0.1 Basophils # 0.0 0.0 Nucleated Red Blood 0.0 0.0 Cells # Urine Color YELLOW Urine Clarity CLEAR Urine pH 6.0 Urine Specific [place] 1.007 Urine Ketones NEGATIVE Urine Nitrite NEGATIVE Urine Bilirubin NEGATIVE Urine Urobilinogen NEGATIVE Urine Leukocyte Esterase NEGATIVE Urine Microscopic RBC 0 Urine Microscopic WBC 1 Urine Hemoglobin NEGATIVE Urine Glucose 3+ H Urine Total Protein 2+ H Sodium Level 120 L 129 L Potassium Level 4.7 4.4 Chloride Level 89 L 99 # Carbon Dioxide Level 22 23 Anion Gap 9 7 Blood Urea Nitrogen 17 12 Creatinine 0.79 0.69 Est Glomerular Filtrat Rate mL/min Glucose Level 342 H 192 # Calcium Level 8.7 8.6 Total Bilirubin 0.7 Direct Bilirubin 0.00 Indirect Bilirubin 0.7 Aspartate Amino 21 Transf (AST/SGOT) Alanine 27 Aminotransferase (ALT/SG PT) Alkaline Phosphatase 107 Troponin I < 0.012 Total Protein 6.0 L Albumin 3.5 Globulin 2.50 Albumin/Globulin Ratio 1.40 Free Thyroxine 0.77 L Bedside Glucose 269 H 202 184 Hemoglobin A1c 8.5 H Phosphorus Level 2.2 L Magnesium Level 1.9 Triglycerides Level 259 H Cholesterol Level 145 LDL Cholesterol, 42 Calculated HDL Cholesterol 51 Cholesterol/HDL Ratio 2.8 Thyroid Stimulating 9.920 H Hormone (TSH) Test 09/16/18 10:27 09/16/18 11:23 09/16/18 12:37 Sodium Level 126 L Potassium Level 4.1 Chloride Level 97 Carbon Dioxide Level 21 Anion Gap 8 Blood Urea Nitrogen 13 Creatinine 0.79 Est Glomerular Filtrat Rate mL/min Glucose Level 222 H Calcium Level 8.6 Bedside Glucose 228 H 190 Medications Medication Current Medications IV Flush (NS 3 ml) 3 ml PER PROTOCOL IV ; Start 09/15/18 at 19:00 Ondansetron HCl (Zofran Inj) 4 mg Q6H PRN IV NAUSEA/VOMITING; Start 09/15/18 at 19:00 Acetaminophen (Tylenol Tab) 650 mg Q6H PRN PO .PAIN 1-3 OR TEMP Last administered on 09/16/18at 03:37; Admin Dose 650 MG; Start 09/15/18 at 19:00 Acetaminophen/ Hydrocodone Bitart ([place] (5/325)) 1 tab Q6H PRN PO .MOD PAIN 4- 6; Start 09/15/18 at 19:00 Morphine Sulfate (morphine) 2 mg Q4H PRN IV .SEVERE PAIN 7-10; Start 09/15/18 at 19:00 Docusate Sodium (Colace) 100 mg Q12H PRN PO .CONSTIPATION; Start 09/15/18 at 19:00 Magnesium Hydroxide (Milk Of Mag) 30 ml DAILY PRN PO .CONSTIPATION; Start 09/15/18 at 19:00 Heparin Sodium (Porcine) (Heparin (5000 Units/1ml)) 5,000 unit Q12 SC Last administered on 09/16/18at 08:11; Admin Dose 5,000 UNIT; Start 09/15/18 at 21:00 Lorazepam (Ativan) 0.5 mg Q6H PRN IV ANXIETY Last administered on 09/16/18 04:22; Admin Dose 0.5 MG; Start 09/15/18 at 19:00 Albuterol/ Ipratropium (Duoneb) 3 ml Q4H RESP THERAPY PRN HHN SHORTNESS OF BREATH; Start 09/15/18 at 19:00 Hydralazine HCl (Apresoline) 10 mg Q6H PRN IV ELEVATED BLOOD PRESSURE; Start 09/15/18 at 19:00 Clonidine (Catapres) 0.1 mg Q6H PRN PO ELEVATED BLOOD PRESSURE; Start 09/15/18 at 19:00 Nitroglycerin (Nitroglycerin (Sl Tab) 0.4 Mg) 1 tab Q5M PRN SL ANGINA; Start 09/15/18 at 19:00 Albuterol (Ventolin Hfa) 2 puff Q6H PRN INH WHEEZING AND SOB; Start 09/15/18 at 19:00 Amlodipine Besylate (Norvasc) 10 mg DAILY PO Last administered on 09/16/18 08:15; Admin Dose 10 MG; Start 09/16/18 at 09:00 Aspirin (Halfprin) 81 mg DAILY PO Last administered on 09/16/18 08:13; Admin Dose 81 MG; Start 09/16/18 at 09:00 Ferrous Sulfate (Ferrous Sulfate (Ec)) 325 mg DAILY PO Last administered on 09/16/18 08:09; Admin Dose 325 MG; Start 09/16/18 at 09:00 Furosemide (Lasix) 20 mg DAILY PO Last administered on 09/16/18 08:14; Admin Dose 20 MG; Start 09/16/18 at 09:00 Insulin Human Regular (Humulin R) 14 unit AC MEALS SC Last administered on 09/16/18 11:35; Admin Dose 14 UNIT; Start 09/16/18 at 07:00 Isosorbide Mononitrate (Imdur) 60 mg DAILY PO Last administered on 09/16/18 08:12; Admin Dose 60 MG; Start 09/16/18 at 09:00 Levothyroxine Sodium (Synthroid) 88 mcg BEFORE BREAKFAST PO Last administered on 09/16/18 06:29; Admin Dose 88 MCG; Start 09/16/18 at 07:00 Lisinopril (Zestril) 40 mg DAILY PO Last administered on 09/16/18 08:12; Admin Dose 40 MG; Start 09/16/18 at 09:00 Metoprolol Succinate (Toprol Xl) 12.5 mg DAILY PO Last administered on 09/16/18 08:14; Admin Dose 12.5 MG; Start 09/16/18 at 09:00 Prednisone (Prednisone) 2 mg DAILY PO Last administered on 09/16/18 08:13; Admin Dose 2 MG; Start 09/16/18 at 09:00 Tacrolimus (Prograf) 7 mg DAILY PO Last administered on 09/16/18 11:20; Admin Dose 7 MG; Start 09/16/18 at 09:00 Diagnostic Test (Pha) (Accu-Chek) 1 ea 02 XX ; Start 09/16/18 at 02:00 Insulin Aspart (Novolog Insulin Pen) NOVOLOG *MILD* ALGORI... Q4 SC Last administered on 09/16/18 12:47; Admin Dose 2 UNIT; Start 09/15/18 at 21:00 Hydralazine HCl (Apresoline) 75 mg Q8 PO Last administered on 09/16/18 06:29; Admin Dose 75 MG; Start 09/15/18 at 22:00 Atorvastatin Calcium (Lipitor) 10 mg DAILY@21 PO Last administered on 09/16/18 00:37; Admin Dose 10 MG; Start 09/15/18 at 21:00 Pantoprazole (Protonix Tab) 40 mg DAILY@06 PO Last administered on 09/16/18 06:29; Admin Dose 40 MG; Start 09/16/18 at 06:00 Insulin Glargine (Lantus) 40 units QPM SC Last administered on 09/16/18 03:12; Admin Dose 40 UNITS; Start 09/15/18 at 23:30 Mycophenolate Mofetil (Mycophenolate Mofetil) 500 mg BID PO Last administered on 09/16/18 08:12; Admin Dose 500 MG; Start 09/15/18 at 23:30 NARGIS LEYVA MD Sep 16, 2018 13:09
[2018-09-16] MEDS ORDERED: hydrALAzine 20 MG INJ IV PRN (13:30)
[2018-09-16 15:13] VITALS: BP 108/51; PULSE 66; RESP 19
[2018-09-16 20:00] VITALS: BP 134/62; PULSE 64; RESP 18
[2018-09-17] VITALS: BP 152/68; PULSE 57; RESP 19
[2018-09-17] MEDS: INSULIN ASPART [NOVOLOG] 3 ML PEN SC SCH ×5 (01:11→21:10)
[2018-09-17] MEDS: ACCU-CHEK XX SCH (01:12)
[2018-09-17 03:31] VITALS: BP 143/74; PULSE 68; RESP 19
[2018-09-17] MEDS: LEVOTHYROXINE 125 MCG TAB PO SCH (06:36)
[2018-09-17] MEDS: PANTOPRAZOLE (EC) 40 MG TAB PO SCH (06:37)
[2018-09-17 07:21] VITALS: BP 177/77; PULSE 62; RESP 17
[2018-09-17] MEDS ORDERED: SOD CHLORIDE 0.9% 1,000 ML IV SCH (07:30)
[2018-09-17] MEDS: INSULIN REGULAR, HUMAN 100 UNIT/1 ML 3ML VIAL SC SCH ×3 (07:49→17:10)
[2018-09-17] MEDS: HEPARIN 5,000 UNIT/1 ML VIAL SC SCH ×2 (07:51→21:10)
[2018-09-17] MEDS: LISINOPRIL 20 MG TAB PO SCH (07:52)
[2018-09-17] MEDS: FERROUS SULFATE (EC) 325 MG TAB PO SCH (07:52)
[2018-09-17] MEDS: TACROLIMUS 1 MG CAP PO SCH (07:53)
[2018-09-17] MEDS: AMLODIPINE 10 MG TAB PO SCH (07:53)
[2018-09-17] MEDS: MYCOPHENOLATE MOFETIL 500 MG TABLET PO SCH ×2 (07:53→20:43)
[2018-09-17] MEDS: ISOSORBIDE MONONITRATE(SR)60 MG TAB PO SCH (07:54)
[2018-09-17] MEDS: ASPIRIN (EC) 81 MG TAB PO SCH (07:54)
[2018-09-17] MEDS: METOPROLOL (XL) 25 MG TAB PO SCH (07:54)
[2018-09-17] MEDS: FUROSEMIDE 20 MG TAB PO SCH (07:54)
[2018-09-17] MEDS: predniSONE 1 MG TAB PO SCH (07:55)
--- NOTE | 2018-09-17 09:47 | PN ---
DATE: 09/17/2018 SUBJECTIVE: The patient is stable. No events overnight. No fevers, chills, nausea or vomiting. OBJECTIVE: VITAL SIGNS: Blood pressure is 143/74, respirations 19, pulse 68, temperature 98.0. HEENT: Normocephalic. NECK: Supple. HEART: Regular rate. LUNGS: Show diminished breath sounds at the base. ABDOMEN: Soft, nontender to palpation without rebound or guarding. EXTREMITIES: Negative for clubbing, cyanosis, no edema. DERMATOLOGIC: No rashes. MUSCULOSKELETAL: No joint effusion. NEUROLOGIC: No change in exam. MEDICATIONS: Have been reviewed. LABORATORY DATA: Has been reviewed. IMAGING STUDIES: Have been reviewed. ASSESSMENT AND PLAN: 1. Acute on chronic hypernatremia. Etiology may be secondary to volume depletion. The patient's ur inalysis shows FENa approximately 1%. Urine osmolarity is still pending. The patient's sodium level s initially improved with IV hydration and have subsequently declined after discontinuing IV fluids. Plan at this point is to resume normal saline 50 mL an hour. The patient will be also placed on a f ree water restriction of no more than 1 liter daily. We will continue to monitor serum sodium levels . Followup urine osmolarity. Please note that the possibility of medication associated hypernatremi a is a consideration. We will continue to monitor. 2. History of end-stage renal disease status post renal transplant in 2003. The patient has excelle nt allograft function. Continue immunosuppressive regimen. 3. Anemia. Monitor hemoglobin and hematocrit levels. 4. Mineral bone disorder. Monitor calcium and phosphorus levels. 5. Hypertension. Continue current blood pressure regimen. 6. Diabetes. Continue current insulin regimen. 7. Obesity. Continue dietary modification. 8. Dyslipidemia. Continue statin therapy. 9. Hypothyroidism. Continue Synthroid. Dictated By: PADMINI BENITEZ DO NR/NTS Conf#: [id number] DID#: [id number] CC: NARGIS LEYVA MD; KEM STRAUSS; PADMINI BENITEZ DO;*EndCC*
[2018-09-17 11:14] VITALS: BP 121/57; PULSE 65; RESP 17
[2018-09-17 15:06] VITALS: BP 140/62; PULSE 65; RESP 18
--- NOTE | 2018-09-17 16:08 | PN ---
Date/Time of Note Date/Time of Note DATE: 09/17/18 TIME: 16:07 Assessment/Plan VTE Prophylaxis [place] [facility] [place] risk: 4 [place] applied [place] [facility] [place] No SCD contraindicated: low risk/ambulating Pharmacological prophylaxis: LMWH Pharm contraindication: low risk/ambulating Lines/Catheters IV Catheter Type (from [facility]): Saline Lock Assessment/Plan Hospital Course A/P 1. Hypertensive urgency, stable adjusting therapy 2. ESRD/renal replacement status, cont immunosuppressive agents 3. Hyponatremia, hypovolemia induced? Subacute. Secondary work-up pending. 4. Hypothyroidism, TSH worse, adjusting therapy 5. Diabetes type 2 6. Anemia possibly of chronic disease S: 09/16 no fever distress. States she is been on her medicines regularly / no distress O: Vss Pe No pallor JVD Regular no mrg Clear benign overweight obese No edema Result Diagram: 09/17/18 0556 09/17/18 0556 Results 24hrs Laboratory Tests Test 09/16/18 16:52 09/16/18 18:15 09/16/18 20:50 09/17/18 00:57 Bedside Glucose 170 149 196 Urine Color YELLOW Urine Clarity CLEAR Urine pH 5.0 Urine Specific [place] 1.012 Urine Ketones NEGATIVE Urine Nitrite NEGATIVE Urine Bilirubin NEGATIVE Urine Urobilinogen NEGATIVE Urine Leukocyte Esterase NEGATIVE Urine Microscopic RBC 0 Urine Microscopic WBC 1 Urine Hemoglobin NEGATIVE Urine Random Creatinine 91.22 Urine Random Sodium 38 Urine Glucose NEGATIVE Urine Total Protein 294.0 H Test 09/17/18 05:56 09/17/18 07:47 09/17/18 11:48 White Blood Count 6.3 Red Blood Count 3.42 L Hemoglobin 10.0 L Hematocrit 29.2 L Mean Corpuscular Volume 85.4 Mean Corpuscular 29.2 Hemoglobin Mean Corpuscular 34.2 Hemoglobin Concent Red Cell Distribution 12.7 Width Platelet Count 222 Mean Platelet Volume 10.1 Immature Granulocytes % 1.000 H Neutrophils % 71.6 Lymphocytes % 15.4 Monocytes % 9.9 Eosinophils % 1.6 Basophils % 0.5 Nucleated Red Blood 0.0 Cells % Immature Granulocytes # 0.060 H Neutrophils # 4.5 Lymphocytes # 1.0 Monocytes # 0.6 Eosinophils # 0.1 Basophils # 0.0 Nucleated Red Blood 0.0 Cells # Sodium Level 124 L Potassium Level 4.1 Chloride Level 94 L Carbon Dioxide Level 21 Anion Gap 9 Blood Urea Nitrogen 13 Creatinine 0.75 Est Glomerular Filtrat Rate mL/min Glucose Level 261 H Calcium Level 8.5 Random Cortisol 5.3 Bedside Glucose 282 H 299 H Exam/Review of Systems Exam Vitals Vital Signs Date Temp Pulse Resp B/P (MAP) Pulse Ox O2 O2 Flow FiO2 Time Delivery Rate 09/17/18 98.6 65 18 140/62 93 15:06 (88) 09/17/18 Room Air 03:31 Intake and Output 09/16/18 09/16/18 09/17/18 1515:00 23:00 07:00 IntakeIntake Total 460 ml 480 ml 120 ml BalanceBalance 460 ml 480 ml 120 ml Results Results 24hrs Laboratory Tests Test 09/16/18 16:52 09/16/18 18:15 09/16/18 20:50 09/17/18 00:57 Bedside Glucose 170 149 196 Urine Color YELLOW Urine Clarity CLEAR Urine pH 5.0 Urine Specific [place] 1.012 Urine Ketones NEGATIVE Urine Nitrite NEGATIVE Urine Bilirubin NEGATIVE Urine Urobilinogen NEGATIVE Urine Leukocyte Esterase NEGATIVE Urine Microscopic RBC 0 Urine Microscopic WBC 1 Urine Hemoglobin NEGATIVE Urine Random Creatinine 91.22 Urine Random Sodium 38 Urine Glucose NEGATIVE Urine Total Protein 294.0 H Test 09/17/18 05:56 09/17/18 07:47 09/17/18 11:48 White Blood Count 6.3 Red Blood Count 3.42 L Hemoglobin 10.0 L Hematocrit 29.2 L Mean Corpuscular Volume 85.4 Mean Corpuscular 29.2 Hemoglobin Mean Corpuscular 34.2 Hemoglobin Concent Red Cell Distribution 12.7 Width Platelet Count 222 Mean Platelet Volume 10.1 Immature Granulocytes % 1.000 H Neutrophils % 71.6 Lymphocytes % 15.4 Monocytes % 9.9 Eosinophils % 1.6 Basophils % 0.5 Nucleated Red Blood 0.0 Cells % Immature Granulocytes # 0.060 H Neutrophils # 4.5 Lymphocytes # 1.0 Monocytes # 0.6 Eosinophils # 0.1 Basophils # 0.0 Nucleated Red Blood 0.0 Cells # Sodium Level 124 L Potassium Level 4.1 Chloride Level 94 L Carbon Dioxide Level 21 Anion Gap 9 Blood Urea Nitrogen 13 Creatinine 0.75 Est Glomerular Filtrat Rate mL/min Glucose Level 261 H Calcium Level 8.5 Random Cortisol 5.3 Bedside Glucose 282 H 299 H Medications Medication Current Medications IV Flush (NS 3 ml) 3 ml PER PROTOCOL IV ; Start 09/15/18 at 19:00 Ondansetron HCl (Zofran Inj) 4 mg Q6H PRN IV NAUSEA/VOMITING; Start 09/15/18 at 19:00 Acetaminophen (Tylenol Tab) 650 mg Q6H PRN PO .PAIN 1-3 OR TEMP Last administered on 09/16/18 21:19; Admin Dose 650 MG; Start 09/15/18 at 19:00 Acetaminophen/ Hydrocodone Bitart ([place] (5/325)) 1 tab Q6H PRN PO .MOD PAIN 4- 6; Start 09/15/18 at 19:00 Morphine Sulfate (morphine) 2 mg Q4H PRN IV .SEVERE PAIN 7-10; Start 09/15/18 at 19:00 Docusate Sodium (Colace) 100 mg Q12H PRN PO .CONSTIPATION; Start 09/15/18 at 19:00 Magnesium Hydroxide (Milk Of Mag) 30 ml DAILY PRN PO .CONSTIPATION; Start 09/15/18 at 19:00 Heparin Sodium (Porcine) (Heparin (5000 Units/1ml)) 5,000 unit Q12 SC Last administered on 09/17/18at 07:51; Admin Dose 5,000 UNIT; Start 09/15/18 at 21:00 Lorazepam (Ativan) 0.5 mg Q6H PRN IV ANXIETY Last administered on 09/16/18 22:28; Admin Dose 0.5 MG; Start 09/15/18 at 19:00 Albuterol/ Ipratropium (Duoneb) 3 ml Q4H RESP THERAPY PRN HHN SHORTNESS OF BREATH; Start 09/15/18 at 19:00 Clonidine (Catapres) 0.1 mg Q6H PRN PO ELEVATED BLOOD PRESSURE; Start 09/15/18 at 19:00 Nitroglycerin (Nitroglycerin (Sl Tab) 0.4 Mg) 1 tab Q5M PRN SL ANGINA; Start 09/15/18 at 19:00 Albuterol (Ventolin Hfa) 2 puff Q6H PRN INH WHEEZING AND SOB; Start 09/15/18 at 19:00 Amlodipine Besylate (Norvasc) 10 mg DAILY PO Last administered on 09/17/18at 07:53; Admin Dose 10 MG; Start 09/16/18 at 09:00 Aspirin (Halfprin) 81 mg DAILY PO Last administered on 09/17/18 07:54; Admin Dose 81 MG; Start 09/16/18 at 09:00 Ferrous Sulfate (Ferrous Sulfate (Ec)) 325 mg DAILY PO Last administered on 09/17/18 07:52; Admin Dose 325 MG; Start 09/16/18 at 09:00 Furosemide (Lasix) 20 mg DAILY PO Last administered on 09/17/18 07:54; Admin Dose 20 MG; Start 09/16/18 at 09:00 Isosorbide Mononitrate (Imdur) 60 mg DAILY PO Last administered on 09/17/18 07:54; Admin Dose 60 MG; Start 09/16/18 at 09:00 Lisinopril (Zestril) 40 mg DAILY PO Last administered on 09/17/18 07:52; Admin Dose 40 MG; Start 09/16/18 at 09:00 Metoprolol Succinate (Toprol Xl) 12.5 mg DAILY PO Last administered on 09/17/18 07:54; Admin Dose 12.5 MG; Start 09/16/18 at 09:00 Prednisone (Prednisone) 2 mg DAILY PO Last administered on 09/17/18 07:55; Admin Dose 2 MG; Start 09/16/18 at 09:00 Tacrolimus (Prograf) 7 mg DAILY PO Last administered on 09/17/18 07:53; Admin Dose 7 MG; Start 09/16/18 at 09:00 Diagnostic Test (Pha) (Accu-Chek) 1 ea 02 XX ; Start 09/16/18 at 02:00 Hydralazine HCl (Apresoline) 75 mg Q8 PO Last administered on 09/17/18 14:06; Admin Dose 75 MG; Start 09/15/18 at 22:00 Atorvastatin Calcium (Lipitor) 10 mg DAILY@21 PO Last administered on 09/16/18 20:52; Admin Dose 10 MG; Start 09/15/18 at 21:00 Pantoprazole (Protonix Tab) 40 mg DAILY@06 PO Last administered on 09/17/18 06:37; Admin Dose 40 MG; Start 09/16/18 at 06:00 Mycophenolate Mofetil (Mycophenolate Mofetil) 500 mg BID PO Last administered on 09/17/18at 07:53; Admin Dose 500 MG; Start 09/15/18 at 23:30 Hydralazine HCl (Apresoline) 10 mg Q4H PRN IV SBP GREATER THAN 160; Start 09/16/18 at 13:30 Levothyroxine Sodium (Synthroid) 125 mcg DAILY@06 PO Last administered on 09/17/18at 06:36; Admin Dose 125 MCG; Start 09/17/18 at 06:00 Insulin Aspart (Novolog Insulin Pen) NOVOLOG *MILD* ALGORITHM WITH MEALS BEDTIME SC Last administered on 09/17/18at 11:54; Admin Dose 4 UNIT; Start 09/17/18 at 07:55 Sodium Chloride 1,000 ml @ 50 mls/hr Q20H IV Last administered on 09/17/18at 08:02; Admin Dose 50 MLS/HR; Start 09/17/18 at 07:30 Insulin Glargine (Lantus) 45 units QPM SC ; Start 09/17/18 at 21:00 Insulin Human Regular (Humulin R) 15 unit AC MEALS SC ; Start 09/17/18 at 17:25 NARGIS LEYVA MD Sep 17, 2018 16:08
[2018-09-17] MEDS ORDERED: INSULIN ASPART [NOVOLOG] 3 ML PEN SC SCH (17:00)
[2018-09-17 20:00] VITALS: BP 130/61; PULSE 64; RESP 18
[2018-09-17] MEDS: ATORVASTATIN 10 MG TAB PO SCH (20:42)
[2018-09-17] MEDS: ONDANSETRON 4 MG INJ IV PRN (20:58)
[2018-09-17] MEDS: INSULIN GLARGINE [LANTus] (100 UNITS/ML) SYG SC SCH (21:10)
[2018-09-18] VITALS (7 sets, daily range): BP systolic 97–171; BP diastolic 56–72; PULSE 64–87; RESP 17–18
[2018-09-18] MEDS ORDERED: ZOLPIDEM 5 MG TAB PO PRN (02:00)
[2018-09-18] MEDS: ACCU-CHEK XX SCH (02:00)
[2018-09-18] MEDS: LEVOTHYROXINE 125 MCG TAB PO SCH (06:54)
[2018-09-18] MEDS: PANTOPRAZOLE (EC) 40 MG TAB PO SCH (06:54)
[2018-09-18] MEDS: FERROUS SULFATE (EC) 325 MG TAB PO SCH (08:05)
[2018-09-18] MEDS: TACROLIMUS 1 MG CAP PO SCH (08:05)
[2018-09-18] MEDS: predniSONE 1 MG TAB PO SCH (08:05)
[2018-09-18] MEDS: ISOSORBIDE MONONITRATE(SR)60 MG TAB PO SCH (08:05)
[2018-09-18] MEDS: MYCOPHENOLATE MOFETIL 500 MG TABLET PO SCH ×2 (08:06→21:25)
[2018-09-18] MEDS: HYDROCODONE/APAP (5/325) TAB PO PRN ×2 (08:06→21:30)
[2018-09-18] MEDS: ASPIRIN (EC) 81 MG TAB PO SCH (08:06)
[2018-09-18] MEDS: AMLODIPINE 10 MG TAB PO SCH (08:06)
[2018-09-18] MEDS: METOPROLOL (XL) 25 MG TAB PO SCH (08:06)
[2018-09-18] MEDS: FUROSEMIDE 20 MG TAB PO SCH (08:07)
[2018-09-18] MEDS: LISINOPRIL 20 MG TAB PO SCH (08:07)
[2018-09-18] MEDS: INSULIN ASPART [NOVOLOG] 3 ML PEN SC SCH ×6 (09:11→21:44)
[2018-09-18] MEDS: HEPARIN 5,000 UNIT/1 ML VIAL SC SCH ×2 (09:11→21:44)
[2018-09-18] MEDS: INSULIN REGULAR, HUMAN 100 UNIT/1 ML 3ML VIAL SC SCH (09:11)
--- NOTE | 2018-09-18 10:31 | PN ---
Date/Time of Note Date/Time of Note DATE: 09/18/18 TIME: 10:30 Assessment/Plan VTE Prophylaxis Risk score (from Ns)>0 risk: 4 SCD applied (from Ns): No SCD contraindicated: low risk/ambulating Pharmacological prophylaxis: LMWH Lines/Catheters IV Catheter [facility]from [facility] Saline Lock Assessment/Plan Hospital Course A/P 1. Hypertensive urgency, stable adjusting therapy 2. ESRD/renal replacement status, cont immunosuppressive agents 3. Hyponatremia, hypovolemia induced? Subacute. Secondary work-up pending. 4. Hypothyroidism, TSH worse, adjusting therapy 5. Diabetes type 2 6. Anemia possibly of chronic disease S: 09/16 no fever distress. States she is been on her medicines regularly / no distress 09/18: Feels weak uncomfortable. No fever abd issues or cough. O: Vss PE No pallor JVD Regular no mrg Clear benign overweight obese No edema Result Diagram: 09/18/18 0549 09/18/18 0549 Results 24hrs Laboratory Tests Test 09/17/18 11:48 09/17/18 17:07 09/17/18 20:41 09/18/18 02:11 Bedside Glucose 299 H 257 H 202 197 Test 09/18/18 05:44 09/18/18 05:49 09/18/18 07:52 Uric Acid 5.3 White Blood Count 8.4 # Red Blood Count 3.47 L Hemoglobin 10.0 L Hematocrit 29.0 L Mean Corpuscular Volume 83.6 Mean Corpuscular 28.8 L Hemoglobin Mean Corpuscular 34.5 Hemoglobin Concent Red Cell Distribution 12.6 Width Platelet Count 219 Mean Platelet Volume 10.2 Immature Granulocytes % 1.400 H Neutrophils % 75.0 Lymphocytes % 14.0 L Monocytes % 7.8 Eosinophils % 1.3 Basophils % 0.5 Nucleated Red Blood 0.0 Cells % Immature Granulocytes # 0.120 H Neutrophils # 6.3 Lymphocytes # 1.2 Monocytes # 0.7 Eosinophils # 0.1 Basophils # 0.0 Nucleated Red Blood 0.0 Cells # Sodium Level 121 L Potassium Level 4.1 Chloride Level 91 L Carbon Dioxide Level 21 Anion Gap 9 Blood Urea Nitrogen 11 Creatinine 0.78 Est Glomerular Filtrat Rate mL/min Glucose Level 228 H Calcium Level 8.7 Bedside Glucose 263 H Exam/Review of Systems Exam Vitals Vital Signs Date Temp Pulse Resp B/P (MAP) Pulse Ox O2 O2 Flow FiO2 Time Delivery Rate 09/18/18 98.5 71 18 171/72 95 07:15 (105) 09/17/18 Room Air 03:31 Intake and Output 09/17/18 09/17/18 09/18/18 1515:00 23:00 07:00 IntakeIntake Total 533 ml 400 ml 1050 ml BalanceBalance 533 ml 400 ml 1050 ml Results Results 24hrs Laboratory Tests Test 09/17/18 11:48 09/17/18 17:07 09/17/18 20:41 09/18/18 02:11 Bedside Glucose 299 H 257 H 202 197 Test 09/18/18 05:44 09/18/18 05:49 09/18/18 07:52 Uric Acid 5.3 White Blood Count 8.4 # Red Blood Count 3.47 L Hemoglobin 10.0 L Hematocrit 29.0 L Mean Corpuscular Volume 83.6 Mean Corpuscular 28.8 L Hemoglobin Mean Corpuscular 34.5 Hemoglobin Concent Red Cell Distribution 12.6 Width Platelet Count 219 Mean Platelet Volume 10.2 Immature Granulocytes % 1.400 H Neutrophils % 75.0 Lymphocytes % 14.0 L Monocytes % 7.8 Eosinophils % 1.3 Basophils % 0.5 Nucleated Red Blood 0.0 Cells % Immature Granulocytes # 0.120 H Neutrophils # 6.3 Lymphocytes # 1.2 Monocytes # 0.7 Eosinophils # 0.1 Basophils # 0.0 Nucleated Red Blood 0.0 Cells # Sodium Level 121 L Potassium Level 4.1 Chloride Level 91 L Carbon Dioxide Level 21 Anion Gap 9 Blood Urea Nitrogen 11 Creatinine 0.78 Est Glomerular Filtrat Rate mL/min Glucose Level 228 H Calcium Level 8.7 Bedside Glucose 263 H Medications Medication Current Medications IV Flush (NS 3 ml) 3 ml PER PROTOCOL IV ; Start 09/15/18 at 19:00 Ondansetron HCl (Zofran Inj) 4 mg Q6H PRN IV NAUSEA/VOMITING Last administered on 09/17/18at 20:58; Admin Dose 4 MG; Start 09/15/18 at 19:00 Acetaminophen (Tylenol Tab) 650 mg Q6H PRN PO .PAIN 1-3 OR TEMP Last administered on 09/16/18at 21:19; Admin Dose 650 MG; Start 09/15/18 at 19:00 Acetaminophen/ Hydrocodone Bitart ([place] (5/325)) 1 tab Q6H PRN PO .MOD PAIN 4- 6 Last administered on 09/18/18 08:06; Admin Dose 1 TAB; Start 09/15/18 at 19:00 Morphine Sulfate (morphine) 2 mg Q4H PRN IV .SEVERE PAIN 7-10; Start 09/15/18 at 19:00 Docusate Sodium (Colace) 100 mg Q12H PRN PO .CONSTIPATION; Start 09/15/18 at 19:00 Magnesium Hydroxide (Milk Of Mag) 30 ml DAILY PRN PO .CONSTIPATION; Start 09/15/18 at 19:00 Heparin Sodium (Porcine) (Heparin (5000 Units/1ml)) 5,000 unit Q12 SC Last administered on 09/18/18 09:11; Admin Dose 5,000 UNIT; Start 09/15/18 at 21:00 Lorazepam (Ativan) 0.5 mg Q6H PRN IV ANXIETY Last administered on 09/16/18 22:28; Admin Dose 0.5 MG; Start 09/15/18 at 19:00 Albuterol/ Ipratropium (Duoneb) 3 ml Q4H RESP THERAPY PRN HHN SHORTNESS OF BREATH; Start 09/15/18 at 19:00 Clonidine (Catapres) 0.1 mg Q6H PRN PO ELEVATED BLOOD PRESSURE; Start 09/15/18 at 19:00 Nitroglycerin (Nitroglycerin (Sl Tab) 0.4 Mg) 1 tab Q5M PRN SL ANGINA; Start 09/15/18 at 19:00 Albuterol (Ventolin Hfa) 2 puff Q6H PRN INH WHEEZING AND SOB; Start 09/15/18 at 19:00 Amlodipine Besylate (Norvasc) 10 mg DAILY PO Last administered on 09/18/18 08:06; Admin Dose 10 MG; Start 09/16/18 at 09:00 Aspirin (Halfprin) 81 mg DAILY PO Last administered on 09/18/18 08:06; Admin Dose 81 MG; Start 09/16/18 at 09:00 Ferrous Sulfate (Ferrous Sulfate (Ec)) 325 mg DAILY PO Last administered on 09/18/18 08:05; Admin Dose 325 MG; Start 09/16/18 at 09:00 Furosemide (Lasix) 20 mg DAILY PO Last administered on 09/18/18 08:07; Admin Dose 20 MG; Start 09/16/18 at 09:00 Isosorbide Mononitrate (Imdur) 60 mg DAILY PO Last administered on 09/18/18 08:05; Admin Dose 60 MG; Start 09/16/18 at 09:00 Lisinopril (Zestril) 40 mg DAILY PO Last administered on 09/18/18 08:07; Admin Dose 40 MG; Start 09/16/18 at 09:00 Metoprolol Succinate (Toprol Xl) 12.5 mg DAILY PO Last administered on 09/18/18 08:06; Admin Dose 12.5 MG; Start 09/16/18 at 09:00 Prednisone (Prednisone) 2 mg DAILY PO Last administered on 09/18/18 08:05; Admin Dose 2 MG; Start 09/16/18 at 09:00 Tacrolimus (Prograf) 7 mg DAILY PO Last administered on 09/18/18 08:05; Admin Dose 7 MG; Start 09/16/18 at 09:00 Hydralazine HCl (Apresoline) 75 mg Q8 PO Last administered on 09/18/18 06:57; Admin Dose 75 MG; Start 09/15/18 at 22:00 Atorvastatin Calcium (Lipitor) 10 mg DAILY@21 PO Last administered on 09/17/18 20:42; Admin Dose 10 MG; Start 09/15/18 at 21:00 Pantoprazole (Protonix Tab) 40 mg DAILY@06 PO Last administered on 09/18/18 06:54; Admin Dose 40 MG; Start 09/16/18 at 06:00 Mycophenolate Mofetil (Mycophenolate Mofetil) 500 mg BID PO Last administered on 09/18/18 08:06; Admin Dose 500 MG; Start 09/15/18 at 23:30 Hydralazine HCl (Apresoline) 10 mg Q4H PRN IV SBP GREATER THAN 160; Start 09/16/18 at 13:30 Levothyroxine Sodium (Synthroid) 125 mcg DAILY@06 PO Last administered on 09/18/18 06:54; Admin Dose 125 MCG; Start 09/17/18 at 06:00 Insulin Glargine (Lantus) 45 units QPM SC Last administered on 09/17/18at 21:10; Admin Dose 45 UNITS; Start 09/17/18 at 21:00 Insulin Human Regular (Humulin R) 15 unit AC MEALS SC Last administered on 09/18/18at 09:11; Admin Dose 15 UNIT; Start 09/17/18 at 17:25 Diagnostic Test (Pha) (Accu-Chek) 1 ea 02 XX ; Start 09/18/18 at 02:00 Insulin Aspart (Novolog Insulin Pen) NOVOLOG *MODERATE* ALGORITHM WITH MEALS BEDTIME SC Last administered on 09/18/18 09:11; Admin Dose 8 UNIT; Start 09/17/18 at 17:55 Zolpidem Tartrate (Ambien) 5 mg HS PRN PO INSOMNIA Last administered on at 02:17; Admin Dose 5 MG; Start 09/18/18 at 02:00 NARGIS LEYVA MD Sep 18, 2018 10:31
--- NOTE | 2018-09-18 10:33 | PN ---
DATE: 09/18/2018 SUBJECTIVE: The patient remains hypertensive. Has mild headache. No other events noted overnight. No hemoptysis, hematemesis, hematochezia. OBJECTIVE: VITAL SIGNS: Blood pressure is 171/72, respiration 18, pulse 71, temperature 98.5. HEENT: Head is normocephalic. NECK: Supple. HEART: Regular rate. LUNGS: Show diminished breath sounds at the base. ABDOMEN: Soft, nontender to palpation. No rebound or guarding. EXTREMITIES: Negative for clubbing, cyanosis, no edema. DERMATOLOGIC: No rashes. MUSCULOSKELETAL: No joint effusion. NEUROLOGIC: No change in exam. MEDICATIONS: Has been reviewed. LABORATORY DATA: Has been reviewed. IMAGING STUDIES: Reviewed. ASSESSMENT AND PLAN: 1. Hyponatremia, etiology was initially felt to be secondary to hemodynamics and sodium levels impro marshall with IV fluids, however, after reintroduction of normal saline, patient's sodium levels decline s uggestive of SIADH type picture. Urine studies were inconclusive. Plan at this point is to repeat w orkup. We will repeat urine sodium, urine osmolarity. Will check a uric acid level. The patient's cortisol level was marginally low. Unclear if this is a component of adrenal insufficiency, although less likely, this patient has been hypertensive. IV fluids will be discontinued Free water restric tion will be tightened to 800 mL daily. Will encourage a high osmolar diet. We will monitor serial sodium levels closely. The sodium level should further decline, would consider a course of 3% sodium chloride. 2. End-stage renal disease status post renal transplant. The patient has excellent allograft functi on. Continue to monitor. 3. Anemia. Monitor hemoglobin and hematocrit levels. 4. Mineral bone disorder. Monitor calcium and phosphorus levels. 5. Hypertension. Continue current blood pressure regimen. 6. Diabetes. Continue current insulin regimen. 7. Obesity. Continue dietary modification. 8. Dyslipidemia. Continue statin therapy. 9. Hypothyroidism. Continue Synthroid. Dictated By: PADMINI SANDY/ESTHER Conf#: [id number] DID#: [id number] CC: KEM STRAUSS;*EndCC*
[2018-09-18] MEDS: ONDANSETRON 4 MG INJ IV PRN (18:48)
[2018-09-18] MEDS: ATORVASTATIN 10 MG TAB PO SCH (21:25)
[2018-09-18] MEDS: INSULIN GLARGINE [LANTus] (100 UNITS/ML) SYG SC SCH (21:44)
[2018-09-19] VITALS: BP 145/64; PULSE 63; RESP 18
[2018-09-19] MEDS: ACCU-CHEK XX SCH (02:00)
[2018-09-19 03:30] VITALS: BP 145/67; PULSE 74; RESP 20
[2018-09-19] MEDS: PANTOPRAZOLE (EC) 40 MG TAB PO SCH (06:29)
[2018-09-19] MEDS: LEVOTHYROXINE 125 MCG TAB PO SCH (06:29)
[2018-09-19] MEDS: SODIUM CHLORIDE 1 GM TAB PO SCH ×3 (07:06→20:44)
[2018-09-19 07:40] VITALS: BP 157/67; PULSE 80; RESP 20
--- NOTE | 2018-09-19 08:07 | PN ---
DATE: 09/19/2018 SUBJECTIVE: The patient was transferred from telemetry to med/surg. This morning, the patient was n oted to be hypernatremic sodium of 119. Patient is asymptomatic. No other events noted. OBJECTIVE: VITAL SIGNS: Blood pressure is 145/67, respirations 20, pulse 74, temperature 98.0. HEENT: Head is normocephalic. NECK: Supple. HEART: Regular rate. LUNGS: Show diminished breath sounds at the base. ABDOMEN: Soft, nontender to palpation without rebound or guarding. EXTREMITIES: Negative for clubbing, cyanosis, no edema. DERMATOLOGIC: No rashes. MUSCULOSKELETAL: No joint effusion. NEUROLOGIC: No change in exam. MEDICATIONS: Have been reviewed. LABORATORY DATA: Has been reviewed. IMAGING STUDIES: Have been reviewed. ASSESSMENT AND PLAN: 1. Hyponatremia, etiology likely secondary to low volume of intake, polydipsia. The patient's urina ry osmolarity is low, not consistent with an SIADH. Therefore, likely etiology is suggestive of not consistent with a true SIADH. Plan therefore is to increase osmolar intake. The patient will be sta rted on salt tablets 2 grams t.i.d. The patient instructed to minimize free water intake. We will m onitor serial sodium levels closely, as sodium levels continue to decline. The patient would be a ca ndidate for 3% sodium chloride. The patient is currently asymptomatic. 3. End-stage renal disease status post renal transplant. The patient has excellent allograft functi on. Continue to monitor. 4. Anemia. Monitor hemoglobin and hematocrit levels. 5. Mineral bone disorder. Monitor calcium and phosphorus level. 6. Hypertension. Continue current blood pressure regimen. 7. Obesity. Continue dietary modification. 8. Dyslipidemia. Continue statin therapy. 9. Hypothyroidism. Continue Synthroid. Dictated By: PADMINI BENITEZ DO NR/NTS Conf#: [id number] DID#: [id number] CC: KEM STRAUSS;*EndCC*
[2018-09-19] MEDS: ISOSORBIDE MONONITRATE(SR)60 MG TAB PO SCH (08:29)
[2018-09-19] MEDS: predniSONE 1 MG TAB PO SCH (08:29)
[2018-09-19] MEDS: FERROUS SULFATE (EC) 325 MG TAB PO SCH (08:30)
[2018-09-19] MEDS: AMLODIPINE 10 MG TAB PO SCH (08:30)
[2018-09-19] MEDS: METOPROLOL (XL) 25 MG TAB PO SCH (08:30)
[2018-09-19] MEDS: ASPIRIN (EC) 81 MG TAB PO SCH (08:30)
[2018-09-19] MEDS: MYCOPHENOLATE MOFETIL 500 MG TABLET PO SCH ×2 (08:31→20:44)
[2018-09-19] MEDS: LISINOPRIL 20 MG TAB PO SCH (08:31)
[2018-09-19] MEDS: TACROLIMUS 1 MG CAP PO SCH (08:31)
[2018-09-19] MEDS: HEPARIN 5,000 UNIT/1 ML VIAL SC SCH (08:34)
[2018-09-19] MEDS: INSULIN ASPART [NOVOLOG] 3 ML PEN SC SCH ×7 (08:35→20:52)
[2018-09-19] MEDS: FUROSEMIDE 20 MG TAB PO SCH (09:00)
[2018-09-19] MEDS ORDERED: SODIUM CHLORIDE 1 GM TAB PO SCH (09:00)
--- NOTE | 2018-09-19 11:05 | PN ---
Date/Time of Note Date/Time of Note DATE: 09/19/18 TIME: 11:04 Assessment/Plan VTE Prophylaxis Risk score (from Ns)>0 risk: 4 SCD applied (from Ns): No SCD contraindicated: low risk/ambulating Pharmacological prophylaxis: LMWH Lines/Catheters [facility] Saline Lock Assessment/Plan Hospital Course A/P 1. Hypertensive urgency, stable adjusting therapy 2. ESRD/renal replacement status, cont immunosuppressive agents 3. Hyponatremia, hypovolemia induced? Subacute. Secondary work-up pending. Started salt tablets. 3% saline as needed 4. Hypothyroidism, TSH worse, adjusting therapy 5. Diabetes type 2 6. Anemia possibly of chronic disease S: 09/16 no fever distress. States she is been on her medicines regularly / no distress 09/18: Feels weak uncomfortable. No fever abd issues or cough. 09/19: Alert follows commands no seizure but has fatigue O: Vss PE No pallor Regular no mrg Clear benign overweight obese No edema Result Diagram: 09/19/18 0434 09/19/18 0746 Results 24hrs Laboratory Tests Test 09/18/18 11:26 09/18/18 12:21 09/18/18 16:50 09/18/18 18:54 Bedside Glucose 172 229 H 274 H Sodium Level 122 L Potassium Level 4.6 Chloride Level 91 L Carbon Dioxide Level 22 Anion Gap 9 Blood Urea Nitrogen 11 Creatinine 0.84 Est Glomerular Filtrat Rate mL/min Glucose Level 178 Calcium Level 9.0 Test 09/18/18 21:31 09/19/18 02:00 09/19/18 04:34 09/19/18 07:46 Bedside Glucose 245 H 233 H White Blood Count 7.2 Red Blood Count 3.21 L Hemoglobin 9.6 L Hematocrit 27.3 L Mean Corpuscular Volume 85.0 Mean Corpuscular 29.9 Hemoglobin Mean Corpuscular 35.2 Hemoglobin Concent Red Cell Distribution 12.4 Width Platelet Count 228 Mean Platelet Volume 10.1 Immature Granulocytes % 2.000 H Neutrophils % 71.4 Lymphocytes % 16.7 Monocytes % 7.7 Eosinophils % 1.8 Basophils % 0.4 Nucleated Red Blood 0.0 Cells % Immature Granulocytes # 0.140 H Neutrophils # 5.1 Lymphocytes # 1.2 Monocytes # 0.6 Eosinophils # 0.1 Basophils # 0.0 Nucleated Red Blood 0.0 Cells # Sodium Level 119 *L 119 *L Potassium Level 4.5 Chloride Level 88 L Carbon Dioxide Level 24 Anion Gap 7 Blood Urea Nitrogen 14 Creatinine 0.93 Est Glomerular Filtrat Rate mL/min Glucose Level 245 H Calcium Level 8.7 Test 09/19/18 08:26 Bedside Glucose 269 H Exam/Review of Systems Exam Vitals Vital Signs Date Temp Pulse Resp B/P (MAP) Pulse Ox O2 O2 Flow FiO2 Time Delivery Rate 09/19/18 98.6 80 20 157/67 95 Room Air 07:40 (97) Intake and Output 09/18/18 09/18/18 09/19/18 1414:59 22:59 06:59 IntakeIntake Total 500 ml 300 ml 20 ml BalanceBalance 500 ml 300 ml 20 ml Results Results 24hrs Laboratory Tests Test 09/18/18 11:26 09/18/18 12:21 09/18/18 16:50 09/18/18 18:54 Bedside Glucose 172 229 H 274 H Sodium Level 122 L Potassium Level 4.6 Chloride Level 91 L Carbon Dioxide Level 22 Anion Gap 9 Blood Urea Nitrogen 11 Creatinine 0.84 Est Glomerular Filtrat Rate mL/min Glucose Level 178 Calcium Level 9.0 Test 09/18/18 21:31 09/19/18 02:00 09/19/18 04:34 09/19/18 07:46 Bedside Glucose 245 H 233 H White Blood Count 7.2 Red Blood Count 3.21 L Hemoglobin 9.6 L Hematocrit 27.3 L Mean Corpuscular Volume 85.0 Mean Corpuscular 29.9 Hemoglobin Mean Corpuscular 35.2 Hemoglobin Concent Red Cell Distribution 12.4 Width Platelet Count 228 Mean Platelet Volume 10.1 Immature Granulocytes % 2.000 H Neutrophils % 71.4 Lymphocytes % 16.7 Monocytes % 7.7 Eosinophils % 1.8 Basophils % 0.4 Nucleated Red Blood 0.0 Cells % Immature Granulocytes # 0.140 H Neutrophils # 5.1 Lymphocytes # 1.2 Monocytes # 0.6 Eosinophils # 0.1 Basophils # 0.0 Nucleated Red Blood 0.0 Cells # Sodium Level 119 *L 119 *L Potassium Level 4.5 Chloride Level 88 L Carbon Dioxide Level 24 Anion Gap 7 Blood Urea Nitrogen 14 Creatinine 0.93 Est Glomerular Filtrat Rate mL/min Glucose Level 245 H Calcium Level 8.7 Test 09/19/18 08:26 Bedside Glucose 269 H Medications Medication Current Medications IV Flush (NS 3 ml) 3 ml PER PROTOCOL IV ; Start 09/15/18 at 19:00 Ondansetron HCl (Zofran Inj) 4 mg Q6H PRN IV NAUSEA/VOMITING Last administered on 09/18/18 18:48; Admin Dose 4 MG; Start 09/15/18 at 19:00 Acetaminophen (Tylenol Tab) 650 mg Q6H PRN PO .PAIN 1-3 OR TEMP Last administered on 09/16/18 21:19; Admin Dose 650 MG; Start 09/15/18 at 19:00 Acetaminophen/ Hydrocodone Bitart ([place] (5/325)) 1 tab Q6H PRN PO .MOD PAIN 4- 6 Last administered on 09/18/18 21:30; Admin Dose 1 TAB; Start 09/15/18 at 19:00 Morphine Sulfate (morphine) 2 mg Q4H PRN IV .SEVERE PAIN 7-10; Start 09/15/18 at 19:00 Docusate Sodium (Colace) 100 mg Q12H PRN PO .CONSTIPATION; Start 09/15/18 at 19:00 Magnesium Hydroxide (Milk Of Mag) 30 ml DAILY PRN PO .CONSTIPATION; Start 09/15/18 at 19:00 Heparin Sodium (Porcine) (Heparin (5000 Units/1ml)) 5,000 unit Q12 SC Last administered on 09/19/18 08:34; Admin Dose 5,000 UNIT; Start 09/15/18 at 21:00 Lorazepam (Ativan) 0.5 mg Q6H PRN IV ANXIETY Last administered on 09/16/18 22:2 8; Admin Dose 0.5 MG; Start 09/15/18 at 19:00 Albuterol/ Ipratropium (Duoneb) 3 ml Q4H RESP THERAPY PRN HHN SHORTNESS OF BREATH; Start 09/15/18 at 19:00 Clonidine (Catapres) 0.1 mg Q6H PRN PO ELEVATED BLOOD PRESSURE; Start 09/15/18 at 19:00 Nitroglycerin (Nitroglycerin (Sl Tab) 0.4 Mg) 1 tab Q5M PRN SL ANGINA; Start 09/15/18 at 19:00 Albuterol (Ventolin Hfa) 2 puff Q6H PRN INH WHEEZING AND SOB; Start 09/15/18 at 19:00 Amlodipine Besylate (Norvasc) 10 mg DAILY PO Last administered on 09/19/18 08: 30; Admin Dose 10 MG; Start 09/16/18 at 09:00 Aspirin (Halfprin) 81 mg DAILY PO Last administered on 09/19/18 08:30; Admin Dose 81 MG; Start 09/16/18 at 09:00 Ferrous Sulfate (Ferrous Sulfate (Ec)) 325 mg DAILY PO Last administered on 09/19/18 08:30; Admin Dose 325 MG; Start 09/16/18 at 09:00 Furosemide (Lasix) 20 mg DAILY PO Last administered on 09/18/18 08:07; Admin Dose 20 MG; Start 09/16/18 at 09:00 Isosorbide Mononitrate (Imdur) 60 mg DAILY PO Last administered on 09/19/18 08:29; Admin Dose 60 MG; Start 09/16/18 at 09:00 Lisinopril (Zestril) 40 mg DAILY PO Last administered on 09/19/18 08:31; Admin Dose 40 MG; Start 09/16/18 at 09:00 Metoprolol Succinate (Toprol Xl) 12.5 mg DAILY PO Last administered on 09/19/18 08:30; Admin Dose 12.5 MG; Start 09/16/18 at 09:00 Prednisone (Prednisone) 2 mg DAILY PO Last administered on 09/19/18 08:29; Admin Dose 2 MG; Start 09/16/18 at 09:00 Tacrolimus (Prograf) 7 mg DAILY PO Last administered on 09/19/18 08:31; Admin Dose 7 MG; Start 09/16/18 at 09:00 Hydralazine HCl (Apresoline) 75 mg Q8 PO Last administered on 09/19/18 06:29; Admin Dose 75 MG; Start 09/15/18 at 22:00 Atorvastatin Calcium (Lipitor) 10 mg DAILY@21 PO Last administered on 09/18/18 21:25; Admin Dose 10 MG; Start 09/15/18 at 21:00 Pantoprazole (Protonix Tab) 40 mg DAILY@06 PO Last administered on 09/19/18 06:29; Admin Dose 40 MG; Start 09/16/18 at 06:00 Mycophenolate Mofetil (Mycophenolate Mofetil) 500 mg BID PO Last administered on 09/19/18 08:31; Admin Dose 500 MG; Start 09/15/18 at 23:30 Hydralazine HCl (Apresoline) 10 mg Q4H PRN IV SBP GREATER THAN 160; Start 09/16/18 at 13:30 Levothyroxine Sodium (Synthroid) 125 mcg DAILY@06 PO Last administered on 09/19/18 06:29; Admin Dose 125 MCG; Start 09/17/18 at 06:00 Insulin Glargine (Lantus) 45 units QPM SC Last administered on 09/18/18 21:44; Admin Dose 45 UNITS; Start 09/17/18 at 21:00 Diagnostic Test (Pha) (Accu-Chek) 1 ea 02 XX Last administered on 09/19/18 02:00; Admin Dose 1 EA; Start 09/18/18 at 02:00 Insulin Aspart (Novolog Insulin Pen) NOVOLOG *MODERATE* ALGORITHM WITH MEALS BEDTIME SC Last administered on 09/19/18 08:35; Admin Dose 8 UNIT; Start 09/17/18 at 17:55 Zolpidem Tartrate (Ambien) 5 mg HS PRN PO INSOMNIA Last administered on 09/18/18 02:17; Admin Dose 5 MG; Start 09/18/18 at 02:00 Insulin Aspart (Novolog Insulin Pen) 10 unit WITH MEALS SC Last administered on 09/19/18 08:36; Admin Dose 10 UNIT; Start 09/18/18 at 11:50 Sodium Chloride (Nacl) 2 gm TID PO Last administered on 09/19/18 07:06; Admin Dose 2 GM; Start 09/19/18 at 06:00 Sodium Chloride 1,000 ml @ 100 mls/hr Q10H IV ; Start 09/19/18 at 10:30 NARGIS LEYVA MD Sep 19, 2018 11:05
[2018-09-19] MEDS: SOD CHLORIDE 0.9% 1,000 ML IV SCH ×2 (11:24→20:54)
[2018-09-19] MEDS ORDERED: DOCUSATE SODIUM 100 MG CAP PO PRN (11:30)
[2018-09-19] MEDS ORDERED: BIOTENE SALIVA STIMULANT SPRAY MUCOUSMEM PRN (11:30)
[2018-09-19 14:06] VITALS: BP 131/61; PULSE 66; RESP 18
[2018-09-19 20:35] VITALS: BP 143/64; PULSE 67; RESP 20
[2018-09-19] MEDS: ATORVASTATIN 10 MG TAB PO SCH (20:44)
[2018-09-19] MEDS: INSULIN GLARGINE [LANTus] (100 UNITS/ML) SYG SC SCH (20:53)
[2018-09-19] MEDS ORDERED: NACL 3% 500 ML IV SCH (23:00)
[2018-09-19 23:22] VITALS: BP 149/68; PULSE 70; RESP 20
[2018-09-19] MEDS ORDERED: INSULIN GLARGINE [LANTus] (100 UNITS/ML) SYG SC ONE (23:30)
[2018-09-20] MEDS: ACETAMINOPHEN 325 MG TAB PO PRN (01:09)
[2018-09-20] MEDS: ACCU-CHEK XX SCH (02:00)
[2018-09-20 03:31] VITALS: BP 136/64; PULSE 73; RESP 20
[2018-09-20] MEDS: LEVOTHYROXINE 125 MCG TAB PO SCH (06:34)
[2018-09-20] MEDS: PANTOPRAZOLE (EC) 40 MG TAB PO SCH (06:34)
[2018-09-20] MEDS ORDERED: INSULIN ASPART [NOVOLOG] 3 ML PEN SC SCH (07:50)
[2018-09-20] MEDS: INSULIN ASPART [NOVOLOG] 3 ML PEN SC SCH ×5 (07:54→20:45)
[2018-09-20 08:10] VITALS: BP 125/59; PULSE 71; RESP 20
[2018-09-20] MEDS: TACROLIMUS 1 MG CAP PO SCH (08:13)
[2018-09-20] MEDS: LISINOPRIL 20 MG TAB PO SCH (08:13)
[2018-09-20] MEDS: predniSONE 1 MG TAB PO SCH (08:13)
[2018-09-20] MEDS: MYCOPHENOLATE MOFETIL 500 MG TABLET PO SCH ×2 (08:14→20:43)
[2018-09-20] MEDS: ASPIRIN (EC) 81 MG TAB PO SCH (08:14)
[2018-09-20] MEDS: ISOSORBIDE MONONITRATE(SR)60 MG TAB PO SCH (08:14)
[2018-09-20] MEDS: FUROSEMIDE 20 MG TAB PO SCH (08:14)
[2018-09-20] MEDS: SODIUM CHLORIDE 1 GM TAB PO SCH ×3 (08:14→20:44)
[2018-09-20] MEDS: FERROUS SULFATE (EC) 325 MG TAB PO SCH (08:14)
[2018-09-20] MEDS: METOPROLOL (XL) 25 MG TAB PO SCH (08:15)
[2018-09-20] MEDS: AMLODIPINE 10 MG TAB PO SCH (08:15)
[2018-09-20] MEDS: ENOXAPARIN 40 MG/0.4 ML SYG SC SCH (08:24)
--- NOTE | 2018-09-20 09:46 | PN ---
DATE: 09/20/2018 SUBJECTIVE: Yesterday, the patient was transferred from med/surg to telemetry and placed on 3% sodiu m chloride due to persistent hyponatremia. Patient's sodium levels appropriately corrected to 5 mEq in a 24-hour period. Patient currently is asymptomatic. No hemoptysis, hematemesis. No nausea, no vomiting. OBJECTIVE: VITAL SIGNS: Blood pressure is 136/64, respirations 20, pulse 73, temperature 97.9. HEENT: Head is normocephalic. NECK: Supple. HEART: Regular rate. LUNGS: Show diminished breath sounds at the base. ABDOMEN: Soft, nontender to palpation without rebound or guarding. EXTREMITIES: Negative for clubbing, cyanosis, no edema. DERMATOLOGIC: No rashes. MUSCULOSKELETAL: No joint effusion. NEUROLOGIC: No change in exam. MEDICATIONS: Have been reviewed. LABORATORY DATA: Has been reviewed. IMAGING STUDIES: Have been reviewed. ASSESSMENT AND PLAN: 1. Hyponatremia, etiology is multifactorial secondary to polydipsia low solute intake, questionable component of syndrome of inappropriate antidiuretic hormone. The patient's sodium levels have been f luctuating, did not respond to IV fluid challenge. The patient was given 3% sodium chloride with edinson ropriate improvement of sodium levels. Plan is to continue to monitor serial sodium levels. Continu e salt tablets. If sodium level should further decline, will resume 3% sodium chloride. The patient is currently asymptomatic. We will monitor closely. Continue free water restriction. 2. Endstage renal disease, history of renal transplant. The patient has excellent allograft functio n. Continue current medical management. Continue immunosuppressive regimen. 3. Anemia. Continue to monitor hemoglobin and hematocrit levels. 4. Mineral bone disorder. Monitor calcium and phosphorus levels. 5. Hypertension. Continue current blood pressure regimen. 6. Obesity. Continue dietary modification. 7. Dyslipidemia. Continue statin therapy. 8. Hypothyroidism. Continue Synthroid. Dictated By: PADMINI SANDY/ESTHER Conf#: [id number] DID#: [id number] CC: KEM STRAUSS;*EndCC*
[2018-09-20 11:20] VITALS: BP 113/56; PULSE 64; RESP 18
[2018-09-20] MEDS ORDERED: GLUCOSE GEL 15 GRAM TUBE BUCCAL PRN (12:30)
[2018-09-20] MEDS ORDERED: GLUCAGON 1 MG INJ IM PRN (12:30)
[2018-09-20] MEDS ORDERED: GLUCOSE GEL 15 GRAM TUBE PO PRN ×2 (12:30)
[2018-09-20] MEDS ORDERED: DEXTROSE 50% 50 ML SYRINGE IV PRN ×2 (12:30)
--- NOTE | 2018-09-20 12:39 | PN ---
Date/Time of Note Date/Time of Note DATE: 09/20/18 TIME: 12:36 Assessment/Plan VTE Prophylaxis Risk score (from Ns)>0 risk: 7 SCD applied (from Ns): Yes SCD contraindicated: low risk/ambulating Pharmacological prophylaxis: LMWH Lines/Catheters IV Catheter Type (from Nrs): Saline Lock Assessment/Plan Hospital Course A/P 1. Hypertensive urgency, stable adjusting therapy 2. ESRD/renal replacement status, cont immunosuppressive agents 3. Hyponatremia, hypovolemia induced? Subacute. Secondary work-up pending. Started salt tablets. 3% saline as needed 4. Hypothyroidism, TSH worse, adjusting therapy 5. Diabetes type 2 6. Anemia possibly of chronic disease S: 09/16 no fever distress. States she is been on her medicines regularly / no distress 09/18: Feels weak uncomfortable. No fever abd issues or cough. 09/19: Alert follows commands no seizure but has fatigue 09/20: Feels a little better. Sodium up to 127 O: Vss PE No pallor Regular no mrg Clear benign overweight obese No edema Result Diagram: 09/20/18 0519 09/20/18 0955 Results 24hrs Laboratory Tests Test 09/19/18 12:49 09/19/18 17:41 09/19/18 18:43 09/19/18 20:43 Bedside Glucose 317 H 194 206 Sodium Level 120 L Potassium Level 4.3 Chloride Level 92 L Carbon Dioxide Level 21 Anion Gap 7 Blood Urea Nitrogen 15 Creatinine 1.05 H Est Glomerular Filtrat Rate mL/min Glucose Level 222 H Calcium Level 8.5 Test 09/20/18 03:07 09/20/18 05:19 09/20/18 06:56 09/20/18 07:47 Bedside Glucose 215 174 171 White Blood Count 7.0 Red Blood Count 3.17 L Hemoglobin 9.5 L Hematocrit 27.2 L Mean Corpuscular Volume 85.8 Mean Corpuscular 30.0 Hemoglobin Mean Corpuscular 34.9 Hemoglobin Concent Red Cell Distribution 12.7 Width Platelet Count 229 Mean Platelet Volume 9.9 Immature Granulocytes % 2.300 H Neutrophils % 69.9 Lymphocytes % 17.0 Monocytes % 8.8 Eosinophils % 1.7 Basophils % 0.3 Nucleated Red Blood 0.0 Cells % Immature Granulocytes # 0.160 H Neutrophils # 4.9 Lymphocytes # 1.2 Monocytes # 0.6 Eosinophils # 0.1 Basophils # 0.0 Nucleated Red Blood 0.0 Cells # Sodium Level 124 L Potassium Level 4.3 Chloride Level 97 Carbon Dioxide Level 23 Anion Gap 4 L Blood Urea Nitrogen 13 Creatinine 0.86 Est Glomerular Filtrat Rate mL/min Glucose Level 187 Calcium Level 8.6 Test 09/20/18 09:55 09/20/18 11:54 Sodium Level 127 L Bedside Glucose 116 Exam/Review of Systems Exam Vitals Vital Signs Date Temp Pulse Resp B/P (MAP) Pulse Ox O2 O2 Flow FiO2 Time Delivery Rate 09/20/18 98.3 64 18 113/56 98 Room Air 11:20 (75) 09/20/18 2.0 08:00 Intake and Output 09/19/18 09/19/18 09/20/18 1515:00 23:00 07:00 IntakeIntake Total 380 ml 860 ml OutputOutput Total 400 ml 300 ml BalanceBalance 380 ml 460 ml -300 ml Results Results 24hrs Laboratory Tests Test 09/19/18 12:49 09/19/18 17:41 09/19/18 18:43 09/19/18 20:43 Bedside Glucose 317 H 194 206 Sodium Level 120 L Potassium Level 4.3 Chloride Level 92 L Carbon Dioxide Level 21 Anion Gap 7 Blood Urea Nitrogen 15 Creatinine 1.05 H Est Glomerular Filtrat Rate mL/min Glucose Level 222 H Calcium Level 8.5 Test 09/20/18 03:07 09/20/18 05:19 09/20/18 06:56 09/20/18 07:47 Bedside Glucose 215 174 171 White Blood Count 7.0 Red Blood Count 3.17 L Hemoglobin 9.5 L Hematocrit 27.2 L Mean Corpuscular Volume 85.8 Mean Corpuscular 30.0 Hemoglobin Mean Corpuscular 34.9 Hemoglobin Concent Red Cell Distribution 12.7 Width Platelet Count 229 Mean Platelet Volume 9.9 Immature Granulocytes % 2.300 H Neutrophils % 69.9 Lymphocytes % 17.0 Monocytes % 8.8 Eosinophils % 1.7 Basophils % 0.3 Nucleated Red Blood 0.0 Cells % Immature Granulocytes # 0.160 H Neutrophils # 4.9 Lymphocytes # 1.2 Monocytes # 0.6 Eosinophils # 0.1 Basophils # 0.0 Nucleated Red Blood 0.0 Cells # Sodium Level 124 L Potassium Level 4.3 Chloride Level 97 Carbon Dioxide Level 23 Anion Gap 4 L Blood Urea Nitrogen 13 Creatinine 0.86 Est Glomerular Filtrat Rate mL/min Glucose Level 187 Calcium Level 8.6 Test 09/20/18 09:55 09/20/18 11:54 Sodium Level 127 L Bedside Glucose 116 Medications Medication Current Medications IV Flush (NS 3 ml) 3 ml PER PROTOCOL IV ; Start 09/15/18 at 19:00 Ondansetron HCl (Zofran Inj) 4 mg Q6H PRN IV NAUSEA/VOMITING Last administered on 09/18/18at 18:48; Admin Dose 4 MG; Start 09/15/18 at 19:00 Acetaminophen (Tylenol Tab) 650 mg Q6H PRN PO .PAIN 1-3 OR TEMP Last administered on 09/20/18 01:09; Admin Dose 650 MG; Start 09/15/18 at 19:00 Acetaminophen/ Hydrocodone Bitart ([place] (5/325)) 1 tab Q6H PRN PO .MOD PAIN 4- 6 Last administered on 09/18/18at 21:30; Admin Dose 1 TAB; Start 09/15/18 at 19:00 Morphine Sulfate (morphine) 2 mg Q4H PRN IV .SEVERE PAIN 7-10; Start 09/15/18 at 19:00 Docusate Sodium (Colace) 100 mg Q12H PRN PO .CONSTIPATION; Start 09/15/18 at 19:00 Magnesium Hydroxide (Milk Of Mag) 30 ml DAILY PRN PO .CONSTIPATION; Start 09/15/18 at 19:00 Lorazepam (Ativan) 0.5 mg Q6H PRN IV ANXIETY Last administered on 09/16/18at 2 2:28; Admin Dose 0.5 MG; Start 09/15/18 at 19:00 Albuterol/ Ipratropium (Duoneb) 3 ml Q4H RESP THERAPY PRN HHN SHORTNESS OF BREATH; Start 09/15/18 at 19:00 Clonidine (Catapres) 0.1 mg Q6H PRN PO ELEVATED BLOOD PRESSURE; Start 09/15/18 at 19:00 Nitroglycerin (Nitroglycerin (Sl Tab) 0.4 Mg) 1 tab Q5M PRN SL ANGINA; Start 09/15/18 at 19:00 Albuterol (Ventolin Hfa) 2 puff Q6H PRN INH WHEEZING AND SOB; Start 09/15/18 at 19:00 Amlodipine Besylate (Norvasc) 10 mg DAILY PO Last administered on 09/20/18 08:15; Admin Dose 10 MG; Start 09/16/18 at 09:00 Aspirin (Halfprin) 81 mg DAILY PO Last administered on 09/20/18 08:14; Admin Dose 81 MG; Start 09/16/18 at 09:00 Ferrous Sulfate (Ferrous Sulfate (Ec)) 325 mg DAILY PO Last administered on 09/20/18 08:14; Admin Dose 325 MG; Start 09/16/18 at 09:00 Furosemide (Lasix) 20 mg DAILY PO Last administered on 09/20/18 08:14; Admin Dose 20 MG; Start 09/16/18 at 09:00 Isosorbide Mononitrate (Imdur) 60 mg DAILY PO Last administered on 09/20/18 08:14; Admin Dose 60 MG; Start 09/16/18 at 09:00 Lisinopril (Zestril) 40 mg DAILY PO Last administered on 09/20/18 08:13; Admin Dose 40 MG; Start 09/16/18 at 09:00 Metoprolol Succinate (Toprol Xl) 12.5 mg DAILY PO Last administered on 09/20/18 08:15; Admin Dose 12.5 MG; Start 09/16/18 at 09:00 Prednisone (Prednisone) 2 mg DAILY PO Last administered on 09/20/18 08:13; Admin Dose 2 MG; Start 09/16/18 at 09:00 Tacrolimus (Prograf) 7 mg DAILY PO Last administered on 09/20/18 08:13; Admin Dose 7 MG; Start 09/16/18 at 09:00 Hydralazine HCl (Apresoline) 75 mg Q8 PO Last administered on 09/20/18 06:35; Admin Dose 75 MG; Start 09/15/18 at 22:00 Atorvastatin Calcium (Lipitor) 10 mg DAILY@21 PO Last administered on 09/19/18 20:44; Admin Dose 10 MG; Start 09/15/18 at 21:00 Pantoprazole (Protonix Tab) 40 mg DAILY@06 PO Last administered on 09/20/18 06:34; Admin Dose 40 MG; Start 09/16/18 at 06:00 Mycophenolate Mofetil (Mycophenolate Mofetil) 500 mg BID PO Last administered on 09/20/18 08:14; Admin Dose 500 MG; Start 09/15/18 at 23:30 Hydralazine HCl (Apresoline) 10 mg Q4H PRN IV SBP GREATER THAN 160; Start 09/16/18 at 13:30 Levothyroxine Sodium (Synthroid) 125 mcg DAILY@06 PO Last administered on 09/20/18 06:34; Admin Dose 125 MCG; Start 09/17/18 at 06:00 Diagnostic Test (Pha) (Accu-Chek) 1 ea 02 XX Last administered on 09/19/18 02:00; Admin Dose 1 EA; Start 09/18/18 at 02:00 Insulin Aspart (Novolog Insulin Pen) NOVOLOG *MODERATE* ALGORITHM WITH MEALS BEDTIME SC Last administered on 09/20/18 07:54; Admin Dose 2 UNIT; Start 09/17/18 at 17:55 Sodium Chloride (Nacl) 2 gm TID PO Last administered on 09/20/18 08:14; Admin Dose 2 GM; Start 09/19/18 at 06:00 Enoxaparin Sodium (Lovenox) 40 mg DAILY SC Last administered on 09/20/18 08:24; Admin Dose 40 MG; Start 09/20/18 at 09:00 Docusate Sodium (Colace) 200 mg BID PRN PO CONSTIPATION; Start 09/19/18 at 11:30 Miscellaneous Information (* Miscellaneous Pharmacy Order) artifical saliva tid prn thir... ONCE XX ; Start 09/19/18 at 11:30 Insulin Aspart (Novolog Insulin Pen) 20 unit WITH MEALS SC Last administered on 09/20/18 07:54; Admin Dose 20 UNIT; Start 09/20/18 at 07:50 Insulin Glargine (Lantus) 60 units QPM SC Last administered on 09/20/18 03:10; Admin Dose 60 UNITS; Start 09/20/18 at 21:00 NARGIS LEYVA MD Sep 20, 2018 12:39
[2018-09-20] MEDS: ONDANSETRON 4 MG INJ IV PRN (13:42)
[2018-09-20 13:48] VITALS: BP 130/60; PULSE 71
[2018-09-20 15:49] VITALS: BP 129/53; PULSE 71; RESP 18
[2018-09-20 20:00] VITALS: BP 145/67; PULSE 78; RESP 18
[2018-09-20] MEDS: ATORVASTATIN 10 MG TAB PO SCH (20:44)
[2018-09-20] MEDS: INSULIN GLARGINE [LANTus] (100 UNITS/ML) SYG SC SCH (20:56)
[2018-09-20] MEDS ORDERED: INSULIN GLARGINE [LANTus] (100 UNITS/ML) SYG SC SCH (21:00)
[2018-09-20] MEDS ORDERED: ZOLPIDEM 5 MG TAB PO PRN (22:30)
[2018-09-21] VITALS: BP 118/68; PULSE 73; RESP 18
[2018-09-21] MEDS: ACCU-CHEK XX SCH (02:00)
[2018-09-21 04:00] VITALS: BP 139/61; PULSE 73; RESP 18
[2018-09-21] MEDS: ACETAMINOPHEN 325 MG TAB PO PRN ×2 (05:00→21:28)
[2018-09-21] MEDS: LEVOTHYROXINE 125 MCG TAB PO SCH (06:24)
[2018-09-21] MEDS: PANTOPRAZOLE (EC) 40 MG TAB PO SCH (06:24)
[2018-09-21 07:26] VITALS: BP 145/66; PULSE 66; RESP 18
[2018-09-21] MEDS: INSULIN ASPART [NOVOLOG] 3 ML PEN SC SCH ×7 (08:00→21:00)
[2018-09-21] MEDS: SODIUM CHLORIDE 1 GM TAB PO SCH ×3 (08:17→21:27)
[2018-09-21] MEDS: FERROUS SULFATE (EC) 325 MG TAB PO SCH (08:17)
[2018-09-21] MEDS: TACROLIMUS 1 MG CAP PO SCH (08:17)
[2018-09-21] MEDS: MYCOPHENOLATE MOFETIL 500 MG TABLET PO SCH ×2 (08:17→21:27)
[2018-09-21] MEDS: FUROSEMIDE 20 MG TAB PO SCH (08:18)
[2018-09-21] MEDS: predniSONE 1 MG TAB PO SCH (08:18)
[2018-09-21] MEDS: ASPIRIN (EC) 81 MG TAB PO SCH (08:18)
[2018-09-21] MEDS: METOPROLOL (XL) 25 MG TAB PO SCH (08:19)
[2018-09-21] MEDS: AMLODIPINE 10 MG TAB PO SCH (08:19)
[2018-09-21] MEDS: ISOSORBIDE MONONITRATE(SR)60 MG TAB PO SCH (08:20)
[2018-09-21] MEDS: LISINOPRIL 20 MG TAB PO SCH (08:20)
[2018-09-21] MEDS: ENOXAPARIN 40 MG/0.4 ML SYG SC SCH (08:36)
[2018-09-21 11:14] VITALS: BP 117/56; PULSE 65; RESP 16
--- NOTE | 2018-09-21 13:44 | CONS ---
Assessment/Plan Assessment/Plan Hospital Course (Demo Recall) 1. Hyponatremia, etiology is multifactorial secondary to polydipsia low solute intake, questionable component of syndrome of inappropriate antidiuretic hormone. The patient's sodium levels have been fluctuating, did not respond to IV fluid challenge. The patient was given 3% sodium chloride with appropriate improvement of sodium levels. Plan is to continue to monitor serial sodium levels. Continue salt tablets. We will monitor closely. Continue free water restriction. 2. Endstage renal disease, history of renal transplant. The patient has excellent allograft function. Continue current medical management. Continue immunosuppressive regimen. 3. Anemia. Continue to monitor hemoglobin and hematocrit levels. 4. Mineral bone disorder. Monitor calcium and phosphorus levels. 5. Hypertension. Continue current blood pressure regimen. 6. Obesity. Continue dietary modification. 7. Dyslipidemia. Continue statin therapy. 8. Hypothyroidism. Continue Synthroid. Consultation Date/Type/Reason Admit Date/Time Sep 15, 2018 at 18:26 Initial Consult Date Date/Time of Note DATE: 09/21/18 TIME: 13:43 24 HR Interval Summary Free Text/Dictation has nausea denies emesis or urinary d/w rn PE gen nad cv rrr pulm ctab abd soft nd nt +bs ext: no edema Exam/Review of Systems Exam Vitals Vital Signs Date Temp Pulse Resp B/P (MAP) Pulse Ox O2 O2 Flow FiO2 Time Delivery Rate 09/21/18 98.0 65 16 117/56 96 Room Air 11:14 (76) 09/20/18 2.0 08:00 Intake and Output 09/20/18 09/20/18 09/21/18 1515:00 23:00 07:00 IntakeIntake Total 800 ml BalanceBalance 800 ml Results Result Diagram: 09/21/18 0526 09/21/18 0526 Results 24hrs Laboratory Tests Test 09/20/18 17:13 09/20/18 20:42 09/21/18 02:16 09/21/18 05:26 Bedside Glucose 288 H 207 105 White Blood Count 6.6 Red Blood Count 3.14 L Hemoglobin 9.2 L Hematocrit 27.6 L Mean Corpuscular 87.9 Volume Mean Corpuscular 29.3 Hemoglobin Mean Corpuscular 33.3 Hemoglobin Concent Red Cell 13.2 Distribution Width Platelet Count 230 Mean Platelet Volume 10.2 Immature 2.100 H Granulocytes % Neutrophils % 67.8 Lymphocytes % 17.4 Monocytes % 10.1 Eosinophils % 2.0 Basophils % 0.6 Nucleated Red Blood 0.0 Cells % Immature 0.140 H Granulocytes # Neutrophils # 4.5 Lymphocytes # 1.2 Monocytes # 0.7 Eosinophils # 0.1 Basophils # 0.0 Nucleated Red Blood 0.0 Cells # Sodium Level 129 L Potassium Level 4.1 Chloride Level 99 Carbon Dioxide Level 23 Anion Gap 7 Blood Urea Nitrogen 12 Creatinine 0.88 Est Glomerular Filtrat Rate mL/min Glucose Level 113 # Calcium Level 9.0 Test 09/21/18 08:03 09/21/18 12:16 Bedside Glucose 88 100 Medications Medication Current Medications IV Flush (NS 3 ml) 3 ml PER PROTOCOL IV ; Start 09/15/18 at 19:00 Ondansetron HCl (Zofran Inj) 4 mg Q6H PRN IV NAUSEA/VOMITING Last administered on 09/20/18 13:42; Admin Dose 4 MG; Start 09/15/18 at 19:00 Acetaminophen (Tylenol Tab) 650 mg Q6H PRN PO .PAIN 1-3 OR TEMP Last admini stered on 09/21/18at 05:00; Admin Dose 650 MG; Start 09/15/18 at 19:00 Acetaminophen/ Hydrocodone Bitart ([place] (5/325)) 1 tab Q6H PRN PO .MOD PAIN 4- 6 Last administered on 09/18/18at 21:30; Admin Dose 1 TAB; Start 09/15/18 at 19:00 Morphine Sulfate (morphine) 2 mg Q4H PRN IV .SEVERE PAIN 7-10; Start 09/15/18 at 19:00 Docusate Sodium (Colace) 100 mg Q12H PRN PO .CONSTIPATION Last administered on 09/20/18 20:59; Admin Dose 100 MG; Start 09/15/18 at 19:00 Magnesium Hydroxide (Milk Of Mag) 30 ml DAILY PRN PO .CONSTIPATION; Start 09/15/18 at 19:00 Lorazepam (Ativan) 0.5 mg Q6H PRN IV ANXIETY Last administered on 09/16/18 22:28; Admin Dose 0.5 MG; Start 09/15/18 at 19:00 Albuterol/ Ipratropium (Duoneb) 3 ml Q4H RESP THERAPY PRN HHN SHORTNESS OF BREATH; Start 09/15/18 at 19:00 Clonidine (Catapres) 0.1 mg Q6H PRN PO ELEVATED BLOOD PRESSURE; Start 09/15/18 at 19:00 Nitroglycerin (Nitroglycerin (Sl Tab) 0.4 Mg) 1 tab Q5M PRN SL ANGINA; Start 09/15/18 at 19:00 Albuterol (Ventolin Hfa) 2 puff Q6H PRN INH WHEEZING AND SOB; Start 09/15/18 at 19:00 Amlodipine Besylate (Norvasc) 10 mg DAILY PO Last administered on 09/21/18 08:19; Admin Dose 10 MG; Start 09/16/18 at 09:00 Aspirin (Halfprin) 81 mg DAILY PO Last administered on 09/21/18 08:18; Admin Dose 81 MG; Start 09/16/18 at 09:00 Ferrous Sulfate (Ferrous Sulfate (Ec)) 325 mg DAILY PO Last administered on 09/21/18 08:17; Admin Dose 325 MG; Start 09/16/18 at 09:00 Furosemide (Lasix) 20 mg DAILY PO Last administered on 09/21/18 08:18; Admin Dose 20 MG; Start 09/16/18 at 09:00 Isosorbide Mononitrate (Imdur) 60 mg DAILY PO Last administered on 09/21/18 08:20; Admin Dose 60 MG; Start 09/16/18 at 09:00 Lisinopril (Zestril) 40 mg DAILY PO Last administered on 09/21/18 08:20; Admin Dose 40 MG; Start 09/16/18 at 09:00 Metoprolol Succinate (Toprol Xl) 12.5 mg DAILY PO Last administered on 09/21/18 08:19; Admin Dose 12.5 MG; Start 09/16/18 at 09:00 Prednisone (Prednisone) 2 mg DAILY PO Last administered on 09/21/18 08:18; Admin Dose 2 MG; Start 09/16/18 at 09:00 Tacrolimus (Prograf) 7 mg DAILY PO Last administered on 09/21/18 08:17; Admin Dose 7 MG; Start 09/16/18 at 09:00 Hydralazine HCl (Apresoline) 75 mg Q8 PO Last administered on 09/21/18 06:24; Admin Dose 75 MG; Start 09/15/18 at 22:00 Atorvastatin Calcium (Lipitor) 10 mg DAILY@21 PO Last administered on 09/20/18 20:44; Admin Dose 10 MG; Start 09/15/18 at 21:00 Pantoprazole (Protonix Tab) 40 mg DAILY@06 PO Last administered on 09/21/18 06:24; Admin Dose 40 MG; Start 09/16/18 at 06:00 Mycophenolate Mofetil (Mycophenolate Mofetil) 500 mg BID PO Last administered on 09/21/18 08:17; Admin Dose 500 MG; Start 09/15/18 at 23:30 Hydralazine HCl (Apresoline) 10 mg Q4H PRN IV SBP GREATER THAN 160; Start 09/16/18 at 13:30 Levothyroxine Sodium (Synthroid) 125 mcg DAILY@06 PO Last administered on 09/21/18 06:24; Admin Dose 125 MCG; Start 09/17/18 at 06:00 Diagnostic Test (Pha) (Accu-Chek) 1 ea 02 XX Last administered on 09/19/18 02:00; Admin Dose 1 EA; Start 09/18/18 at 02:00 Insulin Aspart (Novolog Insulin Pen) NOVOLOG *MODERATE* ALGORITHM WITH MEALS BEDTIME SC Last administered on 09/20/18 20:45; Admin Dose 1 UNIT; Start 09/17/18 at 17:55 Sodium Chloride (Nacl) 2 gm TID PO Last administered on 09/21/18 13:11; Admin Dose 2 GM; Start 09/19/18 at 06:00 Enoxaparin Sodium (Lovenox) 40 mg DAILY SC Last administered on 09/21/18 08:36; Admin Dose 40 MG; Start 09/20/18 at 09:00 Docusate Sodium (Colace) 200 mg BID PRN PO CONSTIPATION; Start 09/19/18 at 11:30 Miscellaneous Information (* Miscellaneous Pharmacy Order) artifical saliva tid prn thir... ONCE XX ; Start 09/19/18 at 11:30 Insulin Aspart (Novolog Insulin Pen) 15 unit WITH MEALS SC Last administered on 09/21/18 13:17; Admin Dose 15 UNIT; Start 09/20/18 at 18:00 Insulin Glargine (Lantus) 50 units QPM SC Last administered on 09/20/18at 20:56; Admin Dose 50 UNITS; Start 09/20/18 at 21:00 Miscellaneous Information 1 ea NOTE XX ; Start 09/20/18 at 12:30 Glucose (Glutose) 15 gm Q15M PRN PO DECREASED GLUCOSE; Start 09/20/18 at 12:30 Glucose (Glutose) 22.5 gm Q15M PRN PO DECREASED GLUCOSE; Start 09/20/18 at 12:30 Dextrose (D50w Syringe) 25 ml Q15M PRN IV DECREASED GLUCOSE; Start 09/20/18 at 12:30 Dextrose (D50w Syringe) 50 ml Q15M PRN IV DECREASED GLUCOSE; Start 09/20/18 at 12:30 Glucagon (Glucagen) 1 mg Q15M PRN IM DECREASED GLUCOSE; Start 09/20/18 at 12:30 Glucose (Glutose) 15 gm Q15M PRN BUCCAL DECREASED GLUCOSE; Start 09/20/18 at 12:30 YAEL REED MD Sep 21, 2018 13:44
[2018-09-21 15:17] VITALS: BP 115/55; PULSE 77; RESP 16
--- NOTE | 2018-09-21 16:18 | PN ---
Date/Time of Note Date/Time of Note DATE: 09/21/18 TIME: 16:17 Assessment/Plan VTE Prophylaxis Risk score (from Ns)>0 risk: 8 SCD applied (from Ns): Yes SCD contraindicated: low risk/ambulating Pharmacological prophylaxis: LMWH Lines/Catheters [facility] [facility] Assessment/Plan Hospital Course A/P 1. Hypertensive urgency, stable adjusting therapy 2. ESRD/renal replacement status, cont immunosuppressive agents 3. Hyponatremia, hypovolemia induced? Subacute. Secondary work-up pending. Started salt tablets. 3% ns prn 4. Hypothyroidism, TSH worse, adjusting therapy 5. Diabetes type 2 6. Anemia possibly of chronic disease S: 09/16 no fever distress. States she is been on her medicines regularly / no distress 09/18: Feels weak uncomfortable. No fever abd issues or cough. 09/19: Alert follows commands no seizure but has fatigue 09/20: Feels a little better. Sodium up to 127 09/21: Intermittent nausea worse today better yesterday. Blood sugar was 88 this morning. O: Vss PE No pallor Regular no mrg Clear benign overweight obese No edema Result Diagram: 09/21/18 0526 09/21/18 05 Results 24hrs Laboratory Tests Test 09/20/18 17:13 09/20/18 20:42 09/21/18 02:16 09/21/18 05:26 Bedside Glucose 288 H 207 105 White Blood Count 6.6 Red Blood Count 3.14 L Hemoglobin 9.2 L Hematocrit 27.6 L Mean Corpuscular 87.9 Volume Mean Corpuscular 29.3 Hemoglobin Mean Corpuscular 33.3 Hemoglobin Concent Red Cell 13.2 Distribution Width Platelet Count 230 Mean Platelet Volume 10.2 Immature 2.100 H Granulocytes % Neutrophils % 67.8 Lymphocytes % 17.4 Monocytes % 10.1 Eosinophils % 2.0 Basophils % 0.6 Nucleated Red Blood 0.0 Cells % Immature 0.140 H Granulocytes # Neutrophils # 4.5 Lymphocytes # 1.2 Monocytes # 0.7 Eosinophils # 0.1 Basophils # 0.0 Nucleated Red Blood 0.0 Cells # Sodium Level 129 L Potassium Level 4.1 Chloride Level 99 Carbon Dioxide Level 23 Anion Gap 7 Blood Urea Nitrogen 12 Creatinine 0.88 Est Glomerular Filtrat Rate mL/min Glucose Level 113 # Calcium Level 9.0 Test 09/21/18 08:03 09/21/18 12:16 Bedside Glucose 88 100 Exam/Review of Systems Exam Vitals Vital Signs Date Temp Pulse Resp B/P (MAP) Pulse Ox O2 O2 Flow FiO2 Time Delivery Rate 09/21/18 97.8 77 16 115/55 99 Room Air 15:17 (75) 09/20/18 2.0 08:00 Intake and Output 09/20/18 09/20/18 09/21/18 1515:00 23:00 07:00 IntakeIntake Total 800 ml BalanceBalance 800 ml Results Results 24hrs Laboratory Tests Test 09/20/18 17:13 09/20/18 20:42 09/21/18 02:16 09/21/18 05:26 Bedside Glucose 288 H 207 105 White Blood Count 6.6 Red Blood Count 3.14 L Hemoglobin 9.2 L Hematocrit 27.6 L Mean Corpuscular 87.9 Volume Mean Corpuscular 29.3 Hemoglobin Mean Corpuscular 33.3 Hemoglobin Concent Red Cell 13.2 Distribution Width Platelet Count 230 Mean Platelet Volume 10.2 Immature 2.100 H Granulocytes % Neutrophils % 67.8 Lymphocytes % 17.4 Monocytes % 10.1 Eosinophils % 2.0 Basophils % 0.6 Nucleated Red Blood 0.0 Cells % Immature 0.140 H Granulocytes # Neutrophils # 4.5 Lymphocytes # 1.2 Monocytes # 0.7 Eosinophils # 0.1 Basophils # 0.0 Nucleated Red Blood 0.0 Cells # Sodium Level 129 L Potassium Level 4.1 Chloride Level 99 Carbon Dioxide Level 23 Anion Gap 7 Blood Urea Nitrogen 12 Creatinine 0.88 Est Glomerular Filtrat Rate mL/min Glucose Level 113 # Calcium Level 9.0 Test 09/21/18 08:03 09/21/18 12:16 Bedside Glucose 88 100 Medications Medication Current Medications IV Flush (NS 3 ml) 3 ml PER PROTOCOL IV ; Start 09/15/18 at 19:00 Ondansetron HCl (Zofran Inj) 4 mg Q6H PRN IV NAUSEA/VOMITING Last administered on 09/20/18at 13:42; Admin Dose 4 MG; Start 09/15/18 at 19:00 Acetaminophen (Tylenol Tab) 650 mg Q6H PRN PO .PAIN 1-3 OR TEMP Last administered on 09/21/18at 05:00; Admin Dose 650 MG; Start 09/15/18 at 19:00 Acetaminophen/ Hydrocodone Bitart ([place] (5/325)) 1 tab Q6H PRN PO .MOD PAIN 4- 6 Last administered on 09/18/18 21:30; Admin Dose 1 TAB; Start 09/15/18 at 19:00 Morphine Sulfate (morphine) 2 mg Q4H PRN IV .SEVERE PAIN 7-10; Start 09/15/18 at 19:00 Docusate Sodium (Colace) 100 mg Q12H PRN PO .CONSTIPATION Last administered on 09/20/18 20:59; Admin Dose 100 MG; Start 09/15/18 at 19:00 Magnesium Hydroxide (Milk Of Mag) 30 ml DAILY PRN PO .CONSTIPATION; Start 09/15/18 at 19:00 Lorazepam (Ativan) 0.5 mg Q6H PRN IV ANXIETY Last administered on 09/16/18 22:28; Admin Dose 0.5 MG; Start 09/15/18 at 19:00 Albuterol/ Ipratropium (Duoneb) 3 ml Q4H RESP THERAPY PRN HHN SHORTNESS OF BREATH; Start 09/15/18 at 19:00 Clonidine (Catapres) 0.1 mg Q6H PRN PO ELEVATED BLOOD PRESSURE; Start 09/15/18 at 19:00 Nitroglycerin (Nitroglycerin (Sl Tab) 0.4 Mg) 1 tab Q5M PRN SL ANGINA; Start 09/15/18 at 19:00 Albuterol (Ventolin Hfa) 2 puff Q6H PRN INH WHEEZING AND SOB; Start 09/15/18 at 19:00 Amlodipine Besylate (Norvasc) 10 mg DAILY PO Last administered on 09/21/18 08:19; Admin Dose 10 MG; Start 09/16/18 at 09:00 Aspirin (Halfprin) 81 mg DAILY PO Last administered on 09/21/18 08:18; Admin Dose 81 MG; Start 09/16/18 at 09:00 Ferrous Sulfate (Ferrous Sulfate (Ec)) 325 mg DAILY PO Last administered on 09/21/18 08:17; Admin Dose 325 MG; Start 09/16/18 at 09:00 Furosemide (Lasix) 20 mg DAILY PO Last administered on 09/21/18 08:18; Admin Dose 20 MG; Start 09/16/18 at 09:00 Isosorbide Mononitrate (Imdur) 60 mg DAILY PO Last administered on 09/21/18 08 :20; Admin Dose 60 MG; Start 09/16/18 at 09:00 Lisinopril (Zestril) 40 mg DAILY PO Last administered on 09/21/18 08:20; Admin Dose 40 MG; Start 09/16/18 at 09:00 Metoprolol Succinate (Toprol Xl) 12.5 mg DAILY PO Last administered on 09/21/18 08:19; Admin Dose 12.5 MG; Start 09/16/18 at 09:00 Prednisone (Prednisone) 2 mg DAILY PO Last administered on 09/21/18 08:18; Admin Dose 2 MG; Start 09/16/18 at 09:00 Tacrolimus (Prograf) 7 mg DAILY PO Last administered on 09/21/18 08:17; Admin Dose 7 MG; Start 09/16/18 at 09:00 Hydralazine HCl (Apresoline) 75 mg Q8 PO Last administered on 09/21/18 14:51; Admin Dose 75 MG; Start 09/15/18 at 22:00 Atorvastatin Calcium (Lipitor) 10 mg DAILY@21 PO Last administered on 09/20/18 20:44; Admin Dose 10 MG; Start 09/15/18 at 21:00 Pantoprazole (Protonix Tab) 40 mg DAILY@06 PO Last administered on 09/21/18 06:24; Admin Dose 40 MG; Start 09/16/18 at 06:00 Mycophenolate Mofetil (Mycophenolate Mofetil) 500 mg BID PO Last administered on 09/21/18 08:17; Admin Dose 500 MG; Start 09/15/18 at 23:30 Hydralazine HCl (Apresoline) 10 mg Q4H PRN IV SBP GREATER THAN 160; Start 09/16/18 at 13:30 Levothyroxine Sodium (Synthroid) 125 mcg DAILY@06 PO Last administered on 09/21/18 06:24; Admin Dose 125 MCG; Start 09/17/18 at 06:00 Diagnostic Test (Pha) (Accu-Chek) 1 ea 02 XX Last administered on 09/19/18 02:00; Admin Dose 1 EA; Start 09/18/18 at 02:00 Insulin Aspart (Novolog Insulin Pen) NOVOLOG *MODERATE* ALGORITHM WITH MEALS BEDTIME SC Last administered on 09/20/18at 20:45; Admin Dose 1 UNIT; Start 09/17/18 at 17:55 Sodium Chloride (Nacl) 2 gm TID PO Last administered on 09/21/18at 13:11; Admin Dose 2 GM; Start 09/19/18 at 06:00 Enoxaparin Sodium (Lovenox) 40 mg DAILY SC Last administered on 09/21/18at 08:36; Admin Dose 40 MG; Start 09/20/18 at 09:00 Docusate Sodium (Colace) 200 mg BID PRN PO CONSTIPATION; Start 09/19/18 at 11:30 Miscellaneous Information (* Miscellaneous Pharmacy Order) artifical saliva tid prn thir... ONCE XX ; Start 09/19/18 at 11:30 Insulin Aspart (Novolog Insulin Pen) 15 unit WITH MEALS SC Last administered on 09/21/18at 13:17; Admin Dose 15 UNIT; Start 09/20/18 at 18:00 Insulin Glargine (Lantus) 50 units QPM SC Last administered on 09/20/18at 20:56; Admin Dose 50 UNITS; Start 09/20/18 at 21:00 Miscellaneous Information 1 ea NOTE XX ; Start 09/20/18 at 12:30 Glucose (Glutose) 15 gm Q15M PRN PO DECREASED GLUCOSE; Start 09/20/18 at 12:30 Glucose (Glutose) 22.5 gm Q15M PRN PO DECREASED GLUCOSE; Start 09/20/18 at 12:30 Dextrose (D50w Syringe) 25 ml Q15M PRN IV DECREASED GLUCOSE; Start 09/20/18 at 12:30 Dextrose (D50w Syringe) 50 ml Q15M PRN IV DECREASED GLUCOSE; Start 09/20/18 at 12:30 Glucagon (Glucagen) 1 mg Q15M PRN IM DECREASED GLUCOSE; Start 09/20/18 at 12:30 Glucose (Glutose) 15 gm Q15M PRN BUCCAL DECREASED GLUCOSE; Start 09/20/18 at 12:30 Ondansetron HCl (Zofran Odt) 4 mg Q6H PRN ODT NAUSEA; Start 09/21/18 at 15:30 NARGIS LEYVA MD Sep 21, 2018 16:18
[2018-09-21] MEDS: ONDANSETRON (ODT) 4 MG TAB ODT PRN (17:55)
[2018-09-21] MEDS: INSULIN GLARGINE [LANTus] (100 UNITS/ML) SYG SC SCH (21:00)
[2018-09-21 21:03] VITALS: BP 154/61; PULSE 75; RESP 16
[2018-09-21] MEDS: ATORVASTATIN 10 MG TAB PO SCH (21:27)
[2018-09-21] MEDS ORDERED: ZOLPIDEM 5 MG TAB PO PRN (22:00)
[2018-09-21] MEDS ORDERED: INSULIN GLARGINE [LANTus] (100 UNITS/ML) SYG SC ONE (23:00)
[2018-09-22 00:05] VITALS: BP 153/67; PULSE 72; RESP 18
[2018-09-22] MEDS: ACCU-CHEK XX SCH (02:00)
[2018-09-22 04:25] VITALS: BP 145/63; PULSE 69; RESP 18
[2018-09-22] MEDS: HYDROCODONE/APAP (5/325) TAB PO PRN ×2 (05:44→21:29)
[2018-09-22] MEDS: PANTOPRAZOLE (EC) 40 MG TAB PO SCH (06:20)
[2018-09-22] MEDS: LEVOTHYROXINE 125 MCG TAB PO SCH (06:20)
[2018-09-22] MEDS: INSULIN ASPART [NOVOLOG] 3 ML PEN SC SCH ×7 (07:32→20:47)
[2018-09-22 07:34] VITALS: BP 132/56; PULSE 70; RESP 18
[2018-09-22] MEDS: FERROUS SULFATE (EC) 325 MG TAB PO SCH (08:21)
[2018-09-22] MEDS: predniSONE 1 MG TAB PO SCH (08:21)
[2018-09-22] MEDS: FUROSEMIDE 20 MG TAB PO SCH (08:21)
[2018-09-22] MEDS: LISINOPRIL 20 MG TAB PO SCH (08:21)
[2018-09-22] MEDS: ASPIRIN (EC) 81 MG TAB PO SCH (08:22)
[2018-09-22] MEDS: METOPROLOL (XL) 25 MG TAB PO SCH (08:22)
[2018-09-22] MEDS: ISOSORBIDE MONONITRATE(SR)60 MG TAB PO SCH (08:22)
[2018-09-22] MEDS: AMLODIPINE 10 MG TAB PO SCH (08:23)
[2018-09-22] MEDS: SODIUM CHLORIDE 1 GM TAB PO SCH ×3 (08:23→20:43)
[2018-09-22] MEDS: MYCOPHENOLATE MOFETIL 500 MG TABLET PO SCH ×2 (08:23→20:43)
[2018-09-22] MEDS: TACROLIMUS 1 MG CAP PO SCH (08:23)
[2018-09-22] MEDS: ENOXAPARIN 40 MG/0.4 ML SYG SC SCH (08:29)
[2018-09-22] MEDS: ONDANSETRON (ODT) 4 MG TAB ODT PRN (08:54)
[2018-09-22 11:41] VITALS: BP 156/67; PULSE 73; RESP 20
--- NOTE | 2018-09-22 12:19 | CONS ---
Assessment/Plan Assessment/Plan Hospital Course (Demo Recall) 1. Hyponatremia, etiology is multifactorial secondary to polydipsia low solute intake, questionable component of syndrome of inappropriate antidiuretic hormone. The patient's sodium levels have been fluctuating, did not respond to IV fluid challenge. The patient was given 3% sodium chloride. Na decreased in the past 24 hours. Continue salt tablets and now generalized Na intake in diet. We will monitor closely. Continue free water restriction. 2. Endstage renal disease, history of renal transplant. The patient has excellent allograft function. Continue current medical management. Continue immunosuppressive regimen. 3. Anemia. Continue to monitor hemoglobin and hematocrit levels. 4. Mineral bone disorder. Monitor calcium and phosphorus levels. 5. Hypertension. Continue current blood pressure regimen. 6. Obesity. Continue dietary modification. 7. Dyslipidemia. Continue statin therapy. 8. Hypothyroidism. Continue Synthroid. Consultation Date/Type/Reason Admit Date/Time Sep 15, 2018 at 18:26 Initial Consult Date Date/Time of Note DATE: 09/22/18 TIME: 12:18 24 HR Interval Summary Free Text/Dictation denies emesis or urinary d/w rn PE gen nad cv rrr pulm ctab abd soft nd nt +bs ext: no edema Exam/Review of Systems Exam Vitals Vital Signs Date Temp Pulse Resp B/P (MAP) Pulse Ox O2 O2 Flow FiO2 Time Delivery Rate 09/22/18 98.1 73 20 156/67 95 11:41 (96) 09/22/18 Room Air 04:25 09/20/18 2.0 08:00 Intake and Output 09/21/18 09/21/18 09/22/18 1515:00 23:00 07:00 IntakeIntake Total 460 ml 100 ml BalanceBalance 460 ml 100 ml Results Result Diagram: 09/22/18 0532 09/22/18 0533 Results 24hrs Laboratory Tests Test 09/21/18 17:19 09/21/18 21:08 09/21/18 22:32 09/21/18 23:32 Bedside Glucose 99 133 142 135 Test 09/22/18 02:17 09/22/18 05:32 09/22/18 05:33 09/22/18 07:32 Bedside Glucose 98 78 White Blood Count 6.9 Red Blood Count 3.17 L Hemoglobin 9.5 L Hematocrit 28.4 L Mean Corpuscular 89.6 Volume Mean Corpuscular 30.0 Hemoglobin Mean Corpuscular 33.5 Hemoglobin Concent Red Cell 13.2 Distribution Width Platelet Count 245 Mean Platelet Volume 9.3 Immature 2.600 H Granulocytes % Neutrophils % 68.1 Lymphocytes % 18.8 Monocytes % 8.2 Eosinophils % 1.7 Basophils % 0.6 Nucleated Red Blood 0.0 Cells % Immature 0.180 H Granulocytes # Neutrophils # 4.7 Lymphocytes # 1.3 Monocytes # 0.6 Eosinophils # 0.1 Basophils # 0.0 Nucleated Red Blood 0.0 Cells # Prothrombin Time 11.5 L Prothrombin Time 0.9 Ratio INR International 0.83 Normalized Ratio Sodium Level 133 L 130 L Potassium Level 4.0 4.1 Chloride Level 101 102 Carbon Dioxide Level 25 22 Anion Gap 7 6 Blood Urea Nitrogen 15 15 Creatinine 1.00 0.92 Est Glomerular Filtrat Rate mL/min Glucose Level 81 78 Calcium Level 9.3 9.2 Magnesium Level 1.7 Total Bilirubin 0.3 Direct Bilirubin 0.00 Indirect Bilirubin 0.3 Aspartate Amino 26 Transf (AST/SGOT) Alanine 32 Aminotransferase (AL T/SGPT) Alkaline Phosphatase 69 Total Protein 5.8 L Albumin 3.3 Globulin 2.50 Albumin/Globulin 1.32 Ratio Lipase 30 Test 09/22/18 11:18 Bedside Glucose 124 Medications Medication Current Medications IV Flush (NS 3 ml) 3 ml PER PROTOCOL IV ; Start 09/15/18 at 19:00 Ondansetron HCl (Zofran Inj) 4 mg Q6H PRN IV NAUSEA/VOMITING Last administered on 09/20/18at 13:42; Admin Dose 4 MG; Start 09/15/18 at 19:00 Acetaminophen (Tylenol Tab) 650 mg Q6H PRN PO .PAIN 1-3 OR TEMP Last adm inistered on 09/21/18at 21:28; Admin Dose 650 MG; Start 09/15/18 at 19:00 Acetaminophen/ Hydrocodone Bitart ([place] (5/325)) 1 tab Q6H PRN PO .MOD PAIN 4- 6 Last administered on 09/22/18at 05:44; Admin Dose 1 TAB; Start 09/15/18 at 19:00 Morphine Sulfate (morphine) 2 mg Q4H PRN IV .SEVERE PAIN 7-10; Start 09/15/18 at 19:00 Docusate Sodium (Colace) 100 mg Q12H PRN PO .CONSTIPATION Last administered on 09/20/18 20:59; Admin Dose 100 MG; Start 09/15/18 at 19:00 Magnesium Hydroxide (Milk Of Mag) 30 ml DAILY PRN PO .CONSTIPATION; Start 09/15/18 at 19:00 Lorazepam (Ativan) 0.5 mg Q6H PRN IV ANXIETY Last administered on 09/16/18 22:28; Admin Dose 0.5 MG; Start 09/15/18 at 19:00 Albuterol/ Ipratropium (Duoneb) 3 ml Q4H RESP THERAPY PRN HHN SHORTNESS OF BREATH; Start 09/15/18 at 19:00 Clonidine (Catapres) 0.1 mg Q6H PRN PO ELEVATED BLOOD PRESSURE; Start 09/15/18 at 19:00 Nitroglycerin (Nitroglycerin (Sl Tab) 0.4 Mg) 1 tab Q5M PRN SL ANGINA; Start 09/15/18 at 19:00 Albuterol (Ventolin Hfa) 2 puff Q6H PRN INH WHEEZING AND SOB; Start 09/15/18 at 19:00 Amlodipine Besylate (Norvasc) 10 mg DAILY PO Last administered on 09/22/18 08:23; Admin Dose 10 MG; Start 09/16/18 at 09:00 Aspirin (Halfprin) 81 mg DAILY PO Last administered on 09/22/18 08:22; Admin Dose 81 MG; Start 09/16/18 at 09:00 Ferrous Sulfate (Ferrous Sulfate (Ec)) 325 mg DAILY PO Last administered on 09/22/18 08:21; Admin Dose 325 MG; Start 09/16/18 at 09:00 Furosemide (Lasix) 20 mg DAILY PO Last administered on 09/22/18 08:21; Admin Dose 20 MG; Start 09/16/18 at 09:00 Isosorbide Mononitrate (Imdur) 60 mg DAILY PO Last administered on 09/22/18 08:22; Admin Dose 60 MG; Start 09/16/18 at 09:00 Lisinopril (Zestril) 40 mg DAILY PO Last administered on 09/22/18 08:21; Admin Dose 40 MG; Start 09/16/18 at 09:00 Metoprolol Succinate (Toprol Xl) 12.5 mg DAILY PO Last administered on 09/22/18 08:22; Admin Dose 12.5 MG; Start 09/16/18 at 09:00 Prednisone (Prednisone) 2 mg DAILY PO Last administered on 09/22/18 08:21; Admin Dose 2 MG; Start 09/16/18 at 09:00 Tacrolimus (Prograf) 7 mg DAILY PO Last administered on 09/22/18 08:23; Admin Dose 7 MG; Start 09/16/18 at 09:00 Hydralazine HCl (Apresoline) 75 mg Q8 PO Last administered on 09/22/18 06:20; Admin Dose 75 MG; Start 09/15/18 at 22:00 Atorvastatin Calcium (Lipitor) 10 mg DAILY@21 PO Last administered on 09/21/18 21:27; Admin Dose 10 MG; Start 09/15/18 at 21:00 Pantoprazole (Protonix Tab) 40 mg DAILY@06 PO Last administered on 09/22/18 06:20; Admin Dose 40 MG; Start 09/16/18 at 06:00 Mycophenolate Mofetil (Mycophenolate Mofetil) 500 mg BID PO Last administered on 09/22/18 08:23; Admin Dose 500 MG; Start 09/15/18 at 23:30 Hydralazine HCl (Apresoline) 10 mg Q4H PRN IV SBP GREATER THAN 160; Start 09/16/18 at 13:30 Levothyroxine Sodium (Synthroid) 125 mcg DAILY@06 PO Last administered on 09/22/18 06:20; Admin Dose 125 MCG; Start 09/17/18 at 06:00 Diagnostic Test (Pha) (Accu-Chek) 1 ea 02 XX Last administered on 09/22/18 02:00; Admin Dose 1 EA; Start 09/18/18 at 02:00 Insulin Aspart (Novolog Insulin Pen) NOVOLOG *MODERATE* ALGORITHM WITH MEALS BEDTIME SC Last administered on 09/20/18 20:45; Admin Dose 1 UNIT; Start 09/17/18 at 17:55 Sodium Chloride (Nacl) 2 gm TID PO Last administered on 09/22/18 08:23; Admin Dose 2 GM; Start 09/19/18 at 06:00 Enoxaparin Sodium (Lovenox) 40 mg DAILY SC Last administered on 09/22/18 08:29; Admin Dose 40 MG; Start 09/20/18 at 09:00 Docusate Sodium (Colace) 200 mg BID PRN PO CONSTIPATION; Start 09/19/18 at 11:30 Miscellaneous Information (* Miscellaneous Pharmacy Order) artifical saliva tid prn thir... ONCE XX ; Start 09/19/18 at 11:30 Insulin Aspart (Novolog Insulin Pen) 15 unit WITH MEALS SC Last administered on 09/22/18at 11:28; Admin Dose 15 UNIT; Start 09/20/18 at 18:00 Insulin Glargine (Lantus) 50 units QPM SC Last administered on 09/20/18at 20:56; Admin Dose 50 UNITS; Start 09/20/18 at 21:00 Miscellaneous Information 1 ea NOTE XX ; Start 09/20/18 at 12:30 Glucose (Glutose) 15 gm Q15M PRN PO DECREASED GLUCOSE; Start 09/20/18 at 12:30 Glucose (Glutose) 22.5 gm Q15M PRN PO DECREASED GLUCOSE; Start 09/20/18 at 12:30 Dextrose (D50w Syringe) 25 ml Q15M PRN IV DECREASED GLUCOSE; Start 09/20/18 at 12:30 Dextrose (D50w Syringe) 50 ml Q15M PRN IV DECREASED GLUCOSE; Start 09/20/18 at 12:30 Glucagon (Glucagen) 1 mg Q15M PRN IM DECREASED GLUCOSE; Start 09/20/18 at 12:30 Glucose (Glutose) 15 gm Q15M PRN BUCCAL DECREASED GLUCOSE; Start 09/20/18 at 12:30 Ondansetron HCl (Zofran Odt) 4 mg Q6H PRN ODT NAUSEA Last administered on 09/22/18at 08:54; Admin Dose 4 MG; Start 09/21/18 at 15:30 Zolpidem Tartrate (Ambien) 5 mg HS PRN PO INSOMNIA Last administered on 09/21/18at 22:34; Admin Dose 5 MG; Start 09/21/18 at 22:00 YAEL REED MD Sep 22, 2018 12:19
[2018-09-22 16:10] VITALS: BP 137/64; PULSE 67; RESP 18
--- NOTE | 2018-09-22 16:37 | PN ---
Date/Time of Note Date/Time of Note DATE: 09/22/18 TIME: 16:36 Assessment/Plan VTE Prophylaxis Risk score (from [facility])>0 risk: 8 SCD applied (from [facility]): No SCD contraindicated: low risk/ambulating Pharmacological prophylaxis: NA/contraindicated, LMWH Pharm contraindication: low risk/ambulating Lines/Catheters IV Catheter Type (from [facility]): [place] Assessment/Plan Hospital Course A/P 1. Hypertensive urgency, stable adjusting therapy 2. ESRD/renal replacement status, cont immunosuppressive agents 3. Hyponatremia, hypovolemia induced? Subacute. Secondary work-up pending. Started salt tablets. 3% ns prn 4. Hypothyroidism, TSH worse, adjusting therapy 5. Diabetes type 2 6. Anemia possibly of chronic disease S: 09/16 no fever distress. States she is been on her medicines regularly /6 no distress 09/18: Feels weak uncomfortable. No fever abd issues or cough. 09/19: Alert follows commands no seizure but has fatigue 09/20: Feels a little better. Sodium up to 127 09/21: Intermittent nausea worse today better yesterday. Blood sugar was 88 this morning. 09/22: feels better. son updated. O: Vss PE No pallor Regular no mrg Clear benign overweight obese No edema Result Diagram: 09/22/18 0532 09/22/18 0533 Results 24hrs Laboratory Tests Test 09/21/18 17:19 09/21/18 21:08 09/21/18 22:32 09/21/18 23:32 Bedside Glucose 99 133 142 135 Test 09/22/18 02:17 09/22/18 05:32 09/22/18 05:33 09/22/18 07:32 Bedside Glucose 98 78 White Blood Count 6.9 Red Blood Count 3.17 L Hemoglobin 9.5 L Hematocrit 28.4 L Mean Corpuscular 89.6 Volume Mean Corpuscular 30.0 Hemoglobin Mean Corpuscular 33.5 Hemoglobin Concent Red Cell 13.2 Distribution Width Platelet Count 245 Mean Platelet Volume 9.3 Immature 2.600 H Granulocytes % Neutrophils % 68.1 Lymphocytes % 18.8 Monocytes % 8.2 Eosinophils % 1.7 Basophils % 0.6 Nucleated Red Blood 0.0 Cells % Immature 0.180 H Granulocytes # Neutrophils # 4.7 Lymphocytes # 1.3 Monocytes # 0.6 Eosinophils # 0.1 Basophils # 0.0 Nucleated Red Blood 0.0 Cells # Prothrombin Time 11.5 L Prothrombin Time 0.9 Ratio INR International 0.83 Normalized Ratio Sodium Level 133 L 130 L Potassium Level 4.0 4.1 Chloride Level 101 102 Carbon Dioxide Level 25 22 Anion Gap 7 6 Blood Urea Nitrogen 15 15 Creatinine 1.00 0.92 Est Glomerular Filtrat Rate mL/min Glucose Level 81 78 Calcium Level 9.3 9.2 Magnesium Level 1.7 Total Bilirubin 0.3 Direct Bilirubin 0.00 Indirect Bilirubin 0.3 Aspartate Amino 26 Transf (AST/SGOT) Alanine 32 Aminotransferase (AL T/SGPT) Alkaline Phosphatase 69 Total Protein 5.8 L Albumin 3.3 Globulin 2.50 Albumin/Globulin 1.32 Ratio Lipase 30 Test 09/22/18 11:18 Bedside Glucose 124 Exam/Review of Systems Exam Vitals Vital Signs Date Temp Pulse Resp B/P (MAP) Pulse Ox O2 O2 Flow FiO2 Time Delivery Rate 09/22/18 98.2 67 18 137/64 99 16:10 (88) 09/22/18 Room Air 04:25 09/20/18 2.0 08:00 Intake and Output 09/21/18 09/21/18 09/22/18 1515:00 23:00 07:00 IntakeIntake Total 460 ml 100 ml BalanceBalance 460 ml 100 ml Results Results 24hrs Laboratory Tests Test 09/21/18 17:19 09/21/18 21:08 09/21/18 22:32 09/21/18 23:32 Bedside Glucose 99 133 142 135 Test 09/22/18 02:17 09/22/18 05:32 09/22/18 05:33 09/22/18 07:32 Bedside Glucose 98 78 White Blood Count 6.9 Red Blood Count 3.17 L Hemoglobin 9.5 L Hematocrit 28.4 L Mean Corpuscular 89.6 Volume Mean Corpuscular 30.0 Hemoglobin Mean Corpuscular 33.5 Hemoglobin Concent Red Cell 13.2 Distribution Width Platelet Count 245 Mean Platelet Volume 9.3 Immature 2.600 H Granulocytes % Neutrophils % 68.1 Lymphocytes % 18.8 Monocytes % 8.2 Eosinophils % 1.7 Basophils % 0.6 Nucleated Red Blood 0.0 Cells % Immature 0.180 H Granulocytes # Neutrophils # 4.7 Lymphocytes # 1.3 Monocytes # 0.6 Eosinophils # 0.1 Basophils # 0.0 Nucleated Red Blood 0.0 Cells # Prothrombin Time 11.5 L Prothrombin Time 0.9 Ratio INR International 0.83 Normalized Ratio Sodium Level 133 L 130 L Potassium Level 4.0 4.1 Chloride Level 101 102 Carbon Dioxide Level 25 22 Anion Gap 7 6 Blood Urea Nitrogen 15 15 Creatinine 1.00 0.92 Est Glomerular Filtrat Rate mL/min Glucose Level 81 78 Calcium Level 9.3 9.2 Magnesium Level 1.7 Total Bilirubin 0.3 Direct Bilirubin 0.00 Indirect Bilirubin 0.3 Aspartate Amino 26 Transf (AST/SGOT) Alanine 32 Aminotransferase (AL T/SGPT) Alkaline Phosphatase 69 Total Protein 5.8 L Albumin 3.3 Globulin 2.50 Albumin/Globulin 1.32 Ratio Lipase 30 Test 09/22/18 11:18 Bedside Glucose 124 Medications Medication Current Medications IV Flush (NS 3 ml) 3 ml PER PROTOCOL IV ; Start 09/15/18 at 19:00 Ondansetron HCl (Zofran Inj) 4 mg Q6H PRN IV NAUSEA/VOMITING Last administered on 09/20/18 13:42; Admin Dose 4 MG; Start 09/15/18 at 19:00 Acetaminophen (Tylenol Tab) 650 mg Q6H PRN PO .PAIN 1-3 OR TEMP Last administered on 09/21/18 21:28; Admin Dose 650 MG; Start 09/15/18 at 19:00 Acetaminophen/ Hydrocodone Bitart ([place] (5/325)) 1 tab Q6H PRN PO .MOD PAIN 4- 6 Last administered on 09/22/18 05:44; Admin Dose 1 TAB; Start 09/15/18 at 19:00 Morphine Sulfate (morphine) 2 mg Q4H PRN IV .SEVERE PAIN 7-10; Start 09/15/18 at 19:00 Docusate Sodium (Colace) 100 mg Q12H PRN PO .CONSTIPATION Last administered on 09/20/18 20:59; Admin Dose 100 MG; Start 09/15/18 at 19:00 Magnesium Hydroxide (Milk Of Mag) 30 ml DAILY PRN PO .CONSTIPATION Last administered on 09/22/18 12:22; Admin Dose 30 ML; Start 09/15/18 at 19:00 Lorazepam (Ativan) 0.5 mg Q6H PRN IV ANXIETY Last administered on 09/16/18 22:28; Admin Dose 0.5 MG; Start 09/15/18 at 19:00 Albuterol/ Ipratropium (Duoneb) 3 ml Q4H RESP THERAPY PRN HHN SHORTNESS OF BREATH; Start 09/15/18 at 19:00 Clonidine (Catapres) 0.1 mg Q6H PRN PO ELEVATED BLOOD PRESSURE; Start 09/15/18 at 19:00 Nitroglycerin (Nitroglycerin (Sl Tab) 0.4 Mg) 1 tab Q5M PRN SL ANGINA; Start 09/15/18 at 19:00 Albuterol (Ventolin Hfa) 2 puff Q6H PRN INH WHEEZING AND SOB; Start 09/15/18 at 19:00 Amlodipine Besylate (Norvasc) 10 mg DAILY PO Last administered on 09/22/18 08:23; Admin Dose 10 MG; Start 09/16/18 at 09:00 Aspirin (Halfprin) 81 mg DAILY PO Last administered on 09/22/18 08:22; Admin Dose 81 MG; Start 09/16/18 at 09:00 Ferrous Sulfate (Ferrous Sulfate (Ec)) 325 mg DAILY PO Last administered on 09/22/18 08:21; Admin Dose 325 MG; Start 09/16/18 at 09:00 Furosemide (Lasix) 20 mg DAILY PO Last administered on 09/22/18 08:21; Admin Dose 20 MG; Start 09/16/18 at 09:00 Isosorbide Mononitrate (Imdur) 60 mg DAILY PO Last administered on 09/22/18 08:22; Admin Dose 60 MG; Start 09/16/18 at 09:00 Lisinopril (Zestril) 40 mg DAILY PO Last administered on 09/22/18 08:21; Admin Dose 40 MG; Start 09/16/18 at 09:00 Metoprolol Succinate (Toprol Xl) 12.5 mg DAILY PO Last administered on 09/22/18 08:22; Admin Dose 12.5 MG; Start 09/16/18 at 09:00 Prednisone (Prednisone) 2 mg DAILY PO Last administered on 09/22/18 08:21; Admin Dose 2 MG; Start 09/16/18 at 09:00 Tacrolimus (Prograf) 7 mg DAILY PO Last administered on 09/22/18 08:23; Admin Dose 7 MG; Start 09/16/18 at 09:00 Hydralazine HCl (Apresoline) 75 mg Q8 PO Last administered on 09/22/18 13:51; Admin Dose 75 MG; Start 09/15/18 at 22:00 Atorvastatin Calcium (Lipitor) 10 mg DAILY@21 PO Last administered on 09/21/18 21:27; Admin Dose 10 MG; Start 09/15/18 at 21:00 Pantoprazole (Protonix Tab) 40 mg DAILY@06 PO Last administered on 09/22/18 06:20; Admin Dose 40 MG; Start 09/16/18 at 06:00 Mycophenolate Mofetil (Mycophenolate Mofetil) 500 mg BID PO Last administered on 09/22/18 08:23; Admin Dose 500 MG; Start 09/15/18 at 23:30 Hydralazine HCl (Apresoline) 10 mg Q4H PRN IV SBP GREATER THAN 160; Start 09/16/18 at 13:30 Levothyroxine Sodium (Synthroid) 125 mcg DAILY@06 PO Last administered on 09/22/18 06:20; Admin Dose 125 MCG; Start 09/17/18 at 06:00 Diagnostic Test (Pha) (Accu-Chek) 1 ea 02 XX Last administered on 09/22/18 02:00; Admin Dose 1 EA; Start 09/18/18 at 02:00 Insulin Aspart (Novolog Insulin Pen) NOVOLOG *MODERATE* ALGORITHM WITH MEALS BEDTIME SC Last administered on 09/20/18 20:45; Admin Dose 1 UNIT; Start 09/17/18 at 17:55 Sodium Chloride (Nacl) 2 gm TID PO Last administered on 09/22/18 12:21; Admin Dose 2 GM; Start 09/19/18 at 06:00 Enoxaparin Sodium (Lovenox) 40 mg DAILY SC Last administered on 09/22/18 08:29; Admin Dose 40 MG; Start 09/20/18 at 09:00 Docusate Sodium (Colace) 200 mg BID PRN PO CONSTIPATION; Start 09/19/18 at 11:30 Miscellaneous Information (* Miscellaneous Pharmacy Order) artifical saliva tid prn thir... ONCE XX ; Start 09/19/18 at 11:30 Insulin Aspart (Novolog Insulin Pen) 15 unit WITH MEALS SC Last administered on 09/22/18at 11:28; Admin Dose 15 UNIT; Start 09/20/18 at 18:00 Insulin Glargine (Lantus) 50 units QPM SC Last administered on 09/20/18at 20:56; Admin Dose 50 UNITS; Start 09/20/18 at 21:00 Miscellaneous Information 1 ea NOTE XX ; Start 09/20/18 at 12:30 Glucose (Glutose) 15 gm Q15M PRN PO DECREASED GLUCOSE; Start 09/20/18 at 12:30 Glucose (Glutose) 22.5 gm Q15M PRN PO DECREASED GLUCOSE; Start 09/20/18 at 12:30 Dextrose (D50w Syringe) 25 ml Q15M PRN IV DECREASED GLUCOSE; Start 09/20/18 at 12:30 Dextrose (D50w Syringe) 50 ml Q15M PRN IV DECREASED GLUCOSE; Start 09/20/18 at 12:30 Glucagon (Glucagen) 1 mg Q15M PRN IM DECREASED GLUCOSE; Start 09/20/18 at 12:30 Glucose (Glutose) 15 gm Q15M PRN BUCCAL DECREASED GLUCOSE; Start 09/20/18 at 12:30 Ondansetron HCl (Zofran Odt) 4 mg Q6H PRN ODT NAUSEA Last administered on 09/22/18at 08:54; Admin Dose 4 MG; Start 09/21/18 at 15:30 Zolpidem Tartrate (Ambien) 5 mg HS PRN PO INSOMNIA Last administered on 09/21/18at 22:34; Admin Dose 5 MG; Start 09/21/18 at 22:00 NARGIS LEYVA MD Sep 22, 2018 16:37
[2018-09-22] MEDS: ATORVASTATIN 10 MG TAB PO SCH (20:43)
[2018-09-22] MEDS ORDERED: INSULIN GLARGINE [LANTus] (100 UNITS/ML) SYG SC SCH (21:00)
[2018-09-22 21:01] VITALS: BP 170/76; PULSE 76; RESP 18
[2018-09-23 00:23] VITALS: BP 164/71; PULSE 71; RESP 18
[2018-09-23] MEDS: ACCU-CHEK XX SCH (02:00)
[2018-09-23 04:10] VITALS: BP 164/71; PULSE 67; RESP 18
[2018-09-23] MEDS: PANTOPRAZOLE (EC) 40 MG TAB PO SCH (06:15)
[2018-09-23] MEDS: LEVOTHYROXINE 125 MCG TAB PO SCH (06:15)
[2018-09-23] MEDS: INSULIN ASPART [NOVOLOG] 3 ML PEN SC SCH ×3 (07:37→11:56)
[2018-09-23 07:46] VITALS: BP 136/67; PULSE 70; RESP 18
[2018-09-23] MEDS: FUROSEMIDE 20 MG TAB PO SCH (08:29)
[2018-09-23] MEDS: TACROLIMUS 1 MG CAP PO SCH (08:29)
[2018-09-23] MEDS: ASPIRIN (EC) 81 MG TAB PO SCH (08:30)
[2018-09-23] MEDS: LISINOPRIL 20 MG TAB PO SCH (08:30)
[2018-09-23] MEDS: predniSONE 1 MG TAB PO SCH (08:30)
[2018-09-23] MEDS: SODIUM CHLORIDE 1 GM TAB PO SCH ×2 (08:30→13:24)
[2018-09-23] MEDS: ISOSORBIDE MONONITRATE(SR)60 MG TAB PO SCH (08:30)
[2018-09-23] MEDS: MYCOPHENOLATE MOFETIL 500 MG TABLET PO SCH (08:30)
[2018-09-23] MEDS: METOPROLOL (XL) 25 MG TAB PO SCH (08:31)
[2018-09-23] MEDS: AMLODIPINE 10 MG TAB PO SCH (08:31)
[2018-09-23] MEDS: ENOXAPARIN 40 MG/0.4 ML SYG SC SCH (08:37)
[2018-09-23 11:26] VITALS: BP 131/62; PULSE 65; RESP 20
[2018-09-23] MEDS ORDERED: INSULIN ASPART [NOVOLOG] 3 ML PEN SC SCH (12:00)
[2018-09-23] MEDS: ONDANSETRON (ODT) 4 MG TAB ODT PRN (13:28)
--- NOTE | 2018-09-23 14:14 | PDOCDIS ---
Discharge Instructions CONDITION [id number] Patient Condition: [id number] Good HOME CARE INSTRUCTIONS: [id number] Special Diet: [id number] Diabetic diet ACTIVITY: [id number] Activity Restrictions: [id number] No Restrictions FOLLOW UP/APPOINTMENTS Follow-up Plan FOLLOW UP WITH YOUR PRIMARY CARE PHYSICIAN IN 1-2 WEEKS ANA LILIA WHITE Sep 23, 2018 14:14
--- NOTE | 2018-09-23 14:20 | DS ---
Date/Time of Note Date/Time of Note DATE: 09/23/18 TIME: 14:15 Discharge Summary Admission/Discharge Info Admit Date/Time Sep 15, 2018 at 18:26 Discharge Date/Time September 23, 2018 Discharge Diagnosis 1. Hypertensive urgency-resolved Continue blood pressure medications 2. ESRD/renal replacement status, cont immunosuppressive agents 3. Hyponatremia-etiology multifactorial Nephrology consultation appreciated DC with salt tablets 4. Hypothyroidism, TSH worse DC with increased dose of Synthroid 5. Diabetes type 2 Continue insulin regimen 6. Anemia secondary to chronic disease Patient Condition: Good Hospital Course Patient is a 73-year-old female past medical history renal transplant, hypertension, diabetes, hypothyroidism, who presents to the ER with weakness and headache symptoms, with signs of hypertensive urgency and hyponatremia. Patient was seen by nephrology for hyponatremia and etiology was felt to be multifactorial secondary to polydipsia low solute intake, questionable component of syndrome of inappropriate antidiuretic hormone. The patient's sodium levels did fluctuate and did not respond to IV fluid challenge. The patient was given 3% sodium chloride and was placed on salt tablets with improvement in sodium. Of note patient's TSH was elevated and home Synthroid dose was increased. Patient was stable for DC, on the day of discharge patient vitals, labs and physical exam are stable. Home Meds Active Scripts Sodium Chloride (Sodium Chloride) 1,000 Mg Tablet.arsen, 2 GM PO TID, #90 TAB Prov:ANA LILIA WHITE 09/23/18 Albuterol Sulfate* (Proair HFA*) 8.5 Gm Hfa.aer.ad, 2 PUFF INH Q6H PRN for WHEEZING AND SOB, #1 INHALER Prov:ROLA ROCKWELL MD 07/30/18 Albuterol Sulfate* (Ventolin HFA*) 18 Gm Hfa.aer.ad, 2 PUFF INHALATION Q6H PRN for SHORTNESS OF BREATH for 30 Days, #1 INHALER Prov:KAYLEY MARTINEZ MD 06/14/18 Hydralazine Hcl* (Apresoline*) 50 Mg Tab, 75 MG PO Q8 for 30 Days, #90 TAB Prov:KAYLEY MARTINEZ MD 06/14/18 Amlodipine Besylate* (Amlodipine Besylate*) 10 Mg Tablet, 10 MG PO DAILY for 30 Days, #30 TAB Prov:KAYLEY MARTINEZ MD 06/14/18 Reported Medications Mycophenolate Mofetil* (Cellcept*) 500 Mg Tablet, 500 MG PO BID, #60 TAB 07/30/18 Lisinopril* (Lisinopril*) 40 Mg Tablet, 40 MG PO DAILY, #30 TAB 04/24/18 Tacrolimus* (Prograf*) 1 Mg Capsule, 7 MG PO DAILY, CAP 04/24/18 Aspirin* (Aspirin* EC) 81 Mg Tablet.dr, 81 MG PO DAILY, TAB 04/24/18 Ferrous Sulfate* (Ferrous Sulfate*) 325 Mg Tabec, 325 MG PO DAILY, TAB 04/24/18 Insulin Human Regular (Novolin-R U-100) 100 Unit/Ml Soln, 14 UNITS SC AC MEALS, EA 04/24/18 Metoprolol Succinate* (Toprol XL*) 25 Mg Tab.sr.24h, 12.5 MG PO DAILY, #30 TAB 04/24/18 Esomeprazole Mag Trihydrate (Nexium) 40 Mg Capsule.dr, 40 MG PO DAILY, #30 CAP 04/24/18 Isosorbide Mononitrate* (Isosorbide Mononitrate*) 60 Mg Tab.er.24h, 60 MG PO DAILY, TAB 04/24/18 Levothyroxine Sodium* (Levothyroxine Sodium*) 88 Mcg Tablet, 88 MCG PO BEFORE BREAKFAST, #30 TAB 04/24/18 Prednisone* (Prednisone*) 1 Mg Tablet, 2 MG PO DAILY, TAB 04/24/18 Insulin Glargine,Hum.rec.anlog (Basaglar Kwikpen U-100) 100 Unit/1 Ml Insuln.pen, 40 UNIT SC QPM, EA 04/24/18 Pravastatin Sodium* (Pravastatin Sodium*) 40 Mg Tablet, 40 MG PO HS, TAB 04/24/18 Furosemide* (Lasix*) 20 Mg Tablet, 20 MG PO DAILY, TAB 04/24/18 Nitroglycerin* (Nitroglycerin* SL) 0.4 Mg Tab.subl, 0.4 MG SL Q5MIN PRN for CHEST PAIN, BOTTLE 04/24/18 Follow-up Plan FOLLOW UP WITH YOUR PRIMARY CARE PHYSICIAN IN 1-2 WEEKS Primary Care Provider Shantelle Pickering MD Time spent on discharge: > 30 minutes ANA LILIA WHITE Sep 23, 2018 14:20
[2018-09-23] MEDS ORDERED: INSULIN GLARGINE [LANTus] (100 UNITS/ML) SYG SC SCH (21:00)
--- NOTE | 2018-09-24 07:06 | PN ---
DATE: 09/23/2018 SUBJECTIVE: The patient is stable. No events overnight. OBJECTIVE: VITAL SIGNS: Blood pressure is 164/71, respiration 18, pule 67, temperature 97.6. HEENT: Head is normocephalic. NECK: Supple. HEART: Regular rate. LUNGS: Show diminished breath sounds at the base. ABDOMEN: Soft, nontender to palpation without rebound or guarding. EXTREMITIES: Negative for clubbing, cyanosis, no edema. DERMATOLOGIC: No rashes. MUSCULOSKELETAL: No joint effusion. NEUROLOGIC: No change in exam. MEDICATIONS: The patient's medications have been reviewed. LABORATORY DATA: Has been reviewed. IMAGING STUDIES: Have been reviewed. ASSESSMENT AND PLAN: 1. Hyponatremia, etiology is multifactorial secondary to polydipsia, low solute intake. Questionabl e component of SIADH. The patient's sodium levels have improved after being given a course of 3% sod ium chloride. At this point, continue current treatment plan. Continue salt tablets. Continue to l imit free water intake. 2. End-stage renal disease with a history of renal transplant. The patient has excellent allograft function. Continue current immunosuppressive regimen and monitor renal function closely. 3. Anemia. Monitor H and H levels. 4. Mineral bone disorder. Monitor calcium and phosphorus levels. 5. Hypertension. Continue current blood pressure regimen. 6. Obesity. Continue dietary modification. 7. Dyslipidemia. Continue statin therapy. 8. Hypothyroidism. Continue Synthroid. Dictated By: PADMINI BENITEZ DO NR/NTS Conf#: [id number] DID#: [id number] CC: KEM LEYVA MD;*EndCC*
[2018-09-27] MEDS ORDERED: FERROUS SULFATE (EC) 325 MG TAB PO SCH (09:00)
== END 2018-09-23 16:15 | disposition home or self-care (01) | DRG 640 ==
LOC: E/R 15:37 → TEL 18:26 → MS1 09-19 02:53 → 6WM 09-19 23:05
PROVIDERS: ADMIT Hospitalist; ATTEND Internal Medicine
DX: E87.1 Hypo-osmolality and hyponatremia (principal); N18.6 End stage renal disease; Z94.0 Kidney transplant status; I12.0 Hypertensive chronic kidney disease with stage 5 chronic kidney disease or end stage renal disease; I16.0 Hypertensive urgency; D63.1 Anemia in chronic kidney disease; E11.65 Type 2 diabetes mellitus with hyperglycemia; E03.9 Hypothyroidism, unspecified; E78.5 Hyperlipidemia, unspecified; E11.22 Type 2 diabetes mellitus with diabetic chronic kidney disease; E66.9 Obesity, unspecified; Z68.38 Body mass index [BMI] 38.0-38.9, adult; Z79.899 Other long term (current) drug therapy; Z79.52 Long term (current) use of systemic steroids; Z79.82 Long term (current) use of aspirin; Z79.4 Long term (current) use of insulin
CPT/HCPCS: 36415; 71045; 76775; 80048; 80053; 80061; 81001; 81003; 82043; 82533; 82962; 83036; 83690; 83735; 83935; 84100; 84155; 84295; 84300; 84439; 84443; 84484; 84560; 85025; 85610; 92526; 92610; 93005; 96361; 96374; 97161; 97167; J0360; J1644; J1650; J1815; J2060; J2405; J7030; J7507; J7512; J7517